=== PATIENT | male | born 1985 | race Caucasian/White ===

== ENCOUNTER → 2024-10-13 | Outpatient (CLI) | payer MEDICARE, MEDICAID, SELFPAY ==
--- NOTE | 2024-10-13 10:30 | XR_ITS ---
Examination: Video esophagram Modified barium swallow Exam date and time: October 13, 2024 1018 hours INDICATIONS: Developmentally delayed patient with difficulty swallowing, history aspiration thin liquids Exam date and time: October 13, 2024 1018 hours TECHNIQUE AND FINDINGS: Patient swallowed barium mixtures including thin barium, pudding barium, cracker barium 95 spot fluoroscopic films of the soft tissue lateral neck obtained with the patient swallowing, fluoroscopy 0.2 minute radiation dose 43.55 milligray Silent aspiration noted with thin barium administration Pharyngeal pooling poor oral control premature transfer noted with the barium Years IMPRESSION: Silent aspiration with administration thin barium
== END | disposition home or self-care (01) ==
LOC: SDIM 10:07
PROVIDERS: PCP Family Medicine; Referring Provider Family Medicine; Visit Provider Family Medicine
DX: R13.14 Dysphagia, pharyngoesophageal phase (principal); R62.50 Unspecified lack of expected normal physiological development in childhood
CPT/HCPCS: 74230; A9270

== ENCOUNTER → 2024-10-14 | Outpatient (CLI) | payer MEDICARE, MEDICAID, SELFPAY ==
--- NOTE | 2024-10-14 11:15 | XR_ITS ---
Examination: PA lateral chest 2 views TECHNIQUE: Upright PA lateral chest 2 views Exam date and time: October 14, 2024 1121 hours INDICATIONS: Difficulty swallowing today, clinical diagnosis aspiration pneumonia. FINDINGS: Bibasilar opacity consistent with pneumonia, also pneumonia in the right middle lobe Suspicious for 3 cm cavitary lesion left lower lobe Normal heart size IMPRESSION: Significant bilateral pneumonia Consider CT chest without contrast follow-up to exclude 3 cm cavitary lesion left lower lobe
== END | disposition home or self-care (01) ==
PROVIDERS: PCP Family Medicine; Referring Provider Family Medicine; Visit Provider Family Medicine
DX: J18.9 Pneumonia, unspecified organism (principal)
CPT/HCPCS: 71046

== ENCOUNTER → 2024-10-14 | Outpatient (CLI) | payer MEDICARE, MEDICAID, SELFPAY ==
[2024-10-14 22:43] LABS: Collection Type, Urine Voided
[2024-10-14 22:55] LABS: Bilirubin,Urine Negative (Negative); Blood,Urine Negative (Negative); Clarity,Urine Clear (Clear/Hazy); Color,Urine Colorless (Lt Yel-Yel); Culture Indicated,Urine Not Indicated; Glucose, Urine Negative (Negative); Ketones,Urine Negative (Negative); Leukocyte Esterase,Urine Negative (Negative); Nitrite,Urine Negative (Negative); Protein,Urine Negative (Neg - Trace); RBC,Urine < 1 /hpf (0-3); Specific Gravity,Urine 1.008 (1.001-1.035); Squamous Epithelial Cell,Urine < 1 /hpf (0-5); Urobilinogen,Urine Negative mg/dL (0.0-1.0); WBC,Urine 1 /hpf (0-5)
== END | disposition home or self-care (01) ==
PROVIDERS: PCP Family Medicine; Referring Provider Family Medicine; Visit Provider Family Medicine
DX: J15.8 Pneumonia due to other specified bacteria (principal)
CPT/HCPCS: 81001; 87081

== ENCOUNTER → 2024-10-18 | Outpatient (CLI) | payer MEDICARE, MEDICAID, SELFPAY | END | disposition home or self-care (01) | LOC: SLDO 14:25 | PROVIDERS: PCP Family Medicine; Referring Provider Family Medicine; Visit Provider Family Medicine | DX: J15.8 Pneumonia due to other specified bacteria (principal) | CPT/HCPCS: 87077; 87186; 87205 ==

== ENCOUNTER 2024-12-02 17:53 | Inpatient (IN) | payer MEDICARE, MEDICAID, SELFPAY ==
[2024-12-02 18:08] VITALS: BP 132/75; PULSE 93; RESP 24; TEMP 37.1
--- NOTE | 2024-12-02 18:12 | PD.EDADULT ---
ED General RME/HPI General Chief complaint: Shortness of Breath/Dyspnea Stated complaint: SOB Time Seen by Provider: 12/02/24 18:42 Arrival date/time: 12/02/24 17:53 Mode of arrival: EMS Limitations: no limitations RME / HPI RME / HPI narrative: Dr. Rios's Main ED Evaluation: 39yo male with a history of frequent episodes of aspiration pneumonia BIBA from [facility] presents to the ED for a chief complaint of possible aspiration. Patient was found to be saturating at 75% on room air. Patient was placed on 2L and went up to 96%. Family states the patient frequently has episodes of increased phlegm, which causes him to have aspiration pneumonia. They deny any recent fevers or vomiting. -Past medical history includes bipolar disorder, hearing loss, overweight, hyperlipidemia, obstructive sleep apnea, dermatitis, acne, nail dystrophy, back pain, nocturnal enuresis, history of COVID-19 history of honey thick liquids only, thyroid disease -alf records show that he had a sputum culture collected and reported on 11/21/24 that showed Klebsiella pneumonia sensitive to Augmentin, Zosyn, cefepime, ceftazidime, ceftriaxone, any pending, levofloxacin, meropenem, piperacillin tazobactam, and Bactrim - History obtained from the family and the medical record skilled nursing. Related Data Home Medications ?Medication ?Instructions ?Recorded ?Confirmed acetaminophen 325 mg tablet 650 mg PO Q6H PRN Fever Or Pain 03/04/24 04/29/24 albuterol sulfate 90 mcg/actuation 2 puff inhalation Q4H PRN Wheezing 03/04/24 04/29/24 aerosol inhaler aspirin 81 mg capsule 81 mg PO QDAY 03/04/24 04/29/24 chlorpromazine 100 mg tablet 100 mg PO BID 03/04/24 04/29/24 clozapine 200 mg tablet 175 mg PO BID 03/04/24 04/29/24 guanfacine 1 mg tablet 1 mg PO BID 03/04/24 04/29/24 guanfacine 2 mg tablet,extended 2 mg PO QDAY 03/04/24 04/29/24 release 24 hr lithium carbonate 300 mg 1,050 mg PO QDAY 03/04/24 04/29/24 tablet,extended release mirtazapine 15 mg tablet 15 mg PO BID 03/04/24 04/29/24 multivitamin with iron-mineral 1 tab PO QDAY 03/04/24 04/29/24 valproic acid (as sodium salt) 250 750 mg PO BID 03/04/24 04/29/24 mg/5 mL oral solution amantadine HCl 100 mg capsule 100 mg PO BID 04/29/24 04/29/24 Allergies Allergy/AdvReac Type Severity Reaction Status Date / Time vancomycin Allergy Unknown Verified 04/29/24 12:34 Review of Systems Review of Systems Systems Reviewed: All systems reviewed, normal except as documented Past Medical History Past Medical History NEUROLOGIC: Positive Neurological Disorders (Developmental delay); Negative Seizures CARDIAC: Positive Cardiac Disorders, Peripheral Vascular Disease (Thromboangiitis obliterans), Hypercholesterolemia, Edema (LLE) and Cellulitis (LLE); Negative Congestive Heart Failure RESPIRATORY: Positive Asthma (cpap at night), Pneumonia (Aspiriation PNA in the past) and Sleep Apnea (Uses CPAP); Negative Chronic Obstructive Pulmonary Disease (COPD) GASTROINTESTINAL: Positive Gastrointestinal Disorders (dysphagia pharyngeal esophageal phase, Dysphagia) GENITOURINARY: Negative Renal Disease MUSCULOSKELETAL: Positive Musculoskeletal Disorders and Degenerative Disk Disease ENT: Positive Deafness ENDOCRINE: Negative Endocrine Disorders, Diabetes Mellitus Type 1 or Diabetes Mellitus Type 2 HEMATOLOGIC: Positive Blood Disorders (Thromocytosis); Negative Sickle Cell Disease PSYCHO/SOCIAL: Positive Psychiatric Problems, Bipolar Disorder, Anxiety and Behavior Problems OTHER HISTORY: Negative Anesthesia Reactions Social History SMOKING STATUS: Current every day smoker ED Exam General Limitations: Present no limitations General appearance: Present alert and in no apparent distress Head Head exam: Present atraumatic Eye Eye exam: Present normal appearance, PERRL and EOMI ENT ENT exam: Present normal exam, normal oropharynx and mucous membranes moist Neck Neck exam: Present normal inspection, full ROM and trachea midline Chest Chest inspection: Present normal inspection and symmetric chest wall rise Respiratory Respiratory exam: Present other (decreased air movement bilaterally; rales bilaterally; no rhonchi) Cardiovascular Cardiovascular exam: Present regular rate, normal rhythm and normal heart sounds Abdominal Exam Abdominal exam: Present soft Extremities Exam Extremities exam: Present normal inspection and full ROM; Absent pedal edema Back Exam Back exam: Present normal inspection and full ROM Neurological Exam Neurological exam: Present alert, oriented X3 and CN II-XII intact Psychiatric Psychiatric exam: Present normal affect and normal mood Skin Skin exam: Present warm, dry, intact and normal color; Absent rash or diaphoresis Course Course Course Narrative: 1943: Sepsis alert initiated. Orders made at this time are congruent with ED Adult Sepsis Order List. Re-evaluation is to be completed. CXR is ordered for determining the etiology of sepsis. 2045: NS IVF started. Patient is still receiving IVF at the time he was admitted. Quality Measures Possible source: pulmonary Blood cultures ordered: yes Antibiotic ordered: Yes Pertinent labs: 12/02/24 20:06 Lactic Acid 1.8 mMol/L (0.4-2.0) Procalcitonin 1.73 H ng/ml (0.0-0.49) sepsis Orders Category Date Time Status Bedside COVID-19 Antigen Test NOW Care 12/02/24 21:53 Active Tag Press Operator STAT Care 12/02/24 19:47 Active Continuous Pulse Oximetry STAT Care 12/02/24 19:47 Completed EKG (ED ONLY) *Do not use* NOW Care 12/02/24 19:47 Completed EKG (ED ONLY) *Do not use* NOW Care 12/02/24 22:01 Active In and Out Catheter X1PRN Care 12/02/24 19:47 Active Insert IV NOW Care 12/02/24 19:47 Active NPO STAT Care 12/02/24 19:47 Active Strict Intake and Output Routine Care 12/02/24 19:47 Ordered Swallow Evaluation NEEDED Care 12/02/24 22:02 Active EKG (ED Only) Stat Exams 12/02/24 19:47 Draft EKG (ED Only) Stat Exams 12/02/24 22:01 Draft XR chest 1V SEPSIS PROTOCOL Stat Exams 12/02/24 19:48 Completed B-Type Natriuretic Peptide Stat Lab 12/02/24 20:06 Completed Blood Culture (Lab) Stat Lab 12/02/24 20:00 Received CBC Stat Lab 12/02/24 20:06 Completed Comprehensive Metabolic Panel Stat Lab 12/02/24 20:06 Completed LDH (Lactate Dehydrogenase) Stat Lab 12/02/24 20:06 Completed Lactate (Lactic Acid) Stat Lab 12/02/24 20:06 Completed Lipase Stat Lab 12/02/24 20:06 Completed Magnesium Stat Lab 12/02/24 20:06 Completed Partial Thromboplastin Time Stat Lab 12/02/24 20:06 Completed Phosphorous Stat Lab 12/02/24 20:06 Completed Procalcitonin Stat Lab 12/02/24 20:06 Completed Prothrombin Time with INR Stat Lab 12/02/24 20:06 Completed Troponin I Stat Lab 12/02/24 20:06 Completed Urinalysis Stat Lab 12/02/24 20:40 Completed Urine Culture Stat Lab 12/02/24 20:40 Received Albuterol/Ipratr Rt Nayana [Duoneb Rt Nayana] Med 12/02/24 21:37 Discontinued 3 ml INH X1 ONE Ondansetron Inj [Zofran Inj] Med 12/02/24 19:47 Active 4 mg IV Q6HR PRN Piper/Tazo 3.375 gm Premix [Zosyn] Med 12/02/24 19:47 Discontinued 3.375 gm in 50 ml IV X1 Sodium Chloride 0.9% 1000 ml [Ns] 1,638 ml Med 12/02/24 19:47 Discontinued IV 1,638 mls/hr Oxygen Delivery NOW RT 12/02/24 19:47 Active Vital Signs Vital signs: Vital Signs Temperature 98.8 F 12/02/24 18:08 Pulse Rate 93 12/02/24 18:08 Respiratory Rate 24 H 12/02/24 18:08 Blood Pressure 132/75 H 12/02/24 18:08 [facility] Patient data External records reviewed:: [facility] previous records (Per chart review, patient was seen here on 02/28/24 for cellulitis of the left leg.) Clinical information provided by:: patient Social determinants that could affect healthcare access:: none Patient has the following chronic illnesses:: none How is presenting disease/condition affected by chronic disease/condition?: no chronic disease Evaluation data The following diagnostics were reviewed and interpreted by me:: lab results, radiology exam(s) and EKG tracing(s) Lab and/or radiology exams considered but not ordered:: none Interpretation Summary: CBC is normal, PT and INR are normal, PTT is normal, Lactic Acid is normal, BNP is normal, Troponin is normal, Procalcitonin is 1.73, UA is unremarkable, according to my interpretation. EKG done at 2031, NSR, rate of 82, normal intervals, normal axis, no acute ST or T wave changes, no STEMI, QTc: 448, according to my interpretation. [place] [facility] Report Signed Patient: JADA HIDALGO [facility] Record#: [id number] Birthdate: 1985 Age/Sex: 39 / M Location: [facility] Attending Dr: Ordering Physician: Elodia Davila MD Date of Service: 12/02/24 Procedure(s): XR chest 1V SEPSIS PROTOCOL Accession Number(s): [id number] cc: Maikel Arcos MD; Elodia Davila MD~ Examination: AP chest single view Technique one AP portable upright chest single view Exam date and time: December 02, 2024 1955 hrs. Comparison October 14, 2024 Indications: Sepsis Findings: Bilateral perihilar bibasilar pneumonia Normal heart size The osseous structures are intact Impression: Bilateral perihilar basilar pneumonia Dictated By: Maikel Arcos MD Signed By: <Electronically signed by Maikel Arcos MD in OV> 12/02/242019 Medications Medications considered but not ordered:: none Medication administrations:: Medication Administration History Acetaminophen (Acetaminophen 325 Mg Tablet) 650 mg PO Q6H PRN PRN Reason: Fever >101.5 Stop: 01/01/25 22:06 Chlorpromazine HCl (Chlorpromazine 10 Mg Tablet) 100 mg PO BID KEVIN Stop: 01/02/25 08:59 Clozapine (Clozapine 50 Mg Tablet) 175 mg PO BID KEVIN Stop: 01/02/25 08:59 Enoxaparin Sodium (Enoxaparin Sod Inj 40 Mg/0.4 Ml Syringe) 40 mg SC QDAY KEVIN Stop: 12/17/24 08:59 Sodium Chloride (Ns) 1,000 mls @ 75 mls/hr IV .[id number] KEVIN Stop: 01/01/25 22:14 Last Admin: 12/02/24 22:31 Dose: 75 mls/hr Documented By: LB Piperacillin/Tazobactam/Dextrose (Zosyn) 50 mls @ 100 mls/hr IV Q8HR KEVIN Stop: 12/09/24 22:08 Levothyroxine Sodium (Levothyroxine Sodium 25 Mcg Tablet) 50 mcg PO ACBR KEVIN Stop: 01/02/25 05:59 [place] Carbonate ([place] Carb 150 Mg Capsule) 300 mg PO TID KEVIN Stop: 01/02/25 05:59 Mirtazapine (Mirtazapine 15 Mg Tablet) 15 mg PO BID KEVIN Stop: 01/02/25 08:59 Ondansetron HCl (Ondansetron Inj 2 Mg/Ml Inj 2 Ml) 4 mg IV Q6HR PRN PRN Reason: NAUSEA OR VOMITING Stop: 01/01/25 19:46 Last Admin: 12/02/24 20:46 Dose: 4 mg Documented By: DMITRIY Valproic Acid (Valproic Acid Syrup 250 Mg/5 Ml Udc) 500 mg PO BID KEVIN Stop: 01/02/25 08:59 Discontinued Medications Albuterol/Ipratropium (Albuterol/Ipratropium (Duoneb) Rt Nayana 3 Ml Nebu) 3 ml INH X1 ONE Stop: 12/02/24 21:38 Last Admin: 12/02/24 21:48 Dose: 3 ml Documented By: FELECIA Sodium Chloride (Ns) 1,638 mls @ 1,638 mls/hr 30 ml/kg infuse over 60 min (1638 ml) IV .Q1H ONE Stop: 12/02/24 20:46 Last Infusion: 12/02/24 21:46 Dose: Infused Documented By: Admin: 12/02/24 20:46 Dose: 1,638 mls/hr Documented By: DMITRIY Piperacillin/Tazobactam/Dextrose (Zosyn) 3.375 gm in 50 mls @ 100 mls/hr IV X1 ONE Stop: 12/02/24 20:16 Last Infusion: 12/02/24 21:18 Dose: Infused Documented By: Admin: 12/02/24 20:48 Dose: 100 mls/hr Documented By: DMITRIY see above Consultations Consultation(s) initiated? (list below): Yes Consultation #1 (Physician, Specialty, Details): Discussed case with Dr. Wilson from Hospitalist service regarding admission. Discussed patients ED course, exam findings, labs, and radiology results. The Hospitalist [agrees] to accept the patient for admission. Time: 21:48 Diagnosis Differential Diagnosis ED Complaint MDM: aspiration pneumonia, pneumonia, viral syndrome Most likely diagnosis given after review of the tests above:: see clinical impression below Admission Indicated Admission indicated?: indicated Explain why admission is indicated or not indicated:: Admission criteria met. Admission Request Was there a request for admission?: Yes Admission Attestation Admission request attestation: Discussed case with [] from Hospitalist service regarding admission. Discussed patients ED course, exam findings, labs, and radiology results. The Hospitalist [agrees,declines] to accept the patient for admission. Disposition Plan Disposition Plan: Admit Medical Decision Making MDM Narrative MDM Narrative: Scribe Attestation: 12/02/24 - Danielle Fitzpatrick, am scribing for and in the presence of Dr. Rios. Differential diagnosis includes aspiration pneumonia, pneumonia, viral syndrome, sepsis Vitals notable for tachypnea, borderline hypoxia. Overall mildly ill-appearing. Presented with possible aspiration and cough. Coarse breath sounds present on the bilateral at the bases. CXR concerning for pneumonia. Comorbidities and high risk features include history of aspiration pneumonia. Given their presentation, history, and exam I think they will benefit from IV antibiotics and inpatient admission. Drawing cultures as well. Patient did not meet SIRS criteria however sepsis with call the emergency department for an unclear etiology but probably secondary to his history of previous aspiration pneumonia. Review of the labs show that his white count is normal at 9.3 with slightly elevated procalcitonin at 1.733. Otherwise lactic acid is normal. Patient is treated with IV antibiotics, IV fluids, and chest x-ray is consistent with pneumonia. Currently stable 92% on room air nasal cannula.At this point I think more malignant etiologies such as PE, ACS, CHF are all possibilities although it seems more likely to be isolated pneumonia. Discussed admission with hospitalist and they agree with the plan. The plan was also discussed with the patient. Differential Diagnosis Differential Diagnosis: aspiration pneumonia, pneumonia, viral syndrome Lab Data 12/02/24 20:06 12/02/24 20:06 Labs: Lab Results 12/02/24 12/02/24 Range/Units 20:06 20:40 WBC 9.3 (3.8-10.6) Thou/mm3 RBC 4.32 L (4.50-5.90) Miln/mm3 Hgb 11.9 L (13.5-16.0) g/dL Hct 36.5 L (41.0-53.0) % MCV 85 (80-100) fL MCH 27.5 (25.0-35.0) pg MCHC 32.6 (31.0-37.0) g/dl RDW Std Deviation 42.3 (35.1-43.9) fL Plt Count 409 (140-440) Thou/mm3 Neut % (Auto) 86 H (37-80) % Lymph % (Auto) 7 L (10-50) % [place] % (Auto) 5 (0-12) % Eos % (Auto) 1 (0-10) % Baso % (Auto) 0 (0-2.5) % Neut # (Auto) 8.0 H (1.8-7.7) Thou/mm3 Lymph # (Auto) 0.6 L (1.0-4.8) Thou/mm3 [place] # (Auto) 0.4 (0.0-0.8) Thou/mm3 Eos # (Auto) 0.1 (0.0-0.5) Thou/mm3 Baso # (Auto) 0.0 (0.0-0.2) Thou/mm3 Immature Gran # (Auto) 0.03 H (0.00-0.00) Thou/mm3 Absolute Nucleated RBC 0.00 (0.00-0.00) Thou/mm3 Immature Gran % 0 (0-0) % Nucleated RBC % 0 (0) /100 WBC PT 11.8 (9.0-12.2) Seconds INR 1.1 (0.9-1.3) APTT 23.1 (22.0-36.0) Seconds Sodium 141 (136-145) mMol/L Potassium 4.2 (3.4-5.1) mMol/L Chloride 106 (98-107) mMol/L Carbon Dioxide 27.0 (20.0-31.0) mMol/L Anion Gap 8 (7-16) BUN 12 (9-23) mg/dL Creatinine 0.9 (0.6-1.3) mg/dL Estim Creat Clear Calc 85.9 (>60) mL/min eGFR > 60 (60 - ) See Note BUN/Creatinine Ratio 13 (12-20) Ratio Glucose 135 H (74-106) mg/dL Calculated Osmolality 282 (275-295) Lactic Acid 1.8 (0.4-2.0) mMol/L Calcium 9.6 (8.3-10.6) mg/dL Corrected Calcium 9.6 (8.5-10.1) mg/dL Phosphorus 2.4 (2.4-5.1) mg/dL Magnesium 1.9 (1.6-2.6) mg/dL Total Bilirubin 0.3 (0.3-1.2) mg/dL AST 42 H (0-34) U/L ALT 45 (10-49) U/L Alkaline Phosphatase 121 H (46-116) U/L Lactate Dehydrogenase 198 (120-246) U/L Troponin I < 0.020 (0.0-0.045) ng/mL B-Natriuretic Peptide < 20 (0-100) pg/mL Total Protein 6.7 (5.7-8.2) gm/dL Albumin 4.1 (3.5-5.0) gm/dL Globulin 2.6 (2.3-3.5) gm/dL Albumin/Globulin Ratio 1.6 (1.2-2.2) Lipase 25 (12-53) U/L Procalcitonin 1.73 H (0.0-0.49) ng/ml Ur Collection Type Clean Catch Urine Color Lt-Yellow (Lt Yel-Yel) Urine Clarity Clear (Clear/Hazy) Urine pH 8.0 H (5.0-7.0) Ur Specific [place] 1.008 (1.001-1.035) Urine Protein Negative (Neg - Trace) Urine Glucose (UA) Negative (Negative) Urine Ketones Negative (Negative) Urine Blood Negative (Negative) Urine Nitrite Negative (Negative) Urine Bilirubin Negative (Negative) Urine Urobilinogen (Auto) Negative (0.0-1.0) mg/dL Ur Leukocyte Esterase Negative (Negative) Urine RBC < 1 (0-3) /hpf Urine WBC < 1 (0-5) /hpf Ur Squamous Epith Cells 0 (0-5) /hpf Urine Bacteria None (None) Critical Care Time Critical Care Time Critical Care Time: Yes Total Critical Care Time (min.): 40 Attestation: The high probability of sudden, clinically significant deterioration in the patient?s condition required the highest level of my preparedness to intervene urgently. The services I provided to this patient were to treat and/or prevent clinically significant deterioration. Services included the following: chart data review, reviewing nursing notes and/or old charts, documentation time, talent consultant collaboration regarding findings and treatment options, medication orders and management, direct patient care, vital sign assessments and ordering, interpreting and reviewing diagnostic studies and lab tests. Aggregate critical care time includes only time during which I was engaged in work directly related to the patient?s care, as described above, whether at bedside or elsewhere in the Emergency Department. It did not include time spent performing other reported procedures or the services of residents, students, nurses or physician assistants. Discharge Plan Plan Patient Disposition: Admit Acute Care w/in Hospital Disposition Comment: Admitted to Dr. Wilson Patient condition on transfer: Stable Problem List Clinical Impression: Aspiration pneumonia
[2024-12-02 19:23] VITALS: BP 104/65; PULSE 90; PULSE 95; RESP 18; RESP 20; TEMP 37.7; O2SAT 92; O2SAT 95; BMI 24.1
--- NOTE | 2024-12-02 19:47 | EKG_ITS ---
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
--- NOTE | 2024-12-02 19:48 | XR_ITS ---
Examination: AP chest single view Technique one AP portable upright chest single view Exam date and time: December 02, 20241954 hrs. Comparison October 14, 2024 Indications: Sepsis Findings: Bilateral perihilar bibasilar pneumonia Normal heart size The osseous structures are intact Impression: Bilateral perihilar basilar pneumonia
[2024-12-02 20:00] VITALS: BP 107/71; PULSE 72; RESP 22; O2SAT 98
[2024-12-02 20:17] LABS: Lactate (Lactic Acid) 1.8 mMol/L (0.4-2.0)
[2024-12-02 20:19] LABS: Basophils % (Auto) 0 % (0-2.5); Eosinophils # (Auto) 0.1 Thou/mm3 (0.0-0.5); Eosinophils % (Auto) 1 % (0-10); Hematocrit 36.5 % (41.0-53.0); Hemoglobin 11.9 g/dL (13.5-16.0); Immature Granulocytes % (Auto) 0 % (0-0); Immature Granulocytes Auto 0.03 Thou/mm3 (0.00-0.00); Lymphocytes # (Auto) 0.6 Thou/mm3 (1.0-4.8); Lymphocytes % (Auto) 7 % (10-50); Mean Corpuscular HGB Conc 32.6 g/dl (31.0-37.0); Mean Corpuscular Hemoglobin 27.5 pg (25.0-35.0); Mean Corpuscular Volume 85 fL (80-100); Monocytes # (Auto) 0.4 Thou/mm3 (0.0-0.8); Monocytes % (Auto) 5 % (0-12); Neutrophils % (Auto) 86 % (37-80); Nucleated Red Blood Cell % 0 /100 WBC (0); Platelet Count 409 Thou/mm3 (140-440); RDW Standard Deviation 42.3 fL (35.1-43.9); Red Blood Count 4.32 Miln/mm3 (4.50-5.90); White Blood Count 9.3 Thou/mm3 (3.8-10.6)
[2024-12-02 20:34] LABS: INR 1.1 (0.9-1.3); Partial Thromboplastin Time 23.1 Seconds (22.0-36.0); Prothrombin Time 11.8 Seconds (9.0-12.2)
[2024-12-02 20:37] LABS: B-Type Natriuretic Peptide < 20 pg/mL (0-100)
[2024-12-02] MEDS: ONDANSETRON INJ 2 MG/ML INJ 2 ML 4 MG IV (20:46)
[2024-12-02] MEDS: SODIUM CHLORIDE 0.9% 1000 ML 1,638 ML 1638 ML IV (20:46)
[2024-12-02] MEDS: PIPER/TAZO 3.375 GM PREMIX 3.375 GM/50 ML BAG IV (20:48)
[2024-12-02 21:00] VITALS: BP 110/60; PULSE 80; RESP 20; RESP 91; O2SAT 98
[2024-12-02 21:00] LABS: Alanine Aminotransferase 45 U/L (10-49); Albumin, Serum 4.1 gm/dL (3.5-5.0); Albumin/Globulin Ratio 1.6 (1.2-2.2); Alkaline Phosphatase 121 U/L (46-116); Anion Gap 8 (7-16); Aspartate Amino Transferase 42 U/L (0-34); BUN/Creatinine Ratio 13 Ratio (12-20); Bilirubin,Total 0.3 mg/dL (0.3-1.2); Blood Urea Nitrogen 12 mg/dL (9-23); Calcium 9.6 mg/dL (8.3-10.6); Calcium (Corrected) 9.6 mg/dL (8.5-10.1); Chloride 106 mMol/L (98-107); Creatinine (Component) 0.9 mg/dL (0.6-1.3); Estimated Creatinine Clearance 85.9 mL/min (>60); Globulin 2.6 gm/dL (2.3-3.5); Glucose 135 mg/dL (74-106); Lipase 25 U/L (12-53); Magnesium 1.9 mg/dL (1.6-2.6); Osmolality,Calculated 282 (275-295); Phosphorous 2.4 mg/dL (2.4-5.1); Potassium 4.2 mMol/L (3.4-5.1); Procalcitonin 1.73 ng/ml (0.0-0.49); Sodium 141 mMol/L (136-145); Total Protein 6.7 gm/dL (5.7-8.2); Troponin I < 0.020 ng/mL (0.0-0.045); eGFR > 60 See Note
[2024-12-02 21:11] LABS: LDH (Lactate Dehydrogenase) 198 U/L (120-246)
[2024-12-02 21:20] LABS: Collection Type, Urine Clean Catch; Squamous Epithelial Cell,Urine 0 /hpf (0-5)
[2024-12-02 21:31] LABS: Bilirubin,Urine Negative (Negative); Blood,Urine Negative (Negative); Clarity,Urine Clear (Clear/Hazy); Color,Urine Lt-Yellow (Lt Yel-Yel); Glucose, Urine Negative (Negative); Ketones,Urine Negative (Negative); Leukocyte Esterase,Urine Negative (Negative); Nitrite,Urine Negative (Negative); Protein,Urine Negative (Neg - Trace); RBC,Urine < 1 /hpf (0-3); Specific Gravity,Urine 1.008 (1.001-1.035); Urobilinogen,Urine Negative mg/dL (0.0-1.0); WBC,Urine < 1 /hpf (0-5)
[2024-12-02 21:48] VITALS: PULSE 78; PULSE 80; RESP 20; O2SAT 96; O2SAT 99
[2024-12-02] MEDS: ALBUTEROL/IPRATROPIUM (Duoneb) RT SOL 3 ML NEBU INH (21:48)
--- NOTE | 2024-12-02 22:01 | EKG_ITS ---
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
--- NOTE | 2024-12-02 22:02 | PD.EVENT ---
Documentation for date of: 12/02/24 Event Note Event Note: A 39-year-old male presented to the ER with the chief complaint of possible aspiration with associated shortness of breath, fever, and chills. Per staff from his residential facility, the patient had been recently treated with doxycycline for pneumonia. On the day of presentation, he attended a hearing aid appointment, returned to the unit, and developed acute chills and shaking, appearing to have a seizure. He was noted to be febrile with SpO2 in the low 80s on room air. He was placed on oxygen, which improved his saturation. Staff reported a history of chronic coughing and frequent aspiration events. He has had recurrent aspiration pneumonias, most recently in September, with another admission to their facility?s hospital wing in October for COVID and pneumonia. Patient denied awareness of reason for hospital visit. Due to above mention, he was brought to ER. The patient has a history of bipolar disorder, anxiety with aggression, developmental delay, sensorineural hearing loss, thromboangiitis obliterans, dysphagia (pharyngeal and esophageal phase), active smoker, hyperlipidemia, and JACQUELINE. Social history includes active smoking (though reportedly abstinent for over a month), no alcohol use. He is ambulatory with assistance and requires supervision during meals. He is on honey-thick liquids and a ground diet. In the ER, vital signs recorded as temp 98.8 ?F, HR 93 bpm, RR 24, BP 132/75 mmHg. Lab revealed WBC 9.3, Hb 11.9, Plt 409, Na 141, K 4.2, BUN 12, Cr 0.9, Glucose 135, Procalcitonin 1.73. CXR demonstrated bilateral perihilar basilar pneumonia. He was admitted for further management.
--- NOTE | 2024-12-02 22:25 | XR_ITS ---
Examination: Venous duplex lower extremity sonogram, bilateral. Date and time of exam: December 02, 2024 10:58 PM Indications: Bilateral leg pain and swelling this week Technique: Multiple sonographic images of the deep venous system have been obtained. B-mode/2-D grayscale imaging of vascular structures and Doppler spectral analysis (waveforms) and color performed Both legs are examined. Findings: Deep venous systems do not demonstrate abnormal echogenicity. All visualized deep veins exhibit compressibility. All visualized deep veins exhibit augmentation. Impression: Negative for deep vein thrombosis
[2024-12-02] MEDS: SODIUM CHLORIDE 0.9% 1000 ML 1,000 ML 75 ML IV (22:31)
--- NOTE | 2024-12-02 22:33 | ESHP_ITS ---
<Statement entered by Magdaleno Melendez MD - 12/02/24 22:46> This 38-year-old male with past medical history of behavioral problems including bipolar disorder, anxiety with aggression overweight, developmental delay, sensorineural hearing loss on hearing aid, thromboangiitis obliterans, acne, dysphagia pharyngeal esophageal phase, active smoker, hyperlipidemia, JACQUELINE admitted for AHFR due to aspiration PNA. Patient presented with shortness of breath, fever and chills. Patient recently completed treatment for pneumonia with doxycycline. He was having an appointment for hearing aid where he was found to have chills and was feverish with an SpO2 as low as 80s on room air. He does have history of recurrent aspiration pneumonia. Chest x-ray was concerning for bilateral perihilar basilar pneumonia. Patient was started on Zosyn and will follow-up on blood cultures. Home medications were reconciled. Continue oxygen as needed. Follow-up on ultrasound Doppler for left lower extremity to rule out DVT. All labs and order reviewed. I saw and examined the patient, and I agree with current management stated by Dr Laith MD,PGY1. Plan of care was discussed with the attending physician and resident physician. Disclaimer: Despite multiple revisions, due to the dictation software being used, the document bellow may not be free of grammatical errors including phonetic/typographic errors. However, this does not deter from our commitment to providing health care in the patient's best interest in mind. Dr. 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 History taken from Kelly who is a staff member at [facility] who states that the patient had an episode where he appeared to be freezing/shivering and appeared to be pale. Patient's SpO2 was checked at the facility and fluctuated from mid 70s to mid 80s; moreover, facility members started the patient on 3-4 L of supplemental oxygenation which improved oxygen to low 90s. Patient was afebrile during this episode with a temperature of 99.2. Per staff member, patient is high risk for aspiration as the always coughs and has collection of sputum in his mouth. Patient is on pur?ed diet along with honey thick liquids but has multiple episodes of aspiration in the past. Staff member Kelly also states that sometime during SeptemberOctober 2024 patient had COVID and had an upper respiratory tract infection; moreover, as needed many of the other residents at the [facility]. Patient is currently awake and answering questions with couple words but overall difficult to understand. Patient denies any concerning symptoms of chest pain, palpitations, dizziness, abdominal pain, nausea/vomiting/diarrhea. Medical history: As stated above Surgical history: Denies Allergies: Vancomycin Medications: As listed Family history: Noncontributory Social history: Currently a resident at [facility] and has been for several years. Patient's sister, Tana's decision maker and very involved in the patient's care. Patient has remote history of smoking tobacco, does not drink alcohol and no history of illicit drug use. ROS: All 12 systems assessed and the patient denies unless otherwise stated in HPI In the ED, patient presented mildly hypertensive 132/75, heart rate 93, respiratory 24, afebrile but requiring 2 L of supplemental oxygen and saturating 92. Pertinent lab findings include WBC 9.3, hemoglobin 11.9 with MCV of 85, sodium 141, BUN 12, creatinine 0.9, EGFR greater than 60, lactic acid 1.8, AST 42, ALT 45, alk phos 121, troponin within normal limits, BNP less than 20, Pro- Josh 1.73. Urinalysis did not show any signs of infection. Chest x-ray showed bilateral perihilar bibasilar pneumonia. EKG showed normal sinus rhythm with no concerning ST changes noted Patient will be admitted for likely aspiration versus bibasilar community- acquired pneumonia and started on IV antibiotics; moreover, Doppler ultrasound will be taken of the left extremity to rule out DVT. Exam Vital Signs Temp Pulse Resp BP Pulse Ox O2 Del Method O2 Flow Rate 99.9 F 80 20 110/60 99 Nasal Cannula 2 12/02/24 19:23 12/02/24 21:48 12/02/24 21:48 12/02/24 21:00 12/02/24 21:48 12/02/24 21:00 12/02/24 21:48 Narrative Exam Physical Exam: GENERAL: Awake, answering questions appropriately with 1-2 words, clear developmental delay, appears stated age. HEENT: NC/AT. Moist mucosa. PERRLA/EOMI. Large amount of sputum collecting in mouth. CARDIO: Heart RRR, no obvious murmurs, no JVD. PULM: No coughing or visible SOB but is on 2 L supplemental oxygen satting 96. L ungs CTA B/L with periodic rhonchi/wheezing. GI: Abdomen soft, NT/ND, +BS. SKIN/MSK/EXT: Acne on anterior chest wall. Left lower extremity +1 pitting edema versus right extremity no edema. No wounds/discoloration/amputations noted. +Pedal pulses present B/L. NEURO: Oriented x3, Moves extremities x4,, no focal neurologic deficits noted. Results: Labs 12/02/24 20:06 12/02/24 20:06 Labs: Short CBC 12/02/24 Range/Units 20:06 WBC 9.3 (3.8-10.6) Thou/mm3 Hgb 11.9 L (13.5-16.0) g/dL Hct 36.5 L (41.0-53.0) % Plt Count 409 (140-440) Thou/mm3 BMP 12/02/24 20:06 Sodium 141 Potassium 4.2 Chloride 106 Carbon Dioxide 27.0 BUN 12 Creatinine 0.9 Glucose 135 H Calcium 9.6 Cardiac Enzymes 12/02/24 Range/Units 20:06 Troponin I < 0.020 (0.0-0.045) ng/mL Liver Function 12/02/24 Range/Units 20:06 Total Bilirubin 0.3 (0.3-1.2) mg/dL AST 42 H (0-34) U/L ALT 45 (10-49) U/L Alkaline Phosphatase 121 H (46-116) U/L Albumin 4.1 (3.5-5.0) gm/dL Urine 12/02/24 Range/Units 20:40 Urine Color Lt-Yellow (Lt Yel-Yel) Urine Clarity Clear (Clear/Hazy) Urine pH 8.0 H (5.0-7.0) Ur Specific [place] 1.008 (1.001-1.035) Urine Protein Negative (Neg - Trace) Urine Glucose (UA) Negative (Negative) Quality Measures Quality Measures sepsis Current suspected stage: ruled out Possible source: pulmonary Blood cultures ordered: yes Antibiotic ordered: Yes Medications Home Medications and Allergies Home Medications ?Medication ?Instructions ?Recorded ?Confirmed ?Type acetaminophen 325 mg tablet 650 mg PO Q6H PRN Fever Or Pain 03/04/24 04/29/24 History albuterol sulfate 90 mcg/actuation 2 puff inhalation Q 4H PRN Wheezing 03/04/24 04/29/24 History aerosol inhaler aspirin 81 mg capsule 81 mg PO QDAY 03/04/2404/29 History chlorpromazine 100 mg tablet 100 mg PO BID 03/04/24 History clozapine 200 mg tablet 175 mg PO BID 03/04/2404/29 History guanfacine 1 mg tablet 1 mg PO BID 03/04/24 4 History guanfacine 2 mg tablet,extended 2 mg PO QDAY 03/04/24 04/29/24 History release 24 hr lithium carbonate 300 mg 1,050 mg PO QDAY 03/04/24 History tablet,extended release mirtazapine 15 mg tablet 15 mg PO BID 03/04/24 History multivitamin with iron-mineral 1 tab PO QDAY 03/04/24 04/29/24 History valproic acid (as sodium salt) 250 750 mg PO BID 03/0404/29/24 History mg/5 mL oral solution amantadine HCl 100 mg capsule 100 mg PO BID 04/29/24 0 04/29/24 History Allergies Allergy/AdvReac Type Severity Reaction Status Date / Time vancomycin Allergy Unknown Verified 04/29/24 12:34 Visit Medications Acetaminophen (Acetaminophen 325 Mg Tablet) 650 mg PO Q6H PRN PRN Reason: Fever >101.5 Stop: 01/01/25 22:06 Chlorpromazine HCl (Chlorpromazine 10 Mg Tablet) 100 mg PO BID [facility] Stop: 01/02/25 08:59 Clozapine (Clozapine 50 Mg Tablet) 175 mg PO BID KEVIN Stop: 01/02/25 08:59 Enoxaparin Sodium (Enoxaparin Sod Inj 40 Mg/0.4 Ml Syringe) 40 mg SC QDAY [facility] Stop: 12/17/24 08:59 Sodium Chloride (Ns) 1,000 mls @ 75 mls/hr IV .[id number] KEVIN Stop: 01/01/25 22:14 Last Admin: 12/02/24 22:31 Dose: 75 mls/hr Piperacillin/Tazobactam/Dextrose (Zosyn) 50 mls @ 100 mls/hr IV Q8HR [facility] Stop: 12/09/24 22:08 Levothyroxine Sodium (Levothyroxine Sodium 25 Mcg Tablet) 50 mcg PO ACBR KEVIN Stop: 01/02/25 05:59 [place] Carbonate (Crescent Bar Carb 150 Mg Capsule) 300 mg PO TID KEVIN Stop: 01/02/25 05:59 Mirtazapine (Mirtazapine 15 Mg Tablet) 15 mg PO BID KEVIN Stop: 01/02/25 08:59 Ondansetron HCl (Ondansetron Inj 2 Mg/Ml Inj 2 Ml) 4 mg IV Q6HR PRN PRN Reason: NAUSEA OR VOMITING Stop: 01/01/25 19:46 Last Admin: 12/02/24 20:46 Dose: 4 mg Valproic Acid (Valproic Acid Syrup 250 Mg/5 Ml Udc) 500 mg PO BID KEVIN Stop: 01/02/25 08:59 Discontinued Medications Albuterol/Ipratropium (Albuterol/Ipratropium (Duoneb) Rt Nayana 3 Ml Nebu) 3 ml INH X1 ONE Stop: 12/02/24 21:38 Last Admin: 12/02/24 21:48 Dose: 3 ml Sodium Chloride (Ns) 1,638 mls @ 1,638 mls/hr 30 ml/kg infuse over 60 min (1638 ml) IV .Q1H ONE Stop: 12/02/24 20:46 Last Infusion: 12/02/24 21:46 Dose: Infused Piperacillin/Tazobactam/Dextrose (Zosyn) 3.375 gm in 50 mls @ 100 mls/hr IV X1 ONE Stop: 12/02/24 20:16 Last Infusion: 12/02/24 21:18 Dose: Infused Assessment & Plan Plan 38-year-old male with past medical history of behavioral disorders including bipolar disorder, anxiety, developmental delay, sensorineural hearing loss on hearing aid, thromboangiitis obliterans, chronic acne of chest, 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 #Aspiration pneumonia #Community-acquired pneumonia As per HPI, patient is a long-term resident at [facility] and has high risk for aspiration Per staff member Kelly, patient had a desaturating event where he dropped to an oxygen saturation of low 70s and required 3 to 4 L of supplemental oxygen Patient has been admitted in the past for similar presentation and as early as October 2024 had COVID and URTI Patient requiring 2 L of supplemental oxygen but saturating around 96% WBC of 9.3, lactic acid of 4.8, Pro-Josh of 1.73 Chest x-ray showed bilateral perihilar bibasilar pneumonia In the ED, patient was given x 1 of Zosyn and breathing treatments Plan: Aspiration precautions, head of bed greater than 30 degrees Dysphagia I diet with honey thick liquids IV Zosyn 3.375 g every 8 Breathing treatments, Xopenex every 8 hours Influenza A&B screen, MRSA nares #Left lower extremity edema Patient has history of left lower extremity edema as noted from previous notes and by speaking to Kelly woo staff member at [facility] On examination, patient does have some lower extremity pain associated with dorsiflexion and plantarflexion; moreover, there is +1 pitting edema compared to the right lower extremity There is no signs of erythema or any history of trauma to the area Patient does not have any history of heart failure but does have JACQUELINE as noted above which could potentially be causing right-sided heart failure Troponin within normal limits, BNP less than 20 Plan: Follow-up on Doppler ultrasound of lower extremities Consider obtaining an echo to rule out any pulmonary arterial hypertension #History of developmental delay #Sensorineural hearing loss wears hearing aid #Psychiatric behavioral disturbances #Bipolar disorder with anxiety with aggression #History of oropharyngeal dysphagia Patient's sister reported that patient has developmental delay with baseline able to talk and answer with yes and no wears hearing aid due to hearing loss. Patient is on extensive antipsychotic, antidepressant medications in the facility; pending official med rec Plan: Resumed patient's home medication #Hypothyroidism Patient on levothyroxine 50 mcg Plan: Restart home medication #Elevated liver enzymes Patient has history of having elevated liver enzymes as noted in previous chart Attributed to likely to use of antipsychotic medications as above Patient denies having any abdominal pain and there is no hepatomegaly appreciated on examination Plan: Monitor with morning labs Consider obtaining ultrasound of liver #Normocytic anemia Patient is presenting with hemoglobin 11.9 with MCV of 85 Likely secondary to nutritional deficits, vitamin versus iron deficiency anemia, anemia of chronic disease; less likely to be hemolytic anemia, bone marrow disorder Plan: Follow-up with morning labs Follow-up on iron panel, ferritin and reticulocyte count Hospital Management: Lines: PIV Diet: Dysphagia I with honey thick liquids Bowel: Senna as needed GI prophylaxis: Not needed DVT prophylaxis: Lovenox Dispo: IV antibiotics for community-acquired pneumonia versus aspiration pneumonia, Doppler ultrasound for possible DVT Code: Full Patient seen and assessed with attending Dr. Wilson and senior resident Dr. Al Bhatti, PGY-1 Attending Provider Attestation/Addendum Pt was evaluated and plan formulated together with the housestaff team. I have reviewed the residents note above and agree with most of its content. Please refer to the residents note for additional details.
[2024-12-02 23:00] VITALS: BP 103/55; PULSE 68; RESP 24; O2SAT 97
[2024-12-03] VITALS (13 sets, daily range): BP systolic 83–103; BP diastolic 44–61; PULSE 65–88; RESP 15–23; TEMP 36.4–37; O2SAT 94–100; BMI 25.7
--- NOTE | 2024-12-03 00:15 | PRELIM_ITS ---
Bilateral lower extremity venous Doppler ultrasound. December 02, 2024 2258 hours Clinical history: Left lower extremity edema with pain No prior study is available for comparison. Findings: Veras scale, color flow and spectral Doppler evaluation of the lower extremity deep veins was performed. Right: The common femoral, superficial femoral and popliteal veins are patent and compressible. Normal respiratory variation is noted. The great saphenous vein is patent at the level of the saphenofemoral junction. The posterior tibial and peroneal veins are patent. Left: The common femoral, superficial femoral and popliteal veins are patent and compressible. Normal respiratory variation is noted. The great saphenous vein is patent at the level of the saphenofemoral junction. The posterior tibial and peroneal veins are patent. Impression: No evidence of deep venous thrombosis in both lower extremities. Report Electronically Signed By: Amari Benavides 12/03/2024 12:14:43 AM [EST]
[2024-12-03] MEDS: PIPER/TAZO INJ 3.375 GM in SODIUM CHLORIDE 0.9% (Popper) 50 ML IV (05:35)
[2024-12-03] MEDS: LITHIUM CARB 150 MG CAPSULE 300 MG PO ×3 (05:35→21:22)
[2024-12-03] MEDS: LEVOTHYROXINE SODIUM 25 MCG TABLET 50 MCG PO (05:35)
[2024-12-03 05:39] LABS: Basophils % (Auto) 0 % (0-2.5); Eosinophils # (Auto) 0.2 Thou/mm3 (0.0-0.5); Eosinophils % (Auto) 3 % (0-10); Hematocrit 34.7 % (41.0-53.0); Hemoglobin 10.9 g/dL (13.5-16.0); Immature Granulocytes % (Auto) 0 % (0-0); Immature Granulocytes Auto 0.02 Thou/mm3 (0.00-0.00); Immature Reticulocyte Fraction 22.7 % (2.3-13.4); Lymphocytes # (Auto) 1.2 Thou/mm3 (1.0-4.8); Lymphocytes % (Auto) 18 % (10-50); Mean Corpuscular HGB Conc 31.4 g/dl (31.0-37.0); Mean Corpuscular Volume 89 fL (80-100); Monocytes # (Auto) 0.4 Thou/mm3 (0.0-0.8); Monocytes % (Auto) 6 % (0-12); Neutrophils # (Auto) 4.9 Thou/mm3 (1.8-7.7); Neutrophils % (Auto) 72 % (37-80); Nucleated Red Blood Cell % 0 /100 WBC (0); Platelet Count 359 Thou/mm3 (140-440); RDW Standard Deviation 45.5 fL (35.1-43.9); Red Blood Count 3.89 Miln/mm3 (4.50-5.90); Reticulocyte % (Auto) 2.3 % (0.5-1.5); Reticulocyte Absolute Auto 88.3 Biln/L (25.0-75.0); Reticulocyte Hgb Content 30.2 pg (28.0-35.0); White Blood Count 6.8 Thou/mm3 (3.8-10.6)
[2024-12-03 06:01] LABS: Ferritin 41 ng/mL (10.5-307.3); Iron 13 mcg/dL (65-175); Percent Iron Saturation 3 % (20-55); Total Iron Binding Capacity 418 mcg/dL (250-425); Unsaturated Iron Binding 405 (225-295)
[2024-12-03 06:02] LABS: Anion Gap 6 (7-16); BUN/Creatinine Ratio 11 Ratio (12-20); Blood Urea Nitrogen 9 mg/dL (9-23); Calcium 8.6 mg/dL (8.3-10.6); Carbon Dioxide 27.3 mMol/L (20.0-31.0); Chloride 110 mMol/L (98-107); Creatinine (Component) 0.8 mg/dL (0.6-1.3); Estimated Creatinine Clearance 96.7 mL/min (>60); Glucose 131 mg/dL (74-106); Magnesium 2.1 mg/dL (1.6-2.6); Osmolality,Calculated 285 (275-295); Phosphorous 2.7 mg/dL (2.4-5.1); Potassium 4.6 mMol/L (3.4-5.1); Sodium 143 mMol/L (136-145); eGFR > 60 See Note
[2024-12-03] MEDS: RINGERS LACTATED 1000 ML 1,000 ML 999 ML IV (08:15)
[2024-12-03] MEDS: VALPROIC ACID SYRUP 250 MG/5 ML UDC 500 MG PO ×2 (10:34→21:22)
[2024-12-03] MEDS: ENOXAPARIN SOD INJ 40 MG/0.4 ML SYRINGE SC (10:34)
[2024-12-03] MEDS: CLOZAPINE 50 MG 175 MG PO ×2 (10:34→21:20)
[2024-12-03] MEDS: MIRTAZAPINE 15 MG TABLET PO ×2 (10:35→21:22)
[2024-12-03 10:43] LABS: Lactate (Lactic Acid) 2.1 mMol/L (0.4-2.0)
[2024-12-03 11:12] LABS: Thyroid Stimulating Hormone 2.48 uIU/mL (0.55-4.78)
[2024-12-03 13:37] LABS: Reflex Lactate? Y
[2024-12-03] MEDS: PIPER/TAZO 3.375 GM PREMIX 3.375 GM/50 ML BAG IV ×2 (13:42→21:23)
[2024-12-03 14:38] LABS: Lactic Acid, 3 HR 0.8 mMol/L (0.4-2.0)
--- NOTE | 2024-12-03 14:40 | ESPR_ITS ---
<Statement entered by Isabelle Saenz MD - 12/09/24 12:55> I reviewed above note and agree with findings and plans. I have also personally examined the patient with medicine team and went over assessment and plan with medical team including industrial design intern and resident physician. Documentation for date of: 12/03/24 Subjective Subjective Interval history: Patient was seen and examined at bedside. No acute overnight events. CBC/CMP unremarkable, just mild anemia with hemoglobin of 10.9, hematocrit of 34.7, no signs or symptoms of acute bleeding continue Zosyn, cultures are still pending, . Blood pressure was running low in the morning, bolus was given, also patient started on midodrine 5 3 times daily, lactic acid is slowly downtrending, continue to trend lactic acid, continue with maintenance IV fluids, monitor vital closely, hypotension could be related also with polypharmacy as patient is on many psych medication on maximum doses. [place] level was ordered, follow-up with results. For now continue antibiotics, continue maintenance fluid, follow- up with a lactic acid , follow-up with cultures. Exam Vital Signs Temp Pulse Resp BP Pulse Ox O2 Del Method O2 Flow Rate 98.6 F 83 16 89/55 L 94 L Nasal Cannula 2 12/03/24 12:00 12/03/24 12:00 12/03/24 12:00 12/03/24 12:00 12/03/24 12:00 12/03/24 04:00 12/03/24 07:55 Narrative Exam Gen: Well-nourished male in no acute distress. He has baseline developmental delay, answering to questions appropriately, however slow in response. HEENT: anicteric conjunctivae., Pupils are reactive to light CVS: normal S1 and S2. RRR. No M/R/G. Resp: Clear to auscultation, no crackles, wheezing noted Abd: soft, non-tender, non-distended. BS+ in all 4 quadrants. MSK: Good ROM in BUE & BLE. Right foot is swollen chronically Neuro: Moderate dysarthria. Limited exam due to medical condition. Objective Labs 12/03/24 05:00 12/03/24 05:00 Labs: Laboratory Results - last 24 hr 12/02/24 12/02/24 12/03/24 20:06 20:40 05:00 WBC 9.3 6.8 RBC 4.32 L 3.89 L Hgb 11.9 L 10.9 L Hct 36.5 L 34.7 L MCV 85 89 MCH 27.5 28.0 MCHC 32.6 31.4 RDW Std Deviation 42.3 45.5 H Plt Count 409 359 D Neut % (Auto) 86 H 72 Lymph % (Auto) 7 L 18 Archer % (Auto) 5 6 Eos % (Auto) 1 3 Baso % (Auto) 0 0 Neut # (Auto) 8.0 H 4.9 Lymph # (Auto) 0.6 L 1.2 Archer # (Auto) 0.4 0.4 Eos # (Auto) 0.1 0.2 Baso # (Auto) 0.0 0.0 Immature Gran # (Auto) 0.03 H 0.02 H Absolute Nucleated RBC 0.00 0.00 Immature Gran % 0 0 Nucleated RBC % 0 0 Retic Count (auto) 2.3 H Absolute Retic 88.3 H Immature Retic Fraction 22.7 H Retic Hgb Content CHr 30.2 PT 11.8 INR 1.1 APTT 23.1 Sodium 141 143 Potassium 4.2 4.6 Chloride 106 110 H Carbon Dioxide 27.0 27.3 Anion Gap 8 6 L BUN 12 9 Creatinine 0.9 0.8 Estim Creat Clear Calc 85.9 96.7 eGFR > 60 > 60 BUN/Creatinine Ratio 13 11 L Glucose 135 H 131 H Calculated Osmolality 282 285 Lactic Acid 1.8 Calcium 9.6 8.6 Corrected Calcium 9.6 Phosphorus 2.4 2.7 Magnesium 1.9 2.1 Iron 13 L TIBC 418 Iron Saturation 3 L Unsat Iron Binding 405 H Ferritin 41 Total Bilirubin 0.3 AST 42 H ALT 45 Alkaline Phosphatase 121 H Lactate Dehydrogenase 198 Troponin I < 0.020 B-Natriuretic Peptide < 20 Total Protein 6.7 Albumin 4.1 Globulin 2.6 Albumin/Globulin Ratio 1.6 Lipase 25 Procalcitonin 1.73 H TSH Ur Collection Type Clean Catch Urine Color Lt-Yellow Urine Clarity Clear Urine pH 8.0 H Ur Specific [place] 1.008 Urine Protein Negative Urine Glucose (UA) Negative Urine Ketones Negative Urine Blood Negative Urine Nitrite Negative Urine Bilirubin Negative Urine Urobilinogen (Auto) Negative Ur Leukocyte Esterase Negative Urine RBC < 1 Urine WBC < 1 Ur Squamous Epith Cells 0 Urine Bacteria None [place] 12/03/24 12/03/24 12/03/24 08:43 10:35 14:31 WBC RBC Hgb Hct MCV MCH MCHC RDW Std Deviation Plt Count Neut % (Auto) Lymph % (Auto) Archer % (Auto) Eos % (Auto) Baso % (Auto) Neut # (Auto) Lymph # (Auto) Archer # (Auto) Eos # (Auto) Baso # (Auto) Immature Gran # (Auto) Absolute Nucleated RBC Immature Gran % Nucleated RBC % Retic Count (auto) Absolute Retic Immature Retic Fraction Retic Hgb Content CHr PT INR APTT Sodium Potassium Chloride Carbon Dioxide Anion Gap BUN Creatinine Estim Creat Clear Calc eGFR BUN/Creatinine Ratio Glucose Calculated Osmolality Lactic Acid 2.1 H 0.8 Calcium Corrected Calcium Phosphorus Magnesium Iron TIBC Iron Saturation Unsat Iron Binding Ferritin Total Bilirubin AST ALT Alkaline Phosphatase Lactate Dehydrogenase Troponin I B-Natriuretic Peptide Total Protein Albumin Globulin Albumin/Globulin Ratio Lipase Procalcitonin TSH 2.48 Ur Collection Type Urine Color Urine Clarity Urine pH Ur Specific [place] Urine Protein Urine Glucose (UA) Urine Ketones Urine Blood Urine Nitrite Urine Bilirubin Urine Urobilinogen (Auto) Ur Leukocyte Esterase Urine RBC Urine WBC Ur Squamous Epith Cells Urine Bacteria [place] 0.80 L Quality Measures Quality Measures sepsis Current suspected stage: sepsis Possible source: pulmonary Blood cultures ordered: yes Antibiotic ordered: Yes Assessment & Plan Assessment Current Active Medications: Generic Name Dose Route Start Last Admin Trade Name Freq PRN Reason Stop Dose Admin Acetaminophen 650 mg 12/02/24 22:07 Acetaminophen 325 Mg Tablet PO 01/01/25 22:06 Q6H PRN Fever >101.5 Chlorpromazine HCl 100 mg 12/03/24 09:00 12/03/24 10:33 Chlorpromazine 10 Mg Tablet PO 01/02/25 08:59 100 mg BID KEVIN Administration Clozapine 175 mg 12/03/24 09:00 12/03/24 10:34 Clozapine 50 Mg Tablet PO 01/02/25 08:59 175 mg BID KEVIN Administration Enoxaparin Sodium 40 mg 12/03/24 09:00 12/03/24 10:34 Enoxaparin Sod Inj 40 Mg/0.4 Ml Syringe SC 12/17/24 08:59 40 mg QDAY KEVIN Administration Sodium Chloride 1,000 mls @ 75 mls/hr 12/02/24 22:15 12/02/24 22:31 Ns IV 01/01/25 22:14 75 mls/hr .[id number] KEVIN Administration Piperacillin/Tazobactam/Dextrose 3.375 gm in 50 mls @ 12.5 mls/hr 12/03/24 14:00 12/03/24 13:42 Zosyn IV 12/10/24 13:59 12.5 mls/hr Q8HR KEVIN Administration Levalbuterol HCl 0.63 mg 12/02/24 22:51 Levalbuterol Rt 0.63 Mg/3 Ml Nebu INH 01/01/25 22:50 Q8HR PRN WHEEZING Levothyroxine Sodium 50 mcg 12/03/24 06:00 12/03/24 05:35 Levothyroxine Sodium 25 Mcg Tablet PO 01/02/25 05:59 50 mcg ACBR KEVIN Administration [place] Carbonate 300 mg 12/03/24 06:00 12/03/24 13:42 [place] Carb 150 Mg Capsule PO 01/02/25 05:59 300 mg TID KEVIN Administration Mirtazapine 15 mg 12/03/24 09:00 12/03/24 10:35 Mirtazapine 15 Mg Tablet PO 01/02/25 08:59 15 mg BID KEVIN Administration Ondansetron HCl 4 mg 12/02/24 19:47 12/02/24 20:46 Ondansetron Inj 2 Mg/Ml Inj 2 Ml IV 01/01/25 19:46 4 mg Q6HR PRN Administration NAUSEA OR VOMITING Sennosides 1 tab 12/02/24 23:05 Senna Tablet PO 01/01/25 23:04 QDAY PRN CONSTIPATION Protocol Valproic Acid 500 mg 12/03/24 09:00 12/03/24 10:34 Valproic Acid Syrup 250 Mg/5 Ml Udc PO 01/02/25 08:59 500 mg BID KEVIN Administration Plan 74-year-old male with past medical history of behavioral disorder including bipolar disorder, anxiety, developmental delay, sensorineural hearing close and hearing aid hyperlipidemia, presented for PTC to ED and was admitted for acute hypoxic respiratory failure secondary due to pneumonia, aspiration versus community-acquired. #Acute hypoxic respiratory failure secondary due to aspiration pneumonia versus community-acquired pneumonia?resolved #Pneumonia, aspiration # community-acquired As per HPI, patient is a long-term resident at [facility] and has high risk for aspiration Per staff member Kelly, patient had a desaturating event where he dropped to an oxygen saturation of low 70s and required 3 to 4 L of supplemental oxygen Patient has been admitted in the past for similar presentation and as early as October 2024 had COVID and URTI Patient requiring 2 L of supplemental oxygen but saturating around 96% WBC of 9.3, lactic acid of 4.8, Pro-Josh of 1.73 Chest x-ray showed bilateral perihilar bibasilar pneumonia In the ED, patient was given x 1 of Zosyn and breathing treatments Plan: -Aspiration precautions, head of bed greater than 30 degrees -Dysphagia I diet with honey thick liquids -IV Zosyn 3.375 g every 8 -Breathing treatments, Xopenex every 8 hours -Follow-up with the cultures #Hypotension DDx would include polypharmacy versus dehydration versus adrenal insufficiency versus inflammatory response Patient was given boluses -Started on midodrine 5 3 times daily - Will close monitor blood pressure, will consider steroids if BP does not improve - on NS 100 cc/h #Left lower extremity edema Ultrasound is negative for DVT Per note appears to be chronic #History of developmental delay #Sensorineural hearing loss wears hearing aid #Psychiatric behavioral disturbances #Bipolar disorder with anxiety with aggression #History of oropharyngeal dysphagia Patient's sister reported that patient has developmental delay with baseline able to talk and answer with yes and no wears hearing aid due to hearing loss. Patient is on extensive antipsychotic, antidepressant medications in the facility; pending official med rec Plan: -Resumed patient's home medication #Hypothyroidism Patient on levothyroxine 50 mcg Plan: Restart home medication - Follow-up with TSH #Elevated liver enzymes Patient has history of having elevated liver enzymes as noted in previous chart Attributed to likely to use of antipsychotic medications as above Patient denies having any abdominal pain and there is no hepatomegaly appreciated on examination Plan: Monitor with morning labs maintenance fluid #Normocytic anemia Patient is presenting with hemoglobin 11.9 with MCV of 85 Likely secondary to nutritional deficits, vitamin versus iron deficiency anemia, anemia of chronic disease; less likely to be hemolytic anemia, bone marrow disorder Plan: Follow-up CBC daily Follow-up on iron panel, ferritin and reticulocyte count Hospital Management: Lines: PIV Diet: Dysphagia I with honey thick liquids Bowel: Senna as needed GI prophylaxis: Not needed DVT prophylaxis: Lovenox Dispo: IV antibiotics for community-acquired pneumonia versus aspiration pneumonia, hypotension Code: Full Patient care was discussed with attending physician Dr. Clara Hooper MD PGY-2
[2024-12-03] MEDS: MIDODRINE 5 MG TABLET PO ×2 (16:10→21:22)
[2024-12-04] VITALS (8 sets, daily range): BP systolic 93–118; BP diastolic 54–74; PULSE 69–87; RESP 17–94; TEMP 36.1–36.4; O2SAT 95–98; BMI 25.7
[2024-12-04] MEDS: SODIUM CHLORIDE 0.9% 1000 ML 1,000 ML 100 ML IV ×2 (01:00→11:30)
[2024-12-04] MEDS: PIPER/TAZO 3.375 GM PREMIX 3.375 GM/50 ML BAG IV (05:38)
[2024-12-04] MEDS: LITHIUM CARB 150 MG CAPSULE 300 MG PO (05:38)
[2024-12-04] MEDS: MIDODRINE 5 MG TABLET PO (05:38)
[2024-12-04] MEDS: LEVOTHYROXINE SODIUM 25 MCG TABLET 50 MCG PO (05:38)
[2024-12-04 05:47] LABS: Lactate (Lactic Acid) 1.2 mMol/L (0.4-2.0)
[2024-12-04 06:00] LABS: Basophils % (Auto) 1 % (0-2.5); Eosinophils # (Auto) 0.5 Thou/mm3 (0.0-0.5); Eosinophils % (Auto) 7 % (0-10); Hematocrit 35.9 % (41.0-53.0); Immature Granulocytes % (Auto) 0 % (0-0); Immature Granulocytes Auto 0.02 Thou/mm3 (0.00-0.00); Lymphocytes # (Auto) 1.3 Thou/mm3 (1.0-4.8); Lymphocytes % (Auto) 19 % (10-50); Mean Corpuscular HGB Conc 30.6 g/dl (31.0-37.0); Mean Corpuscular Hemoglobin 27.8 pg (25.0-35.0); Mean Corpuscular Volume 91 fL (80-100); Monocytes # (Auto) 0.5 Thou/mm3 (0.0-0.8); Monocytes % (Auto) 7 % (0-12); Neutrophils # (Auto) 4.7 Thou/mm3 (1.8-7.7); Neutrophils % (Auto) 66 % (37-80); Nucleated Red Blood Cell % 0 /100 WBC (0); Platelet Count 428 Thou/mm3 (140-440); RDW Standard Deviation 45.5 fL (35.1-43.9); Red Blood Count 3.95 Miln/mm3 (4.50-5.90)
[2024-12-04 06:31] LABS: Anion Gap 8 (7-16); BUN/Creatinine Ratio 9 Ratio (12-20); Blood Urea Nitrogen 7 mg/dL (9-23); Calcium 8.6 mg/dL (8.3-10.6); Chloride 109 mMol/L (98-107); Creatinine (Component) 0.8 mg/dL (0.6-1.3); Estimated Creatinine Clearance 96.7 mL/min (>60); Glucose 105 mg/dL (74-106); Magnesium 1.8 mg/dL (1.6-2.6); Osmolality,Calculated 286 (275-295); Phosphorous 3.3 mg/dL (2.4-5.1); Potassium 4.4 mMol/L (3.4-5.1); Sodium 145 mMol/L (136-145); eGFR > 60 See Note
[2024-12-04] MEDS: CLOZAPINE 50 MG 175 MG PO (09:37)
[2024-12-04] MEDS: PIPER/TAZO INJ 4.5 GM in SODIUM CHLORIDE 0.9% (POP) 100 ML IV ×2 (09:38→11:29)
[2024-12-04] MEDS: ENOXAPARIN SOD INJ 40 MG/0.4 ML SYRINGE SC (09:38)
[2024-12-04] MEDS: VALPROIC ACID SYRUP 250 MG/5 ML UDC 500 MG PO (09:38)
[2024-12-04] MEDS: MIRTAZAPINE 15 MG TABLET PO (09:38)
[2024-12-04] MEDS: NYSTATIN SUSP 5 ML UDC PO (11:30)
--- NOTE | 2024-12-04 12:59 | ESDS_ITS ---
<Statement entered by Isabelle Saenz MD - 12/09/24 12:56> I reviewed above note and agree with findings and plans. I have also personally examined the patient with medicine team and went over assessment and plan with medical team including help desk internship and resident physician. Planned Discharge Date 12/04/24 DS: Providers Provider Date of admission: 12/02/24 22:07 Primary care physician: Jah Bardales (GUERLINE)MD Admitting Provider: Ayo Wilson MD Attending Provider on Admission: Ayo Wilson MD Attending Provider on DC: Dayami Conti MD Discharging Provider: Dayami Conti MD DS: Diagnosis Problem List Completed Was Problem List Reviewed/Reconciled?: Yes Hospital Course Hospital Course Hospital course: Summary: 74-year-old male with past medical history of behavioral disorder including bipolar disorder, anxiety, developmental delay, sensorineural hearing close and hearing aid hyperlipidemia, presented for PTC to ED and was admitted for acute hypoxic respiratory failure secondary due to pneumonia. ER Course: In the ED, patient presented mildly hypertensive 132/75, heart rate 93, respiratory 24, afebrile but requiring 2 L of supplemental oxygen and saturating 92. Pertinent lab findings include WBC 9.3, hemoglobin 11.9 with MCV of 85, sodium 141, BUN 12, creatinine 0.9, EGFR greater than 60, lactic acid 1.8, AST 42, ALT 45, alk phos 121, troponin within normal limits, BNP less than 20, Pro- Josh 1.73. Urinalysis did not show any signs of infection. Chest x-ray showed bilateral perihilar bibasilar pneumonia. EKG showed normal sinus rhythm with no concerning ST changes noted Hospital Course: Alissa is a 39 year old male from [facility] who was admitted form acute hypoxic respiraotry failure secondary to community acquired pneumonia and hypotension. Chest x-ray showed bilateral perihilar bibasilar pneumonia. WBC of 9.3 and lactic acid of 4.8. Flu and Covid negative. Pateint started on board specutrum antibiotic including Zosyn. Negative blood cultures after 24 hours. MRSA negtive. WBC on day of discharge 7.0 and stable vitals. Instructions: -Doxycyline 100 mg BID for pneumonia for 6 more days -Nystatin mouth wash for juan infeciton -please continue the rest of your home medication -Please have primary care provider re-evaluate anti-psychotic medication -Please follow up with your primary care provider within one week of discharge -If your symptoms worsen,please seek immediate medical attention and return to your nearest emergency room -If you do not have a primary care provider, you may follow up at the [facility] at [address] [place] [address] [address], [place] [address], #Acute hypoxic respiratory failure secondary due to aspiration pneumonia versus community-acquired pneumonia?resolved #Pneumonia, aspiration # community-acquired #Hypotension, resolved. #Left lower extremity edema #History of developmental delay #Sensorineural hearing loss wears hearing aid #Psychiatric behavioral disturbances #Bipolar disorder with anxiety with aggression #History of oropharyngeal dysphagia #Hypothyroidism #Elevated liver enzymes #Normocytic anemia - The patient's plan was discussed with attending Dr. Saenz. Dayami Conti MD PGY1 Internal Medicine Time Spent with Patient Time attestation: Total time spent providing and/or coordinating discharge services: at least 30 minute of care and coordination Time spent: Greater than 30 minutes Exam Vital Signs Temp Pulse Resp BP Pulse Ox O2 Del Method O2 Flow Rate 96.9 F 71 19 118/74 95 Room Air 2 12/04/24 12:00 12/04/24 12:00 12/04/24 12:00 12/04/24 12:00 12/04/24 12:00 12/04/24 12:12/04/24 09:00 Narrative Exam General Appearance: Alert & Oriented X3, thin male who is lying in bed in no acute distress HEENT: Skull symmetrical and atraumatic. Conjunctivae pin and moist. Pupils equal, round, reactive to light and accommodation (PERRL). External ear without lesion or discharge. Straight, nares patient, mucosa pink, no discharge. No thyroid nodule appreciated. No cervical lymphadenopathy. Cardio: Normal Rate and Rhythm with S1 and S2 heart sounds. No murmurs or extra heart sounds auscultated. No bruits on carotid auscultation. No peripheral edema or cyanosis. Lungs: Symmetric with good expansion. Chest and back non-tender. Breath sounds vesicular with mild rhonchi on left lower base Abdomen: Non-tender, Non-distended, Normal Reactive Bowel Sounds Neuro: Alert, cooperative, oriented to person, place, and time. Speech clear. CN grossly intact. Upper motor strength 5/5 and Lower motor strength 5/5. Sensation intact. Discharge Plan Plan Patient Disposition: [facility] Facility Disposition Comment: Admitted to Dr. Wilson Patient condition on transfer: Stable Care Plan Goals: Instructions: -Doxycyline 100 mg BID for pneumonia for 6 more days -Nystatin mouth wash for juan infeciton -please continue the rest of your home medication -Please have primary care provider re-evaluate anti-psychotic medication -Please follow up with your primary care provider within one week of discharge -If your symptoms worsen,please seek immediate medical attention and return to your nearest emergency room -If you do not have a primary care provider, you may follow up at the [facility] at [address], [place] [address], Prescriptions/Referrals Prescriptions/Med Rec: New doxycycline hyclate 100 mg capsule 100 mg PO BID 6 Days Qty: 12 0RF nystatin 100,000 unit/mL suspension 1 ml PO QDAY 7 Days Qty: 7 0RF Rx Instructions: swish and swallow mirtazapine 7.5 mg tablet 7.5 mg PO QDAY Qty: 7 0RF Rx Instructions: 7.5 mg at 20:00 Continued acetaminophen 325 mg Tablet 650 mg PO Q6H PRN (Reason: Fever Or Pain) chlorpromazine 100 mg Tablet 100 mg PO BID valproic acid (as sodium salt) 250 mg/5 mL Solution 750 mg PO BID multivitamin with iron-mineral Tablet 1 tab PO QDAY clozapine 200 mg Tablet 175 mg PO BID guanfacine 2 mg Tablet Extended Release 24 Hr 2 mg PO QDAY albuterol sulfate 90 mcg/actuation Hfa Aerosol Inhaler 2 puff INHALATION Q4H PRN (Reason: Wheezing) amantadine HCl 100 mg Capsule 100 mg PO BID levothyroxine [Euthyrox] 50 mcg tablet 50 mcg PO QDAY clozapine 100 mg tablet 300 mg PO BID clozapine 25 mg tablet 25 mg PO QDAY lithium carbonate 450 mg tablet extended release 900 mg PO QDAY mirtazapine 30 mg tablet 30 mg PO QDAY aspirin [Ecotrin Low Strength] 81 mg tablet,delayed release (DR/EC) 81 mg PO QDAY Held guanfacine 1 mg Tablet 1 mg PO BID Hold Instructions: Please follow up with primary care provider aspirin 81 mg Capsule 81 mg PO QDAY Hold Instructions: duplicate Discontinued lithium carbonate 300 mg Tablet Extended Release 1,050 mg PO QDAY mirtazapine 15 mg Tablet 15 mg PO BID mirtazapine 7.5 mg tablet 7.5 mg PO QDAY Referrals: Jeffy (PDC)Jah MD [Primary Care Provider] - Patient/Caregiver Discharge Instructions Print Language: Armenian Stand Alone Forms: Elodia Award Info., Patient Portal Info Letter Discharge Order Discharge Orders: Discharge (Routine); Ordered 12/04/24 Ordered By: Dayami Conti Quality Discharge Quality Measures VTE prophylaxis
== END 2024-12-04 13:18 | DRG 177 ==
LOC: SERX 21:51 → SERHOLD 22:38 → S2NX 12-03 02:54
PROVIDERS: Internal Medicine; Student in an Organized Health Care Education/Training Program; Admitting Provider Internal Medicine; Emergency Provider Emergency Medicine; PCP Internal Medicine; Visit Provider Internal Medicine
DX: J69.0 Pneumonitis due to inhalation of food and vomit (principal); J96.01 Acute respiratory failure with hypoxia; J18.9 Pneumonia, unspecified organism; E03.9 Hypothyroidism, unspecified; E78.5 Hyperlipidemia, unspecified; H90.5 Unspecified sensorineural hearing loss; I95.9 Hypotension, unspecified; F31.9 Bipolar disorder, unspecified; F41.9 Anxiety disorder, unspecified; R62.50 Unspecified lack of expected normal physiological development in childhood; R13.12 Dysphagia, oropharyngeal phase; R74.8 Abnormal levels of other serum enzymes; D63.8 Anemia in other chronic diseases classified elsewhere; F17.200 Nicotine dependence, unspecified, uncomplicated; Z86.16 Personal history of COVID-19; Z79.82 Long term (current) use of aspirin; E66.3 Overweight; Z79.899 Other long term (current) drug therapy; Z88.1 Allergy status to other antibiotic agents; Z87.01 Personal history of pneumonia (recurrent); Z97.4 Presence of external hearing-aid
CPT/HCPCS: 36415; 71045; 80048; 80053; 80178; 81001; 82728; 83540; 83550; 83605; 83615; 83690; 83735; 83880; 84100; 84145; 84443; 84484; 85025; 85046; 85610; 85730; 87040; 87081; 87086; 87400; 87811; 92610; 93005; 93970; 94640; 96365; 96375; 99291; A9270; J1650; J2405; J2543; J7030; J7050; J7120; Q0161

== ENCOUNTER 2025-01-25 15:23 | Inpatient (IN) | payer MEDICARE, MEDICAID, SELFPAY ==
[2025-01-25 15:58] VITALS: BMI 22.9
[2025-01-25 16:00] VITALS: BP 119/77; PULSE 76; RESP 18; TEMP 36.2; O2SAT 96
--- NOTE | 2025-01-25 16:31 | ESHP_ITS ---
<Statement entered by Isabelle Saenz MD - 02/02/25 13:34> I reviewed above note and agree with findings and plans. I have also personally examined the patient with medicine team and went over assessment and plan with medical team including sports intern and resident physician. Documentation for date of: 01/25/25 HPI History of Present Illness Chief complaint: sent by neurology History of present illness: Ayo Argueta is 39 yr male with PMH of dysphagia, bipolar disorder, intellectual disability, leukocytosis, JACQUELINE, myasthenia gravis, thromboangiitis obliterans, acne vulgaris, solitary pulmonary nodule coming from [facility] per neurology due to myasthenia gravis flare. Patient sees Dr. Dietz who noticed increased weakness and increased salivary secretions. Last year patient had platelet count of 1,131,000 and started on enoxaparin 40 mg daily due to bedridden status. Currently taking aspirin daily. Completed video esophagram in 02/2024. It showed vallecular pooling and retention with pudding and crackers. Also showed silent aspiration with nectar and thin liquids. Diet was changed to ground food and honey thickened liquids. Also had gait issues and was referred to PT who started wheelchair for long distances. Behavioral issues include body injury, physical/verbal aggression, assaultive behavior, attempting elopement, suicidal behavior, property destruction. PMH: as noted above PSH: Unknown FamHx: Mother with DM, asthma, hypertension; cancer father side. Both parents . Social: No history of substance abuse. Under conservatorship. Meds: Levothyroxine 50, clozapine 300 mg, lithium 900 mg daily, mirtazapine 37.5 mg, valproic acid syrup 750 mg twice daily, aspirin 81 mg, pantoprazole 40 mg, multivitamin Allergies: vancomycin Admit per neurology for IVIG treatment, pyridostigmine in setting of myasthenia gravis flare. CT chest pending. Review of Systems Review of Systems Systems Reviewed: All systems reviewed, normal except as documented Exam Vital Signs Temp Pulse Resp BP Pulse Ox O2 Del Method 97.2 F 76 18 119/77 96 Room Air 01/25/25 16:01/25/25 16:01/25/25 16:01/25/25 16:00 01/25/25 16:01/25/25 16:00 Narrative Exam General: Young male, tracking, No acute distress, cooperative HEENT: NCAT, No JVD noted. Mucosa dry. Pupils are equal and reactive to light bilaterally Cardiovascular: Normal S1 and S2. Regular rate and rhythm. Respiratory: Lungs are clear to auscultation bilaterally. No wheezing or crackles heard. Abdomen: Soft, nontender, not distended, normal bowel sounds. Skin: Warm to touch, dry, no rashes noted Musculoskeletal: No gross injuries. Able to move all 4 extremities. LLE swelling (appears to be chronic problem), no erythema or tenderness. Neuro: Alert and oriented x1. No focal neuro deficits. Psych: Normal affect and mood Results: Labs 01/25/25 16:42 01/25/25 16:42 Quality Measures Quality Measures VTE prophylaxis Medications Home Medications and Allergies Home Medications ?Medication ?Instructions ?Recorded ?Confirmed ?Type acetaminophen 325 mg tablet 650 mg PO Q6H PRN Fever Or Pain 03/04/24 01/25/25 History chlorpromazine 100 mg tablet 100 mg PO BID 03/04/24 History clozapine 200 mg tablet 175 mg PO BID 03/04/2404/29 History guanfacine 1 mg tablet 1 mg PO BID 03/04/24 5 History guanfacine 2 mg tablet,extended 2 mg PO QDAY 03/04/24 01/25/25 History release 24 hr multivitamin with iron-mineral 1 tab PO QDAY 03/04/24 01/25/25 History valproic acid (as sodium salt) 250 750 mg PO BID 03/0401/25/25 History mg/5 mL oral solution aspirin 81 mg tablet,delayed 81 mg PO QDAY 12/03/24 History release (Ecotrin Low Strength) clozapine 100 mg tablet 300 mg PO BID 12/03/2401/25 History clozapine 25 mg tablet 25 mg PO QDAY 12/03/2401/25 History levothyroxine 50 mcg tablet 50 mcg PO QDAY 12/03/24 History (Euthyrox) lithium carbonate 450 mg 900 mg PO QDAY 12/03/2412/16 History tablet,extended release mirtazapine 30 mg tablet 30 mg PO QDAY 12/03/2401/25 History Allergies Allergy/AdvReac Type Severity Reaction Status Date / Time vancomycin Allergy Unknown Verified 04/29/24 12:34 Visit Medications Acetaminophen (Acetaminophen Supp 650 Mg Supp) 650 mg CO Q6HR PRN PRN Reason: Fever > 100.3 or pain Stop: 02/24/25 16:06 Diphenhydramine HCl (Diphenhydramine Inj 50 Mg/Ml Vial) 25 mg IVP DAILY@1630 KEVIN Stop: 01/29/25 16:31 Heparin Sodium (Porcine) (Heparin Sod Inj 5000 Unit/Ml Vial) 5,000 unit SC Q8HR KEVIN Stop: 02/08/25 16:14 Immune Globulin 20 gm/ Immune Globulin 10 gm/ IV Miscellaneous Supplies 300 mls @ 50 mls/hr IV DAILY@1700 KEVIN Stop: 01/29/25 22:59 Ondansetron HCl (Ondansetron Inj 2 Mg/Ml Inj 2 Ml) 4 mg IVP Q6H PRN; Protocol PRN Reason: NAUSEA OR VOMITING Stop: 02/24/25 16:06 Pyridostigmine [place] (Pyridostigmine [place] 60 Mg Tablet) 30 mg PO TID KEVIN Stop: 02/24/25 16:29 Sennosides (Senna Tablet) 1 tab PO QDAY PRN; Protocol PRN Reason: constipation Stop: 02/24/25 16:06 Assessment & Plan Plan Ayo Argueta is 39 yr male with PMH of dysphagia, bipolar disorder, intellectual disability, thrombocytosis, JACQUELINE, myasthenia gravis, thromboangiitis obliterans, acne vulgaris, solitary pulmonary nodule coming from [facility] per neurology due to myasthenia gravis flare. Patient sees Dr. Dietz who noticed increased weakness and increased salivary secretions. Admit per neurology for IVIG treatment, pyridostigmine in setting of myasthenia gravis flare. CT chest pending. #Myasthenia gravis flare Has functional dysphagia, bulbar weakness/ocular muscle weakness, extraparametal symptoms per neurology. Was sent in to get IVIG. -neurology consulted -IVIG for 5 days -PO pyridostigmine bromide 30 mg 3 times daily (no IV formulation available inpatient) ? Follow-up CT chest with contrast to assess for thymic tissue or thymoma #Dysphagia Completed video esophagram in 02/2024. It showed vallecular pooling and retention with pudding and crackers. Also showed silent aspiration with nectar and thin liquids. Diet was changed to ground food and honey thickened liquids. -dysphagia III diet -liquids mixed with thick honey #Bipolar disorder Takes chlorpromazine 100 twice daily, clozapine 175 mg twice daily, lithium, mirtazapine, valproic acid. ? Med rec pending #JACQUELINE Appears to be non compliant with CPAP per chart review. -CPAP nightly #Thromboangitis obliterans continue aspirin 81mg daily. #Solitary pulmonary nodule Cocci serology negative in 2023. -follow up outpatient Health maintenance: Dispo: med surg for MG flare, IVIG FEN: dysphagia 3, liquids mixed with thick honey DVT prophylaxis: Subcu heparin CODE STATUS: Full code The patient's management plan was discussed with my attending physician Dr. Saenz. Nithya Arroyo, PGY-1
--- NOTE | 2025-01-25 16:32 | XR_ITS ---
Examination: CT chest with intravenous contrast 2-D sagittal and coronal reconstructions Exam date and time: January 25, 2025, 1824 hours Comparison March 04, 2024 INDICATIONS: Myasthenia gravis flare shortness of breath 3 days CTDI:vol (mGy) 9.6 DLP: (mGycm) 339 Technique: Multiple axial sections of the thorax have been obtained. Sections have been obtained, 3 mm slice thickness. Mediastinal and lung density settings have been obtained. Intravenous contrast administered, 60 cc Isovue-370. 2-D sagittal, coronal images obtained. Low dose protocols were performed. One or more of the following dose reduction techniques were used; automated exposure control, adjustment of the mA and/or KV according to patient size, use of iterative reconstruction technique. Findings: Thoracic aorta pulmonary arteries intact No anterior mediastinal mass or other mediastinal lymphadenopathy Enlarging cavitary lesion, thick-walled in the left lower lobe, currently measuring 4.6 cm with surrounding miliary pneumonic consolidation No visualized liver splenic lesion Absent gallbladder No pancreatic or adrenal mass IMPRESSION: No anterior mediastinal mass or other mediastinal lymphadenopathy. Enlarging thick walled cavitary lesion in the left lower lobe with surrounding miliary pneumonic consolidation Highest on the differential list is infectious processes including active tuberculosis
[2025-01-25 16:59] LABS: Basophils % (Auto) 1 % (0-2.5); Eosinophils # (Auto) 0.3 Thou/mm3 (0.0-0.5); Eosinophils % (Auto) 5 % (0-10); Hematocrit 34.2 % (41.0-53.0); Hemoglobin 11.4 g/dL (13.5-16.0); Immature Granulocytes % (Auto) 0 % (0-0); Immature Granulocytes Auto 0.02 Thou/mm3 (0.00-0.00); Lymphocytes # (Auto) 1.4 Thou/mm3 (1.0-4.8); Lymphocytes % (Auto) 22 % (10-50); Mean Corpuscular HGB Conc 33.3 g/dl (31.0-37.0); Mean Corpuscular Hemoglobin 27.3 pg (25.0-35.0); Mean Corpuscular Volume 82 fL (80-100); Monocytes # (Auto) 0.6 Thou/mm3 (0.0-0.8); Monocytes % (Auto) 9 % (0-12); Neutrophils % (Auto) 63 % (37-80); Nucleated Red Blood Cell % 0 /100 WBC (0); Platelet Count 383 Thou/mm3 (140-440); RDW Standard Deviation 41.2 fL (35.1-43.9); Red Blood Count 4.18 Miln/mm3 (4.50-5.90); White Blood Count 6.3 Thou/mm3 (3.8-10.6)
[2025-01-25 17:23] LABS: Alanine Aminotransferase 65 U/L (10-49); Albumin, Serum 3.8 gm/dL (3.5-5.0); Albumin/Globulin Ratio 2.1 (1.2-2.2); Alkaline Phosphatase 120 U/L (46-116); Anion Gap 11 (7-16); Aspartate Amino Transferase 76 U/L (0-34); BUN/Creatinine Ratio 23 Ratio (12-20); Bilirubin,Total < 0.2 mg/dL (0.3-1.2); Blood Urea Nitrogen 18 mg/dL (9-23); C-Reactive Protein 0.7 mg/dL (0.0-0.9); Calcium 8.6 mg/dL (8.3-10.6); Calcium (Corrected) 8.8 mg/dL (8.5-10.1); Chloride 105 mMol/L (98-107); Creatinine (Component) 0.8 mg/dL (0.6-1.3); Globulin 1.8 gm/dL (2.3-3.5); Glucose 93 mg/dL (74-106); Magnesium 2.2 mg/dL (1.6-2.6); Osmolality,Calculated 288 (275-295); Phosphorous 4.3 mg/dL (2.4-5.1); Sodium 144 mMol/L (136-145); Total Protein 5.6 gm/dL (5.7-8.2); eGFR > 60 See Note
[2025-01-25 17:30] LABS: Sed Rate (ESR) 18 mm/hr (0-15)
[2025-01-25] MEDS: HEPARIN SOD INJ 5000 UNIT/ML VIAL SC ×2 (17:56→21:42)
[2025-01-25] MEDS: pyRIDostigmine bromide 60 MG TABLET 30 MG PO (17:57)
[2025-01-25] MEDS: ACETAMINOPHEN 325 MG TABLET 650 MG PO (19:39)
[2025-01-25] MEDS: DiphenhydrAMINE INJ 50 MG/ML VIAL 25 MG IVP (19:40)
[2025-01-25 20:00] VITALS: BP 112/76; PULSE 76; RESP 18; TEMP 36.2; O2SAT 92
[2025-01-25] MEDS: PRE MIXED IV (20:31)
[2025-01-25] MEDS: IMMUNE GLOB GA CA IV (20:31)
[2025-01-25] MEDS: PYRIDOSTIGMINE 5 MG/ML 2 MG IVP (23:21)
--- NOTE | 2025-01-25 23:32 | PD.NEUROCONS ---
History of Present Illness Data of Consult Requesting Physician: Jah Bardales MD (PDC) Primary Care Provider: Jah Bardales MD (PDC) Consult Narrative History of present illness: Ellie is 39 yr male with dysphagia, bipolar disorder, intellectual disability, JACQUELINE, thromboangiitis obliterans, acne vulgaris, solitary pulmonary nodule coming from [facility] per my recommendation due to recent diagnosis of bulbar myasthenia gravis. Patient has been having increased weakness and increased salivary secretions. Last year patient had platelet count of 1,131,000 and started on enoxaparin 40 mg daily due to bedridden status. Currently taking aspirin daily. Completed video esophagram in 02/2024. It showed vallecular pooling and retention with pudding and crackers. Also showed silent aspiration with nectar and thin liquids. Diet was changed to ground food and honey thickened liquids. Also had gait issues and was referred to PT who started wheelchair for long distances. Behavioral issues include body injury, physical/verbal aggression, assaultive behavior, attempting elopement, suicidal behavior, property destruction. This has been treated with current meds and has been stable. He walks with a walker for safety at baseline. cc:: cc: Jah Bardales MD (PDC) Review of Systems Review of Systems Systems Reviewed: All systems reviewed, normal except as documented Past Medical History Past Medical History NEUROLOGIC: Positive Neurological Disorders (Developmental delay); Negative Seizures CARDIAC: Positive Cardiac Disorders, Peripheral Vascular Disease (Thromboangiitis obliterans), Hypercholesterolemia, Edema (LLE) and Cellulitis (LLE); Negative Congestive Heart Failure RESPIRATORY: Positive Asthma (cpap at night), Pneumonia (Aspiriation PNA in the past) and Sleep Apnea (Uses CPAP); Negative Chronic Obstructive Pulmonary Disease (COPD) GASTROINTESTINAL: Positive Gastrointestinal Disorders (dysphagia pharyngeal esophageal phase, Dysphagia) GENITOURINARY: Negative Renal Disease MUSCULOSKELETAL: Positive Musculoskeletal Disorders and Degenerative Disk Disease ENT: Positive Deafness ENDOCRINE: Negative Endocrine Disorders, Diabetes Mellitus Type 1 or Diabetes Mellitus Type 2 HEMATOLOGIC: Positive Blood Disorders (Thromocytosis); Negative Sickle Cell Disease PSYCHO/SOCIAL: Positive Psychiatric Problems, Bipolar Disorder, Anxiety and Behavior Problems OTHER HISTORY: Negative Anesthesia Reactions Social History SMOKING STATUS: Current every day smoker Meds Home Medications and Allergies Home Medications ?Medication ?Instructions ?Recorded ?Confirmed ?Type acetaminophen 325 mg tablet 650 mg PO Q6H PRN Fever Or Pain 03/04/24 01/25/25 History guanfacine 1 mg tablet 1 mg PO BID 03/04/24 01/25/25 History guanfacine 2 mg tablet,extended 2 mg PO QDAY 03/04/24 01/25/25 History release 24 hr multivitamin with iron-mineral 1 tab PO QDAY 03/04/24 01/25/25 History valproic acid (as sodium salt) 250 750 mg PO BID 03/04/24 01/25/25 History mg/5 mL oral solution aspirin 81 mg tablet,delayed 81 mg PO QDAY 12/03/24 01/25/25 History release (Ecotrin Low Strength) clozapine 100 mg tablet 300 mg PO BID 12/03/24 01/25/25 History clozapine 25 mg tablet 25 mg PO QDAY 12/03/24 01/25/25 History levothyroxine 50 mcg tablet 50 mcg PO QDAY 12/03/24 01/25/25 History (Euthyrox) lithium carbonate 450 mg 900 mg PO QDAY 12/03/24 01/25/25 History tablet,extended release mirtazapine 30 mg tablet 30 mg PO QDAY 12/03/24 01/25/25 History docusate sodium 100 mg capsule 100 mg PO BID 01/25/25 01/25/25 History pantoprazole 40 mg tablet,delayed 40 mg PO QDAY 01/25/25 01/25/25 History release Allergies Allergy/AdvReac Type Severity Reaction Status Date / Time vancomycin Allergy Unknown Verified 04/29/24 12:34 Exam - Neurology Vital Signs Temp Pulse Resp BP Pulse Ox O2 Del Method 97.1 F 76 18 112/76 92 L Room Air 01/25/25 20:00 01/25/25 20:00 01/25/25 20:00 01/25/25 20:01/25/25 20:01/25/25 20:00 Narrative Exam GENERAL APPEARANCE: Well hydrated, well-nourished in no acute distress. HEENT: Normocephalic, atraumatic, extraocular movements intact. Pupils: Equal reacting to light and accommodation. Minimal ptosis noted. NECK: Supple, no JVD or bruits. CARDIOVASULAR: Heart: S1, S2 heard, regular without S3-S4 or murmur no rubs or gallops. LUNGS/CHEST: Clear to auscultation bilaterally. No rails, rhonchi, or wheezing. Normal inspection. ABDOMEN: Soft, nontender, with normal bowel sounds. No pulsatile masses. No rebound, rigidity, or guarding. Normal inspection and palpation. EXTREMITIES: Normal inspection and palpation. No edema, clubbing or cyanosis. SKIN: Warm and dry without rashes. Normal inspection. MUSCULOSKELETAL: No cervical, thoracic, lumbar or midline bony tenderness. Normal inspection. NEURO: Alert, awake and oriented x3. Cranial nerves: II through XII grossly intact. Speech and language: Significant dysarthria with hypophonic speech and nasal tone to the voice. Motor system: Tone and bulk: Normal: Strength: 5 out of 5 in all 4 extremities; No pronator drift noted. Deep tendon reflexes: 2+ bilaterally symmetrical. Plantar reflex: Downgoing bilaterally. Sensory system: Intact to all modalities of sensation bilaterally. Coordination: Intact to [id number]-[id number] and hyek-xpax-oofz test bilaterally. No ataxia, no dysmetria, or dysdiadochokinesia noted. No intention tremors noted. Gait: Not tested, no signs of meningeal irritation noted. PSYCHIATRIC: Normal mood and affect. Results Labs 01/26/25 06:07 01/26/25 06:07 Labs: Short CBC 01/25/25 Range/Units 16:42 WBC 6.3 (3.8-10.6) Thou/mm3 Hgb 11.4 L (13.5-16.0) g/dL Hct 34.2 L (41.0-53.0) % Plt Count 383 (140-440) Thou/mm3 BMP 01/25/25 16:42 Sodium 144 Potassium 5.0 Chloride 105 Carbon Dioxide 28.0 BUN 18 Creatinine 0.8 Glucose 93 Calcium 8.6 Liver Function 01/25/25 Range/Units 16:42 Total Bilirubin < 0.2 L (0.3-1.2) mg/dL AST 76 H (0-34) U/L ALT 65 H (10-49) U/L Alkaline Phosphatase 120 H (46-116) U/L Albumin 3.8 (3.5-5.0) gm/dL Assessment & Plan Assessment and plan (1) Bulbar myasthenia gravis: Status: Acute Assessment and plan: As the acetylcholine receptor and musk antibodies were negative and LRP4 antibody was positive from the recent analysis,we have decided to give him a trial of IVIG for 5 days along with IV Mestinon 2 mg every 6 hours to see if his bulbar muscles get stronger in facilitating swallowing and controlling drooling. CT chest: Done to evaluate for thymoma or residual thymic tissue.
[2025-01-26] VITALS (11 sets, daily range): BP systolic 106–118; BP diastolic 64–83; PULSE 61–86; RESP 15–97; TEMP 36.1–36.7; O2SAT 90–99
[2025-01-26] MEDS: HEPARIN SOD INJ 5000 UNIT/ML VIAL SC ×3 (05:13→22:07)
[2025-01-26] MEDS: PYRIDOSTIGMINE 5 MG/ML 2 MG IVP ×3 (05:13→17:17)
[2025-01-26 06:46] LABS: Basophils % (Auto) 1 % (0-2.5); Eosinophils # (Auto) 0.2 Thou/mm3 (0.0-0.5); Eosinophils % (Auto) 3 % (0-10); Hemoglobin 12.4 g/dL (13.5-16.0); Immature Granulocytes % (Auto) 0 % (0-0); Immature Granulocytes Auto 0.03 Thou/mm3 (0.00-0.00); Lymphocytes # (Auto) 0.9 Thou/mm3 (1.0-4.8); Lymphocytes % (Auto) 12 % (10-50); Mean Corpuscular HGB Conc 31.8 g/dl (31.0-37.0); Mean Corpuscular Hemoglobin 27.3 pg (25.0-35.0); Mean Corpuscular Volume 86 fL (80-100); Monocytes # (Auto) 0.6 Thou/mm3 (0.0-0.8); Monocytes % (Auto) 8 % (0-12); Neutrophils % (Auto) 77 % (37-80); Nucleated Red Blood Cell % 0 /100 WBC (0); Platelet Count 454 Thou/mm3 (140-440); RDW Standard Deviation 43.4 fL (35.1-43.9); Red Blood Count 4.55 Miln/mm3 (4.50-5.90); White Blood Count 7.7 Thou/mm3 (3.8-10.6)
[2025-01-26 06:55] LABS: Alanine Aminotransferase 52 U/L (10-49); Albumin, Serum 3.9 gm/dL (3.5-5.0); Albumin/Globulin Ratio 1.4 (1.2-2.2); Alkaline Phosphatase 116 U/L (46-116); Anion Gap 8 (7-16); Aspartate Amino Transferase 44 U/L (0-34); BUN/Creatinine Ratio 15 Ratio (12-20); Bilirubin,Total 0.3 mg/dL (0.3-1.2); Blood Urea Nitrogen 12 mg/dL (9-23); Calcium 8.7 mg/dL (8.3-10.6); Calcium (Corrected) 8.8 mg/dL (8.5-10.1); Chloride 106 mMol/L (98-107); Creatinine (Component) 0.8 mg/dL (0.6-1.3); Globulin 2.8 gm/dL (2.3-3.5); Glucose 109 mg/dL (74-106); Magnesium 1.9 mg/dL (1.6-2.6); Osmolality,Calculated 287 (275-295); Phosphorous 3.3 mg/dL (2.4-5.1); Potassium 4.3 mMol/L (3.4-5.1); Sodium 144 mMol/L (136-145); Thyroid Stimulating Hormone 4.61 uIU/mL (0.55-4.78); Total Protein 6.7 gm/dL (5.7-8.2); eGFR > 60 See Note
[2025-01-26] MEDS: PANTOPRAZOLE 40 MG TABLET PO (09:07)
[2025-01-26] MEDS: DOCUSATE SOD 100 MG CAPSULE PO ×2 (09:08→20:40)
[2025-01-26] MEDS: MULTIVITAMINS TABLET 1 TAB PO (09:08)
[2025-01-26] MEDS: MIRTAZAPINE 15 MG TABLET 7.5 MG PO (09:08)
[2025-01-26] MEDS: ASPIRIN EC 81 MG TABEC PO (09:08)
[2025-01-26] MEDS: LEVOTHYROXINE SODIUM 25 MCG TABLET 50 MCG PO (09:08)
[2025-01-26 09:43] LABS: Lithium 0.48 mEq/L (1.00-1.20)
[2025-01-26] MEDS: VALPROIC ACID SYRUP 250 MG/5 ML UDC 750 MG PO ×2 (10:15→20:40)
[2025-01-26] MEDS: TUBERCULIN PPD INJ 5 UNIT/0.1 ML DOSE ID (11:21)
[2025-01-26 12:03] LABS: Cocci Serology, IgM Negative (Negative)
--- NOTE | 2025-01-26 12:58 | PC.SS ---
Ayo Argueta is a 39 year old male admitted to [facility] for Myasthenia Gravis Flare. Pt is a resident of [facility] and will return upon DC. Pt medical decision maker is his sister Tana Chaves [phone]. DC Plan: PDC PCP: Dr. Bardales
--- NOTE | 2025-01-26 13:12 | PC.SS ---
Rounding: TB R/O on IVIG
--- NOTE | 2025-01-26 14:45 | ESPR_ITS ---
<Statement entered by Isabelle Saenz MD - 02/02/25 13:35> I reviewed above note and agree with findings and plans. I have also personally examined the patient with medicine team and went over assessment and plan with medical team including physician internist and resident physician. Documentation for date of: 01/26/25 Subjective Subjective Interval history: Patient examined at bedside. No major events overnight, patient had no major complaints, no cough, no SOB. Labs are stable, vital stable. All medications from [facility] file were reconciled. He continues to have one-on-one sitter with business enterprise officer in room. CT chest negative for anterior mediastinal mass or LAD. It did show cavitary lesion in left lower lobe which appears to be chronic. Based off chart review, lesion was noticed in August 2023. Labs from 12/2023 including QuantiFERON gold test was negative, cocci serology also negative. We will place patient on isolation/airborne precautions and order AFB sputum stain to rule out any active TB. Follow-up with cocci, Aspergillus serology. Continue IVIG, pyridostigmine in setting of his myasthenia gravis flare. Exam Vital Signs Temp Pulse Resp BP Pulse Ox O2 Del Method 97.2 F 72 16 116/74 95 Room Air 01/26/25 11:42 01/26/25 11:42 01/26/25 11:42 01/26/25 11:42 01/26/25 11:42 01/26/25 11:42 Narrative Exam General: Young male, tracking, No acute distress, cooperative HEENT: NCAT, No JVD noted. Mucosa dry. Pupils are equal and reactive to light bilaterally Cardiovascular: Normal S1 and S2. Regular rate and rhythm. Respiratory: Lungs are clear to auscultation bilaterally. No wheezing or crackles heard. Abdomen: Soft, nontender, not distended, normal bowel sounds. Skin: Warm to touch, dry, no rashes noted Musculoskeletal: No gross injuries. Able to move all 4 extremities. LLE swelling (appears to be chronic problem), no erythema or tenderness. Neuro: Alert and oriented x1. No focal neuro deficits. Psych: Normal affect and mood Objective Labs 01/26/25 06:07 01/26/25 06:07 Labs: Laboratory Results - last 24 hr 01/25/25 01/26/25 01/26/25 16:42 06:07 06:10 WBC 6.3 7.7 RBC 4.18 L 4.55 Hgb 11.4 L 12.4 L Hct 34.2 L 39.0 L MCV 82 86 MCH 27.3 27.3 MCHC 33.3 31.8 RDW Std Deviation 41.2 43.4 Plt Count 383 454 H D Neut % (Auto) 63 77 Lymph % (Auto) 22 12 [place] % (Auto) 9 8 Eos % (Auto) 5 3 Baso % (Auto) 1 1 Neut # (Auto) 4.0 6.0 Lymph # (Auto) 1.4 0.9 L [place] # (Auto) 0.6 0.6 Eos # (Auto) 0.3 0.2 Baso # (Auto) 0.0 0.0 Immature Gran # (Auto) 0.02 H 0.03 H Absolute Nucleated RBC 0.00 0.00 Immature Gran % 0 0 Nucleated RBC % 0 0 ESR 18 H Sodium 144 144 Potassium 5.0 4.3 D Chloride 105 106 Carbon Dioxide 28.0 30.0 Anion Gap 11 8 BUN 18 12 Creatinine 0.8 0.8 Estim Creat Clear Calc 113.0 113.0 eGFR > 60 > 60 BUN/Creatinine Ratio 23 H 15 Glucose 93 109 H Calculated Osmolality 288 287 Calcium 8.6 8.7 Corrected Calcium 8.8 8.8 Phosphorus 4.3 3.3 Magnesium 2.2 1.9 Total Bilirubin < 0.2 L 0.3 AST 76 H 44 H ALT 65 H 52 H Alkaline Phosphatase 120 H 116 C-Reactive Prot, Quant 0.7 Total Protein 5.6 L 6.7 Albumin 3.8 3.9 Globulin 1.8 L 2.8 Albumin/Globulin Ratio 2.1 1.4 TSH 4.61 [place] 0.48 L Coccidioides IgM Ab Negative Quality Measures Quality Measures VTE prophylaxis Assessment & Plan Assessment Current Active Medications: Generic Name Dose Route Start Last Admin Trade Name Freq PRN Reason Stop Dose Admin Acetaminophen 650 mg 01/26/25 08:31 Acetaminophen 325 Mg Tablet PO 02/25/25 08:30 Q6H PRN Fever > 100.4 Acetaminophen 650 mg 01/26/25 08:38 Acetaminophen 325 Mg Tablet PO 02/24/25 16:52 Q6HR PRN MILD PAIN 1-3 Aspirin 81 mg 01/26/25 09:00 01/26/25 09:08 Aspirin Ec 81 Mg Tabec PO 02/25/25 08:59 81 mg QDAY KEVIN Administration Diphenhydramine HCl 25 mg 01/25/25 19:45 01/25/25 19:40 Diphenhydramine Inj 50 Mg/Ml Vial IVP 01/29/25 16:31 25 mg DAILY@1630 KEVIN Administration Docusate Sodium 100 mg 01/26/25 09:00 01/26/25 09:08 Docusate Sod 100 Mg Capsule PO 02/25/25 08:59 100 mg BID KEVIN Administration Protocol Heparin Sodium (Porcine) 5,000 unit 01/25/25 16:15 01/26/25 13:11 Heparin Sod Inj 5000 Unit/Ml Vial SC 02/08/25 16:14 5,000 unit Q8HR KEVIN Administration Immune Globulin G/Gly/IgA 10 300 mls @ 50 mls/hr 01/25/25 20:30 01/25/25 20:31 gm/ Immune Globulin G/Gly/IgA IV 01/29/25 22:59 50 mls/hr 20 gm/ IV Miscellaneous DAILY@1700 KEVIN Administration Supplies Levothyroxine Sodium 50 mcg 01/26/25 09:00 01/26/25 09:08 Levothyroxine Sodium 25 Mcg Tablet PO 02/25/25 08:59 50 mcg QDAY KEVIN Administration Mirtazapine 37.5 mg 01/26/25 21:00 Mirtazapine 15 Mg Tablet PO 02/25/25 20:59 HS COUNTS INCLUDE 234 BEDS AT THE [facility] Multivitamins 1 tab 01/26/25 09:00 01/26/25 09:08 Multivitamins Tablet PO 02/25/25 08:59 1 tab QDAY KEVIN Administration Ondansetron HCl 4 mg 01/25/25 16:07 Ondansetron Inj 2 Mg/Ml Inj 2 Ml IVP 02/24/25 16:06 Q6H PRN NAUSEA OR VOMITING Protocol Pantoprazole Sodium 40 mg 01/26/25 09:00 01/26/25 09:07 Pantoprazole 40 Mg Tablet PO 02/25/25 08:59 40 mg QDAY KEVIN Administration Pyridostigmine [place] 2 mg 01/25/25 19:15 01/26/25 11:39 Pyridostigmine Inj 5 Mg/Ml Amp 2 Ml IVP 02/24/25 19:14 2 mg Q6HR KEVIN Administration Sennosides 1 tab 01/25/25 16:07 Senna Tablet PO 02/24/25 16:06 QDAY PRN constipation Protocol Valproic Acid 750 mg 01/26/25 09:00 01/26/25 10:15 Valproic Acid Syrup 250 Mg/5 Ml Udc PO 02/25/25 08:59 750 mg BID KEVIN Administration Plan Ayo Argueta is 39 yr male with PMH of dysphagia, bipolar disorder, intellectual disability, thrombocytosis, JACQUELINE, myasthenia gravis, thromboangiitis obliterans, acne vulgaris, solitary pulmonary nodule coming from [facility] per neurology due to myasthenia gravis flare. Patient sees Dr. Dietz who noticed increased weakness and increased salivary secretions. Admit per neurology for IVIG treatment, pyridostigmine in setting of myasthenia gravis flare. #Cavitary lesion Ddx: active TB, cocci, aspergillosis CT chest showed cavitary lesion in left lower lobe which appears to be chronic. Based off chart review, lesion was noticed in August 2023. Labs from 12/2023 including QuantiFERON gold test was negative, cocci serology also negative. Appears asymptomatic at this time. -isolation/airborne precautions -AFB sputum stain x3 to rule out any active TB -Follow-up with cocci, Aspergillus serology #Myasthenia gravis flare Has functional dysphagia, bulbar weakness/ocular muscle weakness, extraparametal symptoms per neurology. Was sent in to get IVIG. CT chest negative for anterior mediastinal mass or LAD. -neurology consulted -IVIG for 4 more days -IV pyridostigmine bromide 2mg q6hr ? Follow-up CT chest with contrast to assess for thymic tissue or thymoma #Dysphagia Completed video esophagram in 02/2024. It showed vallecular pooling and retention with pudding and crackers. Also showed silent aspiration with nectar and thin liquids. Diet was changed to ground food and honey thickened liquids. -dysphagia III diet -liquids mixed with thick honey #Bipolar disorder Takes chlorpromazine 100 twice daily, clozapine 175 mg twice daily, lithium, mirtazapine, valproic acid. -resumed medications -lithium levels pending #JACQUELINE Appears to be non compliant with CPAP per chart review. -CPAP nightly #Thromboangitis obliterans continue aspirin 81mg daily. #Solitary pulmonary nodule Cocci serology negative in 2023. -follow up outpatient #Chronic thrombocystosis Continue aspirin 81mg Health maintenance: Dispo: med surg for MG flare, IVIG, TB rule out FEN: dysphagia 3, liquids mixed with thick honey DVT prophylaxis: Subcu heparin CODE STATUS: Full code The patient's management plan was discussed with my attending physician Dr. Saenz. Nithya Arroyo, PGY-1
[2025-01-26] MEDS: ACETAMINOPHEN 325 MG TABLET 650 MG PO (17:18)
[2025-01-26] MEDS: DiphenhydrAMINE INJ 50 MG/ML VIAL 25 MG IVP (17:18)
[2025-01-26] MEDS: PRE MIXED IV (18:08)
[2025-01-26] MEDS: IMMUNE GLOB GA CA IV (18:08)
[2025-01-26 19:23] LABS: Cult AFB Sendout- Sputum* See Sep Rpt
[2025-01-26] MEDS: MIRTAZAPINE 15 MG TABLET 37.5 MG PO (20:37)
--- NOTE | 2025-01-26 21:30 | PC.NURSE ---
RT Kaylie at bedside assessing patient respiratory status. Breathing unlabored, some scaterred crackles, cough, moist non productive. Sitter at bedside.
--- NOTE | 2025-01-26 21:54 | PC.RT ---
Spoke with regarding afb series. pt is dev delayed and has sitter at bedside. pt is unable to follow commands to produce sputum for afb series. states to wait for day team to make decision. RN aware
--- NOTE | 2025-01-26 23:19 | ESPR_ITS ---
Documentation for date of: 01/26/25 Subjective Subjective Interval history: Patient was seen in [facility] today, tolerating IVIG well without any side effects. He has felt some improvement in swallowing and not much drooling noted. His speech has somewhat improved. Exam - Neurology Vital Signs Temp Pulse Resp BP Pulse Ox O2 Del Method O2 Flow Rate 97.0 F 62 26 H 107/69 99 Nasal Cannula 2 01/26/25 23:00 01/26/25 23:00 01/26/25 23:00 01/26/25 23:00 01/26/25 23:00 01/26/25 23:00 01/26/25 23:00 Narrative Exam GENERAL APPEARANCE: Well hydrated, well-nourished in no acute distress. HEENT: Normocephalic, atraumatic, extraocular movements intact. Pupils: Equal reacting to light and accommodation. Minimal ptosis noted. NECK: Supple, no JVD or bruits. CARDIOVASULAR: Heart: S1, S2 heard, regular without S3-S4 or murmur no rubs or gallops. LUNGS/CHEST: Clear to auscultation bilaterally. No rails, rhonchi, or wheezing. Normal inspection. ABDOMEN: Soft, nontender, with normal bowel sounds. No pulsatile masses. No rebound, rigidity, or guarding. Normal inspection and palpation. EXTREMITIES: Normal inspection and palpation. No edema, clubbing or cyanosis. SKIN: Warm and dry without rashes. Normal inspection. MUSCULOSKELETAL: No cervical, thoracic, lumbar or midline bony tenderness. Normal inspection. NEURO: Alert, awake and oriented x3. Cranial nerves: II through XII grossly intact. Speech and language: Significant dysarthria with hypophonic speech and nasal tone to the voice. Motor system: Tone and bulk: Normal: Strength: 5 out of 5 in all 4 extremities; No pronator drift noted. Deep tendon reflexes: 2+ bilaterally symmetrical. Plantar reflex: Downgoing bilaterally. Sensory system: Intact to all modalities of sensation bilaterally. Coordination: Intact to uqsuao-wwbm-lodce and zmkv-ubez-fyjw test bilaterally. No ataxia, no dysmetria, or dysdiadochokinesia noted. No intention tremors noted. Gait: Not tested, no signs of meningeal irritation noted. PSYCHIATRIC: Normal mood and affect. Objective Labs 01/27/25 05:22 06/06/25 05:22 Labs: Laboratory Results - last 24 hr 01/26/25 01/26/25 06:07 06:10 WBC 7.7 RBC 4.55 Hgb 12.4 L Hct 39.0 L MCV 86 MCH 27.3 MCHC 31.8 RDW Std Deviation 43.4 Plt Count 454 H D Neut % (Auto) 77 Lymph % (Auto) 12 [place] % (Auto) 8 Eos % (Auto) 3 Baso % (Auto) 1 Neut # (Auto) 6.0 Lymph # (Auto) 0.[address] [place] [place] # (Auto) 0.6 Eos # (Auto) 0.2 Baso # (Auto) 0.0 Immature Gran # (Auto) 0.03 H Absolute Nucleated RBC 0.00 Immature Gran % 0 Nucleated RBC % 0 Sodium 144 Potassium 4.3 D Chloride 106 Carbon Dioxide 30.0 Anion Gap 8 BUN 12 Creatinine 0.8 Estim Creat Clear Calc 113.0 eGFR > 60 BUN/Creatinine Ratio 15 Glucose 109 H Calculated Osmolality 287 Calcium 8.7 Corrected Calcium 8.8 Phosphorus 3.3 Magnesium 1.9 Total Bilirubin 0.3 AST 44 H ALT 52 H Alkaline Phosphatase 116 Total Protein 6.7 Albumin 3.9 Globulin 2.8 Albumin/Globulin Ratio 1.4 TSH 4.61 [place] 0.48 L Coccidioides IgM Ab Negative Assessment & Plan Assessment and plan (1) Bulbar myasthenia gravis: Status: Acute Assessment and plan: As the acetylcholine receptor and musk antibodies were negative and LRP4 antibody was positive from the recent analysis,we have decided to give him a trial of IVIG for 5 days along with IV Mestinon 2 mg every 6 hours to see if his bulbar muscles get stronger in facilitating swallowing and controlling drooling. CT chest: Done to evaluate for thymoma or residual thymic tissue. As it showed a cavitary lesion suspicious for pulmonary tuberculosis, getting further workup to rule out TB
[2025-01-27] VITALS (8 sets, daily range): BP systolic 91–108; BP diastolic 60–75; PULSE 57–98; RESP 15–24; TEMP 36.1–36.8; O2SAT 94–98
[2025-01-27] MEDS: PYRIDOSTIGMINE 5 MG/ML 2 MG IVP ×5 (00:19→23:38)
[2025-01-27 05:53] LABS: Basophils % (Auto) 1 % (0-2.5); Eosinophils # (Auto) 0.3 Thou/mm3 (0.0-0.5); Eosinophils % (Auto) 7 % (0-10); Hematocrit 37.3 % (41.0-53.0); Hemoglobin 11.9 g/dL (13.5-16.0); Immature Granulocytes % (Auto) 0 % (0-0); Immature Granulocytes Auto 0.01 Thou/mm3 (0.00-0.00); Lymphocytes # (Auto) 1.1 Thou/mm3 (1.0-4.8); Lymphocytes % (Auto) 24 % (10-50); Mean Corpuscular HGB Conc 31.9 g/dl (31.0-37.0); Mean Corpuscular Hemoglobin 26.6 pg (25.0-35.0); Mean Corpuscular Volume 83 fL (80-100); Monocytes # (Auto) 0.4 Thou/mm3 (0.0-0.8); Monocytes % (Auto) 9 % (0-12); Neutrophils # (Auto) 2.5 Thou/mm3 (1.8-7.7); Neutrophils % (Auto) 58 % (37-80); Nucleated Red Blood Cell % 0 /100 WBC (0); Platelet Count 363 Thou/mm3 (140-440); RDW Standard Deviation 43.1 fL (35.1-43.9); Red Blood Count 4.48 Miln/mm3 (4.50-5.90); White Blood Count 4.3 Thou/mm3 (3.8-10.6)
[2025-01-27] MEDS: HEPARIN SOD INJ 5000 UNIT/ML VIAL SC ×3 (06:14→21:30)
[2025-01-27 06:16] LABS: Alanine Aminotransferase 40 U/L (10-49); Albumin, Serum 3.7 gm/dL (3.5-5.0); Albumin/Globulin Ratio 1.1 (1.2-2.2); Alkaline Phosphatase 99 U/L (46-116); Anion Gap 7 (7-16); Aspartate Amino Transferase 33 U/L (0-34); BUN/Creatinine Ratio 16 Ratio (12-20); Bilirubin,Total 0.2 mg/dL (0.3-1.2); Blood Urea Nitrogen 13 mg/dL (9-23); Calcium (Corrected) 9.2 mg/dL (8.5-10.1); Carbon Dioxide 29.8 mMol/L (20.0-31.0); Chloride 102 mMol/L (98-107); Creatinine (Component) 0.8 mg/dL (0.6-1.3); Globulin 3.3 gm/dL (2.3-3.5); Glucose 111 mg/dL (74-106); Osmolality,Calculated 278 (275-295); Potassium 4.4 mMol/L (3.4-5.1); Sodium 139 mMol/L (136-145); eGFR > 60 See Note
[2025-01-27] MEDS: MULTIVITAMINS TABLET 1 TAB PO (08:34)
[2025-01-27] MEDS: ASPIRIN EC 81 MG TABEC PO (08:34)
[2025-01-27] MEDS: LEVOTHYROXINE SODIUM 25 MCG TABLET 50 MCG PO (08:34)
[2025-01-27] MEDS: LITHIUM CARB 150 MG CAPSULE 900 MG PO (08:34)
[2025-01-27] MEDS: VALPROIC ACID SYRUP 250 MG/5 ML UDC 750 MG PO ×2 (08:34→20:50)
[2025-01-27] MEDS: PANTOPRAZOLE 40 MG TABLET PO (08:34)
[2025-01-27] MEDS: DOCUSATE SOD 100 MG CAPSULE PO ×2 (08:34→20:50)
--- NOTE | 2025-01-27 09:21 | ESCONSULT_ITS ---
<Statement entered by Chung Cline MD - 01/27/25 10:37> pt seen with resident. all findings confirmed. see additional notes for details HPI Data of Consult Requesting Physician: Isabelle Saenz MD Admitting Provider: Jah Bardales MD (PDC) Attending Provider: Isabelle Saenz MD Primary Care Provider: Jah OLMEDO)MD Consult Narrative History of present illness: Patient is a 39 yr male with PMH of dysphagia, bipolar disorder, intellectual disability, leukocytosis, JACQUELINE, myasthenia gravis, thromboangiitis obliterans, acne vulgaris, solitary pulmonary nodule coming from [facility] per neurology due to myasthenia gravis flare. ID consulted due to cavitary lung nodule on imaging pending TB and cocci rule out. Patient seen ad assessed at bedside with caregiver present. Patient states to be feeling well, denies any fevers. Per caregiver patient aspirates frequently. cc:: cc: Isabelle Saenz MD Exam Vital Signs Temp Pulse Resp BP Pulse Ox O2 Del Method O2 Flow Rate 98.2 F 98 16 94/60 97 Nasal Cannula 2 01/27/25 08:00 01/27/25 08:00 01/27/25 08:00 01/27/25 08:00 01/27/25 08:00 01/27/25 08:00 01/27/25 08:00 Narrative Exam General: Young male, frail appearing, No acute distress, cooperative Cardiovascular: Regular rate and rhythm. No M/R/G Respiratory: Rales/crackles noted left lower lung zone, clear right lung. On nasal cannula. Abdomen: Soft, nontender, not distended, normal bowel sounds. Skin: Warm to touch, dry, no rashes noted Musculoskeletal: No gross injuries. Able to move all 4 extremities. LLE swollen, no erythema or tenderness. Psych: Appropriate mood and affect. Results Labs 01/27/25 05:22 01/27/25 05:22 Labs: Short CBC 01/27/25 Range/Units 05:22 WBC 4.3 D (3.8-10.6) Thou/mm3 Hgb 11.9 L (13.5-16.0) g/dL Hct 37.3 L (41.0-53.0) % Plt Count 363 D (140-440) Thou/mm3 BMP 01/27/25 05:22 Sodium 139 Potassium 4.4 Chloride 102 Carbon Dioxide 29.8 BUN 13 Creatinine 0.8 Glucose 111 H Calcium 9.0 Liver Function 01/27/25 Range/Units 05:22 Total Bilirubin 0.2 L (0.3-1.2) mg/dL AST 33 (0-34) U/L ALT 40 (10-49) U/L Alkaline Phosphatase 99 (46-116) U/L Albumin 3.7 (3.5-5.0) gm/dL Quality Measures Quality Measures VTE prophylaxis Medications Home Medications and Allergies Home Medications ?Medication ?Instructions ?Recorded ?Confirmed ?Type acetaminophen 325 mg tablet 650 mg PO Q6H PRN Fever Or Pain 03/04/24 01/25/25 History guanfacine 1 mg tablet 1 mg PO BID 03/04/24 5 History guanfacine 2 mg tablet,extended 2 mg PO QDAY 03/04/24 01/25/25 History release 24 hr multivitamin with iron-mineral 1 tab PO QDAY 03/04/24 01/25/25 History valproic acid (as sodium salt) 250 750 mg PO BID 03/0401/25/25 History mg/5 mL oral solution aspirin 81 mg tablet,delayed 81 mg PO QDAY 12/03/24 History release (Ecotrin Low Strength) clozapine 100 mg tablet 300 mg PO BID 12/03/2401/25 History clozapine 25 mg tablet 25 mg PO QDAY 12/03/2401/25 History levothyroxine 50 mcg tablet 50 mcg PO QDAY 12/03/24 History (Euthyrox) lithium carbonate 450 mg 900 mg PO QDAY 12/03/2412/16 History tablet,extended release mirtazapine 30 mg tablet 30 mg PO QDAY 12/03/2401/25 History docusate sodium 100 mg capsule 100 mg PO BID 01/25/25 01/25/25 History pantoprazole 40 mg tablet,delayed 40 mg PO QDAY 01/25/25 History release Allergies Allergy/AdvReac Type Severity Reaction Status Date / Time vancomycin Allergy Unknown Verified 04/29/24 12:34 Visit Medications Acetaminophen (Acetaminophen 325 Mg Tablet) 650 mg PO Q6H PRN PRN Reason: Fever > 100.4 Stop: 02/25/25 08:30 Acetaminophen (Acetaminophen 325 Mg Tablet) 650 mg PO Q6HR PRN PRN Reason: MILD PAIN 1-3 Stop: 02/24/25 16:52 Last Admin: 01/26/25 17:18 Dose: 650 mg Aspirin (Aspirin Ec 81 Mg Tabec) 81 mg PO QDAY [facility] Stop: 02/25/25 08:59 Last Admin: 01/27/25 08:34 Dose: 81 mg Diphenhydramine HCl (Diphenhydramine Inj 50 Mg/Ml Vial) 25 mg IVP DAILY@1630 [facility] Stop: 01/29/25 16:31 Last Admin: 01/26/25 17:18 Dose: 25 mg Docusate Sodium (Docusate Sod 100 Mg Capsule) 100 mg PO BID [facility]; Protocol Stop: 02/25/25 08:59 Last Admin: 01/27/25 08:34 Dose: 100 mg Heparin Sodium (Porcine) (Heparin Sod Inj 5000 Unit/Ml Vial) 5,000 unit SC Q8HR [facility] Stop: 02/08/25 16:14 Last Admin: 01/27/25 06:14 Dose: 5,000 unit Immune Globulin G/Gly/IgA 10 gm/ Immune Globulin G/Gly/IgA 20 gm/ IV Miscellaneous Supplies 300 mls @ 50 mls/hr IV DAILY@1700 [facility] Stop: 01/29/25 22:59 Last Admin: 01/26/25 18:08 Dose: 50 mls/hr Levothyroxine Sodium (Levothyroxine Sodium 25 Mcg Tablet) 50 mcg PO QDAY [facility] Stop: 02/25/25 08:59 Last Admin: 01/27/25 08:34 Dose: 50 mcg [place] Carbonate ([place] Carb 150 Mg Capsule) 900 mg PO QDAY [facility] Stop: 02/26/25 08:59 Last Admin: 01/27/25 08:34 Dose: 900 mg Mirtazapine (Mirtazapine 15 Mg Tablet) 37.5 mg PO HS [facility] Stop: 02/25/25 20:59 Last Admin: 01/26/25 20:37 Dose: 37.5 mg Multivitamins (Multivitamins Tablet) 1 tab PO QDAY [facility] Stop: 02/25/25 08:59 Last Admin: 01/27/25 08:34 Dose: 1 tab Ondansetron HCl (Ondansetron Inj 2 Mg/Ml Inj 2 Ml) 4 mg IVP Q6H PRN; Protocol PRN Reason: NAUSEA OR VOMITING Stop: 02/24/25 16:06 Pantoprazole Sodium (Pantoprazole 40 Mg Tablet) 40 mg PO QDAY [facility] Stop: 02/25/25 08:59 Last Admin: 01/27/25 08:34 Dose: 40 mg Pyridostigmine Arma (Pyridostigmine Inj 5 Mg/Ml Amp 2 Ml) 2 mg IVP Q6HR KEVIN Stop: 02/24/25 19:14 Last Admin: 01/27/25 06:16 Dose: 2 mg Sennosides (Senna Tablet) 1 tab PO QDAY PRN; Protocol PRN Reason: constipation Stop: 02/24/25 16:06 Valproic Acid (Valproic Acid Syrup 250 Mg/5 Ml Udc) 750 mg PO BID [facility] Stop: 02/25/25 08:59 Last Admin: 01/27/25 08:34 Dose: 750 mg Discontinued Medications Acetaminophen (Acetaminophen Supp 650 Mg Supp) 650 mg OR Q6HR PRN PRN Reason: Fever > 100.3 or pain Stop: 02/24/25 16:06 Acetaminophen (Acetaminophen 325 Mg Tablet) 650 mg PO Q6HR PRN PRN Reason: Fever > 100.3 or pain Stop: 02/24/25 16:52 Last Admin: 01/25/25 19:39 Dose: 650 mg Diphenhydramine HCl (Diphenhydramine Inj 50 Mg/Ml Vial) 25 mg IVP DAILY@1630 [facility] Stop: 01/29/25 16:31 Immune Globulin 20 gm/ Immune Globulin 10 gm/ IV Miscellaneous Supplies 300 mls @ 50 mls/hr IV DAILY@1700 [facility] Stop: 01/29/25 22:59 Mirtazapine (Mirtazapine 15 Mg Tablet) 7.5 mg PO QDAY [facility] Stop: 02/25/25 08:59 Last Admin: 01/26/25 09:08 Dose: 7.5 mg Mirtazapine (Mirtazapine 15 Mg Tablet) 30 mg PO QDAY [facility] Stop: 02/25/25 08:59 Mirtazapine (Mirtazapine 15 Mg Tablet) 30 mg PO QDAY [facility] Stop: 02/25/25 08:59 Pyridostigmine Arma (Pyridostigmine Ar[place] 60 Mg Tablet) 30 mg PO TID [facility] Stop: 02/24/25 16:29 Last Admin: 01/25/25 18:08 Dose: Not Given Pyridostigmine Arma (Pyridostigmine Arma 60 Mg Tablet) 30 mg PO TID [facility] Stop: 02/24/25 16:44 Last Admin: 01/25/25 17:57 Dose: 30 mg Sodium Chloride (Sodium Chloride Rt 10% 15 Ml Nebu) 5 ml INH X1 ONE Stop: 01/26/25 08:24 Sodium Chloride (Sodium Chloride Rt 10% 15 Ml Nebu) 5 ml INH X1 ONE Stop: 01/26/25 08:25 Tuberculin PPD (Tuberculin Ppd Inj 5 Unit/0.1 Ml Dose) 5 unit ID X1 ONE Stop: 01/25/25 23:41 Tuberculin PPD (Tuberculin Ppd Inj 5 Unit/0.1 Ml Dose) 5 unit ID X1 ONE Stop: 01/26/25 10:31 Last Admin: 01/26/25 11:21 Dose: 5 unit Assessment & Plan Plan Patient is a 39 yr male with PMH of dysphagia, bipolar disorder, intellectual disability, leukocytosis, JACQUELINE, myasthenia gravis, thromboangiitis obliterans, acne vulgaris, solitary pulmonary nodule coming from [facility] per neurology due to myasthenia gravis flare. ID consulted due to cavitary lung nodule on imaging pending TB and cocci rule out. #Left cavitary lung lesion #Possible Aspiration Pneumonia Imaging since 2023 shows left lung cavitary lesion. Cocci negative thus far. Pending TB rule out. Patient has lost about 5kg since first visit last year. awaiting on AFB's and PPD. Given patient aspirates frequently and lack of fevers at this time we will start Augmentin for 7 days total. #Myasthenia gravis flare #Dysphagia #Bipolar disorder #JACQUELINE #Thromboangitis obliterans #Chronic thrombocystosis Continue management per primary team Case discussed with attending Dr. Sno Hayden MD PGY3
--- NOTE | 2025-01-27 09:45 | PD.IDPROG ---
Subjective Subjective Interval history: pmh noted. lower lobe disease is rarely tb but ok to check . sputums ordered. no fever. not in routine tb room. Exam Vital Signs Temp Pulse Resp BP Pulse Ox O2 Del Method O2 Flow Rate 98.2 F 98 16 94/60 97 Nasal Cannula 2 01/27/25 08:00 01/27/25 08:00 01/27/25 08:00 01/27/25 08:00 01/27/25 08:00 01/27/25 08:00 01/27/25 08:00 Narrative Exam not febrile or ill appearing. ok for 1 week po augmentin with hx of aspiration Objective - Internal Medicine Labs 01/27/25 05:22 01/27/25 05:22 Labs: Laboratory Results - last 24 hr 01/26/25 01/27/25 06:07 05:22 WBC 4.3 D RBC 4.48 L Hgb 11.9 L Hct 37.3 L MCV 83 MCH 26.6 MCHC 31.9 RDW Std Deviation 43.1 Plt Count 363 D Neut % (Auto) 58 Lymph % (Auto) 24 [place] % (Auto) 9 Eos % (Auto) 7 Baso % (Auto) 1 Neut # (Auto) 2.5 Lymph # (Auto) 1.1 [place] # (Auto) 0.4 Eos # (Auto) 0.3 Baso # (Auto) 0.0 Immature Gran # (Auto) 0.01 H Absolute Nucleated RBC 0.00 Immature Gran % 0 Nucleated RBC % 0 Sodium 139 Potassium 4.4 Chloride 102 Carbon Dioxide 29.8 Anion Gap 7 BUN 13 Creatinine 0.8 Estim Creat Clear Calc 113.0 eGFR > 60 BUN/Creatinine Ratio 16 Glucose 111 H Calculated Osmolality 278 Calcium 9.0 Corrected Calcium 9.2 Total Bilirubin 0.2 L AST 33 ALT 40 Alkaline Phosphatase 99 Total Protein 7.0 Albumin 3.7 Globulin 3.3 Albumin/Globulin Ratio 1.1 L Coccidioides IgM Ab Negative Assessment & Plan A&P Narrative lower lobe cavity. seen on prior ct in aug and february 2024 if not before then(no more data on file from before then) no fever. if tb present, then he has had it a long time cocci IgM neg. IgG pending myasthenia bipolar mr/dd as noted. Time Spent With Patient Time: Total time spent is greater than 50% in coordination of care (as documented) at patient's floor/unit and/or counseling patient:
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
[2025-01-27 13:22] LABS: Cocci Serology, IgG Negative (Negative)
--- NOTE | 2025-01-27 14:13 | PC.SS ---
SS follow up note; Pending Sputum cultures, patient will discharge back home when medically cleared.
--- NOTE | 2025-01-27 15:18 | ESPR_ITS ---
<Statement entered by Isabelle Saenz MD - 02/10/25 14:03> I reviewed above note and agree with findings and plans. I have also personally examined the patient with medicine team and went over assessment and plan with medical team including application support intern and resident physician. Documentation for date of: 01/27/25 Subjective Subjective Interval history: Patient examined at bedside. Overnight he reported that RT unable to successfully get sputum sample to send for AFB testing. They will attempt nasopharyngeal suction for sample. Difficult to induce cough as he does not follow commands. He had bowel movement today. Vitals are stable, labs stable. ID will start augmentin for 7 days due to patient's high risk of aspiration. Cocci serology negative. Continue IVIG, pyridostigmine in setting of his myasthenia gravis flare. Exam Vital Signs Temp Pulse Resp BP Pulse Ox O2 Del Method O2 Flow Rate 97.0 F 60 15 108/72 94 L Nasal Cannula 2 01/27/25 12:00 01/27/25 12:01/27/25 12:01/27/25 12:01/27/25 12:01/27/25 12:01/27/25 12:00 Narrative Exam General: Young male, tracking, No acute distress, cooperative HEENT: NCAT, No JVD noted. Mucosa dry. Pupils are equal and reactive to light bilaterally Cardiovascular: Normal S1 and S2. Regular rate and rhythm. Respiratory: Lungs are clear to auscultation bilaterally. No wheezing or crackles heard. Abdomen: Soft, nontender, not distended, normal bowel sounds. Skin: Warm to touch, dry, no rashes noted Musculoskeletal: No gross injuries. Able to move all 4 extremities. LLE swelling (appears to be chronic problem), no erythema or tenderness. Neuro: Alert and oriented x1. No focal neuro deficits. Psych: Normal affect and mood Objective Labs 01/27/25 05:22 01/27/25 05:22 Labs: Laboratory Results - last 24 hr 01/26/25 01/27/25 06:07 05:22 WBC 4.3 D RBC 4.48 L Hgb 11.9 L Hct 37.3 L MCV 83 MCH 26.6 MCHC 31.9 RDW Std Deviation 43.1 Plt Count 363 D Neut % (Auto) 58 Lymph % (Auto) 24 [place] % (Auto) 9 Eos % (Auto) 7 Baso % (Auto) 1 Neut # (Auto) 2.5 Lymph # (Auto) 1.1 [place] # (Auto) 0.4 Eos # (Auto) 0.3 Baso # (Auto) 0.0 Immature Gran # (Auto) 0.01 H Absolute Nucleated RBC 0.00 Immature Gran % 0 Nucleated RBC % 0 Sodium 139 Potassium 4.4 Chloride 102 Carbon Dioxide 29.8 Anion Gap 7 BUN 13 Creatinine 0.8 Estim Creat Clear Calc 113.0 eGFR > 60 BUN/Creatinine Ratio 16 Glucose 111 H Calculated Osmolality 278 Calcium 9.0 Corrected Calcium 9.2 Total Bilirubin 0.2 L AST 33 ALT 40 Alkaline Phosphatase 99 Total Protein 7.0 Albumin 3.7 Globulin 3.3 Albumin/Globulin Ratio 1.1 L Coccidioides IgG Ab Negative Quality Measures Quality Measures VTE prophylaxis Assessment & Plan Assessment Current Active Medications: Generic Name Dose Route Start Last Admin Trade Name Freq PRN Reason Stop Dose Admin Acetaminophen 650 mg 01/26/25 08:31 Acetaminophen 325 Mg Tablet PO 02/25/25 08:30 Q6H PRN Fever > 100.4 Acetaminophen 650 mg 01/26/25 08:38 01/26/25 17:18 Acetaminophen 325 Mg Tablet PO 02/24/25 16:52 650 mg Q6HR PRN Administration MILD PAIN 1-3 Amoxicillin/Clavulanate Potassium 1 tab 01/27/25 21:00 Amoxicillin/Pot Clav 875 Tablet PO 02/03/25 20:59 BID KEVIN Aspirin 81 mg 01/26/25 09:00 01/27/25 08:34 Aspirin Ec 81 Mg Tabec PO 02/25/25 08:59 81 mg QDAY KEVIN Administration Diphenhydramine HCl 25 mg 01/25/25 19:45 01/26/25 17:18 Diphenhydramine Inj 50 Mg/Ml Vial IVP 01/29/25 16:31 25 mg DAILY@1630 KEVIN Administration Docusate Sodium 100 mg 01/26/25 09:00 01/27/25 08:34 Docusate Sod 100 Mg Capsule PO 02/25/25 08:59 100 mg BID KEVIN Administration Protocol Heparin Sodium (Porcine) 5,000 unit 01/25/25 16:15 01/27/25 13:17 Heparin Sod Inj 5000 Unit/Ml Vial SC 02/08/25 16:14 5,000 unit Q8HR KEVIN Administration Immune Globulin G/Gly/IgA 10 300 mls @ 50 mls/hr 01/25/25 20:30 01/26/25 18:08 gm/ Immune Globulin G/Gly/IgA IV 01/29/25 22:59 50 mls/hr 20 gm/ IV Miscellaneous DAILY@1700 KEVIN Administration Supplies Levothyroxine Sodium 50 mcg 01/26/25 09:00 01/27/25 08:34 Levothyroxine Sodium 25 Mcg Tablet PO 02/25/25 08:59 50 mcg QDAY KEVIN Administration Geraldine Carbonate 900 mg 01/27/25 09:00 01/27/25 08:34 [place] Carb 150 Mg Capsule PO 02/26/25 08:59 900 mg QDAY KEVIN Administration Mirtazapine 37.5 mg 01/26/25 21:00 01/26/25 20:37 Mirtazapine 15 Mg Tablet PO 02/25/25 20:59 37.5 mg HS KEVIN Administration Multivitamins 1 tab 01/26/25 09:00 01/27/25 08:34 Multivitamins Tablet PO 02/25/25 08:59 1 tab QDAY KEVIN Administration Ondansetron HCl 4 mg 01/25/25 16:07 Ondansetron Inj 2 Mg/Ml Inj 2 Ml IVP 02/24/25 16:06 Q6H PRN NAUSEA OR VOMITING Protocol Pantoprazole Sodium 40 mg 01/26/25 09:00 01/27/25 08:34 Pantoprazole 40 Mg Tablet PO 02/25/25 08:59 40 mg QDAY KEVIN Administration Pyridostigmine [place] 2 mg 01/25/25 19:15 01/27/25 11:24 Pyridostigmine Inj 5 Mg/Ml Amp 2 Ml IVP 02/24/25 19:14 2 mg Q6HR KEVIN Administration Sennosides 1 tab 01/25/25 16:07 Senna Tablet PO 02/24/25 16:06 QDAY PRN constipation Protocol Valproic Acid 750 mg 01/26/25 09:00 01/27/25 08:34 Valproic Acid Syrup 250 Mg/5 Ml Udc PO 02/25/25 08:59 750 mg BID KEVIN Administration Plan Ayo Argueta is 39 yr male with PMH of dysphagia, bipolar disorder, intellectual disability, thrombocytosis, JACQUELINE, myasthenia gravis, thromboangiitis obliterans, acne vulgaris, solitary pulmonary nodule coming from [facility] per neurology due to myasthenia gravis flare. Patient sees Dr. Dietz who noticed increased weakness and increased salivary secretions. Admit per neurology for IVIG treatment, pyridostigmine in setting of myasthenia gravis flare. #Cavitary lesion Ddx: active TB, cocci, aspergillosis CT chest showed cavitary lesion in left lower lobe which appears to be chronic. Based off chart review, lesion was noticed in August 2023. Labs from 12/2023 including QuantiFERON gold test was negative, cocci serology also negative. Appears asymptomatic at this time. Cocci negative. -ID consulted--start augmentin for 7 days due to patient's high risk of aspiration. -isolation/airborne precautions -AFB sputum stain x3 to rule out any active TB -Follow-up Aspergillus serology #Myasthenia gravis flare Has functional dysphagia, bulbar weakness/ocular muscle weakness, extraparametal symptoms per neurology. Was sent in to get IVIG. CT chest negative for anterior mediastinal mass or LAD. -neurology consulted -IVIG for 4 more days -IV pyridostigmine bromide 2mg q6hr ? Follow-up CT chest with contrast to assess for thymic tissue or thymoma #Dysphagia Completed video esophagram in 02/2024. It showed vallecular pooling and retention with pudding and crackers. Also showed silent aspiration with nectar and thin liquids. Diet was changed to ground food and honey thickened liquids. -dysphagia III diet -liquids mixed with thick honey #Bipolar disorder Takes chlorpromazine 100 twice daily, clozapine 175 mg twice daily, lithium, mirtazapine, valproic acid. -resumed medications -lithium levels pending #JACQUELINE Appears to be non compliant with CPAP per chart review. -CPAP nightly #Thromboangitis obliterans continue aspirin 81mg daily. #Solitary pulmonary nodule Cocci serology negative in 2023. -follow up outpatient #Chronic thrombocystosis Continue aspirin 81mg Health maintenance: Dispo: med surg for MG flare, IVIG, TB rule out FEN: dysphagia 3, liquids mixed with thick honey DVT prophylaxis: Subcu heparin CODE STATUS: Full code The patient's management plan was discussed with my attending physician Dr. Saenz. Nithya Arroyo, PGY-1
[2025-01-27] MEDS: ACETAMINOPHEN 325 MG TABLET 650 MG PO (16:02)
[2025-01-27] MEDS: DiphenhydrAMINE INJ 50 MG/ML VIAL 25 MG IVP (16:03)
--- NOTE | 2025-01-27 17:02 | PC.RT ---
PT NOT ABLE TO PRODUCE SPUTUM PT IS NONVERABLE AND WAS HAVING A DIFFICULT TIME
[2025-01-27] MEDS: IMMUNE GLOB GA CA IV (17:03)
[2025-01-27] MEDS: PRE MIXED IV (17:03)
[2025-01-27] MEDS: AMOXICILLIN/POT CLAV 875 TABLET 1 TAB PO (20:50)
[2025-01-27] MEDS: MIRTAZAPINE 15 MG TABLET 37.5 MG PO (20:50)
--- NOTE | 2025-01-27 21:12 | ESPR_ITS ---
Documentation for date of: 01/27/25 Subjective Subjective Interval history: Patient was seen in [facility] today, tolerating IVIG well without any side effects. He has felt some improvement in swallowing and not much drooling noted. His speech has somewhat improved. Exam - Neurology Vital Signs Temp Pulse Resp BP Pulse Ox O2 Del Method O2 Flow Rate 97.3 F 64 16 103/75 97 Nasal Cannula 2 01/27/25 20:00 01/27/25 20:00 01/27/25 20:00 01/27/25 20:00 01/27/25 20:00 01/27/25 20:00 01/27/25 16:00 Narrative Exam GENERAL APPEARANCE: Well hydrated, well-nourished in no acute distress. HEENT: Normocephalic, atraumatic, extraocular movements intact. Pupils: Equal reacting to light and accommodation. Minimal ptosis noted. NECK: Supple, no JVD or bruits. CARDIOVASULAR: Heart: S1, S2 heard, regular without S3-S4 or murmur no rubs or gallops. LUNGS/CHEST: Clear to auscultation bilaterally. No rails, rhonchi, or wheezing. Normal inspection. ABDOMEN: Soft, nontender, with normal bowel sounds. No pulsatile masses. No rebound, rigidity, or guarding. Normal inspection and palpation. EXTREMITIES: Normal inspection and palpation. No edema, clubbing or cyanosis. SKIN: Warm and dry without rashes. Normal inspection. MUSCULOSKELETAL: No cervical, thoracic, lumbar or midline bony tenderness. Normal inspection. NEURO: Alert, awake and oriented x3. Cranial nerves: II through XII grossly intact. Speech and language: Significant dysarthria with hypophonic speech and nasal tone to the voice. Motor system: Tone and bulk: Normal: Strength: 5 out of 5 in all 4 extremities; No pronator drift noted. Deep tendon reflexes: 2+ bilaterally symmetrical. Plantar reflex: Downgoing bilaterally. Sensory system: Intact to all modalities of sensation bilaterally. Coordination: Intact to [id number]-[id number] and snjv-qmrj-vich test bilaterally. No ataxia, no dysmetria, or dysdiadochokinesia noted. No intention tremors noted. Gait: Not tested, no signs of meningeal irritation noted. PSYCHIATRIC: Normal mood and affect. Objective Labs 01/27/25 05:22 01/27/25 05:22 Labs: Laboratory Results - last 24 hr 01/26/25 01/27/25 06:07 05:22 WBC 4.3 D RBC 4.48 L Hgb 11.9 L Hct 37.3 L MCV 83 MCH 26.6 MCHC 31.9 RDW Std Deviation 43.1 Plt Count 363 D Neut % (Auto) 58 Lymph % (Auto) 24 [place] % (Auto) 9 Eos % (Auto) 7 Baso % (Auto) 1 Neut # (Auto) 2.5 Lymph # (Auto) 1.1 [place] # (Auto) 0.4 Eos # (Auto) 0.3 Baso # (Auto) 0.0 Immature Gran # (Auto) 0.01 H Absolute Nucleated RBC 0.00 Immature Gran % 0 Nucleated RBC % 0 Sodium 139 Potassium 4.4 Chloride 102 Carbon Dioxide 29.8 Anion Gap 7 BUN 13 Creatinine 0.8 Estim Creat Clear Calc 113.0 eGFR > 60 BUN/Creatinine Ratio 16 Glucose 111 H Calculated Osmolality 278 Calcium 9.0 Corrected Calcium 9.2 Total Bilirubin 0.2 L AST 33 ALT 40 Alkaline Phosphatase 99 Total Protein 7.0 Albumin 3.7 Globulin 3.3 Albumin/Globulin Ratio 1.1 L Coccidioides IgG Ab Negative Assessment & Plan Assessment and plan (1) Bulbar myasthenia gravis: Status: Acute Assessment and plan: As the acetylcholine receptor and musk antibodies were negative and LRP4 antibody was positive from the recent analysis,we have decided to give him a trial of IVIG for 5 days along with IV Mestinon 2 mg every 6 hours to see if his bulbar muscles get stronger in facilitating swallowing and controlling drooling. CT chest: Done to evaluate for thymoma or residual thymic tissue. As it showed a cavitary lesion suspicious for pulmonary tuberculosis, getting further workup to rule out TB
[2025-01-28] VITALS (44 sets, daily range): BP systolic 96–145; BP diastolic 56–109; PULSE 53–113; RESP 14–30; TEMP 36.2–36.9; O2SAT 93–100; BMI 22.8
[2025-01-28] MEDS: HEPARIN SOD INJ 5000 UNIT/ML VIAL SC ×3 (05:39→21:17)
[2025-01-28] MEDS: PYRIDOSTIGMINE 5 MG/ML 2 MG IVP ×4 (05:44→23:40)
[2025-01-28 06:01] LABS: Basophils % (Auto) 1 % (0-2.5); Eosinophils # (Auto) 0.3 Thou/mm3 (0.0-0.5); Eosinophils % (Auto) 5 % (0-10); Hematocrit 40.1 % (41.0-53.0); Hemoglobin 12.8 g/dL (13.5-16.0); Immature Granulocytes % (Auto) 1 % (0-0); Immature Granulocytes Auto 0.03 Thou/mm3 (0.00-0.00); Lymphocytes % (Auto) 16 % (10-50); Mean Corpuscular HGB Conc 31.9 g/dl (31.0-37.0); Mean Corpuscular Hemoglobin 27.2 pg (25.0-35.0); Mean Corpuscular Volume 85 fL (80-100); Monocytes # (Auto) 0.5 Thou/mm3 (0.0-0.8); Monocytes % (Auto) 8 % (0-12); Neutrophils # (Auto) 4.4 Thou/mm3 (1.8-7.7); Neutrophils % (Auto) 70 % (37-80); Nucleated Red Blood Cell % 0 /100 WBC (0); Platelet Count 411 Thou/mm3 (140-440); RDW Standard Deviation 43.3 fL (35.1-43.9); White Blood Count 6.3 Thou/mm3 (3.8-10.6)
[2025-01-28 06:38] LABS: Alanine Aminotransferase 39 U/L (10-49); Albumin, Serum 3.8 gm/dL (3.5-5.0); Alkaline Phosphatase 96 U/L (46-116); Anion Gap 9 (7-16); BUN/Creatinine Ratio 13 Ratio (12-20); Bilirubin,Total 0.2 mg/dL (0.3-1.2); Blood Urea Nitrogen 9 mg/dL (9-23); Calcium 9.3 mg/dL (8.3-10.6); Calcium (Corrected) 9.5 mg/dL (8.5-10.1); Chloride 104 mMol/L (98-107); Creatinine (Component) 0.7 mg/dL (0.6-1.3); Estimated Creatinine Clearance 129.1 mL/min (>60); Globulin 3.8 gm/dL (2.3-3.5); Glucose 105 mg/dL (74-106); Osmolality,Calculated 274 (275-295); Potassium 4.1 mMol/L (3.4-5.1); Sodium 138 mMol/L (136-145); Total Protein 7.6 gm/dL (5.7-8.2); eGFR > 60 See Note
[2025-01-28 07:22] LABS: Syphilis Reactive (Nonreactive)
[2025-01-28 07:23] LABS: MHATP/TP-PA* See Sep Rpt
--- NOTE | 2025-01-28 08:51 | ESPR_ITS ---
<Statement entered by Jeniffer Sanz MD - 01/28/25 13:56> I Jeniffer Sanz MD reviewed the note and agree with the resident's assessment & plan with exceptions as below. I have personally reviewed labs, imaging, home meds/prior records, examined the patient, formulated and discussed management plan with the IM team. 39-year-old M with Hx of bipolar disorder, intellectual disability, JACQUELINE, myasthenia gravis admitted for management of myasthenia gravis flare. Currently undergoing IVIG and pyridostigmine therapy for MS flare as per neurology recommendations. Continue to have poor cough, swallowing difficulty however hemodynamically stable. He reported having an episode of watery bowel movement today. Will repeat stool studies if continues to have diarrhea otherwise continue IVIG and residuals thickening along with infectious workup for cavitary lung lesion. Documentation for date of: 01/28/25 Subjective Subjective Interval history: patient was examined bedside this morning , he was complaining of loose stool most likely because we started him on antibiotics yesterday will closely monitor. Syphillis serology was reactive will wait for titer from [facility] and will try to find out if he had treatment before. Exam Vital Signs Temp Pulse Resp BP Pulse Ox O2 Del Method O2 Flow Rate 97.3 F 71 18 118/78 100 Nasal Cannula 2 01/28/25 04:00 01/28/25 04:00 01/28/25 04:00 01/28/25 04:00 01/28/25 04:00 01/28/25 04:00 01/27/25 16:00 Narrative Exam General: Young male, tracking, No acute distress, cooperative HEENT: NCAT, No JVD noted. Mucosa dry. Pupils are equal and reactive to light bilaterally Cardiovascular: Normal S1 and S2. Regular rate and rhythm. Respiratory: Lungs are clear to auscultation bilaterally. No wheezing or crackles heard. Abdomen: Soft, nontender, not distended, normal bowel sounds. Skin: Warm to touch, dry, no rashes noted Musculoskeletal: No gross injuries. Able to move all 4 extremities. LLE swelling (appears to be chronic problem), no erythema or tenderness. Neuro: Alert and oriented x1. No focal neuro deficits. Psych: Normal affect and mood Objective Labs 01/28/25 05:05 01/28/25 05:05 Labs: Laboratory Results - last 24 hr 01/26/25 01/28/25 06:07 05:05 WBC 6.3 D RBC 4.70 Hgb 12.8 L Hct 40.1 L MCV 85 MCH 27.2 MCHC 31.9 RDW Std Deviation 43.3 Plt Count 411 D Neut % (Auto) 70 Lymph % (Auto) 16 [place] % (Auto) 8 Eos % (Auto) 5 Baso % (Auto) 1 Neut # (Auto) 4.4 Lymph # (Auto) 1.0 [place] # (Auto) 0.5 Eos # (Auto) 0.3 Baso # (Auto) 0.0 Immature Gran # (Auto) 0.03 H Absolute Nucleated RBC 0.00 Immature Gran % 1 H Nucleated RBC % 0 Sodium 138 Potassium 4.1 Chloride 104 Carbon Dioxide 25.0 Anion Gap 9 BUN 9 Creatinine 0.7 Estim Creat Clear Calc 129.1 eGFR > 60 BUN/Creatinine Ratio 13 Glucose 105 Calculated Osmolality 274 L Calcium 9.3 Corrected Calcium 9.5 Total Bilirubin 0.2 L ALT 39 Alkaline Phosphatase 96 Total Protein 7.6 Albumin 3.8 Globulin 3.8 H Albumin/Globulin Ratio 1.0 L Syphilis Serology Reactive A D Coccidioides IgG Ab Negative Quality Measures Quality Measures VTE prophylaxis Assessment & Plan Assessment Current Active Medications: Generic Name Dose Route Start Last Admin Trade Name Freq PRN Reason Stop Dose Admin Acetaminophen 650 mg 01/26/25 08:31 Acetaminophen 325 Mg Tablet PO 02/25/25 08:30 Q6H PRN Fever > 100.4 Acetaminophen 650 mg 01/26/25 08:38 01/27/25 16:02 Acetaminophen 325 Mg Tablet PO 02/24/25 16:52 650 mg Q6HR PRN Administration MILD PAIN 1-3 Amoxicillin/Clavulanate Potassium 1 tab 01/27/25 21:00 01/27/25 20:50 Amoxicillin/Pot Clav 875 Tablet PO 02/03/25 20:59 1 tab BID KEVIN Administration Aspirin 81 mg 01/26/25 09:00 01/27/25 08:34 Aspirin Ec 81 Mg Tabec PO 02/25/25 08:59 81 mg QDAY KEVIN Administration Diphenhydramine HCl 25 mg 01/25/25 19:45 01/27/25 16:03 Diphenhydramine Inj 50 Mg/Ml Vial IVP 01/29/25 16:31 25 mg DAILY@1630 KEVIN Administration Docusate Sodium 100 mg 01/26/25 09:00 01/27/25 20:50 Docusate Sod 100 Mg Capsule PO 02/25/25 08:59 100 mg BID KEVIN Administration Protocol Heparin Sodium (Porcine) 5,000 unit 01/25/25 16:15 01/28/25 05:39 Heparin Sod Inj 5000 Unit/Ml Vial SC 02/08/25 16:14 5,000 unit Q8HR KEVIN Administration Immune Globulin G/Gly/IgA 10 300 mls @ 50 mls/hr 01/25/25 20:30 01/27/25 17:03 gm/ Immune Globulin G/Gly/IgA IV 01/29/25 22:59 50 mls/hr 20 gm/ IV Miscellaneous DAILY@1700 KEVIN Administration Supplies Levothyroxine Sodium 50 mcg 01/26/25 09:00 01/27/25 08:34 Levothyroxine Sodium 25 Mcg Tablet PO 02/25/25 08:59 50 mcg QDAY KEVIN Administration [place] Carbonate 900 mg 01/27/25 09:00 01/27/25 08:34 [place] Carb 150 Mg Capsule PO 02/26/25 08:59 900 mg QDAY KEVIN Administration Mirtazapine 37.5 mg 01/26/25 21:00 01/27/25 20:50 Mirtazapine 15 Mg Tablet PO 02/25/25 20:59 37.5 mg HS KEVIN Administration Multivitamins 1 tab 01/26/25 09:00 01/27/25 08:34 Multivitamins Tablet PO 02/25/25 08:59 1 tab QDAY KEVIN Administration Ondansetron HCl 4 mg 01/25/25 16:07 Ondansetron Inj 2 Mg/Ml Inj 2 Ml IVP 02/24/25 16:06 Q6H PRN NAUSEA OR VOMITING Protocol Pantoprazole Sodium 40 mg 01/26/25 09:00 01/27/25 08:34 Pantoprazole 40 Mg Tablet PO 02/25/25 08:59 40 mg QDAY KEVIN Administration Pyridostigmine [place] 2 mg 01/25/25 19:15 01/28/25 05:44 Pyridostigmine Inj 5 Mg/Ml Amp 2 Ml IVP 02/24/25 19:14 2 mg Q6HR KEVIN Administration Sennosides 1 tab 01/25/25 16:07 Senna Tablet PO 02/24/25 16:06 QDAY PRN constipation Protocol Valproic Acid 750 mg 01/26/25 09:00 01/27/25 20:50 Valproic Acid Syrup 250 Mg/5 Ml Udc PO 02/25/25 08:59 750 mg BID KEVIN Administration Plan Ayo Argueta is 39 yr male with PMH of dysphagia, bipolar disorder, intellectual disability, thrombocytosis, JACQUELINE, myasthenia gravis, thromboangiitis obliterans, acne vulgaris, solitary pulmonary nodule coming from [facility] per neurology due to myasthenia gravis flare. Patient sees Dr. Dietz who noticed increased weakness and increased salivary secretions. Admit per neurology for IVIG treatment, pyridostigmine in setting of myasthenia gravis flare. #Cavitary lesion Ddx: active TB, cocci, aspergillosis CT chest showed cavitary lesion in left lower lobe which appears to be chronic. Based off chart review, lesion was noticed in August 2023. Labs from 12/2023 including QuantiFERON gold test was negative, cocci serology also negative. Appears asymptomatic at this time. Cocci negative. -ID consulted--start augmentin for 7 days due to patient's high risk of aspiration. -isolation/airborne precautions -AFB sputum stain x3 to rule out any active TB -Follow-up Aspergillus serology -01/28/2025: he was complaining of loose stool most likely because we started him on antibiotics yesterday will closely monitor. Sputum AFB still pending. #Myasthenia gravis flare Has functional dysphagia, bulbar weakness/ocular muscle weakness, extraparametal symptoms per neurology. Was sent in to get IVIG. CT chest negative for anterior mediastinal mass or LAD. -neurology consulted -IVIG for total 5 days -IV pyridostigmine bromide 2mg q6hr -01/28/2026 -tolerating IVIG well . will continue the same treatment, his drooling has improved. # Syphilis serology positive -Syphillis serology was reactive will wait for titer from [facility] and will try to find out if he had treatment before. #Dysphagia Completed video esophagram in 02/2024. It showed vallecular pooling and retention with pudding and crackers. Also showed silent aspiration with nectar and thin liquids. Diet was changed to ground food and honey thickened liquids. -dysphagia III diet -liquids mixed with thick honey -Started him on amoxi/clav for prevention on aspitation pneumonia #Bipolar disorder Takes chlorpromazine 100 twice daily, clozapine 175 mg twice daily, lithium, mirtazapine, valproic acid. -resumed medications -lithium levels 0.48 #JACQUELINE Appears to be non compliant with CPAP per chart review. -CPAP nightly #Thromboangitis obliterans continue aspirin 81mg daily. #Solitary pulmonary nodule Cocci serology negative in 2023. -follow up outpatient #Chronic thrombocystosis Continue aspirin 81mg Health maintenance: Dispo: med surg for MG flare, IVIG, TB rule out FEN: dysphagia 3, liquids mixed with thick honey DVT prophylaxis: Subcu heparin CODE STATUS: Full code The patient's management plan was discussed with my attending physician Dr Yvon Oswald MD, PGY-3
[2025-01-28] MEDS: VALPROIC ACID SYRUP 250 MG/5 ML UDC 750 MG PO ×2 (08:53→21:17)
[2025-01-28] MEDS: ASPIRIN EC 81 MG TABEC PO (08:54)
[2025-01-28] MEDS: PANTOPRAZOLE 40 MG TABLET PO (08:54)
[2025-01-28] MEDS: LEVOTHYROXINE SODIUM 25 MCG TABLET 50 MCG PO (08:54)
[2025-01-28] MEDS: DOCUSATE SOD 100 MG CAPSULE PO (08:54)
[2025-01-28] MEDS: MULTIVITAMINS TABLET 1 TAB PO (08:54)
[2025-01-28] MEDS: AMOXICILLIN/POT CLAV 875 TABLET 1 TAB PO ×2 (08:54→21:13)
[2025-01-28] MEDS: LITHIUM CARB 150 MG CAPSULE 900 MG PO (09:00)
--- NOTE | 2025-01-28 14:23 | XR_ITS ---
Examination: AP chest single view Technique: AP portable semiupright chest single view Date and time: January 28, 2025 1424 hrs. Comparison: December 02, 2024 Indications: Shortness of breath this week. Findings: Normal heart size No hyperexpansion 4 cm cavitary lesion in the left lower lobe, please see the CT chest report January 25, 2025 Moderate osteopenia Impression: Large cavitary lesion left lower lobe, please see the CT chest report January 25, 2025
[2025-01-28 14:32] LABS: Base Excess 4 (-3-3); HCO3 29 mEq/L (20-26); Inspired O2, VO2 Liters 4 L/min; O2 Saturation 93 % (91-98); PCO2 46 mmHg (32.0-48.0); PO2 65 mmHg (83-108); pH, Arterial 7.42 (7.35-7.45)
[2025-01-28 14:33] LABS: Allen Test Not Performed; Puncture Site Site Not Noted
[2025-01-28] MEDS: MethylPREDNISolone SOD SUCC 62.5 MG/ML 2ML VIAL 125 MG IVP ×3 (14:45→23:45)
--- NOTE | 2025-01-28 15:06 | PD.RESEVENT ---
Documentation for date of: 01/28/25 Event Note Event Note: Rapid response was called around 14:19 for hypoxia and increased respiratory rate. As per the nurse at bedside his nasal cannula fell down and he was desatting at 70s. When we went to see the patient in the room his respiration was in high 30s to 40s with increase lacrimation which needed to be suctioned almost every minute. And the patient complained of diarrhea as well and not feeling well generally. Stat chest x-ray, blood culture, CBC, ABG was ordered. Dr Dietz was updated about the patient condition looks like he is currently in acute excerbation of his MG and she recommended to start high-dose steroid so Solu-Medrol 125 mg every 6 hour was started with first dose given at that time. And upgraded to ICU for possible intubation because of his increased respiratory rate, increased lacrimation and concerned that he will not be able to protect his airway. Case discussed with my attending Dr. Yvon Oswald MD, PGY-3
[2025-01-28 15:31] LABS: Basophils % (Auto) 1 % (0-2.5); Eosinophils # (Auto) 0.1 Thou/mm3 (0.0-0.5); Eosinophils % (Auto) 2 % (0-10); Hematocrit 41.4 % (41.0-53.0); Hemoglobin 13.4 g/dL (13.5-16.0); Immature Granulocytes % (Auto) 0 % (0-0); Immature Granulocytes Auto 0.01 Thou/mm3 (0.00-0.00); Lymphocytes # (Auto) 0.8 Thou/mm3 (1.0-4.8); Lymphocytes % (Auto) 14 % (10-50); Mean Corpuscular HGB Conc 32.4 g/dl (31.0-37.0); Mean Corpuscular Hemoglobin 26.6 pg (25.0-35.0); Mean Corpuscular Volume 82 fL (80-100); Monocytes # (Auto) 0.5 Thou/mm3 (0.0-0.8); Monocytes % (Auto) 8 % (0-12); Neutrophils # (Auto) 4.3 Thou/mm3 (1.8-7.7); Neutrophils % (Auto) 75 % (37-80); Nucleated Red Blood Cell % 0 /100 WBC (0); Platelet Count 473 Thou/mm3 (140-440); RDW Standard Deviation 41.3 fL (35.1-43.9); Red Blood Count 5.03 Miln/mm3 (4.50-5.90); White Blood Count 5.8 Thou/mm3 (3.8-10.6)
[2025-01-28 15:33] LABS: Index Value <0.50
[2025-01-28] MEDS: fentaNYL CIT INJ 50 mCg/ML AMP 2ML IVP (16:12)
[2025-01-28] MEDS: ETOMIDATE INJ 2 MG/ML VIAL 10 ML 20 MG IVP (16:13)
[2025-01-28] MEDS: ROCURONIUM INJ 10 MG/ML VIAL 10 ML 80 MG IVP (16:14)
--- NOTE | 2025-01-28 16:14 | XR_ITS ---
Examination: AP chest single view Technique one AP portable supine chest single view Date and time: January 28, 2025 1629 hrs. Comparison January 28, 2025 1425 hrs. Indications: Cavitary parenchymal disease left lung, hypoxic respiratory failure postintubation Findings: Endotracheal tube tip 5.7 cm above slim Orogastric tube is in the stomach, the tip is below the level of the film. Cavitary parenchymal disease left lower lobe again noted Impression: Endotracheal tube tip 5.7 cm above slim
--- NOTE | 2025-01-28 16:23 | PD.RESPROC ---
Procedures Procedure Date / Time 01/28/25 8714 Intubation Indication(s): acute Resp Failure and inability to protect airway Informed consent obtained: procedure done urgently Time out done, and the following verified: correct patient, side and site, procedure, patient position and implants and/or equipment Sedative: etomidate Mg given: 20 Paralytic: rocuronium Mg given: 80 Laryngoscope: fiber optic video scope Assist device used: fiber optic device ET tube size: 7.5 ET tube uncuffed: No Tube secured depth (cm): 22 Tube secured location: lips Patient tolerated procedure: well EBL(ml): 0 Intubation complications: none Additional comments: Procedure was done under supervision of attending Dr. Sosa. Josephine Wade MD, PGY 1.
--- NOTE | 2025-01-28 16:28 | PD.RESCONSUL ---
HPI Data of Consult Requesting Physician: Isabelle Seanz MD Admitting Provider: Jah Bardales MD (PDC) Attending Provider: Isabelle Saenz MD Primary Care Provider: Jah Bardales (GUERLINE)MD Consult Narrative History of present illness: 39-year-old male with past medical history of bipolar disorder, cognitive disability, JACQUELINE, dysphagia, thromboangiitis obliterans, and myasthenia gravis. The patient was admitted to [facility] on 01/25/2025 at the recommendations of Dr. Dietz due to myasthenia gravis flare. Dr. Dietz noticed increased weakness and increased salivary secretions. Patient was recommended for admission to start IVIG treatment, pyridostigmine in the setting of the myasthenia gravis flare. CT chest showed a cavitary lesion in the left lower lobe which appears to be chronic. Based on further evaluation of chart review on August 2023 was also visible at that time. On patient had a quant to [place] gold which was negative as well as a cocci serology. ID was consulted which they recommended Augmentin for 7 days. Today, patient had a rapid response due to increased oral secretions lacrimation and concern for airway compromise. Once patient was transferred to the ICU patient's condition worsened. We tried deep suctioning the patient, at that time we were concerned about airway protection. We decided to do RSI patient was intubated with a ET tube 7.5 patient tolerated the procedure well was placed on the chemical ventilation. Chest x-ray was done showed appropriate placement of the ET tube and OG tube. cc:: cc: Isabelle Saenz MD Review of Systems Review of Systems ROS Unobtainable: due to endotracheal tube Exam Vital Signs Temp Pulse Resp BP Pulse Ox O2 Del Method O2 Flow Rate 97.8 F 78 18 122/83 96 Nasal Cannula 2 01/28/25 14:12 01/28/25 14:12 01/28/25 14:12 01/28/25 14:12 01/28/25 14:12 01/28/25 12:00 01/28/25 14:12 FiO2 0 01/28/25 14:12 Narrative Exam Constitutional: AOx2, unable to speak full sentences HEENT: NC/AT, PERRLA, oral mucosa moist, neck supple, diaphoretic CVS: RRR, S1-S2 present, no murmurs RESP: Bronchial breath sounds bilaterally GI: non distended, non tender to palpation, NBS MSK: full ROM, no peripheral edema, peripheral pulses present Skin: warm and dry, no rashes 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 Poor gag reflex Results Labs 01/28/25 15:02 01/28/25 05:05 Labs: Short CBC 01/28/25 01/28/25 Range/Units 05:05 15:02 WBC 6.3 D 5.8 (3.8-10.6) Thou/mm3 Hgb 12.8 L 13.4 L (13.5-16.0) g/dL Hct 40.1 L 41.4 (41.0-53.0) % Plt Count 411 D 473 H D (140-440) Thou/mm3 BMP 01/28/25 05:05 Sodium 138 Potassium 4.1 Chloride 104 Carbon Dioxide 25.0 BUN 9 Creatinine 0.7 Glucose 105 Calcium 9.3 Liver Function 01/28/25 Range/Units 05:05 Total Bilirubin 0.2 L (0.3-1.2) mg/dL ALT 39 (10-49) U/L Alkaline Phosphatase 96 (46-116) U/L Albumin 3.8 (3.5-5.0) gm/dL ABG Interpretation ABG results: 01/28/25 14:24 ABG pH 7.42 ABG pCO2 46 ABG pO2 65 L ABG HCO3 29 H ABG O2 Saturation 93 ABG Base Excess 4 H Quality Measures Quality Measures VTE prophylaxis Medications Home Medications and Allergies Home Medications ?Medication ?Instructions ?Recorded ?Confirmed ?Type acetaminophen 325 mg tablet 650 mg PO Q6H PRN Fever Or Pain 03/04/24 01/25/25 History guanfacine 1 mg tablet 1 mg PO BID 03/04/24 01/25/25 History guanfacine 2 mg tablet,extended 2 mg PO QDAY 03/04/24 01/25/25 History release 24 hr multivitamin with iron-mineral 1 tab PO QDAY 03/04/24 01/25/25 History valproic acid (as sodium salt) 250 750 mg PO BID 03/04/24 01/25/25 History mg/5 mL oral solution aspirin 81 mg tablet,delayed 81 mg PO QDAY 12/03/24 01/25/25 History release (Ecotrin Low Strength) clozapine 100 mg tablet 300 mg PO BID 12/03/24 01/25/25 History clozapine 25 mg tablet 25 mg PO QDAY 12/03/24 01/25/25 History levothyroxine 50 mcg tablet 50 mcg PO QDAY 12/03/24 01/25/25 History (Euthyrox) lithium carbonate 450 mg 900 mg PO QDAY 12/03/24 01/25/25 History tablet,extended release mirtazapine 30 mg tablet 30 mg PO QDAY 12/03/24 01/25/25 History docusate sodium 100 mg capsule 100 mg PO BID 01/25/25 01/25/25 History pantoprazole 40 mg tablet,delayed 40 mg PO QDAY 01/25/25 01/25/25 History release Allergies Allergy/AdvReac Type Severity Reaction Status Date / Time vancomycin Allergy Unknown Verified 04/29/24 12:34 Visit Medications Acetaminophen (Acetaminophen 325 Mg Tablet) 650 mg PO Q6H PRN PRN Reason: Fever > 100.4 Stop: 02/25/25 08:30 Acetaminophen (Acetaminophen 325 Mg Tablet) 650 mg PO Q6HR PRN PRN Reason: MILD PAIN 1-3 Stop: 02/24/25 16:52 Last Admin: 01/27/25 16:02 Dose: 650 mg Amoxicillin/Clavulanate Potassium (Amoxicillin/Pot Clav 875 Tablet) 1 tab PO BID [facility] Stop: 02/03/25 20:59 Last Admin: 01/28/25 08:54 Dose: 1 tab Aspirin (Aspirin Ec 81 Mg Tabec) 81 mg PO QDAY [facility] Stop: 02/25/25 08:59 Last Admin: 01/28/25 08:54 Dose: 81 mg Diphenhydramine HCl (Diphenhydramine Inj 50 Mg/Ml Vial) 25 mg IVP DAILY@1630 [facility] Stop: 01/29/25 16:31 Last Admin: 01/27/25 16:03 Dose: 25 mg Docusate Sodium (Docusate Sod 100 Mg Capsule) 100 mg PO BID [facility]; Protocol Stop: 02/25/25 08:59 Last Admin: 01/28/25 08:54 Dose: 100 mg Heparin Sodium (Porcine) (Heparin Sod Inj 5000 Unit/Ml Vial) 5,000 unit SC Q8HR [facility] Stop: 02/08/25 16:14 Last Admin: 01/28/25 13:55 Dose: 5,000 unit Immune Globulin G/Gly/IgA 10 gm/ Immune Globulin G/Gly/IgA 20 gm/ IV Miscellaneous Supplies 300 mls @ 50 mls/hr IV DAILY@1700 [facility] Stop: 01/29/25 22:59 Last Admin: 01/27/25 17:03 Dose: 50 mls/hr Propofol (Diprivan Ivpb) 1,000 mg in 100 mls @ 1.934 mls/hr IV .Q24H PRN; Protocol PRN Reason: PER PROTOCOL Stop: 02/27/25 16:01 Fentanyl Citrate (Sublimaze Inj 2,500 Mcg/250 Ml Bag) 2,500 mcg in 250 mls @ 2.5 mls/hr IV .Q24H PRN; Protocol PRN Reason: PER PROTOCOL Stop: 02/02/25 16:01 Norepinephrine/Dextrose (Levophed In D5w 8mg/250ml) 8 mg in 250 mls @ 6.044 mls/hr IV .Q24H PRN; Protocol PRN Reason: PER PROTOCOL Stop: 02/27/25 16:02 Levothyroxine Sodium (Levothyroxine Sodium 25 Mcg Tablet) 50 mcg PO QDAY [facility] Stop: 02/25/25 08:59 Last Admin: 01/28/25 08:54 Dose: 50 mcg [place] Carbonate ([place] Carb 150 Mg Capsule) 900 mg PO QDAY [facility] Stop: 02/26/25 08:59 Last Admin: 01/28/25 09:00 Dose: 900 mg Methylprednisolone Sodium Succinate (Methylprednisolone Sod Succ 62.5 Mg/Ml 2ml Vial) 125 mg IVP Q6HR [facility] Stop: 02/04/25 14:29 Last Admin: 01/28/25 14:45 Dose: 125 mg Mirtazapine (Mirtazapine 15 Mg Tablet) 37.5 mg PO HS [facility] Stop: 02/25/25 20:59 Last Admin: 01/27/25 20:50 Dose: 37.5 mg Multivitamins (Multivitamins Tablet) 1 tab PO QDAY [facility] Stop: 02/25/25 08:59 Last Admin: 01/28/25 08:54 Dose: 1 tab Ondansetron HCl (Ondansetron Inj 2 Mg/Ml Inj 2 Ml) 4 mg IVP Q6H PRN; Protocol PRN Reason: NAUSEA OR VOMITING Stop: 02/24/25 16:06 Pantoprazole Sodium (Pantoprazole 40 Mg Tablet) 40 mg PO QDAY KEVIN Stop: 02/25/25 08:59 Last Admin: 01/28/25 08:54 Dose: 40 mg Pyridostigmine [place] (Pyridostigmine Inj 5 Mg/Ml Amp 2 Ml) 2 mg IVP Q6HR KEVIN Stop: 02/24/25 19:14 Last Admin: 01/28/25 12:20 Dose: 2 mg Sennosides ([place] Tablet) 1 tab PO QDAY PRN; Protocol PRN Reason: constipation Stop: 02/24/25 16:06 Valproic Acid (Valproic Acid Syrup 250 Mg/5 Ml Udc) 750 mg PO BID KEVIN Stop: 02/25/25 08:59 Last Admin: 01/28/25 08:53 Dose: 750 mg Discontinued Medications Acetaminophen (Acetaminophen Supp 650 Mg Supp) 650 mg [place] Q6HR PRN PRN Reason: Fever > 100.3 or pain Stop: 02/24/25 16:06 Acetaminophen (Acetaminophen 325 Mg Tablet) 650 mg PO Q6HR PRN PRN Reason: Fever > 100.3 or pain Stop: 02/24/25 16:52 Last Admin: 01/25/25 19:39 Dose: 650 mg Diphenhydramine HCl (Diphenhydramine Inj 50 Mg/Ml Vial) 25 mg IVP DAILY@1630 [facility] Stop: 01/29/25 16:31 Fentanyl Citrate (Fentanyl Cit Inj 50 Mcg/Ml Amp 2ml) 50 mcg IVP X1 ONE Stop: 01/28/25 16:02 Immune Globulin 20 gm/ Immune Globulin 10 gm/ IV Miscellaneous Supplies 300 mls @ 50 mls/hr IV DAILY@1700 [facility] Stop: 01/29/25 22:59 Mirtazapine (Mirtazapine 15 Mg Tablet) 7.5 mg PO QDAY [facility] Stop: 02/25/25 08:59 Last Admin: 01/26/25 09:08 Dose: 7.5 mg Mirtazapine (Mirtazapine 15 Mg Tablet) 30 mg PO QDAY KEVIN Stop: 02/25/25 08:59 Mirtazapine (Mirtazapine 15 Mg Tablet) 30 mg PO QDAY [facility] Stop: 02/25/25 08:59 Pyridostigmine [place] (Pyridostigmine [place] 60 Mg Tablet) 30 mg PO TID [facility] Stop: 02/24/25 16:29 Last Admin: 01/25/25 18:08 Dose: Not Given Pyridostigmine [place] (Pyridostigmine [place] 60 Mg Tablet) 30 mg PO TID [facility] Stop: 02/24/25 16:44 Last Admin: 01/25/25 17:57 Dose: 30 mg Sodium Chloride (Sodium Chloride Rt 10% 15 Ml Nebu) 5 ml INH X1 ONE Stop: 01/26/25 08:24 Sodium Chloride (Sodium Chloride Rt 10% 15 Ml Nebu) 5 ml INH X1 ONE Stop: 01/26/25 08:25 Sodium Chloride (Sodium Chloride Rt 10% 15 Ml Nebu) 5 ml INH X1 ONE Stop: 01/28/25 12:54 Tuberculin PPD (Tuberculin Ppd Inj 5 Unit/0.1 Ml Dose) 5 unit ID X1 ONE Stop: 01/25/25 23:41 Tuberculin PPD (Tuberculin Ppd Inj 5 Unit/0.1 Ml Dose) 5 unit ID X1 ONE Stop: 01/26/25 10:31 Last Admin: 01/26/25 11:21 Dose: 5 unit Assessment & Plan Plan Summary:Ayo Argueta is 39 yr male with PMH of dysphagia, bipolar disorder, intellectual disability, thrombocytosis, JACQUELINE, myasthenia gravis, thromboangiitis obliterans, acne vulgaris, solitary pulmonary nodule coming from [facility] per neurology due to myasthenia gravis flare. Patient sees Dr. Dietz who noticed increased weakness and increased salivary secretions. Admit per neurology for IVIG treatment, pyridostigmine in setting of myasthenia gravis flare. Upgraded to the ICU for myasthenia crisis. 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 Plan: - Sedation: Propofol and fentanyl - RASS goal -2 - IVIG with Benadryl and acetaminophen - Morning SAT - Neurology consulted Cardio: No acute problems Pulm: #Acute respiratory failure Etiology secondary to myasthenia crisis, patient had difficulty protecting airway and clear secretions also had difficulty swallowing and having full inspiration. The decision was made to intubate the patient to protect airway and assist breathing. Preintubation ABG showed ABG pH 7.42, pCO2 46, pO2 65 Plan: - Continue mechanical intubation - Morning SBT GI: #History of dysphagia Completed video esophagram in 02/2024. It showed vallecular pooling and retention with pudding and crackers. Also showed silent aspiration with nectar and thin liquids. Diet was changed to ground food and honey thickened liquids. Plan: - Once patient is extubated we will do a speech therapy evaluation regarding patient's swallow mechanics Renal: Stable Endo: Stable Heme: Stable ID: #Syphilis, serology positive Syphilis serology came back reactive we are [place] [facility] and will follow-up with ID recommendations. Plan: -Pending lab results - Follow-up ID recommendations #Aspiration pneumonia Due to the patient's inability to protect airway Plan: -Augmentin was started we will switch to Unasyn Skin/MSK: #Thromboangitis obliterans Plan: - conts aspirin 81mg daily. ICU Health maintenance: Mechanical ventilation: AC Sedation: prop/fent FEN: NPO DVT ppx: heparin subq GI ppx:protonix [place]: yes IV lines: 3 Central line: 0 Arterial line: 0 Code status: full code Dispo: upgrade d to ICU due to myasthenia crisis - Patient's care was discussed with my attending physician, Dr. Yeison Barnett MD Internal Medicine PGY-3
[2025-01-28] MEDS: PROPOFOL 1,000 MG IVPB 1,000 MG/100 ML VIAL 1.934 MG IV (16:34)
[2025-01-28] MEDS: fentaNYL 2,500 MCG/250 ML BAG 2,500 MCG/250 ML BAG IV (16:34)
--- NOTE | 2025-01-28 16:41 | PD.EDADDENDU ---
Emergency Room Addendum Addendum Narrative: 1620: I was called by ICU to supervise an intubation. The patient did not have a protected airway and intubation was needed. Intubation completed. I supervised the resident, please see their note. ED Procedures Intubation Time out performed: Yes sedative: Etomidate Mg Given: 20 paralytic: Rocuronium Mg Given: 80 Laryngoscope: fiber optic video scope Assist Device Used: fiber optic device ET Tube Size: 7.5 ET Tube Uncuffed: No Tube Secured Depth (cm): 24 Tube Secured Location: lips Tube Placement Confirmation: visualized tube passing through cords, equal breath sounds bilaterally and no breath sounds over epigastrium Patient Tolerated Procedure: well and no complications Intubation Complications: none Additional Comments: I supervised the resident, please see their note.
[2025-01-28] MEDS: ACETAMINOPHEN SOL 325 MG/10 ML UDC 650 MG PO (17:17)
[2025-01-28] MEDS: DiphenhydrAMINE INJ 50 MG/ML VIAL 25 MG IVP (17:18)
[2025-01-28] MEDS: PRE MIXED IV (17:56)
[2025-01-28] MEDS: IMMUNE GLOB GA CA IV (17:56)
[2025-01-28 17:59] LABS: Base Excess 3 (-3-3); Cult AFB Sendout- Sputum* See Sep Rpt; HCO3 29 mEq/L (20-26); Inspired Oxygen, FIO2 21 %; O2 Saturation 99 % (91-98); PCO2 51 mmHg (32.0-48.0); PO2 265 mmHg (83-108); pH, Arterial 7.36 (7.35-7.45)
[2025-01-28 18:01] LABS: Allen Test Performed/OK; Puncture Site Left Radial
[2025-01-28] MEDS: MIRTAZAPINE 15 MG TABLET 37.5 MG PO (21:13)
[2025-01-28] MEDS: DOCUSATE SOD LIQD 100 MG/10 ML UDC PO (21:31)
[2025-01-29] VITALS (70 sets, daily range): BP systolic 92–129; BP diastolic 47–79; PULSE 49–86; RESP 7–34; TEMP 36.4–37.6; O2SAT 91–100
[2025-01-29 04:10] LABS: Base Excess 4 (-3-3); HCO3 29 mEq/L (20-26); Inspired Oxygen, FIO2 70 %; O2 Saturation 100 % (91-98); PCO2 44 mmHg (32.0-48.0); PO2 192 mmHg (83-108); pH, Arterial 7.43 (7.35-7.45)
[2025-01-29 04:12] LABS: Allen Test Performed/OK; Puncture Site Right Radial
[2025-01-29] MEDS: PROPOFOL 1,000 MG IVPB 1,000 MG/100 ML VIAL 3.868 MG IV (05:20)
[2025-01-29] MEDS: MethylPREDNISolone SOD SUCC 62.5 MG/ML 2ML VIAL 125 MG IVP ×4 (05:21→23:38)
[2025-01-29] MEDS: PYRIDOSTIGMINE 5 MG/ML 2 MG IVP ×3 (05:22→21:13)
[2025-01-29] MEDS: HEPARIN SOD INJ 5000 UNIT/ML VIAL SC ×3 (05:22→21:14)
[2025-01-29 07:25] LABS: Basophils % (Auto) 0 % (0-2.5); Eosinophils % (Auto) 0 % (0-10); Hematocrit 35.8 % (41.0-53.0); Hemoglobin 11.8 g/dL (13.5-16.0); Immature Granulocytes % (Auto) 0 % (0-0); Immature Granulocytes Auto 0.03 Thou/mm3 (0.00-0.00); Lymphocytes # (Auto) 0.8 Thou/mm3 (1.0-4.8); Lymphocytes % (Auto) 11 % (10-50); Mean Corpuscular Hemoglobin 26.7 pg (25.0-35.0); Mean Corpuscular Volume 81 fL (80-100); Monocytes # (Auto) 0.2 Thou/mm3 (0.0-0.8); Monocytes % (Auto) 2 % (0-12); Neutrophils % (Auto) 86 % (37-80); Nucleated Red Blood Cell % 0 /100 WBC (0); Platelet Count 430 Thou/mm3 (140-440); Red Blood Count 4.42 Miln/mm3 (4.50-5.90)
--- NOTE | 2025-01-29 07:40 | ESPR_ITS ---
Subjective Subjective Interval history: syphilis screen noted. I am away at a graduation and will next round on thu of this weekok to wait for the titer and confirmation. cavity statistically likely to represent old healed cocci . cocci neg Exam Vital Signs Temp Pulse Resp BP Pulse Ox O2 Del Method O2 Flow Rate 98.1 F 69 14 120/74 97 Mechanical Ventilation 3 01/29/25 04:00 01/29/25 07:15 01/28/25 16:16 01/29/25 07:15 01/29/25 07:15 01/29/25 04:00 01/28/25 15:41 FiO2 55 01/29/25 07:28 Objective - Internal Medicine Labs 01/29/25 07:10 01/28/25 05:05 Labs: Laboratory Results - last 24 hr 01/28/25 01/28/25 01/28/25 14:24 15:02 15:05 WBC 5.8 RBC 5.03 Hgb 13.4 L Hct 41.4 MCV 82 MCH 26.6 MCHC 32.4 RDW Std Deviation 41.3 Plt Count 473 H D Neut % (Auto) 75 Lymph % (Auto) 14 [place] % (Auto) 8 Eos % (Auto) 2 Baso % (Auto) 1 Neut # (Auto) 4.3 Lymph # (Auto) 0.[address] [place] # (Auto) 0.5 Eos # (Auto) 0.1 Baso # (Auto) 0.0 Immature Gran # (Auto) 0.01 H Absolute Nucleated RBC 0.00 Immature Gran % 0 Nucleated RBC % 0 Puncture Site Site Not Noted ABG pH 7.42 ABG pCO2 46 ABG pO2 65 L ABG HCO3 29 H ABG O2 Saturation 93 ABG Base Excess 4 H Oxygen Liter Flow 4 FiO2 Lactic Acid 2.0 01/28/25 01/29/25 01/29/25 17:49 03:53 07:10 WBC 7.0 RBC 4.42 L Hgb 11.8 L Hct 35.8 L MCV 81 MCH 26.7 MCHC 33.0 RDW Std Deviation 41.0 Plt Count 430 D Neut % (Auto) 86 H Lymph % (Auto) 11 [place] % (Auto) 2 Eos % (Auto) 0 Baso % (Auto) 0 Neut # (Auto) 6.0 Lymph # (Auto) 0.[address] # (Auto) 0.2 Eos # (Auto) 0.0 Baso # (Auto) 0.0 Immature Gran # (Auto) 0.03 H Absolute Nucleated RBC 0.00 Immature Gran % 0 Nucleated RBC % 0 Puncture Site Left Radial Right Radial ABG pH 7.36 7.43 ABG pCO2 51 H 44 ABG pO2 265 H D 192 H D ABG HCO3 29 H 29 H ABG O2 Saturation 99 H 100 H ABG Base Excess 3 4 H Oxygen Liter Flow FiO2 21 70 Lactic Acid ABG Interpretation ABG results: 01/28/25 01/28/25 01/29/25 14:24 17:49 03:53 ABG pH 7.42 7.36 7.43 ABG pCO2 46 51 H 44 ABG pO2 65 L 265 H D 192 H D ABG HCO3 29 H 29 H 29 H ABG O2 Saturation 93 99 H 100 H ABG Base Excess 4 H 3 4 H Assessment & Plan A&P Narrative lower lobe cavity. seen on prior ct in aug and february 2024 if not before then(no more data on file from before then) no fever. if tb present, then he has had it a long time cocci IgM neg. IgG neg pos syphilis screen. await titer and other hx. was neg in february 2024 myasthenia bipolar mr/dd as noted. await confirmation of syphilis as he may be unable to make decisions. if he has syphilis, that is very bad and implies that he may have been sexually active Time Spent With Patient Time: Total time spent is greater than 50% in coordination of care (as documented) at patient's floor/unit and/or counseling patient:
[2025-01-29 07:54] LABS: Alanine Aminotransferase 33 U/L (10-49); Albumin, Serum 3.8 gm/dL (3.5-5.0); Albumin/Globulin Ratio 0.9 (1.2-2.2); Alkaline Phosphatase 89 U/L (46-116); Anion Gap 9 (7-16); BUN/Creatinine Ratio 29 Ratio (12-20); Bilirubin,Total 0.3 mg/dL (0.3-1.2); Blood Urea Nitrogen 23 mg/dL (9-23); Calcium 9.2 mg/dL (8.3-10.6); Calcium (Corrected) 9.4 mg/dL (8.5-10.1); Carbon Dioxide 27.6 mMol/L (20.0-31.0); Chloride 105 mMol/L (98-107); Creatinine (Component) 0.8 mg/dL (0.6-1.3); Estimated Creatinine Clearance 107.5 mL/min (>60); Globulin 4.3 gm/dL (2.3-3.5); Glucose 124 mg/dL (74-106); Osmolality,Calculated 287 (275-295); Potassium 4.4 mMol/L (3.4-5.1); Sodium 142 mMol/L (136-145); Total Protein 8.1 gm/dL (5.7-8.2); eGFR > 60 See Note
[2025-01-29] MEDS: PANTOPRAZOLE 40 MG TABLET PO (08:23)
[2025-01-29] MEDS: DOCUSATE SOD LIQD 100 MG/10 ML UDC PO (08:23)
[2025-01-29] MEDS: ASPIRIN 81 MG CHEW PO (08:23)
[2025-01-29] MEDS: MULTIVITAMINS TABLET 1 TAB PO (08:23)
[2025-01-29] MEDS: VALPROIC ACID SYRUP 250 MG/5 ML UDC 750 MG PO (08:23)
[2025-01-29] MEDS: AMOXICILLIN/POT CLAV 875 TABLET 1 TAB PO (08:23)
[2025-01-29] MEDS: LEVOTHYROXINE SODIUM 25 MCG TABLET 50 MCG PO (08:23)
[2025-01-29] MEDS: RINGERS LACTATED 1000 ML 1,000 ML 999 ML IV (09:45)
--- NOTE | 2025-01-29 10:40 | PD.RESPRO ---
Documentation for date of: 01/29/25 Subjective Subjective Interval history: 39-year-old male with past medical history of bipolar disorder, cognitive disability, JACQUELINE, dysphagia, thromboangiitis obliterans, and myasthenia gravis. The patient was admitted to [facility] on 01/25/2025 at the recommendations of Dr. Dietz due to myasthenia gravis flare. Dr. Dietz noticed increased weakness and increased salivary secretions. Patient was recommended for admission to start IVIG treatment, pyridostigmine in the setting of the myasthenia gravis flare. CT chest showed a cavitary lesion in the left lower lobe which appears to be chronic. Based on further evaluation of chart review on August 2023 was also visible at that time. On patient had a quant to [facility] gold which was negative as well as a cocci serology. ID was consulted which they recommended Augmentin for 7 days. Today, patient had a rapid response due to increased oral secretions lacrimation and concern for airway compromise. Once patient was transferred to the ICU patient's condition worsened. We tried deep suctioning the patient, at that time we were concerned about airway protection. We decided to do RSI patient was intubated with a ET tube 7.5 patient tolerated the procedure well was placed on the chemical ventilation. Chest x-ray was done showed appropriate placement of the ET tube and OG tube. 01/29/2025: Overnight patient had to 50 cc of urine output, fentanyl sedation was increased to 125 mcg/kg, propofol at 25 mcg/kg and Norad at 6/h, RASS -2. Patient opening eyes to voice and following commands. Hb decreased to 11.8 from 13.4, sputum culture grew E. coli resistant to Augmentin, blood culture pending, pH 7.43, [id number], bicarb 29. Will do a sedation vacation today and attempt extubation. Also will increase pyridostigmine to every 12 hourly and restart IVIG at 400 Mg/KG for 3 more days as per neurology recommendation. After patient is extubated and stable on minimal supplemental O2, will downgrade to the floor. Exam Vital Signs Temp Pulse Resp BP Pulse Ox O2 Del Method O2 Flow Rate 98.3 F 72 14 113/61 99 Mechanical Ventilation 3 01/29/25 08:00 01/29/25 10:15 01/28/25 16:16 01/29/25 10:15 01/29/25 10:15 01/29/25 08:00 01/28/25 15:41 FiO2 45 01/29/25 10:15 Narrative Exam Constitutional RASS -2, intubated and mechanically ventilated. AC/VC, VT 430, RR 18, PEEP 5, FiO2 55% HEENT PERRL, trachea midline, nares patent, OG and ET tube in situ, minimal secretions Respiratory Chest normal on inspection and clear auscultation bilaterally on anterior and posterior chest wall. Cardiovascular S1 and S2 audible, RRR. No murmurs carotid bruit. No gross JVD. Abdominal Soft and non tender to palpation in all quadrants. BS +Healed [place] incision Genitourinary No bladder tenderness, no flank pain. Normal to palpation Musculoskeletal Extremities tone within normal limits. No LE edema. Neurological CN II - XII grossly intact. GCS E3, V1, M6. Skin Warm, dry and intact. Bilateral heels erythematous Objective Labs 01/30/25 07:26 01/30/25 05:00 Labs: Laboratory Results - last 24 hr 01/28/25 01/28/25 01/28/25 14:24 15:02 15:05 WBC 5.8 RBC 5.03 Hgb 13.4 L Hct 41.4 MCV 82 MCH 26.6 MCHC 32.4 RDW Std Deviation 41.3 Plt Count 473 H D Neut % (Auto) 75 Lymph % (Auto) 14 [place] % (Auto) 8 Eos % (Auto) 2 Baso % (Auto) 1 Neut # (Auto) 4.3 Lymph # (Auto) 0.8 L [place] # (Auto) 0.5 Eos # (Auto) 0.1 Baso # (Auto) 0.0 Immature Gran # (Auto) 0.01 H Absolute Nucleated RBC 0.00 Immature Gran % 0 Nucleated RBC % 0 Puncture Site Site Not Noted ABG pH 7.42 ABG pCO2 46 ABG pO2 65 L ABG HCO3 29 H ABG O2 Saturation 93 ABG Base Excess 4 H Oxygen Liter Flow 4 FiO2 Sodium Potassium Chloride Carbon Dioxide Anion Gap BUN Creatinine Estim Creat Clear Calc eGFR BUN/Creatinine Ratio Glucose Calculated Osmolality Lactic Acid 2.0 Calcium Corrected Calcium Total Bilirubin ALT Alkaline Phosphatase Total Protein Albumin Globulin Albumin/Globulin Ratio 01/28/25 01/29/25 01/29/25 17:49 03:53 07:10 WBC 7.0 RBC 4.42 L Hgb 11.8 L Hct 35.8 L MCV 81 MCH 26.7 MCHC 33.0 RDW Std Deviation 41.0 Plt Count 430 D Neut % (Auto) 86 H Lymph % (Auto) 11 [place] % (Auto) 2 Eos % (Auto) 0 Baso % (Auto) 0 Neut # (Auto) 6.0 Lymph # (Auto) 0.8 L [place] # (Auto) 0.2 Eos # (Auto) 0.0 Baso # (Auto) 0.0 Immature Gran # (Auto) 0.03 H Absolute Nucleated RBC 0.00 Immature Gran % 0 Nucleated RBC % 0 Puncture Site Left Radial Right Radial ABG pH 7.36 7.43 ABG pCO2 51 H 44 ABG pO2 265 H D 192 H D ABG HCO3 29 H 29 H ABG O2 Saturation 99 H 100 H ABG Base Excess 3 4 H Oxygen Liter Flow FiO2 21 70 Sodium 142 Potassium 4.4 Chloride 105 Carbon Dioxide 27.6 Anion Gap 9 BUN 23 Creatinine 0.8 Estim Creat Clear Calc 107.5 eGFR > 60 BUN/Creatinine Ratio 29 H Glucose 124 H Calculated Osmolality 287 Lactic Acid Calcium 9.2 Corrected Calcium 9.4 Total Bilirubin 0.3 ALT 33 Alkaline Phosphatase 89 Total Protein 8.1 Albumin 3.8 Globulin 4.3 H Albumin/Globulin Ratio 0.9 L ABG Interpretation ABG results: 01/28/25 01/28/25 01/29/25 14:24 17:49 03:53 ABG pH 7.42 7.36 7.43 ABG pCO2 46 51 H 44 ABG pO2 65 L 265 H D 192 H D ABG HCO3 29 H 29 H 29 H ABG O2 Saturation 93 99 H 100 H ABG Base Excess 4 H 3 4 H Quality Measures Quality Measures VTE prophylaxis Assessment & Plan Assessment Current Active Medications: Generic Name Dose Route Start Last Admin Trade Name Freq PRN Reason Stop Dose Admin Acetaminophen 650 mg 01/26/25 08:31 Acetaminophen 325 Mg Tablet PO 02/25/25 08:30 Q6H PRN Fever > 100.4 Acetaminophen 650 mg 01/26/25 08:38 01/27/25 16:02 Acetaminophen 325 Mg Tablet PO 02/24/25 16:52 650 mg Q6HR PRN Administration MILD PAIN 1-3 Acetaminophen 650 mg 01/28/25 16:30 01/28/25 17:17 Acetaminophen [place] 325 Mg/10 Ml Udc PO 01/29/25 16:31 650 mg Q24H KEVIN Administration Aspirin 81 mg 01/29/25 09:00 01/29/25 08:23 Aspirin 81 Mg Chew PO 02/28/25 08:59 81 mg QDAY KEVIN Administration Diphenhydramine HCl 25 mg 01/25/25 19:45 01/28/25 17:18 Diphenhydramine Inj 50 Mg/Ml Vial IVP 01/29/25 16:31 25 mg DAILY@1630 KEVIN Administration Docusate Sodium 100 mg 01/28/25 21:30 01/29/25 08:23 Docusate Sod Liqd 100 Mg/10 Ml Udc PO 02/27/25 21:29 100 mg BID KEVIN Administration Protocol Heparin Sodium (Porcine) 5,000 unit 01/25/25 16:15 01/29/25 05:22 Heparin Sod Inj 5000 Unit/Ml Vial SC 02/08/25 16:14 5,000 unit Q8HR KEVIN Administration Propofol 1,000 mg in 100 mls @ 1.934 mls/hr 01/28/25 16:02 01/29/25 09:39 Diprivan Ivpb IV 02/27/25 16:01 10 mcg/kg/min .Q24H PRN 3.868 mls/hr PER PROTOCOL Titration Protocol 5 MCG/KG/MIN Fentanyl Citrate 2,500 mcg in 250 mls @ 2.5 mls/hr 01/28/25 16:02 01/29/25 09:39 Sublimaze Inj 2,500 Mcg/250 Ml Bag IV 02/02/25 16:01 75 mcg/hr .Q24H PRN 7.5 mls/hr PER PROTOCOL Titration Protocol 25 MCG/HR Norepinephrine/Dextrose 8 mg in 250 mls @ 6.044 mls/hr 01/28/25 16:03 Levophed In D5w 8mg/250ml IV 02/27/25 16:02 .Q24H PRN PER PROTOCOL Protocol 0.05 MCG/KG/MIN Ceftriaxone Sodium/Dextrose 1 gm in 50 mls @ 100 mls/hr 01/29/25 09:47 Rocephin/D5w 1gm Iv Premix IV 02/05/25 09:46 QDAY KEVIN Metronidazole 500 mg in 100 mls @ 200 mls/hr 01/29/25 09:50 Flagyl 500 Mg Iv IV 02/05/25 09:49 Q8HR KEVIN Levothyroxine Sodium 50 mcg 01/26/25 09:00 01/29/25 08:23 Levothyroxine Sodium 25 Mcg Tablet PO 02/25/25 08:59 50 mcg QDAY KEVIN Administration [place] Carbonate 900 mg 01/27/25 09:00 01/28/25 09:00 [place] Carb 150 Mg Capsule PO 02/26/25 08:59 900 mg QDAY KEVIN Administration Methylprednisolone Sodium Succinate 125 mg 01/28/25 14:30 01/29/25 05:21 Methylprednisolone Sod Succ 62.5 Mg/Ml 2ml Vial IVP 02/04/25 14:29 125 mg Q6HR KEVIN Administration Mirtazapine 37.5 mg 01/26/25 21:00 01/28/25 21:13 Mirtazapine 15 Mg Tablet PO 02/25/25 20:59 37.5 mg HS KEVIN Administration Multivitamins 1 tab 01/26/25 09:00 01/29/25 08:23 Multivitamins Tablet PO 02/25/25 08:59 1 tab QDAY KEVIN Administration Ondansetron HCl 4 mg 01/25/25 16:07 Ondansetron Inj 2 Mg/Ml Inj 2 Ml IVP 02/24/25 16:06 Q6H PRN NAUSEA OR VOMITING Protocol Pantoprazole Sodium 40 mg 01/26/25 09:00 01/29/25 08:23 Pantoprazole 40 Mg Tablet PO 02/25/25 08:59 40 mg QDAY KEVIN Administration Pyridostigmine [place] 2 mg 01/25/25 19:15 01/29/25 05:22 Pyridostigmine Inj 5 Mg/Ml Amp 2 Ml IVP 02/24/25 19:14 2 mg Q6HR KEVIN Administration Sennosides 1 tab 01/25/25 16:07 Senna Tablet PO 02/24/25 16:06 QDAY PRN constipation Protocol Valproic Acid 750 mg 01/26/25 09:00 01/29/25 08:23 Valproic Acid Syrup 250 Mg/5 Ml Udc PO 02/25/25 08:59 750 mg BID KEVIN Administration Plan Ayo Argueta is 39 yr male with PMH of dysphagia, bipolar disorder, intellectual disability, thrombocytosis, JACQUELINE, myasthenia gravis, thromboangiitis obliterans, acne vulgaris, solitary pulmonary nodule coming from [facility] per neurology due to myasthenia gravis flare. Patient sees Dr. Dietz who noticed increased weakness and increased salivary secretions. Admit per neurology for IVIG treatment, pyridostigmine in setting of myasthenia gravis flare. Upgraded to the ICU for myasthenia crisis. 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 Plan: - Sedation: Propofol and fentanyl - RASS goal -2 ? For sedation vacation today. ? Decrease Pyridostigmine every 12 hourly as per neurology recommendation - Resumed IVIg at 400 Mg per KG for 3 more days last day on 01/31/2025 as secondary to per neurology recommendation - Neurology consulted Cardio: Hypotension secondary to volume depletion Plan: ? 1 L LR IVF bolus Pulm: Acute respiratory failure secondary to inability to protect airway due to myasthenia crisis Etiology secondary to myasthenia crisis, patient had difficulty protecting airway and clear secretions also had difficulty swallowing and having full inspiration. The decision was made to intubate the patient to protect airway and assist breathing. Today ABG showed ABG pH 7.43, BLL026, PO2 192 Plan: - For extubation trial today GI: History of dysphagia Completed video esophagram in 02/2024. It showed vallecular pooling and retention with pudding and crackers. Also showed silent aspiration with nectar and thin liquids. Diet was changed to ground food and honey thickened liquids. Plan: - Nurse swallow screen x 1 ? Speech pathology referral ordered Renal: Oliguria Plan: ? 1L LR IVF bolus Endo: History of hypothyroidism Rx: Continue home medication levothyroxine 50 mcg p.o. daily Heme: Normocytic anemia DDx: Likely dilutional DX: Hb 11.8 Rx: Monitor for signs of bleeding, follow CBC ID: Syphilis, serology positive Syphilis serology came back reactive we are pending titers from [place] lab and will follow-up with ID recommendations. Plan: - Pending antibody and titer confirmatory result - Follow-up ID recommendations Aspiration pneumonia secondary to myasthenia crisis Due to the patient's inability to protect airway Sputum culture grew E. coli resistant to amoxicillin Plan: - Discontinued Augmentin ? Started on ceftriaxone 1 g IV daily [01/29? ? Started on metronidazole 500 Mg IV Q8 hourly on [01/29? Skin/MSK: Thromboangitis obliterans Plan: - conts aspirin 81mg daily. ICU Health maintenance: Dispo: For extubation today. Possible downgrade to floor once stable Diet: N.p.o. until speech eval DVT ppx: Enoxaparin 40mg SC daily GI ppx: Protonix 40mg qD Mechanical ventilattion: No Sedation: No IV lines: 3 pIV Central line: No Arterial line: No Fajardo: Yes (started 01/28/25 - Code status: FULL CODE Plan of care discussed with Attending Dr. Latham and PGY 3 Dr. Ericka Lr MD PGY 1 Disclaimer: This note was dictated by speech recognition. 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 Attending Provider Attestation/Addendum This is a 39-year-old male admitted to the ICU for acute respiratory failure secondary to myasthenia gravis. He was unable to manage his secretions on the floor and had a very poor NIF and decision was made to intubate him. Patient had been on IVIG per neurology however this was held for today. Decision was made by neuro to decrease Mestinon to every 12. The patient is awake and able to follow some commands. Will evaluate his respiratory status to determine when it is safe to extubate. Of note he is also being evaluated for a positive syphilis screen. Confirmatory tests are pending with the county. His sputum cultures were growing E. coli and antibiotics were adjusted. Overall he is stable and doing well. Case discussed with ICU team Labs, imaging and records reviewed Approximately 37 critical care minutes required for evaluation, exam, review, intervention, discussion formulation of plan of care for this critically ill patient with acute hypoxic respiratory failure secondary to myasthenia crisis
[2025-01-29] MEDS: cefTRIAXone/D5w 1gm IV premix 1 GM/50 ML BAG IV (12:43)
[2025-01-29] MEDS: metroNIDAZOLE/NS 500 MG IVPB 500 MG/100 ML BAG 200 MG IV ×2 (12:44→21:15)
[2025-01-29] MEDS: LITHIUM CARB 150 MG CAPSULE 900 MG PO (12:46)
--- NOTE | 2025-01-29 14:18 | PC.SS ---
Ayo Argueta is a 39 year old male admitted to the ICU for myasthenia Gravis Flare. SW made contact with Ashley, [facility], , NOD is [phone]. Role and reason for the contact was explained to Ashley. Pt resides at [facility] and plan is for pt to return upon discharge. Pt is ambulatory and is verbal. SS met pt at bedside, pt was intibuted at time of visit but was able to understand questions by nodding or shaking head. SS went over medical hx to determine if anything new had occurred as SS was informed pt has been dx with syphilis on this admission to hospital and had not been dx before this visit. SS spoke with Ashley and learned there were swelling issues with swallowing due to psychotropic medications, these mediations have since been discontinued and pt has had flareups with aspirations. A legion was discovered on lobe and pulomonist was consulted. [facility] stated if pt needs to be transported back to facility and is on O2 and IVABX, they will need ambulance transportation; otherwise their team will work with [facility] SS team to set up transportation. Ashley confirmed pt conservator is Tana Chaves, pt sister, . PCP for pt is Dr Moore; right now pt has been seeing Dr. Bardales while Dr Vides is out of office. Plan: Return to SNF- [facility] PCP: Dr. Dr Moore Emergency Contact: Tana Andie, pt sister, and [facility] NOD is [phone] Address: Correct on [employer]
[2025-01-29] MEDS: ACETAMINOPHEN 250 MG IV ×2 (18:05→19:54)
[2025-01-29] MEDS: DiphenhydrAMINE INJ 50 MG/ML VIAL 25 MG IVP (18:14)
[2025-01-29] MEDS: IMMUNE GLOB GA CA IV (19:55)
[2025-01-29] MEDS: PRE MIXED IV (19:55)
[2025-01-29] MEDS: VALPROATE SOD IV (21:29)
[2025-01-29] MEDS: SODIUM CHLORIDE 0.9% IV (21:29)
--- NOTE | 2025-01-29 23:53 | ESPR_ITS ---
Documentation for date of: 01/29/25 Subjective Subjective Interval history: Patient was seen in ICU today at the bed. He just got extubated and is doing well, continues to have bronchial secretions needing suctioning but not as bad as yesterday before he was intubated. Bulbar weakness overall has improved. Exam - Neurology Vital Signs Temp Pulse Resp BP Pulse Ox O2 Del Method O2 Flow Rate 98.9 F 54 L 29 H 102/67 98 Nasal Cannula 3 01/29/25 20:01 01/29/25 23:00 01/29/25 23:00 01/29/25 23:00 01/29/25 23:00 01/29/25 16:00 01/29/25 18:24 FiO2 40 01/29/25 11:28 Narrative Exam GENERAL APPEARANCE: Well hydrated, well-nourished in no acute distress. HEENT: Normocephalic, atraumatic, extraocular movements intact. Pupils: Equal reacting to light and accommodation. proptosis noted in both eyes. NECK: Supple, no JVD or bruits. CARDIOVASULAR: Heart: S1, S2 heard, regular without S3-S4 or murmur no rubs or gallops. LUNGS/CHEST: Clear to auscultation bilaterally. No rails, rhonchi, or wheezing. Normal inspection. ABDOMEN: Soft, nontender, with normal bowel sounds. No pulsatile masses. No rebound, rigidity, or guarding. Normal inspection and palpation. EXTREMITIES: Normal inspection and palpation. No edema, clubbing or cyanosis. SKIN: Warm and dry without rashes. Normal inspection. MUSCULOSKELETAL: No cervical, thoracic, lumbar or midline bony tenderness. Normal inspection. NEURO: Alert, awake and oriented x3. Cranial nerves: II through XII grossly intact. Speech and language: Significant improvement in his speech and tone , no significant Dysarthria noted.. Motor system: Tone and bulk: Normal: Strength: 5 out of 5 in all 4 extremities; No pronator drift noted. Deep tendon reflexes: 2+ bilaterally symmetrical. Plantar reflex: Downgoing bilaterally. Sensory system: Intact to all modalities of sensation bilaterally. Coordination: Intact to [id number] and [id number]-[id number] test bilaterally. No ataxia, no dysmetria, or dysdiadochokinesia noted. No intention tremors noted. Gait: Not tested, no signs of meningeal irritation noted. PSYCHIATRIC: Normal mood and affect. Objective Labs 01/29/25 07:10 01/29/25 07:10 Labs: Laboratory Results - last 24 hr 01/29/25 01/29/25 03:53 07:10 WBC 7.0 RBC 4.42 L Hgb 11.8 L Hct 35.8 L MCV 81 MCH 26.7 MCHC 33.0 RDW Std Deviation 41.0 Plt Count 430 D Neut % (Auto) 86 H Lymph % (Auto) 11 [place] % (Auto) 2 Eos % (Auto) 0 Baso % (Auto) 0 Neut # (Auto) 6.0 Lymph # (Auto) 0.[address] [place] # (Auto) 0.2 Eos # (Auto) 0.0 Baso # (Auto) 0.0 Immature Gran # (Auto) 0.03 H Absolute Nucleated RBC 0.00 Immature Gran % 0 Nucleated RBC % 0 Puncture Site Right Radial ABG pH 7.43 ABG pCO2 44 ABG pO2 192 H D ABG HCO3 29 H ABG O2 Saturation 100 H ABG Base Excess 4 H FiO2 70 Sodium 142 Potassium 4.4 Chloride 105 Carbon Dioxide 27.6 Anion Gap 9 BUN 23 Creatinine 0.8 Estim Creat Clear Calc 107.5 eGFR > 60 BUN/Creatinine Ratio 29 H Glucose 124 H Calculated Osmolality 287 Calcium 9.2 Corrected Calcium 9.4 Total Bilirubin 0.3 ALT 33 Alkaline Phosphatase 89 Total Protein 8.1 Albumin 3.8 Globulin 4.3 H Albumin/Globulin Ratio 0.9 L ABG Interpretation ABG results: 01/28/25 01/28/25 01/29/25 14:24 17:49 03:53 ABG pH 7.42 7.36 7.43 ABG pCO2 46 51 H 44 ABG pO2 65 L 265 H D 192 H D ABG HCO3 29 H 29 H 29 H ABG O2 Saturation 93 99 H 100 H ABG Base Excess 4 H 3 4 H Assessment & Plan Assessment and plan (1) Bulbar myasthenia gravis: Status: Acute Assessment and plan: Patient developed cholinergic crisis needing urgent intubation and transferred to ICU. Treated with steroids and lowered the dose of Mestinon. Will keep him on IVIG 400 mg/kg for another 3 more days with premedication and keep him on steroids. After he passed the swallow evaluation we will switch IV Mestinon to p.o. 60 mg every 12 hours. Will consider switching to p.o. steroids 10 mg a day along with azathioprine 50 mg twice a day to prevent long-term steroid effect Upon discharge.
--- NOTE | 2025-01-29 23:53 | PD.VPROG1 ---
Telemedicine visit statement This visit was conducted with the use of interactive audio and video telecommunications system that permits real time communication between the patient and the provider. Patient's verbal consent for virtual visit was obtained on 01/28/25 at 2353. Documentation for date of: 01/28/25 Subjective Subjective Interval history: Patient is in ICU, got transferred from [facility] as his secretions got worse and developed significant trouble in breathing. Needed to be intubated and on [facility] ventilator placement. Virtual exam Vital Signs Temp Pulse Resp BP Pulse Ox O2 Del Method O2 Flow Rate 98.9 F 54 L 29 H 102/67 98 Nasal Cannula 3 01/29/25 20:01 01/29/25 23:00 01/29/25 23:00 01/29/25 23:00 01/29/25 23:00 01/29/25 16:00 01/29/25 18:24 FiO2 40 01/29/25 11:28 Objective Labs 01/29/25 07:10 01/30/25 05:00 Labs: Laboratory Results - last 24 hr 01/29/25 01/29/25 03:53 07:10 WBC 7.0 RBC 4.42 L Hgb 11.8 L Hct 35.8 L MCV 81 MCH 26.7 MCHC 33.0 RDW Std Deviation 41.0 Plt Count 430 D Neut % (Auto) 86 H Lymph % (Auto) 11 [place] % (Auto) 2 Eos % (Auto) 0 Baso % (Auto) 0 Neut # (Auto) 6.0 Lymph # (Auto) 0.8 L [place] # (Auto) 0.2 Eos # (Auto) 0.0 Baso # (Auto) 0.0 Immature Gran # (Auto) 0.03 H Absolute Nucleated RBC 0.00 Immature Gran % 0 Nucleated RBC % 0 Puncture Site Right Radial ABG pH 7.43 ABG pCO2 44 ABG pO2 192 H D ABG HCO3 29 H ABG O2 Saturation 100 H ABG Base Excess 4 H FiO2 70 Sodium 142 Potassium 4.4 Chloride 105 Carbon Dioxide 27.6 Anion Gap 9 BUN 23 Creatinine 0.8 Estim Creat Clear Calc 107.5 eGFR > 60 BUN/Creatinine Ratio 29 H Glucose 124 H Calculated Osmolality 287 Calcium 9.2 Corrected Calcium 9.4 Total Bilirubin 0.3 ALT 33 Alkaline Phosphatase 89 Total Protein 8.1 Albumin 3.8 Globulin 4.3 H Albumin/Globulin Ratio 0.9 L ABG Interpretation ABG results: 01/28/25 01/28/25 01/29/25 14:24 17:49 03:53 ABG pH 7.42 7.36 7.43 ABG pCO2 46 51 H 44 ABG pO2 65 L 265 H D 192 H D ABG HCO3 29 H 29 H 29 H ABG O2 Saturation 93 99 H 100 H ABG Base Excess 4 H 3 4 H Assessment & Plan Problem List (1) Bulbar myasthenia gravis: Status: Acute Assessment and plan: Patient is in cholinergic crisis start Steroids: 125 mg q6 hours Lowered the freq of mestinon to q12 resume IVIG tomorrow.
[2025-01-30] VITALS (19 sets, daily range): BP systolic 92–130; BP diastolic 53–90; PULSE 53–74; RESP 13–37; TEMP 36.8–37; O2SAT 88–99
[2025-01-30] MEDS: SODIUM CHLORIDE 0.9% IV (02:48)
[2025-01-30] MEDS: VALPROATE SOD IV (02:48)
[2025-01-30] MEDS: MethylPREDNISolone SOD SUCC 62.5 MG/ML 2ML VIAL 125 MG IVP ×4 (05:03→23:10)
[2025-01-30] MEDS: metroNIDAZOLE/NS 500 MG IVPB 500 MG/100 ML BAG 200 MG IV ×3 (05:05→22:11)
--- NOTE | 2025-01-30 05:31 | PC.NURSE ---
Upon 0500 assessment, pt's urine noted to be reddish in appearance, MD Bates notified. Orders given to hold morning SQ Heparin
[2025-01-30 06:33] LABS: Alanine Aminotransferase 36 U/L (10-49); Albumin, Serum 4.4 gm/dL (3.5-5.0); Albumin/Globulin Ratio 0.8 (1.2-2.2); Alkaline Phosphatase 107 U/L (46-116); Anion Gap 13 (7-16); BUN/Creatinine Ratio 29 Ratio (12-20); Bilirubin,Total 0.3 mg/dL (0.3-1.2); Blood Urea Nitrogen 26 mg/dL (9-23); Calcium 9.8 mg/dL (8.3-10.6); Calcium (Corrected) 9.8 mg/dL (8.5-10.1); Carbon Dioxide 25.7 mMol/L (20.0-31.0); Chloride 104 mMol/L (98-107); Creatinine (Component) 0.9 mg/dL (0.6-1.3); Estimated Creatinine Clearance 95.1 mL/min (>60); Globulin 5.7 gm/dL (2.3-3.5); Glucose 106 mg/dL (74-106); Osmolality,Calculated 289 (275-295); Potassium 5.3 mMol/L (3.4-5.1); Sodium 143 mMol/L (136-145); Total Protein 10.1 gm/dL (5.7-8.2); eGFR > 60 See Note
[2025-01-30 06:48] LABS: Aspergillus Ag, Ser* NOT DETECTED
[2025-01-30 08:04] LABS: Basophils % (Auto) 0 % (0-2.5); Eosinophils % (Auto) 0 % (0-10); Hematocrit 37.6 % (41.0-53.0); Hemoglobin 12.5 g/dL (13.5-16.0); Immature Granulocytes % (Auto) 0 % (0-0); Immature Granulocytes Auto 0.03 Thou/mm3 (0.00-0.00); Lymphocytes # (Auto) 0.5 Thou/mm3 (1.0-4.8); Lymphocytes % (Auto) 6 % (10-50); Mean Corpuscular HGB Conc 33.2 g/dl (31.0-37.0); Mean Corpuscular Hemoglobin 27.2 pg (25.0-35.0); Mean Corpuscular Volume 82 fL (80-100); Monocytes # (Auto) 0.2 Thou/mm3 (0.0-0.8); Monocytes % (Auto) 2 % (0-12); Neutrophils # (Auto) 7.6 Thou/mm3 (1.8-7.7); Neutrophils % (Auto) 91 % (37-80); Nucleated Red Blood Cell % 0 /100 WBC (0); Platelet Count 385 Thou/mm3 (140-440); RDW Standard Deviation 40.2 fL (35.1-43.9); Red Blood Count 4.59 Miln/mm3 (4.50-5.90); White Blood Count 8.3 Thou/mm3 (3.8-10.6)
[2025-01-30] MEDS: ASPIRIN 81 MG CHEW PO (09:02)
[2025-01-30] MEDS: VALPROIC ACID SYRUP 250 MG/5 ML UDC 750 MG PO ×2 (09:02→21:41)
[2025-01-30] MEDS: MULTIVITAMINS TABLET 1 TAB PO (09:02)
[2025-01-30] MEDS: cefTRIAXone/D5w 1gm IV premix 1 GM/50 ML BAG IV (09:02)
[2025-01-30] MEDS: DOCUSATE SOD LIQD 100 MG/10 ML UDC PO ×2 (09:02→21:42)
[2025-01-30] MEDS: LITHIUM CARB 150 MG CAPSULE 900 MG PO (09:02)
[2025-01-30] MEDS: LEVOTHYROXINE SODIUM 25 MCG TABLET 50 MCG PO (09:03)
[2025-01-30] MEDS: PANTOPRAZOLE 40 MG TABLET PO (09:03)
[2025-01-30] MEDS: PYRIDOSTIGMINE 5 MG/ML 2 MG IVP (09:03)
--- NOTE | 2025-01-30 10:40 | PD.RESPRO ---
Documentation for date of: 01/30/25 Subjective Subjective Interval history: 39-year-old male with past medical history of bipolar disorder, cognitive disability, JACQUELINE, dysphagia, thromboangiitis obliterans, and myasthenia gravis. The patient was admitted to [facility] on 01/25/2025 at the recommendations of Dr. Dietz due to myasthenia gravis flare. Dr. Dietz noticed increased weakness and increased salivary secretions. Patient was recommended for admission to start IVIG treatment, pyridostigmine in the setting of the myasthenia gravis flare. CT chest showed a cavitary lesion in the left lower lobe which appears to be chronic. Based on further evaluation of chart review on August 2023 was also visible at that time. On patient had a quantiferon gold which was negative as well as a cocci serology. ID was consulted which they recommended Augmentin for 7 days. Today, patient had a rapid response due to increased oral secretions lacrimation and concern for airway compromise. Once patient was transferred to the ICU patient's condition worsened. We tried deep suctioning the patient, at that time we were concerned about airway protection. We decided to do RSI patient was intubated with a ET tube 7.5 patient tolerated the procedure well was placed on the chemical ventilation. Chest x-ray was done showed appropriate placement of the ET tube and OG tube. 01/29/2025: Overnight patient had to 50 cc of urine output, fentanyl sedation was increased to 125 mcg/kg, propofol at 25 mcg/kg and Norad at 6/h, RASS -2. Patient opening eyes to voice and following commands. Hb decreased to 11.8 from 13.4, sputum culture grew E. coli resistant to Augmentin, blood culture pending, pH 7.43, TEM797, bicarb 29. Will do a sedation vacation today and attempt extubation. Also will increase pyridostigmine to every 12 hourly and restart IVIG at 400 Mg/KG for 3 more days as per neurology recommendation. After patient is extubated and stable on minimal supplemental O2, will downgrade to the floor. 01/30/2025: Overnight patient had some orange colored urine and Heparin was held. Urine output was 835cc in the past 24 hours. Patient says he feels fine this morning but does have a non-productive cough. Denies and SOB, dizziness, chest pain and negative mood. Hb 12.5, K 5.3. Speech therapy saw patient this morning and assessed him to have progressive worsening of his silent aspiration, recommended a moderately thick 3, dysphagia 1 diet with thickened liquids and said that it is okay for him to have p.o. meds once he takes it slowly. Currently patient on ceftriaxone and metronidazole IV for aspiration pneumonia. Switched pyridostigmine from 2 Mg IV every 12 hourly to pyridostigmine 60 Mg p.o. every 12 hourly as per neurology recommendations. To complete 2 more days of IVIG to complete on 01/31. Currently patient saturating 99% on 2L via NC and clinically stable for downgrade to the floor. Exam Vital Signs Temp Pulse Resp BP Pulse Ox O2 Del Method O2 Flow Rate 98.6 F 70 18 130/90 H 99 Nasal Cannula 2 01/30/25 04:00 01/30/25 06:50 01/30/25 06:50 01/30/25 06:02 01/30/25 06:50 01/29/25 16:00 01/30/25 06:50 FiO2 40 01/29/25 11:28 Narrative Exam Constitutional Alert, oriented x 3 and comfortable HEENT PERRL, strabismus, trachea midline, nares patent, no drooling Respiratory Chest normal on inspection and clear auscultation bilaterally on anterior and posterior chest wall. Cardiovascular S1 and S2 audible, RRR. No murmurs carotid bruit. No gross JVD. Abdominal Soft and non tender to palpation in all quadrants. BS +. Healed [place] incision Genitourinary No bladder tenderness, no flank pain. Normal to palpation Musculoskeletal Extremities tone within normal limits. No LE edema. Neurological CN II - XII grossly intact. GCS 15/15 Skin Warm, dry and intact. Bilateral heels erythematous Psychiatric Patient has flat affect, is cooperative Objective Labs 01/30/25 07:26 01/30/25 05:00 Labs: Laboratory Results - last 24 hr 01/26/25 01/30/25 01/30/25 06:07 05:00 07:26 WBC 8.3 RBC 4.59 Hgb 12.5 L Hct 37.6 L MCV 82 MCH 27.2 MCHC 33.2 RDW Std Deviation 40.2 Plt Count 385 D Neut % (Auto) 91 H Lymph % (Auto) 6 L [place] % (Auto) 2 Eos % (Auto) 0 Baso % (Auto) 0 Neut # (Auto) 7.6 Lymph # (Auto) 0.5 L [place] # (Auto) 0.2 Eos # (Auto) 0.0 Baso # (Auto) 0.0 Immature Gran # (Auto) 0.03 H Absolute Nucleated RBC 0.00 Immature Gran % 0 Nucleated RBC % 0 Sodium 143 Potassium 5.3 H D Chloride 104 Carbon Dioxide 25.7 Anion Gap 13 BUN 26 H Creatinine 0.9 Estim Creat Clear Calc 95.1 eGFR > 60 BUN/Creatinine Ratio 29 H Glucose 106 Calculated Osmolality 289 Calcium 9.8 Corrected Calcium 9.8 Total Bilirubin 0.3 ALT 36 Alkaline Phosphatase 107 D Total Protein 10.1 H Albumin 4.4 D Globulin 5.7 H Albumin/Globulin Ratio 0.8 L Aspergillus Ag (EIA) NOT DETECTED Aspergillus Index Value <0.50 ABG Interpretation ABG results: 01/28/25 01/28/25 01/29/25 14:24 17:49 03:53 ABG pH 7.42 7.36 7.43 ABG pCO2 46 51 H 44 ABG pO2 65 L 265 H D 192 H D ABG HCO3 29 H 29 H 29 H ABG O2 Saturation 93 99 H 100 H ABG Base Excess 4 H 3 4 H Quality Measures Quality Measures VTE prophylaxis Assessment & Plan Assessment Current Active Medications: Generic Name Dose Route Start Last Admin Trade Name Freq PRN Reason Stop Dose Admin Acetaminophen 650 mg 01/26/25 08:31 Acetaminophen 325 Mg Tablet PO 02/25/25 08:30 Q6H PRN Fever > 100.4 Acetaminophen 650 mg 01/26/25 08:38 01/27/25 16:02 Acetaminophen 325 Mg Tablet PO 02/24/25 16:52 650 mg Q6HR PRN Administration MILD PAIN 1-3 Aspirin 81 mg 01/29/25 09:00 01/30/25 09:02 Aspirin 81 Mg Chew PO 02/28/25 08:59 81 mg QDAY KEVIN Administration Diphenhydramine HCl 25 mg 01/29/25 16:30 01/29/25 18:14 Diphenhydramine Inj 50 Mg/Ml Vial IVP 01/31/25 16:31 25 mg DAILY@1630 KEVIN Administration Docusate Sodium 100 mg 01/28/25 21:30 01/30/25 09:02 Docusate Sod Liqd 100 Mg/10 Ml Udc PO 02/27/25 21:29 100 mg BID KEVIN Administration Protocol Heparin Sodium (Porcine) 5,000 unit 01/30/25 21:00 Heparin Sod Inj 5000 Unit/Ml Vial SC 02/13/25 20:59 BID KEVIN Ceftriaxone Sodium/Dextrose 1 gm in 50 mls @ 100 mls/hr 01/29/25 09:47 01/30/25 09:02 Rocephin/D5w 1gm Iv Premix IV 02/05/25 09:46 100 mls/hr QDAY KEVIN Administration Metronidazole 500 mg in 100 mls @ 200 mls/hr 01/29/25 09:50 01/30/25 05:05 Flagyl 500 Mg Iv IV 02/05/25 09:49 200 mls/hr Q8HR KEVIN Administration Immune Globulin G/Gly/IgA 10 300 mls @ 50 mls/hr 01/29/25 17:00 01/29/25 19:55 gm/ Immune Globulin G/Gly/IgA IV 01/31/25 22:59 50 mls/hr 20 gm/ IV Miscellaneous DAILY@1700 KEVIN Administration Supplies Acetaminophen 100 mls @ 250 mls/hr 01/29/25 18:00 01/29/25 19:54 Ofirmev Inj IV 01/31/25 16:53 250 mls/hr QDAY@1630 KEVIN Administration Levothyroxine Sodium 50 mcg 01/26/25 09:00 01/30/25 09:03 Levothyroxine Sodium 25 Mcg Tablet PO 02/25/25 08:59 50 mcg QDAY KEVIN Administration [place] Carbonate 900 mg 01/27/25 09:00 01/30/25 09:02 [place] Carb 150 Mg Capsule PO 02/26/25 08:59 900 mg QDAY KEVIN Administration Methylprednisolone Sodium Succinate 125 mg 01/28/25 14:30 01/30/25 05:03 Methylprednisolone Sod Succ 62.5 Mg/Ml 2ml Vial IVP 02/04/25 14:29 125 mg Q6HR KEVIN Administration Mirtazapine 37.5 mg 01/26/25 21:00 01/29/25 20:00 Mirtazapine 15 Mg Tablet PO 02/25/25 20:59 Not Given HS KEVIN Multivitamins 1 tab 01/26/25 09:00 01/30/25 09:02 Multivitamins Tablet PO 02/25/25 08:59 1 tab QDAY KEVIN Administration Ondansetron HCl 4 mg 01/25/25 16:07 Ondansetron Inj 2 Mg/Ml Inj 2 Ml IVP 02/24/25 16:06 Q6H PRN NAUSEA OR VOMITING Protocol Pantoprazole Sodium 40 mg 01/26/25 09:00 01/30/25 09:03 Pantoprazole 40 Mg Tablet PO 02/25/25 08:59 40 mg QDAY KEVIN Administration Pyridostigmine [place] 60 mg 01/30/25 21:00 Pyridostigmine [place] 60 Mg Tablet PO 03/01/25 20:59 Q12HR KEVIN Sennosides 1 tab 01/25/25 16:07 Senna Tablet PO 02/24/25 16:06 QDAY PRN constipation Protocol Valproic Acid 750 mg 01/26/25 09:00 01/30/25 09:02 Valproic Acid Syrup 250 Mg/5 Ml Udc PO 02/25/25 08:59 750 mg BID KEVIN Administration Plan Ayo Argueta is 39 yr male with PMH of dysphagia, bipolar disorder, intellectual disability, thrombocytosis, JACQUELINE, myasthenia gravis, thromboangiitis obliterans, acne vulgaris, solitary pulmonary nodule coming from [facility] per neurology due to myasthenia gravis flare. Patient sees Dr. Dietz who noticed increased weakness and increased salivary secretions. Admit per neurology for IVIG treatment, pyridostigmine in setting of myasthenia gravis flare. Upgraded to the ICU for myasthenia crisis. ENVIRONMENTAL CONSULTANT: Bulbar Myasthenia crisis - resolving Patient presented with Difficulty breathing, shallow breaths, saliva buildup in the throat, inability to swallow, weakness of the jaw or tongue, nasal tone to the voice, and a feeling of airway blockage.? Plan: ? Switch pyridostigmine to 60 Mg p.o. every 12 hourly as per neurology recommendations - Continue IVIg at 400 Mg per KG for 2 more days last day on 01/31/2025 as secondary to per neurology recommendation - To taper IV steroids as per neurology recommendations ? Patient currently stable for downgrade to floor. - Neurology consulted. Appreciate recommendations Cardio: No active problems Pulm: No active problems GI: History of dysphagia Speech therapy saw patient this morning and assessed him to have progressive worsening of his silent aspiration, recommended a moderately thick 3, dysphagia 1 diet with thickened liquids and said that it is okay for him to have p.o. meds once he takes it slowly Plan: - Moderately thick 3, dysphagia 1 diet. Thickened liquids and encourage patient to drink and take p.o. meds slowly as per speech therapy. Renal: No active problems Endo: History of hypothyroidism Rx: Continue home medication levothyroxine 50 mcg p.o. daily Heme: Normocytic anemia DDx: Likely dilutional DX: Hb 12.5 Rx: Monitor for signs of bleeding, follow CBC ID: Syphilis, serology positive Syphilis serology came back reactive we are [facility] and will follow-up with ID recommendations. Plan: - Pending antibody and titer confirmatory result - Follow-up ID recommendations Aspiration pneumonia secondary to myasthenia crisis Due to the patient's inability to protect airway Sputum culture grew E. coli resistant to amoxicillin Plan: ? Continue ceftriaxone 1 g IV daily started on [01/29? ? Continue metronidazole 500 Mg IV Q8 hourly started on [01/29? Skin/MSK: Thromboangitis obliterans Plan: - conts aspirin 81mg daily. ICU Health maintenance: Dispo: For downgrade to med/surg Diet: MT 3, Dyshagia 1 DVT ppx: Heparin GI ppx: Protonix 40mg qD Mechanical ventilattion: No Sedation: No IV lines: 3 pIV Central line: No Arterial line: No [place]: Discontinued Code status: FULL CODE Plan of care discussed with Attending Dr. Latham and PGY 3 Dr. Ericka Lr MD PGY 1 Disclaimer: This note was dictated by speech recognition. Minor errors in internal revenue service agent may be present due to voice recognition software. Attending Provider Attestation/Addendum pt seen and examined, d/w resident. in brief this is a 39y oM admitted to ICU with acute resp failure 2/2 myasthenia gravis crisis. He has been on pulse dose steroids and IVIG, his NIF was found to be -34 and he was extubated yesterday. He was monitored overnight and did well. He is able to manage his secretions at this point in time. He is currently still being evaluated by ID for ? TB. Cx grew E. coli from ETT and meds adjusted. He is currently stable for transfer to floor. case d/w ICU team labs, imaging, records reviewed ~35min required for eval, exam, review, intervention, discussion and formulation of POC for this pt
--- NOTE | 2025-01-30 15:12 | PC.SS ---
Update: Patient has been downgraded from ICU to Tele floor.
[2025-01-30] MEDS: SODIUM CHLORIDE 0.9% 500 ML 500 ML 999 ML IV (15:18)
--- NOTE | 2025-01-30 15:34 | ESPR_ITS ---
Documentation for date of: 01/30/25 Subjective Subjective Interval history: 39-year-old male with past medical history of bipolar disorder, cognitive disability, JACQUELINE, dysphagia, thromboangiitis obliterans, and myasthenia gravis. The patient was admitted to [facility] on 01/25/2025 at the recommendations of Dr. Dietz due to myasthenia gravis flare. Dr. Dietz noticed increased weakness and increased salivary secretions. Patient was recommended for admission to start IVIG treatment, pyridostigmine in the setting of the myasthenia gravis flare. Also getting worked up for TB rule out with sputum stain results pending. He was upgraded to ICU on 01/28 due to increased oral secretions lacrimation and concern for airway compromise. Once patient was transferred to the ICU patient's condition worsened. Patient was subsequently intubated. Extubated next day, Switched pyridostigmine from 2 Mg IV every 12 hourly to pyridostigmine 60 Mg p.o. every 12 hourly as per neurology recommendations. To complete 2 more days of IVIG to complete on 01/31. Currently patient saturating 99% on 2L via NC and clinically stable for downgrade to the floor. Exam Vital Signs Temp Pulse Resp BP Pulse Ox O2 Del Method O2 Flow Rate 98.6 F 70 28 H 101/73 88 L Nasal Cannula 2 01/30/25 08:00 01/30/25 11:00 01/30/25 11:00 01/30/25 11:00 01/30/25 11:00 01/30/25 08:00 01/30/25 08:00 FiO2 40 01/29/25 11:28 Narrative Exam General: Young male, tracking, No acute distress, cooperative HEENT: NCAT, No JVD noted. Mucosa dry. Pupils are equal and reactive to light bilaterally Cardiovascular: Normal S1 and S2. Regular rate and rhythm. Respiratory: wheezing bilateral, on NC Abdomen: Soft, nontender, not distended, normal bowel sounds. Skin: Warm to touch, dry, red scaling skin on extremities Musculoskeletal: No gross injuries. Able to move all 4 extremities. LLE swelling (appears to be chronic problem), no erythema or tenderness. Neuro: Alert and oriented x1. No focal neuro deficits. Psych: Normal affect and mood Objective Labs 01/31/25 05:16 01/31/25 05:16 Labs: Laboratory Results - last 24 hr 01/26/25 01/30/25 01/30/25 06:07 05:00 07:26 WBC 8.3 RBC 4.59 Hgb 12.5 L Hct 37.6 L MCV 82 MCH 27.2 MCHC 33.2 RDW Std Deviation 40.2 Plt Count 385 D Neut % (Auto) 91 H Lymph % (Auto) 6 L [place] % (Auto) 2 Eos % (Auto) 0 Baso % (Auto) 0 Neut # (Auto) 7.6 Lymph # (Auto) 0.5 L [place] # (Auto) 0.2 Eos # (Auto) 0.0 Baso # (Auto) 0.0 Immature Gran # (Auto) 0.03 H Absolute Nucleated RBC 0.00 Immature Gran % 0 Nucleated RBC % 0 Sodium 143 Potassium 5.3 H D Chloride 104 Carbon Dioxide 25.7 Anion Gap 13 BUN 26 H Creatinine 0.9 Estim Creat Clear Calc 95.1 eGFR > 60 BUN/Creatinine Ratio 29 H Glucose 106 Calculated Osmolality 289 Calcium 9.8 Corrected Calcium 9.8 Total Bilirubin 0.3 ALT 36 Alkaline Phosphatase 107 D Total Protein 10.1 H Albumin 4.4 D Globulin 5.7 H Albumin/Globulin Ratio 0.8 L Aspergillus Ag (EIA) NOT DETECTED Aspergillus Index Value <0.50 ABG Interpretation ABG results: 01/28/25 01/28/25 01/29/25 14:24 17:49 03:53 ABG pH 7.42 7.36 7.43 ABG pCO2 46 51 H 44 ABG pO2 65 L 265 H D 192 H D ABG HCO3 29 H 29 H 29 H ABG O2 Saturation 93 99 H 100 H ABG Base Excess 4 H 3 4 H Quality Measures Quality Measures VTE prophylaxis Assessment & Plan Assessment Current Active Medications: Generic Name Dose Route Start Last Admin Trade Name Freq PRN Reason Stop Dose Admin Acetaminophen 650 mg 01/26/25 08:31 Acetaminophen 325 Mg Tablet PO 02/25/25 08:30 Q6H PRN Fever > 100.4 Acetaminophen 650 mg 01/26/25 08:38 01/27/25 16:02 Acetaminophen 325 Mg Tablet PO 02/24/25 16:52 650 mg Q6HR PRN Administration MILD PAIN 1-3 Aspirin 81 mg 01/29/25 09:00 01/30/25 09:02 Aspirin 81 Mg Chew PO 02/28/25 08:59 81 mg QDAY KEVIN Administration Diphenhydramine HCl 25 mg 01/29/25 16:30 01/29/25 18:14 Diphenhydramine Inj 50 Mg/Ml Vial IVP 01/31/25 16:31 25 mg DAILY@1630 KEVIN Administration Docusate Sodium 100 mg 01/28/25 21:30 01/30/25 09:02 Docusate Sod Liqd 100 Mg/10 Ml Udc PO 02/27/25 21:29 100 mg BID KEVIN Administration Protocol Heparin Sodium (Porcine) 5,000 unit 01/30/25 21:00 Heparin Sod Inj 5000 Unit/Ml Vial SC 02/13/25 20:59 BID KEVIN Ceftriaxone Sodium/Dextrose 1 gm in 50 mls @ 100 mls/hr 01/29/25 09:47 01/30/25 09:02 Rocephin/D5w 1gm Iv Premix IV 02/05/25 09:46 100 mls/hr QDAY KEVIN Administration Metronidazole 500 mg in 100 mls @ 200 mls/hr 01/29/25 09:50 01/30/25 15:04 Flagyl 500 Mg Iv IV 02/05/25 09:49 200 mls/hr Q8HR KEVIN Administration Immune Globulin G/Gly/IgA 10 300 mls @ 50 mls/hr 01/29/25 17:00 01/29/25 19:55 gm/ Immune Globulin G/Gly/IgA IV 01/31/25 22:59 50 mls/hr 20 gm/ IV Miscellaneous DAILY@1700 KEVIN Administration Supplies Acetaminophen 100 mls @ 250 mls/hr 01/30/25 16:30 Ofirmev Inj IV 01/31/25 16:53 QDAY@1630 KEVIN Sodium Chloride 500 mls @ 999 mls/hr 01/30/25 15:15 01/30/25 15:18 Ns IV 01/30/25 15:45 999 mls/hr .Q31M KEVIN Administration Levothyroxine Sodium 50 mcg 01/26/25 09:00 01/30/25 09:03 Levothyroxine Sodium 25 Mcg Tablet PO 02/25/25 08:59 50 mcg QDAY KEVIN Administration [place] Carbonate 900 mg 01/27/25 09:00 01/30/25 09:02 [place] Carb 150 Mg Capsule PO 02/26/25 08:59 900 mg QDAY KEVIN Administration Methylprednisolone Sodium Succinate 125 mg 01/28/25 14:30 01/30/25 12:30 Methylprednisolone Sod Succ 62.5 Mg/Ml 2ml Vial IVP 02/04/25 14:29 125 mg Q6HR KEVIN Administration Mirtazapine 37.5 mg 01/26/25 21:00 01/29/25 20:00 Mirtazapine 15 Mg Tablet PO 02/25/25 20:59 Not Given HS KEVIN Multivitamins 1 tab 01/26/25 09:00 01/30/25 09:02 Multivitamins Tablet PO 02/25/25 08:59 1 tab QDAY KEVIN Administration Ondansetron HCl 4 mg 01/25/25 16:07 Ondansetron Inj 2 Mg/Ml Inj 2 Ml IVP 02/24/25 16:06 Q6H PRN NAUSEA OR VOMITING Protocol Pantoprazole Sodium 40 mg 01/26/25 09:00 01/30/25 09:03 Pantoprazole 40 Mg Tablet PO 02/25/25 08:59 40 mg QDAY KEVIN Administration Pyridostigmine [place] 60 mg 01/30/25 21:00 Pyridostigmine [place] 60 Mg Tablet PO 03/01/25 20:59 Q12HR KEVIN Sennosides 1 tab 01/25/25 16:07 Senna Tablet PO 02/24/25 16:06 QDAY PRN constipation Protocol Valproic Acid 750 mg 01/26/25 09:00 01/30/25 09:02 Valproic Acid Syrup 250 Mg/5 Ml Udc PO 02/25/25 08:59 750 mg BID KEVIN Administration Plan Ayo Argueta is 39 yr male with PMH of dysphagia, bipolar disorder, intellectual disability, thrombocytosis, JACQUELINE, myasthenia gravis, thromboangiitis obliterans, acne vulgaris, solitary pulmonary nodule coming from [facility] per neurology due to myasthenia gravis flare. Patient sees Dr. Dietz who noticed increased weakness and increased salivary secretions. Admit per neurology for IVIG treatment, pyridostigmine in setting of myasthenia gravis flare. #Myasthenia gravis flare Has functional dysphagia, bulbar weakness/ocular muscle weakness, extraparametal symptoms per neurology. Was sent in to get IVIG. CT chest negative for anterior mediastinal mass or LAD. -neurology consulted -IVIG for 4 more days -IV pyridostigmine bromide 2mg q6hr ? Follow-up CT chest with contrast to assess for thymic tissue or thymoma #Cavitary lesion Ddx: active TB, cocci, aspergillosis CT chest showed cavitary lesion in left lower lobe which appears to be chronic. Based off chart review, lesion was noticed in August 2023. Labs from 12/2023 including QuantiFERON gold test was negative, cocci serology also negative. Appears asymptomatic at this time. Cocci negative. -ID consulted--start augmentin for 7 days due to patient's high risk of aspiration. -isolation/airborne precautions -AFB sputum stain x3 to rule out any active TB -Follow-up Aspergillus serology #Syphilis, serology positive Syphilis serology came back reactive we are pending titers from [facility] lab and will follow-up with ID recommendations. - Pending antibody and titer confirmatory result - Follow-up ID recommendations #Dysphagia Completed video esophagram in 02/2024. It showed vallecular pooling and retention with pudding and crackers. Also showed silent aspiration with nectar and thin liquids. Diet was changed to ground food and honey thickened liquids. -dysphagia III diet -liquids mixed with thick honey #Bipolar disorder Takes chlorpromazine 100 twice daily, clozapine 175 mg twice daily, lithium, mirtazapine, valproic acid. -resumed medications -lithium levels pending #JACQUELINE Appears to be non compliant with CPAP per chart review. -CPAP nightly #Thromboangitis obliterans continue aspirin 81mg daily. #Solitary pulmonary nodule Cocci serology negative in 2023. -follow up outpatient #Chronic thrombocystosis Continue aspirin 81mg Health maintenance: Dispo: med surg for MG flare, IVIG, TB rule out FEN: dysphagia 3, liquids mixed with thick honey DVT prophylaxis: Subcu heparin CODE STATUS: Full code The patient's management plan was discussed with my attending physician Dr. Zaragoza. Nithya Arroyo, PGY-1 Attending Provider Attestation/Addendum Patient was not seen, discussed the case with residents, agree with the plan as above. Adriana Zaragoza MD
[2025-01-30] MEDS: DiphenhydrAMINE INJ 50 MG/ML VIAL 25 MG IVP (16:30)
[2025-01-30] MEDS: ACETAMINOPHEN 250 MG IV (16:30)
[2025-01-30] MEDS: IMMUNE GLOB GA CA IV (17:10)
[2025-01-30] MEDS: PRE MIXED IV (17:10)
[2025-01-30] MEDS: pyRIDostigmine bromide 60 MG TABLET PO (21:42)
[2025-01-30] MEDS: MIRTAZAPINE 15 MG TABLET 37.5 MG PO (21:42)
[2025-01-30] MEDS: HEPARIN SOD INJ 5000 UNIT/ML VIAL SC (21:42)
--- NOTE | 2025-01-30 23:26 | PD.NEUROPROG ---
Documentation for date of: 01/30/25 Subjective Subjective Interval history: Patient was seen in telemetry today at the bedside. He continues to have some secretions needing suctioning but not as bad as before he was intubated. Bulbar weakness overall has improved. C/o throat pain secondary to recent intubation. Exam - Neurology Vital Signs Temp Pulse Resp BP Pulse Ox O2 Del Method O2 Flow Rate 98.4 F 74 29 H 126/88 H 97 Nasal Cannula 2 01/30/25 23:16 01/30/25 23:16 01/30/25 23:16 01/30/25 23:16 01/30/25 23:16 01/30/25 23:16 01/30/25 23:16 FiO2 40 01/29/25 11:28 Narrative Exam GENERAL APPEARANCE: Well hydrated, well-nourished in no acute distress. HEENT: Normocephalic, atraumatic, extraocular movements intact. Pupils: Equal reacting to light and accommodation. proptosis noted in both eyes. NECK: Supple, no JVD or bruits. CARDIOVASULAR: Heart: S1, S2 heard, regular without S3-S4 or murmur no rubs or gallops. LUNGS/CHEST: Clear to auscultation bilaterally. No rails, rhonchi, or wheezing. Normal inspection. ABDOMEN: Soft, nontender, with normal bowel sounds. No pulsatile masses. No rebound, rigidity, or guarding. Normal inspection and palpation. EXTREMITIES: Normal inspection and palpation. No edema, clubbing or cyanosis. SKIN: Warm and dry without rashes. Normal inspection. MUSCULOSKELETAL: No cervical, thoracic, lumbar or midline bony tenderness. Normal inspection. NEURO: Alert, awake and oriented x3. Cranial nerves: II through XII grossly intact. Speech and language: Significant improvement in his speech and tone , no significant Dysarthria noted.. Motor system: Tone and bulk: Normal: Strength: 5 out of 5 in all 4 extremities; No pronator drift noted. Deep tendon reflexes: 2+ bilaterally symmetrical. Plantar reflex: Downgoing bilaterally. Sensory system: Intact to all modalities of sensation bilaterally. Coordination: Intact to lywyzh-dwju-clzrz and hcww-suyu-xptj test bilaterally. No ataxia, no dysmetria, or dysdiadochokinesia noted. No intention tremors noted. Gait: Not tested, no signs of meningeal irritation noted. PSYCHIATRIC: Normal mood and affect. Objective Labs 01/30/25 07:26 01/30/25 05:00 Labs: Laboratory Results - last 24 hr 01/26/25 01/30/25 01/30/25 06:07 05:00 07:26 WBC 8.3 RBC 4.59 Hgb 12.5 L Hct 37.6 L MCV 82 MCH 27.2 MCHC 33.2 RDW Std Deviation 40.2 Plt Count 385 D Neut % (Auto) 91 H Lymph % (Auto) 6 L [place] % (Auto) 2 Eos % (Auto) 0 Baso % (Auto) 0 Neut # (Auto) 7.6 Lymph # (Auto) 0.5 L [place] # (Auto) 0.2 Eos # (Auto) 0.0 Baso # (Auto) 0.0 Immature Gran # (Auto) 0.03 H Absolute Nucleated RBC 0.00 Immature Gran % 0 Nucleated RBC % 0 Sodium 143 Potassium 5.3 H D Chloride 104 Carbon Dioxide 25.7 Anion Gap 13 BUN 26 H Creatinine 0.9 Estim Creat Clear Calc 95.1 eGFR > 60 BUN/Creatinine Ratio 29 H Glucose 106 Calculated Osmolality 289 Calcium 9.8 Corrected Calcium 9.8 Total Bilirubin 0.3 ALT 36 Alkaline Phosphatase 107 D Total Protein 10.1 H Albumin 4.4 D Globulin 5.7 H Albumin/Globulin Ratio 0.8 L Aspergillus Ag (EIA) NOT DETECTED Aspergillus Index Value <0.50 ABG Interpretation ABG results: 01/28/25 01/28/25 01/29/25 14:24 17:49 03:53 ABG pH 7.42 7.36 7.43 ABG pCO2 46 51 H 44 ABG pO2 65 L 265 H D 192 H D ABG HCO3 29 H 29 H 29 H ABG O2 Saturation 93 99 H 100 H ABG Base Excess 4 H 3 4 H Assessment & Plan Assessment and plan (1) Bulbar myasthenia gravis: Status: Acute Assessment and plan: Patient developed cholinergic crisis needing urgent intubation and transferred to ICU. Treated with steroids and lowered the dose of Mestinon. Will keep him on IVIG 400 mg/kg for another 2 more days with premedication and keep him on steroids: lower the dose to 125 mg q12 for 2 days. As he passed the swallow evaluation we will switch IV Mestinon to p.o. 60 mg every 8 hours. Will consider switching to p.o. steroids 10 mg a day along with azathioprine 50 mg twice a day to prevent long-term steroid effect Upon discharge.
--- NOTE | 2025-01-30 23:31 | EKG_ITS ---
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
--- NOTE | 2025-01-30 23:35 | PC.NURSE ---
DR. BECERRA MADE AWARE OF PT LOWERST HR OF 41. PT RESTING WITH NO SIGNS OF DISTRESS UPON CHECKING ON HIM. NOW SB-SR W/PVC'S. K AT 5.3, NO MG LEVEL SINCE 01/26. NEW ORDERS TO BE PLACED BY .
[2025-01-31] VITALS (10 sets, daily range): BP systolic 104–119; BP diastolic 62–83; PULSE 36–75; RESP 16–24; TEMP 36.1–36.6; O2SAT 92–99; BMI 11.0
--- NOTE | 2025-01-31 00:14 | PC.NURSE ---
SPOKE WITH ARABELLA, PHARMACIST REGARDING SCOPOLAMINE PATCH NOT SCANNING. MEDICATION DOES NOT EXIST FOR PATIENT WHEN SCANNED. SHE STATES ORDER LOOKS CORRECT FOR MEDICATION ADMINISTRATION AND TO VERIFY WITH ANOTHER NURSE BEFORE ADMINISTERING. VERIFIED STREET SWEEPER OPERATOR WITH DELIO Hernandez RN.
[2025-01-31 00:17] LABS: Potassium 4.2 mMol/L (3.4-5.1)
[2025-01-31] MEDS: Magnesium Sulfate 2 GM Ivpb 2 GM/50 ML BAG IV (00:50)
[2025-01-31] MEDS: SCOPOLAMINE 1 MG TDSY TOP (00:51)
--- NOTE | 2025-01-31 04:50 | PC.NURSE ---
Addendum entered by Anni Sal RN 01/31/25 04:52: NO NEW ORDERS AT THIS TIME Original Note: DR. READ MADE AWARE OF EPISODE OF 4 SECOND PAUSE AND EPISODE OF BIGEMINAL PVC'S. BP AT 106/76. PT IN NO SIGNS OF DISTRESS. RESTING COMFORTABLY. UPON VERBAL STIMULATION, HR UP TO 50'S
[2025-01-31] MEDS: pyRIDostigmine bromide 60 MG TABLET PO ×3 (05:31→21:49)
[2025-01-31] MEDS: metroNIDAZOLE/NS 500 MG IVPB 500 MG/100 ML BAG 200 MG IV ×3 (05:31→21:50)
[2025-01-31 06:28] LABS: Basophils % (Auto) 0 % (0-2.5); Eosinophils % (Auto) 0 % (0-10); Hematocrit 39.6 % (41.0-53.0); Hemoglobin 12.7 g/dL (13.5-16.0); Immature Granulocytes % (Auto) 0 % (0-0); Immature Granulocytes Auto 0.03 Thou/mm3 (0.00-0.00); Lymphocytes # (Auto) 0.8 Thou/mm3 (1.0-4.8); Lymphocytes % (Auto) 11 % (10-50); Mean Corpuscular HGB Conc 32.1 g/dl (31.0-37.0); Mean Corpuscular Hemoglobin 27.1 pg (25.0-35.0); Mean Corpuscular Volume 85 fL (80-100); Monocytes # (Auto) 0.3 Thou/mm3 (0.0-0.8); Monocytes % (Auto) 3 % (0-12); Neutrophils # (Auto) 6.7 Thou/mm3 (1.8-7.7); Neutrophils % (Auto) 86 % (37-80); Nucleated Red Blood Cell % 0 /100 WBC (0); Platelet Count 454 Thou/mm3 (140-440); Red Blood Count 4.68 Miln/mm3 (4.50-5.90); White Blood Count 7.8 Thou/mm3 (3.8-10.6)
[2025-01-31 06:49] LABS: Alanine Aminotransferase 32 U/L (10-49); Albumin, Serum 3.9 gm/dL (3.5-5.0); Albumin/Globulin Ratio 0.8 (1.2-2.2); Alkaline Phosphatase 84 U/L (46-116); Anion Gap 8 (7-16); BUN/Creatinine Ratio 33 Ratio (12-20); Bilirubin,Total 0.5 mg/dL (0.3-1.2); Blood Urea Nitrogen 30 mg/dL (9-23); Calcium 9.1 mg/dL (8.3-10.6); Calcium (Corrected) 9.2 mg/dL (8.5-10.1); Carbon Dioxide 29.8 mMol/L (20.0-31.0); Chloride 104 mMol/L (98-107); Creatinine (Component) 0.9 mg/dL (0.6-1.3); Estimated Creatinine Clearance 99.2 mL/min (>60); Globulin 5.2 gm/dL (2.3-3.5); Glucose 132 mg/dL (74-106); Osmolality,Calculated 291 (275-295); Potassium 4.5 mMol/L (3.4-5.1); Sodium 142 mMol/L (136-145); Total Protein 9.1 gm/dL (5.7-8.2); eGFR > 60 See Note
[2025-01-31] MEDS: VALPROIC ACID SYRUP 250 MG/5 ML UDC 750 MG PO ×2 (09:11→21:48)
[2025-01-31] MEDS: MULTIVITAMINS TABLET 1 TAB PO (09:11)
[2025-01-31] MEDS: LEVOTHYROXINE SODIUM 25 MCG TABLET 50 MCG PO (09:11)
[2025-01-31] MEDS: ASPIRIN 81 MG CHEW PO (09:11)
[2025-01-31] MEDS: MethylPREDNISolone SOD SUCC 62.5 MG/ML 2ML VIAL 125 MG IVP ×2 (09:12→21:49)
[2025-01-31] MEDS: LITHIUM CARB 150 MG CAPSULE 900 MG PO (09:12)
[2025-01-31] MEDS: cefTRIAXone/D5w 1gm IV premix 1 GM/50 ML BAG IV (09:13)
[2025-01-31] MEDS: HEPARIN SOD INJ 5000 UNIT/ML VIAL SC ×2 (09:13→21:49)
[2025-01-31] MEDS: PANTOPRAZOLE 40 MG TABLET PO (09:13)
[2025-01-31] MEDS: ACETAMINOPHEN 325 MG TABLET 650 MG PO (09:15)
--- NOTE | 2025-01-31 10:17 | PC.NURSE ---
at 1017, Dr. Arroyo made aware of patients difficulty swallowing, honey thick water used with crushed meds, patients feels there is increased difficulty swallowing
--- NOTE | 2025-01-31 13:18 | ESPR_ITS ---
<Statement entered by Clara Hooper MD - 01/31/25 13:43> Patient is a 39-year-old male with medical history of developmental delay initially was admitted for myasthenia gravis flareup treatment and management, however accidentally found cavitary lesion on chest x-ray, currently pending TB rule out. 01/31/2025. Patient was seen and examined at bedside. Overnight patient had bradycardia for low 40s, while sleeping, EKG showed sinus bradycardia, patient otherwise hemodynamically stable, denied any dizziness, shortness of breath, or chest pain, will continue to monitor Labs a insignificant, stable hemoglobin, CMP unremarkable, Per neurology recommendations we will continue 1 more day of IVIG, continue pyridostigmine , and will taper steroid course upon discharge. Continue IV antibiotics as patient is at high risk of aspiration pneumonia, however WBC within normal limits, patient is saturating more than 95% in 1 L nasal cannula, denies any cough, no fever for the last couple of days.Stopping or switching to p.o. antibiotics. AFB sputum sample pending. Will follow-up with results. I discussed with and supervised the product development intern physician who took care of this patient. I personally saw and examined the patient and discussed the assessment and plan with the entire medicine team, including my attending , I agree with the assessment and plan as documented below Clara Hooper M.D. PGY-2 Disclaimer: Despite multiple revisions, due to the dictation software being used, the document bellow may not be free of grammatical errors including phonetic/typographic errors. However, this does not deter from our commitment to providing health care in the patient's best interest in mind. Documentation for date of: 01/31/25 Subjective Subjective Interval history: Patient examined at bedside. Overnight, his HR dropped to the 40s while sleeping. EKG showed sinus christiano. Today he complains of odynophagia. Most likely due to s/p extubation. BP soft 106/76, HR 45-50, tachypnic 23, saturating 96%o on 2L. Continue pyridostigmine 60 Mg p.o. BID as per neurology recommendations. One more day of IVIG. Currently patient saturating 96% on 2L via NC. Neurology to taper steroid course with discharge on possible PO regimen. Continue antibiotics as patient is high risk for aspirating in setting of MG flare. AFB sputum sample pending. Exam Vital Signs Temp Pulse Resp BP Pulse Ox O2 Del Method O2 Flow Rate 97.6 F 62 18 111/71 97 Nasal Cannula 3 01/31/25 12:00 01/31/25 12:00 01/31/25 12:00 01/31/25 12:00 01/31/25 12:00 01/31/25 12:00 01/31/25 12:00 FiO2 40 01/29/25 11:28 Narrative Exam General: Young male, tracking, No acute distress, cooperative HEENT: NCAT, No JVD noted. Mucosa dry. Pupils are equal and reactive to light bilaterally Cardiovascular: Normal S1 and S2. Regular rate and rhythm. Respiratory: wheezing bilateral, on NC Abdomen: Soft, nontender, not distended, normal bowel sounds. Skin: Warm to touch, dry, red scaling skin on extremities Musculoskeletal: No gross injuries. Able to move all 4 extremities. LLE swelling (appears to be chronic problem), no erythema or tenderness. Neuro: Alert and oriented x3. No focal neuro deficits. Psych: Normal affect and mood Objective Labs 01/31/25 05:16 02/01/25 06:05 Labs: Laboratory Results - last 24 hr 01/28/25 01/30/25 01/31/25 05:05 23:59 05:16 WBC 7.8 RBC 4.68 Hgb 12.7 L Hct 39.6 L MCV 85 MCH 27.1 MCHC 32.1 RDW Std Deviation 43.0 Plt Count 454 H D Neut % (Auto) 86 H Lymph % (Auto) 11 [place] % (Auto) 3 Eos % (Auto) 0 Baso % (Auto) 0 Neut # (Auto) 6.7 Lymph # (Auto) 0.8 L [place] # (Auto) 0.3 Eos # (Auto) 0.0 Baso # (Auto) 0.0 Immature Gran # (Auto) 0.03 H Absolute Nucleated RBC 0.00 Immature Gran % 0 Nucleated RBC % 0 Sodium 142 Potassium 4.2 D 4.5 Chloride 104 Carbon Dioxide 29.8 Anion Gap 8 BUN 30 H Creatinine 0.9 Estim Creat Clear Calc 99.2 eGFR > 60 BUN/Creatinine Ratio 33 H Glucose 132 H Calculated Osmolality 291 Calcium 9.1 Corrected Calcium 9.2 Magnesium 2.0 Total Bilirubin 0.5 ALT 32 Alkaline Phosphatase 84 D Total Protein 9.1 H Albumin 3.9 D Globulin 5.2 H Albumin/Globulin Ratio 0.8 L T.pallidum Ab (MHA) See Sep Rpt ABG Interpretation ABG results: 01/28/25 01/28/25 01/29/25 14:24 17:49 03:53 ABG pH 7.42 7.36 7.43 ABG pCO2 46 51 H 44 ABG pO2 65 L 265 H D 192 H D ABG HCO3 29 H 29 H 29 H ABG O2 Saturation 93 99 H 100 H ABG Base Excess 4 H 3 4 H Quality Measures Quality Measures VTE prophylaxis Assessment & Plan Assessment Current Active Medications: Generic Name Dose Route Start Last Admin Trade Name Freq PRN Reason Stop Dose Admin Acetaminophen 650 mg 01/26/25 08:31 Acetaminophen 325 Mg Tablet PO 02/25/25 08:30 Q6H PRN Fever > 100.4 Acetaminophen 650 mg 01/26/25 08:38 01/31/25 09:15 Acetaminophen 325 Mg Tablet PO 02/24/25 16:52 650 mg Q6HR PRN Administration MILD PAIN 1-3 Aspirin 81 mg 01/29/25 09:00 01/31/25 09:11 Aspirin 81 Mg Chew PO 02/28/25 08:59 81 mg QDAY KEVIN Administration Diphenhydramine HCl 25 mg 01/29/25 16:30 01/30/25 16:30 Diphenhydramine Inj 50 Mg/Ml Vial IVP 01/31/25 16:31 25 mg DAILY@1630 KEVIN Administration Docusate Sodium 100 mg 01/28/25 21:30 01/31/25 09:13 Docusate Sod Liqd 100 Mg/10 Ml Udc PO 02/27/25 21:29 Not Given BID [facility] Protocol Heparin Sodium (Porcine) 5,000 unit 01/30/25 21:00 01/31/25 09:13 Heparin Sod Inj 5000 Unit/Ml Vial SC 02/13/25 20:59 5,000 unit BID KEVIN Administration Ceftriaxone Sodium/Dextrose 1 gm in 50 mls @ 100 mls/hr 01/29/25 09:47 01/31/25 09:13 Rocephin/D5w 1gm Iv Premix IV 02/05/25 09:46 100 mls/hr QDAY KEVIN Administration Metronidazole 500 mg in 100 mls @ 200 mls/hr 01/29/25 09:50 01/31/25 05:31 Flagyl 500 Mg Iv IV 02/05/25 09:49 200 mls/hr Q8HR KEVIN Administration Immune Globulin G/Gly/IgA 10 300 mls @ 50 mls/hr 01/29/25 17:00 01/30/25 17:10 gm/ Immune Globulin G/Gly/IgA IV 01/31/25 22:59 50 mls/hr 20 gm/ IV Miscellaneous DAILY@1700 KEVIN Administration Supplies Acetaminophen 100 mls @ 250 mls/hr 01/30/25 16:30 01/30/25 16:30 Ofirmev Inj IV 01/31/25 16:53 250 mls/hr QDAY@1630 KEVIN Administration Levothyroxine Sodium 50 mcg 01/31/25 08:15 01/31/25 09:11 Levothyroxine Sodium 25 Mcg Tablet PO 03/02/25 08:14 50 mcg ACBR KEVIN Administration [place] Carbonate 900 mg 01/27/25 09:00 01/31/25 09:12 [place] Carb 150 Mg Capsule PO 02/26/25 08:59 900 mg QDAY KEVIN Administration Methylprednisolone Sodium Succinate 125 mg 01/31/25 09:00 01/31/25 09:12 Methylprednisolone Sod Succ 62.5 Mg/Ml 2ml Vial IVP 02/07/25 08:59 125 mg Q12HR KEVIN Administration Mirtazapine 37.5 mg 01/26/25 21:00 01/30/25 21:42 Mirtazapine 15 Mg Tablet PO 02/25/25 20:59 37.5 mg HS KEVIN Administration Multivitamins 1 tab 01/26/25 09:00 01/31/25 09:11 Multivitamins Tablet PO 02/25/25 08:59 1 tab QDAY KEVIN Administration Ondansetron HCl 4 mg 01/25/25 16:07 Ondansetron Inj 2 Mg/Ml Inj 2 Ml IVP 02/24/25 16:06 Q6H PRN NAUSEA OR VOMITING Protocol Pantoprazole Sodium 40 mg 01/26/25 09:00 01/31/25 09:13 Pantoprazole 40 Mg Tablet PO 02/25/25 08:59 40 mg QDAY KEVIN Administration Pyridostigmine [place] 60 mg 01/31/25 06:00 01/31/25 05:31 Pyridostigmine [place] 60 Mg Tablet PO 03/02/25 05:59 60 mg Q8HR KEVIN Administration Scopolamine 1 mg 01/30/25 23:45 01/31/25 00:51 Scopolamine 1 Mg Tdsy TOP 03/01/25 23:44 1 mg Q3D KEVIN Administration Sennosides 1 tab 01/25/25 16:07 Senna Tablet PO 02/24/25 16:06 QDAY PRN constipation Protocol Valproic Acid 750 mg 01/26/25 09:00 01/31/25 09:11 Valproic Acid Syrup 250 Mg/5 Ml Udc PO 02/25/25 08:59 750 mg BID KEVIN Administration Plan Ayo Argueta is 39 yr male with PMH of dysphagia, bipolar disorder, intellectual disability, thrombocytosis, JACQUELINE, myasthenia gravis, thromboangiitis obliterans, acne vulgaris, solitary pulmonary nodule coming from [facility] per neurology due to myasthenia gravis flare. Patient sees Dr. Dietz who noticed increased weakness and increased salivary secretions. Admit per neurology for IVIG treatment, pyridostigmine in setting of myasthenia gravis flare. #Myasthenia gravis flare Has functional dysphagia, bulbar weakness/ocular muscle weakness, extraparametal symptoms per neurology. Was sent in to get IVIG. CT chest negative for anterior mediastinal mass or LAD. -neurology consulted -IVIG for one more day - pyridostigmine 60 Mg p.o. BID -IV methylpredisolone 125mg BID #Cavitary lesion Ddx: active TB, cocci, aspergillosis CT chest showed cavitary lesion in left lower lobe which appears to be chronic. Based off chart review, lesion was noticed in August 2023. Labs from 12/2023 including QuantiFERON gold test was negative, cocci serology also negative. Appears asymptomatic at this time. Cocci negative. Aspergillus negative. -ID consulted -isolation/airborne precautions -AFB sputum stain x3 to rule out any active TB pending #Syphilis, serology positive Syphilis serology came back reactive we are pending titers from [facility] lab and will follow-up with ID recommendations. - RPR test was non reactive -TP-PA confirmatory test was inconclusive - Follow-up ID recommendations #Dysphagia Completed video esophagram in 02/2024. It showed vallecular pooling and retention with pudding and crackers. Also showed silent aspiration with nectar and thin liquids. Diet was changed to ground food and honey thickened liquids. -dysphagia III diet -liquids mixed with thick honey -continue ceftriaxone and metronidazole due to high aspiration risk #Bipolar disorder Takes chlorpromazine 100 twice daily, clozapine 175 mg twice daily, lithium, mirtazapine, valproic acid. [place] levels on 01/26 subtheraputic at 0.48 -resumed medications #JACQUELINE Appears to be non compliant with CPAP per chart review. -CPAP nightly #Thromboangitis obliterans continue aspirin 81mg daily. #Solitary pulmonary nodule Cocci serology negative in 2023. -follow up outpatient #Chronic thrombocystosis Continue aspirin 81mg Health maintenance: Dispo: med surg for MG flare, IVIG, TB rule out FEN: dysphagia 3, liquids mixed with thick honey DVT prophylaxis: Subcu heparin CODE STATUS: Full code The patient's management plan was discussed with my attending physician Dr. Penny. Nithya Arroyo, PGY-1 Attending Provider Attestation/Addendum I have examined the patient, reviewed labs and imaging findings, discussed the case with the resident(s), and reviewed entered orders. I agree with the plan of care as outlined in this note, with these additional summaries/recommendations: Patient seen at bedside. No acute overnight events. Today patient is still endorsing odynophagia which is most likely multifactorial with biggest contribution from myasthenia's gravis flare plus post extubation trauma/edema. Speech therapy following and we will continue to monitor outpatient response to dysphagia 1 diet. Continue IVIG, IV Solu-Medrol, and pyridostigmine for myasthenia gravis flare. Scopolamine for excessive secretions. In-house neurology following, recommendations appreciated. AFBs pending to rule out active tuberculosis given cavitary lesion seen on chest x-ray. Continue home antipsychotics for history of bipolar disorder. Continue CPAP at night for JACQUELINE. Dr. Fabricio MD
[2025-01-31] MEDS: ACETAMINOPHEN 250 MG IV (16:45)
[2025-01-31] MEDS: DiphenhydrAMINE INJ 50 MG/ML VIAL 25 MG IVP (16:46)
[2025-01-31] MEDS: IMMUNE GLOB GA CA IV (17:20)
[2025-01-31] MEDS: PRE MIXED IV (17:20)
[2025-01-31] MEDS: MIRTAZAPINE 15 MG TABLET 37.5 MG PO (21:50)
--- NOTE | 2025-01-31 23:39 | VVPN_ITS ---
Telemedicine visit statement This visit was conducted with the use of interactive audio and video telecommunications system that permits real time communication between the patient and the provider. Patient's verbal consent for virtual visit was obtained on 01/31/25 at 2339. Documentation for date of: 01/31/25 Subjective Subjective Interval history: Patient is in telemetry, still c/o throat pain s/p extubation recently. Still with some secretions but much less than when he got admitted. Tolerating IVIG well. Virtual exam Vital Signs Temp Pulse Resp BP Pulse Ox O2 Del Method O2 Flow Rate 97.6 F 56 L 20 114/70 98 Nasal Cannula 4 01/31/25 20:00 01/31/25 20:00 01/31/25 20:00 01/31/25 20:00 01/31/25 20:00 01/31/25 20:00 01/31/25 20:00 FiO2 40 01/29/25 11:28 Objective Labs 01/31/25 05:16 01/31/25 05:16 Labs: Laboratory Results - last 24 hr 01/28/25 01/30/25 01/31/25 05:05 23:59 05:16 WBC 7.8 RBC 4.68 Hgb 12.7 L Hct 39.6 L MCV 85 MCH 27.1 MCHC 32.1 RDW Std Deviation 43.0 Plt Count 454 H D Neut % (Auto) 86 H Lymph % (Auto) 11 [place] % (Auto) 3 Eos % (Auto) 0 Baso % (Auto) 0 Neut # (Auto) 6.7 Lymph # (Auto) 0.8 L [place] # (Auto) 0.3 Eos # (Auto) 0.0 Baso # (Auto) 0.0 Immature Gran # (Auto) 0.03 H Absolute Nucleated RBC 0.00 Immature Gran % 0 Nucleated RBC % 0 Sodium 142 Potassium 4.2 D 4.5 Chloride 104 Carbon Dioxide 29.8 Anion Gap 8 BUN 30 H Creatinine 0.9 Estim Creat Clear Calc 99.2 eGFR > 60 BUN/Creatinine Ratio 33 H Glucose 132 H Calculated Osmolality 291 Calcium 9.1 Corrected Calcium 9.2 Magnesium 2.0 Total Bilirubin 0.5 ALT 32 Alkaline Phosphatase 84 D Total Protein 9.1 H Albumin 3.9 D Globulin 5.2 H Albumin/Globulin Ratio 0.8 L T.pallidum Ab (A) See Sep Rpt ABG Interpretation ABG results: 01/28/25 01/28/25 01/29/25 14:24 17:49 03:53 ABG pH 7.42 7.36 7.43 ABG pCO2 46 51 H 44 ABG pO2 65 L 265 H D 192 H D ABG HCO3 29 H 29 H 29 H ABG O2 Saturation 93 99 H 100 H ABG Base Excess 4 H 3 4 H Assessment & Plan Problem List (1) Bulbar myasthenia gravis: Status: Acute Assessment and plan: improving some with exception of sore throat and some secretion continue with Steroids: 125 mg q12 hours, IVIG for 1 more day. mestinon PO q8 Reassurance given that the sorethroat should resolve with time and steroids.
[2025-02-01] VITALS (9 sets, daily range): BP systolic 90–136; BP diastolic 58–71; PULSE 42–78; RESP 16–23; TEMP 36.1–36.8; O2SAT 90–100; BMI 22.3; BMI 12.0
[2025-02-01] MEDS: metroNIDAZOLE/NS 500 MG IVPB 500 MG/100 ML BAG 200 MG IV (05:29)
[2025-02-01] MEDS: LEVOTHYROXINE SODIUM 25 MCG TABLET 50 MCG PO (05:29)
[2025-02-01] MEDS: pyRIDostigmine bromide 60 MG TABLET PO ×3 (05:29→21:25)
[2025-02-01 06:42] LABS: Alanine Aminotransferase 26 U/L (10-49); Albumin, Serum 3.4 gm/dL (3.5-5.0); Albumin/Globulin Ratio 0.7 (1.2-2.2); Alkaline Phosphatase 70 U/L (46-116); Anion Gap 7 (7-16); BUN/Creatinine Ratio 28 Ratio (12-20); Bilirubin,Total 0.4 mg/dL (0.3-1.2); Blood Urea Nitrogen 22 mg/dL (9-23); Calcium 8.6 mg/dL (8.3-10.6); Calcium (Corrected) 9.1 mg/dL (8.5-10.1); Carbon Dioxide 27.7 mMol/L (20.0-31.0); Chloride 108 mMol/L (98-107); Creatinine (Component) 0.8 mg/dL (0.6-1.3); Estimated Creatinine Clearance 111.6 mL/min (>60); Globulin 4.9 gm/dL (2.3-3.5); Glucose 139 mg/dL (74-106); Osmolality,Calculated 290 (275-295); Potassium 4.8 mMol/L (3.4-5.1); Sodium 143 mMol/L (136-145); Total Protein 8.3 gm/dL (5.7-8.2); eGFR > 60 See Note
[2025-02-01] MEDS: VALPROIC ACID SYRUP 250 MG/5 ML UDC 750 MG PO ×2 (08:07→21:24)
[2025-02-01] MEDS: MethylPREDNISolone SOD SUCC 62.5 MG/ML 2ML VIAL 125 MG IVP ×2 (08:07→21:24)
[2025-02-01] MEDS: ASPIRIN 81 MG CHEW PO (08:08)
[2025-02-01] MEDS: MULTIVITAMINS TABLET 1 TAB PO (08:08)
[2025-02-01] MEDS: HEPARIN SOD INJ 5000 UNIT/ML VIAL SC ×2 (08:08→21:22)
[2025-02-01] MEDS: PANTOPRAZOLE 40 MG TABLET PO (08:08)
[2025-02-01] MEDS: LITHIUM CARB 150 MG CAPSULE 900 MG PO (08:08)
[2025-02-01] MEDS: cefTRIAXone/D5w 1gm IV premix 1 GM/50 ML BAG IV (08:08)
[2025-02-01 08:30] LABS: Basophils % (Auto) 0 % (0-2.5); Eosinophils % (Auto) 0 % (0-10); Hematocrit 36.1 % (41.0-53.0); Immature Granulocytes % (Auto) 0 % (0-0); Immature Granulocytes Auto 0.03 Thou/mm3 (0.00-0.00); Lymphocytes # (Auto) 1.2 Thou/mm3 (1.0-4.8); Lymphocytes % (Auto) 16 % (10-50); Mean Corpuscular HGB Conc 33.2 g/dl (31.0-37.0); Mean Corpuscular Hemoglobin 26.7 pg (25.0-35.0); Mean Corpuscular Volume 80 fL (80-100); Monocytes # (Auto) 0.7 Thou/mm3 (0.0-0.8); Monocytes % (Auto) 9 % (0-12); Neutrophils # (Auto) 5.6 Thou/mm3 (1.8-7.7); Neutrophils % (Auto) 74 % (37-80); Nucleated Red Blood Cell % 0 /100 WBC (0); Platelet Count 382 Thou/mm3 (140-440); RDW Standard Deviation 40.8 fL (35.1-43.9); Red Blood Count 4.49 Miln/mm3 (4.50-5.90); White Blood Count 7.5 Thou/mm3 (3.8-10.6)
--- NOTE | 2025-02-01 11:21 | PC.IP ---
Addendum entered by Anita Hayden RN 02/01/25 11:34: Pt. remains asymptomatic for active TB. Original Note: Pt. removed from Airborne Precautions. Per Dr. Cline's 01/29/2025 progress note, lower lobe cavity, possible scaring from hx cocci, which was seen in Aug and February 2024. Also pt. AFBs x2 came back negative.
--- NOTE | 2025-02-01 11:50 | PC.SS ---
Rounding note: AFB results pending. Will discharge back to [facility] when medically clear.
[2025-02-01] MEDS: ONDANSETRON INJ 2 MG/ML INJ 2 ML 4 MG IVP (12:05)
--- NOTE | 2025-02-01 13:12 | ESPR_ITS ---
<Statement entered by Clara Hooper MD - 02/01/25 16:02> No acute overnight events. Patient is still complaining of hypersalivation,, odynophagia and abdominal pain. Patient is saturating 97% on 2 L nasal cannula, vitals are stable. Plan is to continue IVIG for another day, continue steroids, transition to p.o. upon discharge, Continue pyridostigmine Neurology is on board, will follow-up closely with recommendations AFB 2/2 is negative, low suspicion for PTE per ID, If patient continue to improve, advance diet as tolerates, anticipate discharge in the next 24/48 hours. I personally saw and examined the patient and discussed the assessment and plan with the entire medicine team, including my attending , Clara Hooper M.D. PGY-2 Disclaimer: Despite multiple revisions, due to the dictation software being used, the document bellow may not be free of grammatical errors including phonetic/typographic errors. However, this does not deter from our commitment to providing health care in the patient's best interest in mind. Documentation for date of: 02/01/25 Subjective Subjective Interval history: Patient examined at bedside. No events overnight. Patient still complaining of odynophagia but improved from yesterday as he was able to swallow his thickened liquids. Also endorses diarrhea with movements about every couple hours. BP remains soft 93/60 with heart rate 57 bpm, saturating 99% on 3 L NC. CBC CMP unremarkable. Continue IVIG, IV methylprednisone 125 BID, and pyridostigmine for myasthenia gravis flare. Counseled patient and caregiver at bedside that pain likely due to intubation and will need some time to resolve. Follow-up with [facility] and encourage oral intake. Two sputum stains were sent while patient was intubated in ICU. 2/2 were negative for AFB--TB precautions removed. Low suspicion of TB per ID as well. Discharge pending neurorecommendations and adequate diet intake. Exam Vital Signs Temp Pulse Resp BP Pulse Ox O2 Del Method O2 Flow Rate 97.4 F 62 20 136/58 H 99 Nasal Cannula 4 02/01/25 11:59 02/01/25 11:59 02/01/25 11:59 02/01/25 11:59 02/01/25 11:59 02/01/25 11:59 02/01/25 11:59 FiO2 40 01/29/25 11:28 Narrative Exam General: Young male, tracking, No acute distress, cooperative HEENT: NCAT, No JVD noted. Mucosa dry. Pupils are equal and reactive to light bilaterally Cardiovascular: Normal S1 and S2. Regular rate and rhythm. Respiratory: wheezing bilateral, on NC Abdomen: Soft, nontender, not distended, normal bowel sounds. Skin: Warm to touch, dry, red scaling skin on extremities Musculoskeletal: No gross injuries. Able to move all 4 extremities. LLE swelling (appears to be chronic problem), no erythema or tenderness. Neuro: Alert and oriented x3. No focal neuro deficits. Psych: Normal affect and mood Objective Labs 02/02/25 05:00 02/02/25 05:00 Labs: Laboratory Results - last 24 hr 01/26/25 01/28/25 02/01/25 16:45 17:49 06:05 WBC RBC Hgb Hct MCV MCH MCHC RDW Std Deviation Plt Count Neut % (Auto) Lymph % (Auto) [place] % (Auto) Eos % (Auto) Baso % (Auto) Neut # (Auto) Lymph # (Auto) [place] # (Auto) Eos # (Auto) Baso # (Auto) Immature Gran # (Auto) Absolute Nucleated RBC Immature Gran % Nucleated RBC % Sodium 143 Potassium 4.8 Chloride 108 H Carbon Dioxide 27.7 Anion Gap 7 BUN 22 Creatinine 0.8 Estim Creat Clear Calc 111.6 eGFR > 60 BUN/Creatinine Ratio 28 H Glucose 139 H Calculated Osmolality 290 Calcium 8.6 Corrected Calcium 9.1 Total Bilirubin 0.4 ALT 26 Alkaline Phosphatase 70 Total Protein 8.3 H Albumin 3.4 L D Globulin 4.9 H Albumin/Globulin Ratio 0.7 L Mycobacterial Culture See Sep Rpt See Sep Rpt 02/01/25 08:17 WBC 7.5 RBC 4.49 L Hgb 12.0 L Hct 36.1 L MCV 80 MCH 26.7 MCHC 33.2 RDW Std Deviation 40.8 Plt Count 382 D Neut % (Auto) 74 Lymph % (Auto) 16 [place] % (Auto) 9 Eos % (Auto) 0 Baso % (Auto) 0 Neut # (Auto) 5.6 Lymph # (Auto) 1.2 [place] # (Auto) 0.7 Eos # (Auto) 0.0 Baso # (Auto) 0.0 Immature Gran # (Auto) 0.03 H Absolute Nucleated RBC 0.00 Immature Gran % 0 Nucleated RBC % 0 Sodium Potassium Chloride Carbon Dioxide Anion Gap BUN Creatinine Estim Creat Clear Calc eGFR BUN/Creatinine Ratio Glucose Calculated Osmolality Calcium Corrected Calcium Total Bilirubin ALT Alkaline Phosphatase Total Protein Albumin Globulin Albumin/Globulin Ratio Mycobacterial Culture ABG Interpretation ABG results: 01/28/25 01/28/25 01/29/25 14:24 17:49 03:53 ABG pH 7.42 7.36 7.43 ABG pCO2 46 51 H 44 ABG pO2 65 L 265 H D 192 H D ABG HCO3 29 H 29 H 29 H ABG O2 Saturation 93 99 H 100 H ABG Base Excess 4 H 3 4 H Quality Measures Quality Measures VTE prophylaxis Assessment & Plan Assessment Current Active Medications: Generic Name Dose Route Start Last Admin Trade Name Freq PRN Reason Stop Dose Admin Acetaminophen 650 mg 01/26/25 08:31 Acetaminophen 325 Mg Tablet PO 02/25/25 08:30 Q6H PRN Fever > 100.4 Acetaminophen 650 mg 01/26/25 08:38 01/31/25 09:15 Acetaminophen 325 Mg Tablet PO 02/24/25 16:52 650 mg Q6HR PRN Administration MILD PAIN 1-3 Aspirin 81 mg 01/29/25 09:00 02/01/25 08:08 Aspirin 81 Mg Chew PO 02/28/25 08:59 81 mg QDAY KEVIN Administration Docusate Sodium 100 mg 01/28/25 21:30 02/01/25 08:07 Docusate Sod Liqd 100 Mg/10 Ml Udc PO 02/27/25 21:29 Not Given BID [facility] Protocol Heparin Sodium (Porcine) 5,000 unit 01/30/25 21:00 02/01/25 08:08 Heparin Sod Inj 5000 Unit/Ml Vial SC 02/13/25 20:59 5,000 unit BID KEVIN Administration Levothyroxine Sodium 50 mcg 01/31/25 08:15 02/01/25 05:29 Levothyroxine Sodium 25 Mcg Tablet PO 03/02/25 08:14 50 mcg ACBR KEVIN Administration [place] Carbonate 900 mg 01/27/25 09:00 02/01/25 08:08 [place] Carb 150 Mg Capsule PO 02/26/25 08:59 900 mg QDAY KEVIN Administration Methylprednisolone Sodium Succinate 125 mg 01/31/25 09:00 02/01/25 08:07 Methylprednisolone Sod Succ 62.5 Mg/Ml 2ml Vial IVP 02/07/25 08:59 125 mg Q12HR KEVIN Administration Mirtazapine 37.5 mg 01/26/25 21:00 01/31/25 21:50 Mirtazapine 15 Mg Tablet PO 02/25/25 20:59 37.5 mg HS KEVIN Administration Multivitamins 1 tab 01/26/25 09:00 02/01/25 08:08 Multivitamins Tablet PO 02/25/25 08:59 1 tab QDAY KEVIN Administration Ondansetron HCl 4 mg 01/25/25 16:07 02/01/25 12:05 Ondansetron Inj 2 Mg/Ml Inj 2 Ml IVP 02/24/25 16:06 4 mg Q6H PRN Administration NAUSEA OR VOMITING Protocol Pantoprazole Sodium 40 mg 01/26/25 09:00 02/01/25 08:08 Pantoprazole 40 Mg Tablet PO 02/25/25 08:59 40 mg QDAY KEVIN Administration Pyridostigmine [place] 60 mg 01/31/25 06:00 02/01/25 05:29 Pyridostigmine [place] 60 Mg Tablet PO 03/02/25 05:59 60 mg Q8HR KEVIN Administration Scopolamine 1 mg 01/30/25 23:45 01/31/25 00:51 Scopolamine 1 Mg Tdsy TOP 03/01/25 23:44 1 mg Q3D KEVIN Administration Sennosides 1 tab 01/25/25 16:07 Senna Tablet PO 02/24/25 16:06 QDAY PRN constipation Protocol Valproic Acid 750 mg 01/26/25 09:00 02/01/25 08:07 Valproic Acid Syrup 250 Mg/5 Ml Udc PO 02/25/25 08:59 750 mg BID KEVIN Administration Plan Ayo Argueta is 39 yr male with PMH of dysphagia, bipolar disorder, intellectual disability, thrombocytosis, JACQUELINE, myasthenia gravis, thromboangiitis obliterans, acne vulgaris, solitary pulmonary nodule coming from [facility] per neurology due to myasthenia gravis flare. Patient sees Dr. Dietz who noticed increased weakness and increased salivary secretions. Admit per neurology for IVIG treatment, pyridostigmine in setting of myasthenia gravis flare. #Myasthenia gravis flare Has functional dysphagia, bulbar weakness/ocular muscle weakness, extraparametal symptoms per neurology. Was sent in to get IVIG. CT chest negative for anterior mediastinal mass or LAD. -neurology consulted -last day IVIG - pyridostigmine 60 Mg p.o. BID -IV methylpredisolone 125mg BID #Cavitary lesion Ddx: active TB, cocci, aspergillosis CT chest showed cavitary lesion in left lower lobe which appears to be chronic. Based off chart review, lesion was noticed in August 2023. Labs from 12/2023 including QuantiFERON gold test was negative, cocci serology also negative. Appears asymptomatic at this time. Cocci negative. Aspergillus negative. Two sputum stains were sent while patient was intubated in ICU. 2/2 were negative for AFB--TB precautions removed. Low suspicion of TB per ID as well. -ID consulted -isolation/airborne precautions removed -monitor #Syphilis, serology positive Syphilis serology came back reactive we are pending titers from [facility] lab and will follow-up with ID recommendations. - RPR test was non reactive -TP-PA confirmatory test was inconclusive - Follow-up ID recommendations #Dysphagia Completed video esophagram in 02/2024. It showed vallecular pooling and retention with pudding and crackers. Also showed silent aspiration with nectar and thin liquids. Diet was changed to ground food and honey thickened liquids. -dysphagia III diet -liquids mixed with thick honey -stopped ceftriaxone and metronidazole #Bipolar disorder Takes chlorpromazine 100 twice daily, clozapine 175 mg twice daily, lithium, mirtazapine, valproic acid. [place] levels on 01/26 subtheraputic at 0.48 -resumed medications #JACQUELINE Appears to be non compliant with CPAP per chart review. -CPAP nightly #Thromboangitis obliterans continue aspirin 81mg daily. #Solitary pulmonary nodule Cocci serology negative in 2023. -follow up outpatient #Chronic thrombocystosis Continue aspirin 81mg Health maintenance: Dispo: med surg for MG flare, IVIG, steroids FEN: dysphagia 3, liquids mixed with thick honey DVT prophylaxis: Subcu heparin CODE STATUS: Full code The patient's management plan was discussed with my attending physician Dr. Penny. Nithya Arroyo, PGY-1 Attending Provider Attestation/Addendum I have examined the patient, reviewed labs and imaging findings, discussed the case with the resident(s), and reviewed entered orders. I agree with the plan of care as outlined in this note, with these additional summaries/recommendations: Patient seen at bedside. No acute overnight events. Today patient is still endorsing mild diarrhea and we will monitor for now. Odynophagia which is most likely multifactorial from myasthenia's gravis flare plus post extubation trauma/edema. Speech therapy following and we will continue to monitor outpatient response to dysphagia 1 diet. Continue IVIG, IV Solu-Medrol, and pyridostigmine for myasthenia gravis flare. Scopolamine for excessive secretions. In-house neurology following, recommendations appreciated. AFBs x 2 returned negative and isolation precautions removed. We will review patient's previous records but likely no benefit to obtaining a third sputum study. Continue home antipsychotics for history of bipolar disorder. Continue CPAP at night for JACQUELINE. Dr. Fabricio MD
--- NOTE | 2025-02-01 13:15 | XR_ITS ---
Examination: Abdomen AP single view Technique: AP portable supine abdomen, single view Exam date and time: February 01, 2025 1344 hours INDICATIONS: Inpatient with diarrhea. FINDINGS: Moderate air and stool throughout the colon No obstruction No free air Surgical clips upper right abdomen IMPRESSION: Moderate air and stool throughout the colon
--- NOTE | 2025-02-01 13:58 | ESPR_ITS ---
Subjective Subjective Interval history: dxand rx of mg per others. afb neg x 1 so far and cocci neg. syphilis screen pos but f/u test equivocal and pt unlikely to be sexually active. hiv neg in february and rpr neg then too. Exam Vital Signs Temp Pulse Resp BP Pulse Ox O2 Del Method O2 Flow Rate 97.4 F 62 20 136/58 H 99 Nasal Cannula 4 02/01/25 11:59 02/01/25 11:59 02/01/25 11:59 02/01/25 11:59 02/01/25 11:59 02/01/25 11:59 02/01/25 11:59 FiO2 40 01/29/25 11:28 Narrative Exam limited eval Objective - Internal Medicine Labs 02/01/25 08:17 02/01/25 06:05 Labs: Laboratory Results - last 24 hr 01/26/25 01/28/25 02/01/25 16:45 17:49 06:05 WBC RBC Hgb Hct MCV MCH MCHC RDW Std Deviation Plt Count Neut % (Auto) Lymph % (Auto) [place] % (Auto) Eos % (Auto) Baso % (Auto) Neut # (Auto) Lymph # (Auto) [place] # (Auto) Eos # (Auto) Baso # (Auto) Immature Gran # (Auto) Absolute Nucleated RBC Immature Gran % Nucleated RBC % Sodium 143 Potassium 4.8 Chloride 108 H Carbon Dioxide 27.7 Anion Gap 7 BUN 22 Creatinine 0.8 Estim Creat Clear Calc 111.6 eGFR > 60 BUN/Creatinine Ratio 28 H Glucose 139 H Calculated Osmolality 290 Calcium 8.6 Corrected Calcium 9.1 Total Bilirubin 0.4 ALT 26 Alkaline Phosphatase 70 Total Protein 8.3 H Albumin 3.4 L D Globulin 4.9 H Albumin/Globulin Ratio 0.7 L Mycobacterial Culture See Sep Rpt See Sep Rpt 02/01/25 08:17 WBC 7.5 RBC 4.49 L Hgb 12.0 L Hct 36.1 L MCV 80 MCH 26.7 MCHC 33.2 RDW Std Deviation 40.8 Plt Count 382 D Neut % (Auto) 74 Lymph % (Auto) 16 [place] % (Auto) 9 Eos % (Auto) 0 Baso % (Auto) 0 Neut # (Auto) 5.6 Lymph # (Auto) 1.2 [place] # (Auto) 0.7 Eos # (Auto) 0.0 Baso # (Auto) 0.0 Immature Gran # (Auto) 0.03 H Absolute Nucleated RBC 0.00 Immature Gran % 0 Nucleated RBC % 0 Sodium Potassium Chloride Carbon Dioxide Anion Gap BUN Creatinine Estim Creat Clear Calc eGFR BUN/Creatinine Ratio Glucose Calculated Osmolality Calcium Corrected Calcium Total Bilirubin ALT Alkaline Phosphatase Total Protein Albumin Globulin Albumin/Globulin Ratio Mycobacterial Culture ABG Interpretation ABG results: 01/28/25 01/28/25 01/29/25 14:24 17:49 03:53 ABG pH 7.42 7.36 7.43 ABG pCO2 46 51 H 44 ABG pO2 65 L 265 H D 192 H D ABG HCO3 29 H 29 H 29 H ABG O2 Saturation 93 99 H 100 H ABG Base Excess 4 H 3 4 H Assessment & Plan A&P Narrative lower lobe cavity. seen on prior ct in aug and february 2024 if not before then(no more data on file from before then) no fever. if tb present, then he has had it a long time cocci IgM neg. IgG neg pos syphilis screen. confirmatory test equivocal. primary screen was neg in february 2024 myasthenia bipolar mr/dd as noted. doubt syphilis as he may be unable to communicate or be sexually active. ok to repeat test in 2 weeks as outpt. likely false pos. thaankfully, pen is not dangerous, so if you have treated, that is ok, but test should be repeated in a few weeks as a precaution. most likely the cavity represents old cocci cavity unless his screen for tb is positive will see again prn Time Spent With Patient Time: Total time spent is greater than 50% in coordination of care (as documented) at patient's floor/unit and/or counseling patient:
[2025-02-01] MEDS: ACETAMINOPHEN 325 MG TABLET 650 MG PO (15:16)
[2025-02-01] MEDS: KETOROLAC INJ 30 MG/ML VIAL IVP (17:43)
[2025-02-01] MEDS: MORPHINE SULF INJ 10 MG/ML VIAL 2 MG IVP (20:18)
[2025-02-01] MEDS: DOCUSATE SOD LIQD 100 MG/10 ML UDC PO (21:22)
[2025-02-01] MEDS: MIRTAZAPINE 15 MG TABLET 37.5 MG PO (21:24)
[2025-02-01] MEDS: LIDOCAINE 5% 1 PATCH TOP (21:25)
--- NOTE | 2025-02-01 23:54 | PD.NEUROPROG ---
Documentation for date of: 02/01/25 Subjective Subjective Interval history: Patient was seen in telemetry today at the bedside. He continues to have trouble swallowing and very poor oral intake. Exam - Neurology Vital Signs Temp Pulse Resp BP Pulse Ox O2 Del Method O2 Flow Rate 97.0 F 67 16 114/71 99 Nasal Cannula 3 02/01/25 20:00 02/01/25 20:00 02/01/25 20:00 02/01/25 20:00 02/01/25 20:00 02/01/25 20:00 02/01/25 20:00 FiO2 40 01/29/25 11:28 Narrative Exam GENERAL APPEARANCE: Well hydrated, well-nourished in no acute distress. HEENT: Normocephalic, atraumatic, extraocular movements intact. Pupils: Equal reacting to light and accommodation. proptosis noted in both eyes. NECK: Supple, no JVD or bruits. CARDIOVASULAR: Heart: S1, S2 heard, regular without S3-S4 or murmur no rubs or gallops. LUNGS/CHEST: Clear to auscultation bilaterally. No rails, rhonchi, or wheezing. Normal inspection. ABDOMEN: Soft, nontender, with normal bowel sounds. No pulsatile masses. No rebound, rigidity, or guarding. Normal inspection and palpation. EXTREMITIES: Normal inspection and palpation. No edema, clubbing or cyanosis. SKIN: Warm and dry without rashes. Normal inspection. MUSCULOSKELETAL: No cervical, thoracic, lumbar or midline bony tenderness. Normal inspection. NEURO: Alert, awake and oriented x3. Cranial nerves: II through XII grossly intact. Speech and language: hard to understand from dysarthria/bulbar weakness. Motor system: Tone and bulk: Normal: Strength: 5 out of 5 in all 4 extremities; No pronator drift noted. Deep tendon reflexes: 2+ bilaterally symmetrical. Plantar reflex: Downgoing bilaterally. Sensory system: Intact to all modalities of sensation bilaterally. Coordination: Intact to [id number] and [id number] test bilaterally. No ataxia, no dysmetria, or dysdiadochokinesia noted. No intention tremors noted. Gait: Not tested, no signs of meningeal irritation noted. PSYCHIATRIC: Normal mood and affect. Objective Labs 02/03/25 05:02 02/03/25 05:02 Labs: Laboratory Results - last 24 hr 01/26/25 01/28/25 02/01/25 16:45 17:49 06:05 WBC RBC Hgb Hct MCV MCH MCHC RDW Std Deviation Plt Count Neut % (Auto) Lymph % (Auto) [place] % (Auto) Eos % (Auto) Baso % (Auto) Neut # (Auto) Lymph # (Auto) [place] # (Auto) Eos # (Auto) Baso # (Auto) Immature Gran # (Auto) Absolute Nucleated RBC Immature Gran % Nucleated RBC % Sodium 143 Potassium 4.8 Chloride 108 H Carbon Dioxide 27.7 Anion Gap 7 BUN 22 Creatinine 0.8 Estim Creat Clear Calc 111.6 eGFR > 60 BUN/Creatinine Ratio 28 H Glucose 139 H Calculated Osmolality 290 Calcium 8.6 Corrected Calcium 9.1 Total Bilirubin 0.4 ALT 26 Alkaline Phosphatase 70 Total Protein 8.3 H Albumin 3.4 L D Globulin 4.9 H Albumin/Globulin Ratio 0.7 L Mycobacterial Culture See Sep Rpt See Sep Rpt 02/01/25 08:17 WBC 7.5 RBC 4.49 L Hgb 12.0 L Hct 36.1 L MCV 80 MCH 26.7 MCHC 33.2 RDW Std Deviation 40.8 Plt Count 382 D Neut % (Auto) 74 Lymph % (Auto) 16 [place] % (Auto) 9 Eos % (Auto) 0 Baso % (Auto) 0 Neut # (Auto) 5.6 Lymph # (Auto) 1.2 [place] # (Auto) 0.7 Eos # (Auto) 0.0 Baso # (Auto) 0.0 Immature Gran # (Auto) 0.03 H Absolute Nucleated RBC 0.00 Immature Gran % 0 Nucleated RBC % 0 Sodium Potassium Chloride Carbon Dioxide Anion Gap BUN Creatinine Estim Creat Clear Calc eGFR BUN/Creatinine Ratio Glucose Calculated Osmolality Calcium Corrected Calcium Total Bilirubin ALT Alkaline Phosphatase Total Protein Albumin Globulin Albumin/Globulin Ratio Mycobacterial Culture ABG Interpretation ABG results: 01/28/25 01/28/25 01/29/25 14:24 17:49 03:53 ABG pH 7.42 7.36 7.43 ABG pCO2 46 51 H 44 ABG pO2 65 L 265 H D 192 H D ABG HCO3 29 H 29 H 29 H ABG O2 Saturation 93 99 H 100 H ABG Base Excess 4 H 3 4 H Assessment & Plan Assessment and plan (1) Bulbar myasthenia gravis: Status: Acute Assessment and plan: s/p IVIG therapy As he continues to have bulbar weakness, will consider referral to GI for PEG tue placement. WIll check with [facility] and fmaily.
[2025-02-02] VITALS (18 sets, daily range): BP systolic 104–154; BP diastolic 63–87; PULSE 41–80; RESP 14–27; TEMP 36.1–36.8; O2SAT 93–99; BMI 22.3; BMI 12.0
[2025-02-02] MEDS: LEVOTHYROXINE SODIUM 25 MCG TABLET 50 MCG PO (05:33)
[2025-02-02] MEDS: pyRIDostigmine bromide 60 MG TABLET PO ×3 (05:34→22:20)
[2025-02-02 06:26] LABS: Basophils % (Auto) 0 % (0-2.5); Eosinophils % (Auto) 0 % (0-10); Hematocrit 37.8 % (41.0-53.0); Hemoglobin 12.5 g/dL (13.5-16.0); Immature Granulocytes % (Auto) 1 % (0-0); Immature Granulocytes Auto 0.05 Thou/mm3 (0.00-0.00); Lymphocytes % (Auto) 10 % (10-50); Mean Corpuscular HGB Conc 33.1 g/dl (31.0-37.0); Mean Corpuscular Volume 82 fL (80-100); Monocytes # (Auto) 0.5 Thou/mm3 (0.0-0.8); Monocytes % (Auto) 5 % (0-12); Neutrophils # (Auto) 8.2 Thou/mm3 (1.8-7.7); Neutrophils % (Auto) 85 % (37-80); Nucleated Red Blood Cell % 0 /100 WBC (0); Platelet Count 389 Thou/mm3 (140-440); RDW Standard Deviation 40.5 fL (35.1-43.9); Red Blood Count 4.63 Miln/mm3 (4.50-5.90); White Blood Count 9.7 Thou/mm3 (3.8-10.6)
[2025-02-02 06:55] LABS: Alanine Aminotransferase 22 U/L (10-49); Albumin, Serum 3.3 gm/dL (3.5-5.0); Albumin/Globulin Ratio 0.8 (1.2-2.2); Alkaline Phosphatase 65 U/L (46-116); Anion Gap 9 (7-16); BUN/Creatinine Ratio 31 Ratio (12-20); Bilirubin,Total 0.5 mg/dL (0.3-1.2); Blood Urea Nitrogen 25 mg/dL (9-23); Calcium 8.6 mg/dL (8.3-10.6); Calcium (Corrected) 9.2 mg/dL (8.5-10.1); Carbon Dioxide 30.4 mMol/L (20.0-31.0); Chloride 105 mMol/L (98-107); Creatinine (Component) 0.8 mg/dL (0.6-1.3); Estimated Creatinine Clearance 111.6 mL/min (>60); Globulin 4.2 gm/dL (2.3-3.5); Glucose 139 mg/dL (74-106); Osmolality,Calculated 293 (275-295); Potassium 4.4 mMol/L (3.4-5.1); Sodium 144 mMol/L (136-145); Total Protein 7.5 gm/dL (5.7-8.2); eGFR > 60 See Note
[2025-02-02] MEDS: VALPROIC ACID SYRUP 250 MG/5 ML UDC 750 MG PO ×2 (08:46→22:18)
[2025-02-02] MEDS: PANTOPRAZOLE 40 MG TABLET PO (08:46)
[2025-02-02] MEDS: LITHIUM CARB 150 MG CAPSULE 900 MG PO (08:46)
[2025-02-02] MEDS: MULTIVITAMINS TABLET 1 TAB PO (08:46)
[2025-02-02] MEDS: ASPIRIN 81 MG CHEW PO (08:46)
[2025-02-02] MEDS: DOCUSATE SOD LIQD 100 MG/10 ML UDC PO ×2 (08:46→22:19)
[2025-02-02] MEDS: HEPARIN SOD INJ 5000 UNIT/ML VIAL SC ×2 (08:47→22:19)
[2025-02-02] MEDS: MethylPREDNISolone SOD SUCC 62.5 MG/ML 2ML VIAL 125 MG IVP ×2 (08:47→22:19)
[2025-02-02] MEDS: ACETYLCYSTEINE RT SOL 10% 4 ML NEBU 3 ML INH ×2 (11:13→18:30)
[2025-02-02] MEDS: ALBUTEROL RT 2.5 MG/0.5 ML NEBU INH ×2 (11:13→18:30)
--- NOTE | 2025-02-02 12:46 | PC.SS ---
SS follow up note; ICU downgrade, Cardio and Nephro on board, patient will discharge back to [facility] when medically cleared.
--- NOTE | 2025-02-02 12:51 | PC.SS ---
SS follow up note; Cardio and Nephro on board, patient will discharge back to [facility] when medically cleared.
--- NOTE | 2025-02-02 13:36 | ESPR_ITS ---
<Statement entered by Clara Hooper MD - 02/02/25 16:06> Patient was seen and examined at bedside. No acute overnight events. Neurology was contacted, per neurology patient was likely having bulbar myasthenia, and medication should be continued. Patient started on N- acetylcysteine for any possible mucosal plaque.Still complaining of dysphagia, speech and swallow evaluated the patient. Patient does not need adequate nutritional intake. GI was consulted regarding PEG tube placement. I personally saw and examined the patient and discussed the assessment and plan with the entire medicine team, including my attending Dr. Fabricio Hooper M.D. PGY-2 Disclaimer: Despite multiple revisions, due to the dictation software being used, the document bellow may not be free of grammatical errors including phonetic/typographic errors. However, this does not deter from our commitment to providing health care in the patient's best interest in mind. Documentation for date of: 02/02/25 Subjective Subjective Interval history: Patient examined at bedside. No events overnight. He continues to complain of dysphagia and diarrhea since past 2 days. Still not having adequate nutritional intake. Speech therapy evaluated this morning and expressed concern about swallowing techniques. Patient has remained pleasant, conversive, cooperative since time of admission. He has been able to calmly communicate any concerns. Spoke with his sister Tana who lives in [place]. She gave consent for parenteral feeding. We have consulted GI for PEG tube placement. Patient has completed IVIG course. Will continue with p.o. pyridostigmine 60 mg q6hr, IV methylprednisone. Started patient on N-acetylcysteine to help with mucus break down. He is able to self suction. Today patient saturating 95% on 3 L oxygen nasal cannula. Exam Vital Signs Temp Pulse Resp BP Pulse Ox O2 Del Method O2 Flow Rate 97.7 F 58 L 22 H 120/68 95 Nasal Cannula 3 02/02/25 12:00 02/02/25 12:00 02/02/25 12:02/02/25 12:02/02/25 12:02/02/25 12:02/02/25 12:00 FiO2 40 01/29/25 11:28 Narrative Exam General: Young male, tracking, No acute distress, cooperative HEENT: NCAT, No JVD noted. Mucosa dry. Pupils are equal and reactive to light bilaterally Cardiovascular: Normal S1 and S2. Regular rate and rhythm. Respiratory: congestion, on NC Abdomen: Soft, nontender, not distended, normal bowel sounds. Skin: Warm to touch, dry, red scaling skin on extremities Musculoskeletal: No gross injuries. Able to move all 4 extremities. LLE swelling (appears to be chronic problem), no erythema or tenderness. Neuro: Alert and oriented x3. No focal neuro deficits. Psych: Normal affect and mood Objective Labs 02/03/25 05:02 02/03/25 05:02 Labs: Laboratory Results - last 24 hr 02/02/25 05:00 WBC 9.7 RBC 4.63 Hgb 12.5 L Hct 37.8 L MCV 82 MCH 27.0 MCHC 33.1 RDW Std Deviation 40.5 Plt Count 389 Neut % (Auto) 85 H Lymph % (Auto) 10 [place] % (Auto) 5 Eos % (Auto) 0 Baso % (Auto) 0 Neut # (Auto) 8.2 H Lymph # (Auto) 1.0 [place] # (Auto) 0.5 Eos # (Auto) 0.0 Baso # (Auto) 0.0 Immature Gran # (Auto) 0.05 H Absolute Nucleated RBC 0.00 Immature Gran % 1 H Nucleated RBC % 0 Sodium 144 Potassium 4.4 Chloride 105 Carbon Dioxide 30.4 Anion Gap 9 BUN 25 H Creatinine 0.8 Estim Creat Clear Calc 111.6 eGFR > 60 BUN/Creatinine Ratio 31 H Glucose 139 H Calculated Osmolality 293 Calcium 8.6 Corrected Calcium 9.2 Total Bilirubin 0.5 ALT 22 Alkaline Phosphatase 65 Total Protein 7.5 Albumin 3.3 L Globulin 4.2 H Albumin/Globulin Ratio 0.8 L ABG Interpretation ABG results: 01/28/25 01/28/25 01/29/25 14:24 17:49 03:53 ABG pH 7.42 7.36 7.43 ABG pCO2 46 51 H 44 ABG pO2 65 L 265 H D 192 H D ABG HCO3 29 H 29 H 29 H ABG O2 Saturation 93 99 H 100 H ABG Base Excess 4 H 3 4 H Quality Measures Quality Measures VTE prophylaxis Assessment & Plan Assessment Current Active Medications: Generic Name Dose Route Start Last Admin Trade Name Freq PRN Reason Stop Dose Admin Acetaminophen 650 mg 01/26/25 08:31 Acetaminophen 325 Mg Tablet PO 02/25/25 08:30 Q6H PRN Fever > 100.4 Acetaminophen 650 mg 01/26/25 08:38 02/01/25 15:16 Acetaminophen 325 Mg Tablet PO 02/24/25 16:52 650 mg Q6HR PRN Administration MILD PAIN 1-3 Acetylcysteine 3 ml 02/02/25 11:15 02/02/25 11:13 Acetylcysteine Rt Nayana 10% 4 Ml Nebu INH 03/04/25 11:14 3 ml BID KEVIN Administration Albuterol 2.5 mg 02/02/25 10:58 02/02/25 11:13 Albuterol Rt 2.5 Mg/0.5 Ml Nebu INH 03/04/25 10:59 2.5 mg Q4HRRT PRN Administration Bronchospasm Aspirin 81 mg 01/29/25 09:00 02/02/25 08:46 Aspirin 81 Mg Chew PO 02/28/25 08:59 81 mg QDAY KEVIN Administration Docusate Sodium 100 mg 01/28/25 21:30 02/02/25 08:46 Docusate Sod Liqd 100 Mg/10 Ml Udc PO 02/27/25 21:29 100 mg BID KEVIN Administration Protocol Heparin Sodium (Porcine) 5,000 unit 01/30/25 21:00 02/02/25 08:47 Heparin Sod Inj 5000 Unit/Ml Vial SC 02/13/25 20:59 5,000 unit BID KEVIN Administration Levothyroxine Sodium 50 mcg 01/31/25 08:15 02/02/25 05:33 Levothyroxine Sodium 25 Mcg Tablet PO 03/02/25 08:14 50 mcg ACBR KEVIN Administration Lidocaine 1 patch 02/01/25 19:49 02/01/25 21:25 Lidocaine 5% 1 Patch TOP 03/03/25 19:48 1 patch UD PRN Administration PAIN [place] Carbonate 900 mg 01/27/25 09:00 02/02/25 08:46 [place] Carb 150 Mg Capsule PO 02/26/25 08:59 900 mg QDAY KEVIN Administration Methylprednisolone Sodium Succinate 125 mg 01/31/25 09:00 02/02/25 08:47 Methylprednisolone Sod Succ 62.5 Mg/Ml 2ml Vial IVP 02/07/25 08:59 125 mg Q12HR KEVIN Administration Mirtazapine 37.5 mg 01/26/25 21:00 02/01/25 21:24 Mirtazapine 15 Mg Tablet PO 02/25/25 20:59 37.5 mg HS KEVIN Administration Multivitamins 1 tab 01/26/25 09:00 02/02/25 08:46 Multivitamins Tablet PO 02/25/25 08:59 1 tab QDAY KEVIN Administration Ondansetron HCl 4 mg 01/25/25 16:07 02/01/25 12:05 Ondansetron Inj 2 Mg/Ml Inj 2 Ml IVP 02/24/25 16:06 4 mg Q6H PRN Administration NAUSEA OR VOMITING Protocol Pantoprazole Sodium 40 mg 01/26/25 09:00 02/02/25 08:46 Pantoprazole 40 Mg Tablet PO 02/25/25 08:59 40 mg QDAY KEVIN Administration Pyridostigmine [place] 60 mg 01/31/25 06:00 02/02/25 05:34 Pyridostigmine [place] 60 Mg Tablet PO 03/02/25 05:59 60 mg Q8HR KEVIN Administration Scopolamine 1 mg 01/30/25 23:45 01/31/25 00:51 Scopolamine 1 Mg Tdsy TOP 03/01/25 23:44 1 mg Q3D KEVIN Administration Sennosides 1 tab 01/25/25 16:07 Senna Tablet PO 02/24/25 16:06 QDAY PRN constipation Protocol Sodium Chloride 3 ml 02/02/25 10:58 Sodium Chloride Rt Nayana 0.9% 3 Ml Nebu INH 03/04/25 10:57 PRN PRN SOLN Valproic Acid 750 mg 01/26/25 09:00 02/02/25 08:46 Valproic Acid Syrup 250 Mg/5 Ml Udc PO 02/25/25 08:59 750 mg BID KEVIN Administration Plan Ayo Argueta is 39 yr male with PMH of dysphagia, bipolar disorder, intellectual disability, thrombocytosis, JACQUELINE, myasthenia gravis, thromboangiitis obliterans, acne vulgaris, solitary pulmonary nodule coming from [facility] per neurology due to myasthenia gravis flare. Patient sees Dr. Dietz who noticed increased weakness and increased salivary secretions. Admit per neurology for IVIG treatment, pyridostigmine in setting of myasthenia gravis flare. #Myasthenia gravis flare Has functional dysphagia, bulbar weakness/ocular muscle weakness, extraparametal symptoms per neurology. Was sent in to get IVIG. CT chest negative for anterior mediastinal mass or LAD. -neurology consulted -completed IVIG on 02/02 - pyridostigmine 60 Mg p.o.q8hr -IV methylpredisolone 125mg BID #Dysphagia Completed video esophagram in 02/2024. It showed vallecular pooling and retention with pudding and crackers. Also showed silent aspiration with nectar and thin liquids. Diet was changed to ground food and honey thickened liquids. -consulted GI for PEG tube placement due to worsening dysphagia -dysphagia III diet -liquids mixed with thick honey #Cavitary lesion Ddx: active TB, cocci, aspergillosis CT chest showed cavitary lesion in left lower lobe which appears to be chronic. Based off chart review, lesion was noticed in August 2023. Labs from 12/2023 including QuantiFERON gold test was negative, cocci serology also negative. Appears asymptomatic at this time. Cocci negative. Aspergillus negative. Two sputum stains were sent while patient was intubated in ICU. 2/2 were negative for AFB--TB precautions removed. Low suspicion of TB per ID as well. -ID consulted -isolation/airborne precautions removed -monitor #Syphilis, serology positive Syphilis serology came back reactive we are [facility] and will follow-up with ID recommendations. - RPR test was non reactive -TP-PA confirmatory test was inconclusive - Follow-up ID recommendations - Repeat serology outpatient in 2 weeks from discharge #Bipolar disorder Takes chlorpromazine 100 twice daily, clozapine 175 mg twice daily, lithium, mirtazapine, valproic acid. Limon levels on 01/26 subtheraputic at 0.48 -resumed medications #JACQUELINE Appears to be non compliant with CPAP per chart review. -CPAP nightly #Thromboangitis obliterans continue aspirin 81mg daily. #Solitary pulmonary nodule Cocci serology negative in 2023. -follow up outpatient #Chronic thrombocystosis Continue aspirin 81mg Health maintenance: Dispo: med surg for MG flare, steroids, PEG tube FEN: dysphagia 3, liquids mixed with thick honey, PEG tube feeds DVT prophylaxis: Subcu heparin CODE STATUS: Full code The patient's management plan was discussed with my attending physician Dr. Penny. Nithya Arroyo, PGY-1 Attending Provider Attestation/Addendum I have examined the patient, reviewed labs and imaging findings, discussed the case with the resident(s), and reviewed entered orders. I agree with the plan of care as outlined in this note, with these additional summaries/recommendations: Patient seen at bedside. No acute overnight events. Unfortunately patient's odynophagia/dysphagia has not improved as hoped. Case discussed with neurology and patient's laundry tech who report patient has had ongoing difficulties with dysphagia and per laundry tech they were already considering pursuing a PEG tube outpatient. At this time PEG tube seems appropriate as the patient does not appear to be meeting his caloric needs. Speech therapy following. We will discuss PEG tube placement with patient's sister. Consult gastroenterology. Continue IVIG, IV Solu-Medrol, and pyridostigmine for myasthenia gravis flare. Scopolamine for excessive secretions. In-house neurology following, recommendations appreciated. AFBs x 2 returned negative and isolation precautions removed. Low suspicion for TB and no further workup needed at this time. Patient is still endorsing diarrhea which is most likely medication related. If persists we will order stool studies although for now we will start loperamide. Continue home antipsychotics for history of bipolar disorder. Continue CPAP at night for JACQUELINE. Dr. Fabricio MD
--- NOTE | 2025-02-02 14:21 | PC.SS ---
SS follow up note; SS was contacted by patient's nurse, reporting that she spoke to charge nurse, Sivan from [facility] and she informed her that if patient gets Peg-Tube the patient might not be able to return back to [facility]. SS contacted Sivan from [facility] and she informed SS to call back tomorrow, therefore they will decide if patient could return back to [facility]. SS will follow up tomorrow.
[2025-02-02] MEDS: ceFAZolin/D5W 1 GM IVPB 1 GM/50 ML BAG IV (19:36)
--- NOTE | 2025-02-02 20:46 | PD.IMCONS ---
HPI Data of Consult Requesting Physician: Mack Regalado MD Primary [facility] Consult Narrative Reason for consult: Progressive dysphagia History of present illness: 39 years old male I been consulted for progressive dysphagia Patient does have underlying myasthenia gravis for which he is on IV medication Patient has failed swallow evaluation and currently on thickened liquid diet He is a residence of [facility] with history of bipolar disorder etc. disability obstructive sleep apnea myasthenia gravis thromboangiitis obliterans and a platelet count above 1 million currently on aspirin and subcu enoxaparin cc:: cc: Mack Regalado MD Review of Systems Review of Systems ROS Unobtainable: unobtainable due to medical condition Past Medical History Surgical History OTHER SURGICAL HX: As in the history of present illness Meds Home Medications and Allergies Home Medications ?Medication ?Instructions ?Recorded ?Confirmed ?Type acetaminophen 325 mg tablet 650 mg PO Q6H PRN Fever Or Pain 03/04/24 01/25/25 History guanfacine 1 mg tablet 1 mg PO BID 03/04/24 01/25/25 History guanfacine 2 mg tablet,extended 2 mg PO QDAY 03/04/24 01/25/25 History release 24 hr multivitamin with iron-mineral 1 tab PO QDAY 03/04/24 01/25/25 History valproic acid (as sodium salt) 250 750 mg PO BID 03/04/24 01/25/25 History mg/5 mL oral solution aspirin 81 mg tablet,delayed 81 mg PO QDAY 12/03/24 01/25/25 History release (Ecotrin Low Strength) clozapine 100 mg tablet 300 mg PO BID 12/03/24 01/25/25 History clozapine 25 mg tablet 25 mg PO QDAY 12/03/24 01/25/25 History levothyroxine 50 mcg tablet 50 mcg PO QDAY 12/03/24 01/25/25 History (Euthyrox) lithium carbonate 450 mg 900 mg PO QDAY 12/03/24 01/25/25 History tablet,extended release mirtazapine 30 mg tablet 30 mg PO QDAY 12/03/24 01/25/25 History docusate sodium 100 mg capsule 100 mg PO BID 01/25/25 01/25/25 History pantoprazole 40 mg tablet,delayed 40 mg PO QDAY 01/25/25 01/25/25 History release Allergies Allergy/AdvReac Type Severity Reaction Status Date / Time vancomycin Allergy Unknown Verified 04/29/24 12:34 Exam Vital Signs Temp Pulse Resp BP Pulse Ox O2 Del Method O2 Flow Rate 97.5 F 59 L 19 118/74 95 Room Air 3 02/02/25 16:00 02/02/25 16:00 02/02/25 16:00 02/02/25 16:00 02/02/25 16:00 02/02/25 16:00 02/02/25 12:00 FiO2 40 01/29/25 11:28 Routine Respiratory Exam Comments: Chest is clear to auscultation Routine Abdominal Exam Comments: Soft nontender Results Labs 02/02/25 05:00 02/02/25 05:00 Labs: Short CBC 02/02/25 Range/Units 05:00 WBC 9.7 (3.8-10.6) Thou/mm3 Hgb 12.5 L (13.5-16.0) g/dL Hct 37.8 L (41.0-53.0) % Plt Count 389 (140-440) Thou/mm3 BMP 02/02/25 05:00 Sodium 144 Potassium 4.4 Chloride 105 Carbon Dioxide 30.4 BUN 25 H Creatinine 0.8 Glucose 139 H Calcium 8.6 Liver Function 02/02/25 Range/Units 05:00 Total Bilirubin 0.5 (0.3-1.2) mg/dL ALT 22 (10-49) U/L Alkaline Phosphatase 65 (46-116) U/L Albumin 3.3 L (3.5-5.0) gm/dL ABG Interpretation ABG results: 01/28/25 01/28/25 01/29/25 14:24 17:49 03:53 ABG pH 7.42 7.36 7.43 ABG pCO2 46 51 H 44 ABG pO2 65 L 265 H D 192 H D ABG HCO3 29 H 29 H 29 H ABG O2 Saturation 93 99 H 100 H ABG Base Excess 4 H 3 4 H Assessment and Plan Additional Assessment & Plan Additional Plan: # Progressive dysphagia most likely due to underlying myasthenia gravis complicated by possibly motor disorder of the oropharyngeal area Suggestions Internal medicine team has discussed the issue I spoke with the patient and his sister informed consent obtained for placement of a PEG tube insertion via fiberoptic esophagogastroduodenoscopy under intravenous moderate sedation Ancef 1 g IV piggyback prior to the procedure Other medical problems include Myasthenia gravis Bipolar disorder Mentally challenged Thromboangiitis obliterans Thrombocytosis Destructive behavior Thank you very much for the opportunity to participate in the care of this patient
[2025-02-02] MEDS: MIRTAZAPINE 15 MG TABLET 37.5 MG PO (22:20)
[2025-02-02] MEDS: LIDOCAINE 5% 1 PATCH TOP (22:34)
--- NOTE | 2025-02-02 23:38 | PD.NEUROPROG ---
Documentation for date of: 02/02/25 Subjective Subjective Interval history: Patient was seen in telemetry today at the bedside. He continues to have dysphagia and no oral intake secondary to bulbar weakness since he got extubated. Secretions and diarrhea are still there. Exam - Neurology Vital Signs Temp Pulse Resp BP Pulse Ox O2 Del Method O2 Flow Rate 98.3 F 58 L 24 H 110/68 95 Nasal Cannula 2 02/02/25 21:28 02/02/25 21:58 02/02/25 21:58 02/02/25 21:58 02/02/25 21:58 02/02/25 20:00 02/02/25 21:58 FiO2 40 01/29/25 11:28 Narrative Exam GENERAL APPEARANCE: Well hydrated, well-nourished in no acute distress. HEENT: Normocephalic, atraumatic, extraocular movements intact. Pupils: Equal reacting to light and accommodation. proptosis noted in both eyes. NECK: Supple, no JVD or bruits. CARDIOVASULAR: Heart: S1, S2 heard, regular without S3-S4 or murmur no rubs or gallops. LUNGS/CHEST: Clear to auscultation bilaterally. No rails, rhonchi, or wheezing. Normal inspection. ABDOMEN: Soft, nontender, with normal bowel sounds. No pulsatile masses. No rebound, rigidity, or guarding. Normal inspection and palpation. EXTREMITIES: Normal inspection and palpation. No edema, clubbing or cyanosis. SKIN: Warm and dry without rashes. Normal inspection. MUSCULOSKELETAL: No cervical, thoracic, lumbar or midline bony tenderness. Normal inspection. NEURO: Alert, awake and oriented x3. Cranial nerves: II through XII grossly intact. Speech and language: hard to understand from dysarthria/bulbar weakness. Motor system: Tone and bulk: Normal: Strength: 5 out of 5 in all 4 extremities; No pronator drift noted. Deep tendon reflexes: 2+ bilaterally symmetrical. Plantar reflex: Downgoing bilaterally. Sensory system: Intact to all modalities of sensation bilaterally. Coordination: Intact to [id number] and [id number] test bilaterally. No ataxia, no dysmetria, or dysdiadochokinesia noted. No intention tremors noted. Gait: Not tested, no signs of meningeal irritation noted. PSYCHIATRIC: Normal mood and affect. Objective Labs 02/03/25 05:02 02/03/25 05:02 Labs: Laboratory Results - last 24 hr 02/02/25 05:00 WBC 9.7 RBC 4.63 Hgb 12.5 L Hct 37.8 L MCV 82 MCH 27.0 MCHC 33.1 RDW Std Deviation 40.5 Plt Count 389 Neut % (Auto) 85 H Lymph % (Auto) 10 [place] % (Auto) 5 Eos % (Auto) 0 Baso % (Auto) 0 Neut # (Auto) 8.2 H Lymph # (Auto) 1.0 [place] # (Auto) 0.5 Eos # (Auto) 0.0 Baso # (Auto) 0.0 Immature Gran # (Auto) 0.05 H Absolute Nucleated RBC 0.00 Immature Gran % 1 H Nucleated RBC % 0 Sodium 144 Potassium 4.4 Chloride 105 Carbon Dioxide 30.4 Anion Gap 9 BUN 25 H Creatinine 0.8 Estim Creat Clear Calc 111.6 eGFR > 60 BUN/Creatinine Ratio 31 H Glucose 139 H Calculated Osmolality 293 Calcium 8.6 Corrected Calcium 9.2 Total Bilirubin 0.5 ALT 22 Alkaline Phosphatase 65 Total Protein 7.5 Albumin 3.3 L Globulin 4.2 H Albumin/Globulin Ratio 0.8 L ABG Interpretation ABG results: 01/28/25 01/28/25 01/29/25 14:24 17:49 03:53 ABG pH 7.42 7.36 7.43 ABG pCO2 46 51 H 44 ABG pO2 65 L 265 H D 192 H D ABG HCO3 29 H 29 H 29 H ABG O2 Saturation 93 99 H 100 H ABG Base Excess 4 H 3 4 H Assessment & Plan Assessment and plan (1) Bulbar myasthenia gravis: Status: Acute Assessment and plan: s/p IVIG therapy As he continues to have bulbar weakness, will consider referral to GI for PEG tue placement. WIll check with [facility] and family.
[2025-02-02] MEDS: SCOPOLAMINE 1 MG TDSY TOP (23:54)
[2025-02-03] VITALS (11 sets, daily range): BP systolic 108–131; BP diastolic 63–81; PULSE 56–69; RESP 12–25; TEMP 36.2–37; O2SAT 91–99; BMI 21.2
[2025-02-03] MEDS: ACETAMINOPHEN 325 MG TABLET 650 MG PO (01:20)
[2025-02-03] MEDS: LEVOTHYROXINE SODIUM 25 MCG TABLET 50 MCG PO (05:09)
[2025-02-03] MEDS: pyRIDostigmine bromide 60 MG TABLET PO (05:09)
[2025-02-03 05:46] LABS: Basophils % (Auto) 0 % (0-2.5); Eosinophils % (Auto) 0 % (0-10); Hematocrit 35.1 % (41.0-53.0); Hemoglobin 11.7 g/dL (13.5-16.0); Immature Granulocytes % (Auto) 1 % (0-0); Immature Granulocytes Auto 0.07 Thou/mm3 (0.00-0.00); Lymphocytes # (Auto) 0.9 Thou/mm3 (1.0-4.8); Lymphocytes % (Auto) 9 % (10-50); Mean Corpuscular HGB Conc 33.3 g/dl (31.0-37.0); Mean Corpuscular Volume 81 fL (80-100); Monocytes # (Auto) 0.4 Thou/mm3 (0.0-0.8); Monocytes % (Auto) 4 % (0-12); Neutrophils # (Auto) 8.7 Thou/mm3 (1.8-7.7); Neutrophils % (Auto) 87 % (37-80); Nucleated Red Blood Cell % 0 /100 WBC (0); Platelet Count 395 Thou/mm3 (140-440); RDW Standard Deviation 41.1 fL (35.1-43.9); Red Blood Count 4.34 Miln/mm3 (4.50-5.90)
[2025-02-03] MEDS: MORPHINE SULF INJ 10 MG/ML VIAL IVP (06:38)
[2025-02-03 06:42] LABS: Alanine Aminotransferase 19 U/L (10-49); Albumin, Serum 3.4 gm/dL (3.5-5.0); Albumin/Globulin Ratio 0.8 (1.2-2.2); Alkaline Phosphatase 68 U/L (46-116); Anion Gap 9 (7-16); Aspartate Amino Transferase 18 U/L (0-34); BUN/Creatinine Ratio 25 Ratio (12-20); Bilirubin,Total 0.6 mg/dL (0.3-1.2); Blood Urea Nitrogen 20 mg/dL (9-23); Calcium 8.7 mg/dL (8.3-10.6); Calcium (Corrected) 9.2 mg/dL (8.5-10.1); Carbon Dioxide 29.6 mMol/L (20.0-31.0); Chloride 104 mMol/L (98-107); Creatinine (Component) 0.8 mg/dL (0.6-1.3); Globulin 4.2 gm/dL (2.3-3.5); Glucose 153 mg/dL (74-106); Osmolality,Calculated 290 (275-295); Potassium 4.7 mMol/L (3.4-5.1); Sodium 143 mMol/L (136-145); Total Protein 7.6 gm/dL (5.7-8.2); eGFR > 60 See Note
[2025-02-03] MEDS: ALBUTEROL RT 2.5 MG/0.5 ML NEBU INH ×2 (07:07→18:25)
[2025-02-03] MEDS: ACETYLCYSTEINE RT SOL 10% 4 ML NEBU 3 ML INH ×2 (07:08→18:25)
[2025-02-03] MEDS: MULTIVITAMINS TABLET 1 TAB PO (09:15)
[2025-02-03] MEDS: ASPIRIN 81 MG CHEW PO (09:15)
[2025-02-03] MEDS: PANTOPRAZOLE 40 MG TABLET PO (09:15)
[2025-02-03] MEDS: LITHIUM CARB 150 MG CAPSULE 900 MG PO (09:15)
[2025-02-03] MEDS: HEPARIN SOD INJ 5000 UNIT/ML VIAL SC ×2 (09:16→20:13)
[2025-02-03] MEDS: MethylPREDNISolone SOD SUCC 62.5 MG/ML 2ML VIAL 125 MG IVP ×2 (09:16→20:12)
[2025-02-03] MEDS: VALPROIC ACID SYRUP 250 MG/5 ML UDC 750 MG PO (09:16)
--- NOTE | 2025-02-03 09:21 | PC.DIETICIAN ---
Nutrition prescription Jevity 1.2 at 20 ml/hr via PEG tube by pump. Advance 10 ml every 8 hrs to goal rate of 70 ml/hr x 22 hrs. If no IV fluids, water flushes of 100 ml every 4 hrs (or per MD). -Hold TF for one hour before and after levothyroxine administration-
--- NOTE | 2025-02-03 09:32 | PC.SS ---
Addendum entered by Brisa Kahn 02/03/25 12:32: SS follow up note; Ana Vazquez from [facility] emailed SS in regards to special meeting set up for Friday, February 07, 2025, to discuss placement options for Patient. She informed SS that they will include the accepting facility in the meeting. SS will update Team A. SS will stand by for further needs. Addendum entered by Brisa Kahn 02/03/25 11:03: SS Follow up note; SS contacted Glaze Supervisor at [facility]-Jed Ng, SS inquired about the patient's discharge plan and the possibility of placement at [facility] in [place]. Jed stated that the Director of [facility] , Joy [phone] is unavailable until Thursday. The discharge plan is currently in progress with the [facility], however could not be finalized until Joy approves discharge plan. SS to follow up with Joy on Thursday. SS will continue to work on the discharge plan once Joy is available. SS will contact Sophy at [facility] to update her on current status. Addendum entered by Brisa Kahn 02/03/25 10:45: SS follow up note; SS was contacted by bridge gang worker at [facility], Nida Orozco She informed SS that patient's sister, Tana Saavedra would like for SS to assist with arranging video call with patient. SS will contact Tana to arrange call. Also Nida provided SS with [facility] risk control manager Jed Ng's contact number # [phone], . SS also was contacted by [facility]. from [facility] [phone], she informed SS they are able to accept patient. SS will contact continuous pillowcase cutter, Jed to go over patient's discharge plan. Original Note: SS follow up note; SS contacted [facility] and spoke to Josue who informed SS that registered nurse Oyster Fisherman, Zhanna would be contacting SS. SS was contacted by Zhanna from [facility] and she informed SS that yesterday the [facility] at [facility] had a meeting in regards to establish a Discharge plan for patient. Zhanna informed SS that [facility] is assisting with finding placement for patient and provided SS with continuous pillowcase cutter Jed Woodson's email: [email or web address]. Zhanna informed SS she could contact SS once she speaks to their nursing unit coordinator if they will be able to accept patient back to [facility]. SS will also contact Jed Ng. SS also sent out SNF inquiry through [employer] platform to SNF facilities. SS also expanded the search to 150 radius. SS will stand by for further needs.
--- NOTE | 2025-02-03 09:43 | ESPR_ITS ---
Documentation for date of: 02/03/25 Subjective Subjective Interval history: Patient evaluated tolerating enteral feeding at 30 cc an hour along with water PEG site looks good and there is no drainage Exam Vital Signs Temp Pulse Resp BP Pulse Ox O2 Del Method O2 Flow Rate 97.8 F 65 18 111/78 98 Nasal Cannula 5 02/03/25 08:00 02/03/25 08:00 02/03/25 08:00 02/03/25 08:00 02/03/25 08:00 02/03/25 08:00 02/03/25 08:00 FiO2 40 01/29/25 11:28 Objective Labs 02/03/25 05:02 02/03/25 05:02 Labs: Laboratory Results - last 24 hr 02/03/25 05:02 WBC 10.0 RBC 4.34 L Hgb 11.7 L Hct 35.1 L MCV 81 MCH 27.0 MCHC 33.3 RDW Std Deviation 41.1 Plt Count 395 Neut % (Auto) 87 H Lymph % (Auto) 9 L [place] % (Auto) 4 Eos % (Auto) 0 Baso % (Auto) 0 Neut # (Auto) 8.7 H Lymph # (Auto) 0.9 L [place] # (Auto) 0.4 Eos # (Auto) 0.0 Baso # (Auto) 0.0 Immature Gran # (Auto) 0.07 H Absolute Nucleated RBC 0.00 Immature Gran % 1 H Nucleated RBC % 0 Sodium 143 Potassium 4.7 Chloride 104 Carbon Dioxide 29.6 Anion Gap 9 BUN 20 Creatinine 0.8 Estim Creat Clear Calc 106.0 eGFR > 60 BUN/Creatinine Ratio 25 H Glucose 153 H Calculated Osmolality 290 Calcium 8.7 Corrected Calcium 9.2 Total Bilirubin 0.6 AST 18 ALT 19 Alkaline Phosphatase 68 Total Protein 7.6 Albumin 3.4 L Globulin 4.2 H Albumin/Globulin Ratio 0.8 L Impressions Impression: Failure to thrive Dysphagia Status post placement of PEG tube for enteral hyperalimentation which patient is tolerating well ABG Interpretation ABG results: 01/28/25 01/28/25 01/29/25 14:24 17:49 03:53 ABG pH 7.42 7.36 7.43 ABG pCO2 46 51 H 44 ABG pO2 65 L 265 H D 192 H D ABG HCO3 29 H 29 H 29 H ABG O2 Saturation 93 99 H 100 H ABG Base Excess 4 H 3 4 H Assessment & Plan A&P Narrative # Progressive dysphagia most likely due to underlying myasthenia gravis complicated by possibly motor disorder of the oropharyngeal area Suggestions Internal medicine team has discussed the issue I spoke with the patient and his sister informed consent obtained for placement of a PEG tube insertion via fiberoptic esophagogastroduodenoscopy under intravenous moderate sedation Ancef 1 g IV piggyback prior to the procedure Other medical problems include Myasthenia gravis Bipolar disorder Mentally challenged Thromboangiitis obliterans Thrombocytosis Destructive behavior Thank you very much for the opportunity to participate in the care of this patient Time Spent With Patient Time: Total time spent is greater than 50% in coordination of care (as documented) at patient's floor/unit and/or counseling patient:
[2025-02-03] MEDS: MORPHINE SULF INJ 10 MG/ML VIAL 2 MG IVP ×2 (11:15→17:59)
--- NOTE | 2025-02-03 11:59 | PD.RESPRO ---
Documentation for date of: 02/03/25 Subjective Subjective Interval history: Patient examined at bedside. No events overnight, s/p PEG tube placement, complaining of pain at site of insertion, thirsty requesting to drink juice. Nurse at bedside gave small amount of thickened apple juice which caused this to start coughing. At bedside he's saturating 98% on 1LNC, labs unremarkable. He has abdominal binder placed, no signs of bleeding. Start norco and morphine 2mg for breakthrough pain. Diet was started with 100cc/q4hr water flushes. Allowing few ice chips at a time. Advance feeds slowly to goal 70 ml/hr x 22 hrs. [facility] says they're unable to manage his tube feeds. Social coordinating team working for SNF placement. Exam Vital Signs Temp Pulse Resp BP Pulse Ox O2 Del Method O2 Flow Rate 97.8 F 65 18 111/78 98 Nasal Cannula 5 02/03/25 08:00 02/03/25 08:00 02/03/25 08:00 02/03/25 08:00 02/03/25 08:00 02/03/25 08:00 02/03/25 08:00 FiO2 40 01/29/25 11:28 Narrative Exam General: Young male, tracking, No acute distress, cooperative HEENT: NCAT, No JVD noted. Mucosa dry. Pupils are equal and reactive to light bilaterally Cardiovascular: Normal S1 and S2. Regular rate and rhythm. Respiratory: congestion, on NC Abdomen: Soft, nontender, not distended, normal bowel sounds.Abdominal binder Skin: Warm to touch, dry, red scaling skin on extremities Musculoskeletal: No gross injuries. Able to move all 4 extremities. LLE swelling (appears to be chronic problem), no erythema or tenderness. Neuro: Alert and oriented x3. No focal neuro deficits. Psych: Normal affect and mood Objective Labs 02/03/25 05:02 02/03/25 05:02 Labs: Laboratory Results - last 24 hr 02/03/25 05:02 WBC 10.0 RBC 4.34 L Hgb 11.7 L Hct 35.1 L MCV 81 MCH 27.0 MCHC 33.3 RDW Std Deviation 41.1 Plt Count 395 Neut % (Auto) 87 H Lymph % (Auto) 9 L [place] % (Auto) 4 Eos % (Auto) 0 Baso % (Auto) 0 Neut # (Auto) 8.7 H Lymph # (Auto) 0.9 L [place] # (Auto) 0.4 Eos # (Auto) 0.0 Baso # (Auto) 0.0 Immature Gran # (Auto) 0.07 H Absolute Nucleated RBC 0.00 Immature Gran % 1 H Nucleated RBC % 0 Sodium 143 Potassium 4.7 Chloride 104 Carbon Dioxide 29.6 Anion Gap 9 BUN 20 Creatinine 0.8 Estim Creat Clear Calc 106.0 eGFR > 60 BUN/Creatinine Ratio 25 H Glucose 153 H Calculated Osmolality 290 Calcium 8.7 Corrected Calcium 9.2 Total Bilirubin 0.6 AST 18 ALT 19 Alkaline Phosphatase 68 Total Protein 7.6 Albumin 3.4 L Globulin 4.2 H Albumin/Globulin Ratio 0.8 L ABG Interpretation ABG results: 01/28/25 01/28/25 01/29/25 14:24 17:49 03:53 ABG pH 7.42 7.36 7.43 ABG pCO2 46 51 H 44 ABG pO2 65 L 265 H D 192 H D ABG HCO3 29 H 29 H 29 H ABG O2 Saturation 93 99 H 100 H ABG Base Excess 4 H 3 4 H Quality Measures Quality Measures VTE prophylaxis Assessment & Plan Assessment Current Active Medications: Generic Name Dose Route Start Last Admin Trade Name Freq PRN Reason Stop Dose Admin Acetaminophen 650 mg 02/03/25 09:41 Acetaminophen Nayana 325 Mg/10 Ml Udc GT 02/25/25 08:30 Q6H PRN Fever > 100.4 Acetaminophen 650 mg 02/03/25 09:41 Acetaminophen [place] 325 Mg/10 Ml Udc GT 03/05/25 09:40 Q6HR PRN MILD PAIN 1-3 Hydrocodone Bitart/Acetaminophen 1 tab 02/03/25 11:00 Hydrocodone/Apap 5/325 Tablet GT 02/08/25 10:59 Q4HR PRN PAIN SCALE 4-10(Mod-Sev Acetylcysteine 3 ml 02/02/25 11:15 02/03/25 07:08 Acetylcysteine Rt Nayana 10% 4 Ml Nebu INH 03/04/25 11:14 3 ml BID KEVIN Administration Albuterol 2.5 mg 02/02/25 10:58 02/03/25 07:07 Albuterol Rt 2.5 Mg/0.5 Ml Nebu INH 03/04/25 10:59 2.5 mg Q4HRRT PRN Administration Bronchospasm Aspirin 81 mg 02/04/25 09:00 Aspirin 81 Mg Chew GT 03/06/25 08:59 QDAY KEVIN Docusate Sodium 100 mg 01/28/25 21:30 02/03/25 09:15 Docusate Sod Liqd 100 Mg/10 Ml Udc PO 02/27/25 21:29 Not Given BID KEVIN Protocol Heparin Sodium (Porcine) 5,000 unit 01/30/25 21:00 02/03/25 09:16 Heparin Sod Inj 5000 Unit/Ml Vial SC 02/13/25 20:59 5,000 unit BID KEVIN Administration Lansoprazole 30 mg 02/04/25 09:00 Lansoprazole 30 Mg Tab.Rap.Dr GT 03/06/25 08:59 QDAY KEVIN Levothyroxine Sodium 50 mcg 02/04/25 06:00 Levothyroxine Sodium 25 Mcg Tablet GT 03/06/25 05:59 ACBR KEVIN Lidocaine 1 patch 02/01/25 19:49 02/02/25 22:34 Lidocaine 5% 1 Patch TOP 03/03/25 19:48 1 patch UD PRN Administration PAIN Pyatt Carbonate 900 mg 02/04/25 09:00 Pyatt Carb 150 Mg Capsule GT 03/06/25 08:59 QDAY [facility] Methylprednisolone Sodium Succinate 125 mg 01/31/25 09:00 02/03/25 09:16 Methylprednisolone Sod Succ 62.5 Mg/Ml 2ml Vial IVP 02/07/25 08:59 125 mg Q12HR KEVIN Administration Mirtazapine 37.5 mg 02/03/25 21:00 Mirtazapine 15 Mg Tablet GT 03/05/25 20:59 HS [facility] Morphine Sulfate 2 mg 02/03/25 11:01 02/03/25 11:15 Morphine Sulf Inj 10 Mg/Ml Vial IVP 02/08/25 10:37 2 mg Q4HR PRN Administration BREAKTHROUGH PAIN Multivitamins/Minerals 15 ml 02/04/25 09:00 Multivitamin 15 Ml Udc GT 03/06/25 08:59 QDAY [facility] Ondansetron HCl 4 mg 01/25/25 16:07 02/01/25 12:05 Ondansetron Inj 2 Mg/Ml Inj 2 Ml IVP 02/24/25 16:06 4 mg Q6H PRN Administration NAUSEA OR VOMITING Protocol Pyridostigmine [place] 60 mg 02/03/25 14:00 Pyridostigmine [place] 60 Mg Tablet GT 03/05/25 13:59 Q8HR KEVIN Scopolamine 1 mg 01/30/25 23:45 02/02/25 23:54 Scopolamine 1 Mg Tdsy TOP 03/01/25 23:44 1 mg Q3D KEVIN Administration Sennosides 1 tab 02/03/25 09:53 Senna Tablet GT 03/05/25 09:52 QDAY PRN constipation Protocol Sodium Chloride 3 ml 02/02/25 10:58 Sodium Chloride Rt [place] 0.9% 3 Ml Nebu INH 03/04/25 10:57 PRN PRN SOLN Valproic Acid 750 mg 02/03/25 21:00 Valproic Acid Syrup 250 Mg/5 Ml Udc GT 03/05/25 20:59 BID KEVIN Plan Ayo Argueta is 39 yr male with PMH of dysphagia, bipolar disorder, intellectual disability, thrombocytosis, JACQUELINE, myasthenia gravis, thromboangiitis obliterans, acne vulgaris, solitary pulmonary nodule coming from [facility] per neurology due to myasthenia gravis flare. Patient sees Dr. iDetz who noticed increased weakness and increased salivary secretions. Admit per neurology for IVIG treatment, pyridostigmine in setting of myasthenia gravis flare. #Myasthenia gravis flare Has functional dysphagia, bulbar weakness/ocular muscle weakness, extraparametal symptoms per neurology. Was sent in to get IVIG. CT chest negative for anterior mediastinal mass or LAD. -neurology consulted -completed IVIG on 02/02 - pyridostigmine 60 Mg p.o.q8hr -IV methylpredisolone 125mg BID #Dysphagia #PEG tube feeds Completed video esophagram in 02/2024. It showed vallecular pooling and retention with pudding and crackers. Also showed silent aspiration with nectar and thin liquids. Diet was changed to ground food and honey thickened liquids. PEG tube placed 02/[address] Anderson -start Jevity 1.2 at 20 ml/hr via PEG tube by pump. Advance 10 ml every 8 hrs to goal rate of 70 ml/hr x 22 hrs. -water flushes 100c/4hr -hold dysphagia III diet -hold liquids mixed with thick honey -few ice chips at a time -norco and morphine 2mg for breakthrough pain. #Cavitary lesion Ddx: active TB, cocci, aspergillosis CT chest showed cavitary lesion in left lower lobe which appears to be chronic. Based off chart review, lesion was noticed in August 2023. Labs from 12/2023 including QuantiFERON gold test was negative, cocci serology also negative. Appears asymptomatic at this time. Cocci negative. Aspergillus negative. Two sputum stains were sent while patient was intubated in ICU. 2/2 were negative for AFB--TB precautions removed. Low suspicion of TB per ID as well. -ID consulted -isolation/airborne precautions removed -monitor #Syphilis, serology positive Syphilis serology came back reactive we are pending titers from [facility] lab and will follow-up with ID recommendations. - RPR test was non reactive -TP-PA confirmatory test was inconclusive - Follow-up ID recommendations - Repeat serology outpatient in 2 weeks from discharge #Bipolar disorder Takes chlorpromazine 100 twice daily, clozapine 175 mg twice daily, lithium, mirtazapine, valproic acid. Pyatt levels on 01/26 subtheraputic at 0.48 -resumed medications #JACQUELINE Appears to be non compliant with CPAP per chart review. -CPAP nightly #Thromboangitis obliterans continue aspirin 81mg daily. #Solitary pulmonary nodule Cocci serology negative in 2023. -follow up outpatient #Chronic thrombocystosis Continue aspirin 81mg Health maintenance: Dispo: med surg for MG flare, steroids, [facility] says they're unable to manage his tube feeds. Social coordinating team working for SNF placement. FEN: dysphagia 3, liquids mixed with thick honey, PEG tube feeds DVT prophylaxis: Subcu heparin CODE STATUS: Full code The patient's management plan was discussed with my attending physician Dr. Penny. Nithya Arroyo, PGY-1 Attending Provider Attestation/Addendum I have examined the patient, reviewed labs and imaging findings, discussed the case with the resident(s), and reviewed entered orders. I agree with the plan of care as outlined in this note, with these additional summaries/recommendations: Patient seen at bedside. No acute overnight events. Patient is status post PEG tube placement. Patient started on tube feeds and free water flushes. We will continue to advance tube feeds to goal rate before patient can be safely discharged. Keep patient n.p.o. Patient endorsing some pain around PEG tube insertion site although area looks clean. We will increase pain management as needed. Continue IVIG, IV Solu-Medrol, and pyridostigmine for myasthenia gravis flare. Scopolamine for excessive secretions. In-house neurology following, recommendations appreciated. AFBs x 2 returned negative and isolation precautions removed. Low suspicion for TB and no further workup needed at this time. Patient is still endorsing diarrhea which is most likely medication related. If persists we will order stool studies although for now we will start loperamide. Continue home antipsychotics for history of bipolar disorder. Continue CPAP at night for JACQUELINE. Dr. Fabricio MD
[2025-02-03] MEDS: pyRIDostigmine bromide 60 MG TABLET GT ×2 (13:30→21:03)
[2025-02-03] MEDS: VALPROIC ACID SYRUP 250 MG/5 ML UDC 750 MG GT (20:12)
[2025-02-03] MEDS: HYDROcodone/APAP 5/325 TABLET 1 TAB GT (20:12)
[2025-02-03] MEDS: MIRTAZAPINE 15 MG TABLET 37.5 MG GT (20:13)
--- NOTE | 2025-02-03 22:43 | ESPR_ITS ---
Documentation for date of: 02/03/25 Subjective Subjective Interval history: Patient was seen in telemetry today at the bedside. He got the PEG tube placement recently and is tolerating feeds well. continue with mestinon 60 mg q6 hours and prednisone 10 mg daily and azathioprine 50 mg bid vis PEG tube. Exam - Neurology Vital Signs Temp Pulse Resp BP Pulse Ox O2 Del Method O2 Flow Rate 98.6 F 65 14 131/63 H 98 Nasal Cannula 5 02/03/25 20:00 02/03/25 20:00 02/03/25 20:00 02/03/25 20:00 02/03/25 20:00 02/03/25 20:00 02/03/25 20:00 FiO2 40 02/03/25 20:00 Objective Labs 02/03/25 05:02 02/03/25 05:02 Labs: Laboratory Results - last 24 hr 02/03/25 05:02 WBC 10.0 RBC 4.34 L Hgb 11.7 L Hct 35.1 L MCV 81 MCH 27.0 MCHC 33.3 RDW Std Deviation 41.1 Plt Count 395 Neut % (Auto) 87 H Lymph % (Auto) 9 L [place] % (Auto) 4 Eos % (Auto) 0 Baso % (Auto) 0 Neut # (Auto) 8.7 H Lymph # (Auto) 0.9 L [place] # (Auto) 0.4 Eos # (Auto) 0.0 Baso # (Auto) 0.0 Immature Gran # (Auto) 0.07 H Absolute Nucleated RBC 0.00 Immature Gran % 1 H Nucleated RBC % 0 Sodium 143 Potassium 4.7 Chloride 104 Carbon Dioxide 29.6 Anion Gap 9 BUN 20 Creatinine 0.8 Estim Creat Clear Calc 106.0 eGFR > 60 BUN/Creatinine Ratio 25 H Glucose 153 H Calculated Osmolality 290 Calcium 8.7 Corrected Calcium 9.2 Total Bilirubin 0.6 AST 18 ALT 19 Alkaline Phosphatase 68 Total Protein 7.6 Albumin 3.4 L Globulin 4.2 H Albumin/Globulin Ratio 0.8 L ABG Interpretation ABG results: 01/28/25 01/28/25 01/29/25 14:24 17:49 03:53 ABG pH 7.42 7.36 7.43 ABG pCO2 46 51 H 44 ABG pO2 65 L 265 H D 192 H D ABG HCO3 29 H 29 H 29 H ABG O2 Saturation 93 99 H 100 H ABG Base Excess 4 H 3 4 H Assessment & Plan Assessment and plan (1) Bulbar myasthenia gravis: Status: Acute
[2025-02-04] VITALS (12 sets, daily range): BP systolic 115–122; BP diastolic 61–73; PULSE 60–78; RESP 16–30; TEMP 36.7–37.7; O2SAT 90–99; BMI 21.6
[2025-02-04] MEDS: HYDROcodone/APAP 5/325 TABLET 1 TAB GT ×3 (00:54→13:38)
[2025-02-04] MEDS: LEVOTHYROXINE SODIUM 25 MCG TABLET 50 MCG GT (05:09)
[2025-02-04] MEDS: pyRIDostigmine bromide 60 MG TABLET GT ×3 (05:09→17:52)
[2025-02-04] MEDS: ACETYLCYSTEINE RT SOL 10% 4 ML NEBU 3 ML INH ×2 (06:12→22:50)
[2025-02-04] MEDS: ALBUTEROL RT 2.5 MG/0.5 ML NEBU INH ×2 (06:12→22:50)
[2025-02-04 08:10] LABS: Alanine Aminotransferase 16 U/L (10-49); Albumin, Serum 3.6 gm/dL (3.5-5.0); Albumin/Globulin Ratio 0.9 (1.2-2.2); Alkaline Phosphatase 66 U/L (46-116); Anion Gap 9 (7-16); Aspartate Amino Transferase 18 U/L (0-34); BUN/Creatinine Ratio 20 Ratio (12-20); Bilirubin,Total 0.6 mg/dL (0.3-1.2); Blood Urea Nitrogen 16 mg/dL (9-23); Calcium (Corrected) 9.3 mg/dL (8.5-10.1); Carbon Dioxide 30.3 mMol/L (20.0-31.0); Chloride 105 mMol/L (98-107); Creatinine (Component) 0.8 mg/dL (0.6-1.3); Estimated Creatinine Clearance 107.9 mL/min (>60); Globulin 3.9 gm/dL (2.3-3.5); Glucose 161 mg/dL (74-106); Osmolality,Calculated 291 (275-295); Potassium 4.6 mMol/L (3.4-5.1); Sodium 144 mMol/L (136-145); Total Protein 7.5 gm/dL (5.7-8.2); eGFR > 60 See Note
[2025-02-04] MEDS: HEPARIN SOD INJ 5000 UNIT/ML VIAL SC ×2 (08:25→20:08)
[2025-02-04] MEDS: VALPROIC ACID SYRUP 250 MG/5 ML UDC 750 MG GT ×2 (08:30→20:07)
[2025-02-04] MEDS: predniSONE 5 MG TABLET 10 MG PO (08:30)
[2025-02-04] MEDS: MULTIVITAMIN 15 ML UDC GT (08:30)
[2025-02-04] MEDS: LITHIUM CARB 150 MG CAPSULE 900 MG GT (08:31)
[2025-02-04] MEDS: ASPIRIN 81 MG CHEW GT (08:31)
[2025-02-04] MEDS: LANSOPRAZOLE 30 MG TAB.RAP.DR GT (08:31)
[2025-02-04 09:34] LABS: Basophils % (Auto) 0 % (0-2.5); Eosinophils % (Auto) 0 % (0-10); Hemoglobin 11.6 g/dL (13.5-16.0); Immature Granulocytes % (Auto) 0 % (0-0); Immature Granulocytes Auto 0.05 Thou/mm3 (0.00-0.00); Lymphocytes # (Auto) 1.1 Thou/mm3 (1.0-4.8); Lymphocytes % (Auto) 9 % (10-50); Mean Corpuscular HGB Conc 34.1 g/dl (31.0-37.0); Mean Corpuscular Volume 82 fL (80-100); Monocytes % (Auto) 8 % (0-12); Neutrophils # (Auto) 11.1 Thou/mm3 (1.8-7.7); Neutrophils % (Auto) 83 % (37-80); Nucleated Red Blood Cell % 0 /100 WBC (0); Platelet Count 371 Thou/mm3 (140-440); RDW Standard Deviation 42.4 fL (35.1-43.9); Red Blood Count 4.14 Miln/mm3 (4.50-5.90); White Blood Count 13.4 Thou/mm3 (3.8-10.6)
[2025-02-04] MEDS: azaTHIOprine 50 MG TABLET GT ×2 (10:00→20:08)
--- NOTE | 2025-02-04 10:39 | ESPR_ITS ---
Documentation for date of: 02/04/25 Subjective Subjective Interval history: Patient was seen and examined at bedside. No acute overnight events. PEG tube was resumed yesterday, 40 cc/h currently running with a water flushes, goal is to 70 cc/h, will continue close monitor and adjust rate to achieve the goal. Neurology is on board, recommended to continue current treatment, IV steroids was switched to tablets through the G-tube. Also pending social issues regarding the placement. Will follow-up with the social workers. Exam Vital Signs Temp Pulse Resp BP Pulse Ox O2 Del Method O2 Flow Rate 98.1 F 78 19 121/71 94 L Nasal Cannula 3 02/04/25 07:50 02/04/25 07:50 02/04/25 07:50 02/04/25 07:50 02/04/25 07:50 02/04/25 07:50 02/04/25 07:50 FiO2 40 02/04/25 04:00 Narrative Exam Gen: Well-nourished male in no acute distress. He has baseline developmental delay, answering to questions appropriately, however slow in response. HEENT: anicteric conjunctivae., Pupils are reactive to light CVS: normal S1 and S2. RRR. No M/R/G. Resp: Clear to auscultation, no crackles, wheezing noted Abd: soft, non-tender, non-distended. BS+ in all 4 quadrants. PEG tube noted, dressing is clean and dry MSK: Good ROM in BUE & BLE. Right foot is swollen chronically Neuro: Moderate dysarthria. Limited exam due to medical condition. Objective Labs 02/05/25 04:30 02/05/25 04:30 Labs: Laboratory Results - last 24 hr 02/04/25 02/04/25 06:54 08:52 WBC 13.4 H RBC 4.14 L Hgb 11.6 L Hct 34.0 L MCV 82 MCH 28.0 MCHC 34.1 RDW Std Deviation 42.4 Plt Count 371 Neut % (Auto) 83 H Lymph % (Auto) 9 L [place] % (Auto) 8 Eos % (Auto) 0 Baso % (Auto) 0 Neut # (Auto) 11.1 H Lymph # (Auto) 1.1 [place] # (Auto) 1.0 H Eos # (Auto) 0.0 Baso # (Auto) 0.0 Immature Gran # (Auto) 0.05 H Absolute Nucleated RBC 0.00 Immature Gran % 0 Nucleated RBC % 0 Sodium 144 Potassium 4.6 Chloride 105 Carbon Dioxide 30.3 Anion Gap 9 BUN 16 Creatinine 0.8 Estim Creat Clear Calc 107.9 eGFR > 60 BUN/Creatinine Ratio 20 Glucose 161 H Calculated Osmolality 291 Calcium 9.0 Corrected Calcium 9.3 Total Bilirubin 0.6 AST 18 ALT 16 Alkaline Phosphatase 66 Total Protein 7.5 Albumin 3.6 Globulin 3.9 H Albumin/Globulin Ratio 0.9 L ABG Interpretation ABG results: 01/28/25 01/28/25 01/29/25 14:24 17:49 03:53 ABG pH 7.42 7.36 7.43 ABG pCO2 46 51 H 44 ABG pO2 65 L 265 H D 192 H D ABG HCO3 29 H 29 H 29 H ABG O2 Saturation 93 99 H 100 H ABG Base Excess 4 H 3 4 H Quality Measures Quality Measures VTE prophylaxis Assessment & Plan Assessment Current Active Medications: Generic Name Dose Route Start Last Admin Trade Name Freq PRN Reason Stop Dose Admin Acetaminophen 650 mg 02/03/25 09:41 Acetaminophen [place] 325 Mg/10 Ml Udc GT 02/25/25 08:30 Q6H PRN Fever > 100.4 Acetaminophen 650 mg 02/03/25 09:41 Acetaminophen [place] 325 Mg/10 Ml Udc GT 03/05/25 09:40 Q6HR PRN MILD PAIN 1-3 Hydrocodone Bitart/Acetaminophen 1 tab 02/03/25 11:00 02/04/25 07:54 Hydrocodone/Apap 5/325 Tablet GT 02/08/25 10:59 1 tab Q4HR PRN Administration PAIN SCALE 4-10(Mod-Sev Acetylcysteine 3 ml 02/02/25 11:15 02/04/25 06:12 Acetylcysteine Rt [place] 10% 4 Ml Nebu INH 03/04/25 11:14 3 ml BID KEVIN Administration Albuterol 2.5 mg 02/02/25 10:58 02/04/25 06:12 Albuterol Rt 2.5 Mg/0.5 Ml Nebu INH 03/04/25 10:59 2.5 mg Q4HRRT PRN Administration Bronchospasm Aspirin 81 mg 02/04/25 09:00 02/04/25 08:31 Aspirin 81 Mg Chew GT 03/06/25 08:59 81 mg QDAY KEVIN Administration Azathioprine 50 mg 02/04/25 09:00 Azathioprine 50 Mg Tablet GT 03/06/25 08:59 BID KEVIN Docusate Sodium 100 mg 01/28/25 21:30 02/03/25 09:15 Docusate Sod Liqd 100 Mg/10 Ml Udc PO 02/27/25 21:29 Not Given BID KEVIN Protocol Heparin Sodium (Porcine) 5,000 unit 01/30/25 21:00 02/03/25 20:13 Heparin Sod Inj 5000 Unit/Ml Vial SC 02/13/25 20:59 5,000 unit BID KEVIN Administration Lansoprazole 30 mg 02/04/25 09:00 02/04/25 08:31 Lansoprazole 30 Mg Tab.Rap.Dr GT 03/06/25 08:59 30 mg QDAY KEVIN Administration Levothyroxine Sodium 50 mcg 02/04/25 06:00 02/04/25 05:09 Levothyroxine Sodium 25 Mcg Tablet GT 03/06/25 05:59 50 mcg ACBR KEVIN Administration Lidocaine 1 patch 02/01/25 19:49 02/02/25 22:34 Lidocaine 5% 1 Patch TOP 03/03/25 19:48 1 patch UD PRN Administration PAIN [place] Carbonate 900 mg 02/04/25 09:00 02/04/25 08:31 [place] Carb 150 Mg Capsule GT 03/06/25 08:59 900 mg QDAY KEVIN Administration Mirtazapine 37.5 mg 02/03/25 21:00 02/03/25 20:13 Mirtazapine 15 Mg Tablet GT 03/05/25 20:59 37.5 mg HS KEVIN Administration Morphine Sulfate 2 mg 02/03/25 11:01 02/03/25 17:59 Morphine Sulf Inj 10 Mg/Ml Vial IVP 02/08/25 10:37 2 mg Q4HR PRN Administration BREAKTHROUGH PAIN Multivitamins/Minerals 15 ml 02/04/25 09:00 02/04/25 08:30 Multivitamin 15 Ml Udc GT 03/06/25 08:59 15 ml QDAY KEVIN Administration Ondansetron HCl 4 mg 01/25/25 16:07 02/01/25 12:05 Ondansetron Inj 2 Mg/Ml Inj 2 Ml IVP 02/24/25 16:06 4 mg Q6H PRN Administration NAUSEA OR VOMITING Protocol Prednisone 10 mg 02/04/25 09:00 02/04/25 08:30 Prednisone 5 Mg Tablet PO 03/06/25 08:59 10 mg QAM KEVIN Administration Pyridostigmine [place] 60 mg 02/04/25 12:00 Pyridostigmine [place] 60 Mg Tablet GT 03/06/25 11:59 Q6HR KEVIN Scopolamine 1 mg 01/30/25 23:45 02/02/25 23:54 Scopolamine 1 Mg Tdsy TOP 03/01/25 23:44 1 mg Q3D KEVIN Administration Sennosides 1 tab 02/03/25 09:53 Senna Tablet GT 03/05/25 09:52 QDAY PRN constipation Protocol Sodium Chloride 3 ml 02/02/25 10:58 Sodium Chloride Rt [place] 0.9% 3 Ml Nebu INH 03/04/25 10:57 PRN PRN SOLN Valproic Acid 750 mg 02/03/25 21:00 02/04/25 08:30 Valproic Acid Syrup 250 Mg/5 Ml Udc GT 03/05/25 20:59 750 mg BID KEVIN Administration Plan Ayo Argueta is 39 yr male with PMH of dysphagia, bipolar disorder, intellectual disability, thrombocytosis, JACQUELINE, myasthenia gravis, thromboangiitis obliterans, acne vulgaris, solitary pulmonary nodule coming from [facility] per neurology due to myasthenia gravis flare. Patient sees Dr. Dietz who noticed increased weakness and increased salivary secretions. Admit per neurology for IVIG treatment, pyridostigmine in setting of myasthenia gravis flare. #Myasthenia gravis flare -improving Has functional dysphagia, bulbar weakness/ocular muscle weakness, extraparametal symptoms per neurology. Was sent in to get IVIG. CT chest negative for anterior mediastinal mass or LAD. - neurology consulted - completed IVIG on 02/02 - pyridostigmine 60 Mg p.o.q6hr - IV methylpredisolone 125mg BID switched to Prednisone 40 mg GT #Dysphagia #PEG tube feeds Completed video esophagram in 02/2024. It showed vallecular pooling and retention with pudding and crackers. Also showed silent aspiration with nectar and thin liquids. Diet was changed to ground food and honey thickened liquids. PEG tube placed 02/[address] Anderson -start Jevity 1.2 at 20 ml/hr via PEG tube by pump. Advance 10 ml every 8 hrs to goal rate of 70 ml/hr x 22 hrs. -norco and morphine 2mg for breakthrough pain. s/p Peg placment #Cavitary lesion Ddx: active TB, cocci, aspergillosis CT chest showed cavitary lesion in left lower lobe which appears to be chronic. Based off chart review, lesion was noticed in August 2023. Labs from 12/2023 including QuantiFERON gold test was negative, cocci serology also negative. Appears asymptomatic at this time. Cocci negative. Aspergillus negative. Two sputum stains were sent while patient was intubated in ICU. 2/2 were negative for AFB--TB precautions removed. Low suspicion of TB per ID as well. -ID consulted -isolation/airborne precautions removed -monitor #Syphilis, serology positive Syphilis serology came back reactive we are pending titers from [facility] lab and will follow-up with ID recommendations. - RPR test was non reactive - TP-PA confirmatory test was inconclusive - Follow-up ID recommendations - Repeat serology outpatient in 2 weeks from discharge #Bipolar disorder Takes chlorpromazine 100 twice daily, clozapine 175 mg twice daily, lithium, mirtazapine, valproic acid. [place] levels on 01/26 subtheraputic at 0.48 -resumed medications #JACQUELINE Appears to be non compliant with CPAP per chart review. -CPAP nightly #Thromboangitis obliterans continue aspirin 81mg daily. #Solitary pulmonary nodule Cocci serology negative in 2023. -follow up outpatient #Chronic thrombocystosis Continue aspirin 81mg Health maintenance: Dispo: med surg for MG flare, steroids, PDC says they're unable to manage his tube feeds. Social coordinating team working for SNF placement. FEN: PEG tube feeds , dietary on Board DVT prophylaxis: Subcu heparin CODE STATUS: Full code Patient care was discussed with attending physician Dr. Fabricio Hooper MD PGY-2 I have carefully reviewed this document. Due to imperfections in the voice software, there could be grammatical errors including phonetic/typographic errors. This in no way compromises the medical care the patient is receiving Attending Provider Attestation/Addendum I have examined the patient, reviewed labs and imaging findings, discussed the case with the resident(s), and reviewed entered orders. I agree with the plan of care as outlined in this note, with these additional summaries/recommendations: Patient seen at bedside. No acute overnight events. Patient is status post PEG tube placement. Patient started on tube feeds and free water flushes. We will continue to advance tube feeds to goal rate before patient can be safely discharged. Patient is also pending placement and social and human services assistant consulted. Patient endorsing some pain around PEG tube insertion site although area looks clean. We will increase pain management as needed. Continue IVIG, IV Solu- Medrol, and pyridostigmine for myasthenia gravis flare. Scopolamine for excessive secretions. In-house neurology following, recommendations appreciated. AFBs x 2 returned negative and isolation precautions removed. Low suspicion for TB and no further workup needed at this time. Continue home antipsychotics for history of bipolar disorder. Continue CPAP at night for JACQUELINE. Dr. Fabricio MD
--- NOTE | 2025-02-04 15:33 | PD.IMPROG ---
Documentation for date of: 02/04/25 Subjective Subjective Interval history: Tolerating enteral hyperalimentation through the PEG Exam Vital Signs Temp Pulse Resp BP Pulse Ox O2 Del Method O2 Flow Rate 98.1 F 77 24 H 117/73 95 Nasal Cannula 3 02/04/25 12:00 02/04/25 12:00 02/04/25 12:00 02/04/25 12:00 02/04/25 12:00 02/04/25 12:00 02/04/25 12:00 FiO2 40 02/04/25 04:00 Objective Labs 02/04/25 08:52 02/04/25 06:54 Labs: Laboratory Results - last 24 hr 02/04/25 02/04/25 06:54 08:52 WBC 13.4 H RBC 4.14 L Hgb 11.6 L Hct 34.0 L MCV 82 MCH 28.0 MCHC 34.1 RDW Std Deviation 42.4 Plt Count 371 Neut % (Auto) 83 H Lymph % (Auto) 9 L [place] % (Auto) 8 Eos % (Auto) 0 Baso % (Auto) 0 Neut # (Auto) 11.1 H Lymph # (Auto) 1.1 [place] # (Auto) 1.0 H Eos # (Auto) 0.0 Baso # (Auto) 0.0 Immature Gran # (Auto) 0.05 H Absolute Nucleated RBC 0.00 Immature Gran % 0 Nucleated RBC % 0 Sodium 144 Potassium 4.6 Chloride 105 Carbon Dioxide 30.3 Anion Gap 9 BUN 16 Creatinine 0.8 Estim Creat Clear Calc 107.9 eGFR > 60 BUN/Creatinine Ratio 20 Glucose 161 H Calculated Osmolality 291 Calcium 9.0 Corrected Calcium 9.3 Total Bilirubin 0.6 AST 18 ALT 16 Alkaline Phosphatase 66 Total Protein 7.5 Albumin 3.6 Globulin 3.9 H Albumin/Globulin Ratio 0.9 L Impressions Impression: Failure to thrive Enteral hyperalimentation via the PEG tube tolerating it well ABG Interpretation ABG results: 01/28/25 01/28/25 01/29/25 14:24 17:49 03:53 ABG pH 7.42 7.36 7.43 ABG pCO2 46 51 H 44 ABG pO2 65 L 265 H D 192 H D ABG HCO3 29 H 29 H 29 H ABG O2 Saturation 93 99 H 100 H ABG Base Excess 4 H 3 4 H Assessment & Plan A&P Narrative # Progressive dysphagia most likely due to underlying myasthenia gravis complicated by possibly motor disorder of the oropharyngeal area Suggestions Internal medicine team has discussed the issue I spoke with the patient and his sister informed consent obtained for placement of a PEG tube insertion via fiberoptic esophagogastroduodenoscopy under intravenous moderate sedation Ancef 1 g IV piggyback prior to the procedure Other medical problems include Myasthenia gravis Bipolar disorder Mentally challenged Thromboangiitis obliterans Thrombocytosis Destructive behavior Thank you very much for the opportunity to participate in the care of this patient Time Spent With Patient Time: Total time spent is greater than 50% in coordination of care (as documented) at patient's floor/unit and/or counseling patient:
[2025-02-04] MEDS: ACETAMINOPHEN SOL 325 MG/10 ML UDC 650 MG GT (17:45)
--- NOTE | 2025-02-04 18:23 | XR_ITS ---
Examination: AP chest single view TECHNIQUE: AP portable semiupright chest single view Date and time: February 04, 2025 1637 hours INDICATIONS: Shortness of breath beginning 2 days ago. FINDINGS: Cavitary parenchymal disease left base again noted Please see the CT chest report January 25, 2025 No new infiltrates Normal heart size IMPRESSION: Cavitary parenchymal disease left base again noted Please see the CT chest report January 25, 2025
--- NOTE | 2025-02-04 18:34 | PC.NURSE ---
patient warm to touch. t-99.8, c/o headach, gave tylenol via peg tube as prn med, patient is also tachypneic , lung souds rhonchi to right side with moist secretion,on o2 at 2 lliters nc with o2sats on low 80's ,increase oxygen to 3 liters o2sats went up 93%, called dr leiva and made aware, md order cxr and nebs treatment prn.patient able to suction himself.
[2025-02-04] MEDS: MIRTAZAPINE 15 MG TABLET 37.5 MG GT (20:07)
--- NOTE | 2025-02-04 23:33 | PD.VPROG1 ---
Telemedicine visit statement This visit was conducted with the use of interactive audio and video telecommunications system that permits real time communication between the patient and the provider. Patient's verbal consent for virtual visit was obtained on 02/04/25 at 2333. Documentation for date of: 02/04/25 Subjective Subjective Interval history: Patient is in telemetry, Tolerating tube feeding well with no residuals. Feeding is almost at goal. Ice chips made him cough a lot and needed to stop. Virtual exam Vital Signs Temp Pulse Resp BP Pulse Ox O2 Del Method O2 Flow Rate 98.9 F 74 30 H 116/63 90 L Nasal Cannula 3 02/04/25 20:00 02/04/25 20:00 02/04/25 20:00 02/04/25 20:00 02/04/25 20:00 02/04/25 20:00 02/04/25 20:00 FiO2 40 02/04/25 04:00 Objective Labs 02/04/25 08:52 02/04/25 06:54 Labs: Laboratory Results - last 24 hr 02/04/25 02/04/25 06:54 08:52 WBC 13.4 H RBC 4.14 L Hgb 11.6 L Hct 34.0 L MCV 82 MCH 28.0 MCHC 34.1 RDW Std Deviation 42.4 Plt Count 371 Neut % (Auto) 83 H Lymph % (Auto) 9 L [place] % (Auto) 8 Eos % (Auto) 0 Baso % (Auto) 0 Neut # (Auto) 11.1 H Lymph # (Auto) 1.1 [place] # (Auto) 1.0 H Eos # (Auto) 0.0 Baso # (Auto) 0.0 Immature Gran # (Auto) 0.05 H Absolute Nucleated RBC 0.00 Immature Gran % 0 Nucleated RBC % 0 Sodium 144 Potassium 4.6 Chloride 105 Carbon Dioxide 30.3 Anion Gap 9 BUN 16 Creatinine 0.8 Estim Creat Clear Calc 107.9 eGFR > 60 BUN/Creatinine Ratio 20 Glucose 161 H Calculated Osmolality 291 Calcium 9.0 Corrected Calcium 9.3 Total Bilirubin 0.6 AST 18 ALT 16 Alkaline Phosphatase 66 Total Protein 7.5 Albumin 3.6 Globulin 3.9 H Albumin/Globulin Ratio 0.9 L ABG Interpretation ABG results: 01/28/25 01/28/25 01/29/25 14:24 17:49 03:53 ABG pH 7.42 7.36 7.43 ABG pCO2 46 51 H 44 ABG pO2 65 L 265 H D 192 H D ABG HCO3 29 H 29 H 29 H ABG O2 Saturation 93 99 H 100 H ABG Base Excess 4 H 3 4 H Assessment & Plan Problem List (1) Bulbar myasthenia gravis: Status: Acute Assessment and plan: improving to some extent. continue with current mgt:mestinon, prednisone and azathioprine.
[2025-02-05] VITALS (13 sets, daily range): BP systolic 117–129; BP diastolic 71–88; PULSE 67–91; RESP 16–27; TEMP 36.4–37; O2SAT 92–99; BMI 20.9
[2025-02-05] MEDS: pyRIDostigmine bromide 60 MG TABLET GT ×4 (00:51→18:01)
[2025-02-05] MEDS: ALBUTEROL RT 2.5 MG/0.5 ML NEBU INH ×3 (02:42→10:59)
[2025-02-05] MEDS: LEVOTHYROXINE SODIUM 25 MCG TABLET 50 MCG GT (05:06)
[2025-02-05 05:24] LABS: Basophils % (Auto) 0 % (0-2.5); Eosinophils # (Auto) 0.1 Thou/mm3 (0.0-0.5); Eosinophils % (Auto) 1 % (0-10); Hematocrit 34.6 % (41.0-53.0); Hemoglobin 11.2 g/dL (13.5-16.0); Immature Granulocytes % (Auto) 1 % (0-0); Immature Granulocytes Auto 0.07 Thou/mm3 (0.00-0.00); Lymphocytes # (Auto) 1.2 Thou/mm3 (1.0-4.8); Lymphocytes % (Auto) 9 % (10-50); Mean Corpuscular HGB Conc 32.4 g/dl (31.0-37.0); Mean Corpuscular Hemoglobin 27.9 pg (25.0-35.0); Mean Corpuscular Volume 86 fL (80-100); Monocytes # (Auto) 0.9 Thou/mm3 (0.0-0.8); Monocytes % (Auto) 7 % (0-12); Neutrophils % (Auto) 83 % (37-80); Nucleated Red Blood Cell % 0 /100 WBC (0); Platelet Count 320 Thou/mm3 (140-440); RDW Standard Deviation 45.1 fL (35.1-43.9); Red Blood Count 4.02 Miln/mm3 (4.50-5.90); White Blood Count 13.3 Thou/mm3 (3.8-10.6)
[2025-02-05 05:56] LABS: Alanine Aminotransferase 17 U/L (10-49); Albumin, Serum 3.6 gm/dL (3.5-5.0); Albumin/Globulin Ratio 0.9 (1.2-2.2); Alkaline Phosphatase 62 U/L (46-116); Anion Gap 9 (7-16); Aspartate Amino Transferase 22 U/L (0-34); BUN/Creatinine Ratio 27 Ratio (12-20); Bilirubin,Total 0.5 mg/dL (0.3-1.2); Blood Urea Nitrogen 19 mg/dL (9-23); Calcium 8.9 mg/dL (8.3-10.6); Calcium (Corrected) 9.2 mg/dL (8.5-10.1); Carbon Dioxide 30.7 mMol/L (20.0-31.0); Chloride 106 mMol/L (98-107); Creatinine (Component) 0.7 mg/dL (0.6-1.3); Estimated Creatinine Clearance 123.3 mL/min (>60); Globulin 3.8 gm/dL (2.3-3.5); Glucose 161 mg/dL (74-106); Osmolality,Calculated 295 (275-295); Potassium 4.8 mMol/L (3.4-5.1); Sodium 146 mMol/L (136-145); Total Protein 7.4 gm/dL (5.7-8.2); eGFR > 60 See Note
[2025-02-05] MEDS: ACETYLCYSTEINE RT SOL 10% 4 ML NEBU 3 ML INH (06:31)
[2025-02-05] MEDS: HYDROcodone/APAP 5/325 TABLET 1 TAB GT ×2 (07:14→13:08)
[2025-02-05] MEDS: azaTHIOprine 50 MG TABLET GT ×2 (08:26→20:10)
[2025-02-05] MEDS: ASPIRIN 81 MG CHEW GT (08:28)
[2025-02-05] MEDS: LITHIUM CARB 150 MG CAPSULE 900 MG GT (08:28)
[2025-02-05] MEDS: HEPARIN SOD INJ 5000 UNIT/ML VIAL SC ×2 (08:28→20:10)
[2025-02-05] MEDS: MULTIVITAMIN 15 ML UDC GT (08:28)
[2025-02-05] MEDS: predniSONE 5 MG TABLET 10 MG PO (08:28)
[2025-02-05] MEDS: LANSOPRAZOLE 30 MG TAB.RAP.DR GT (08:28)
[2025-02-05] MEDS: VALPROIC ACID SYRUP 250 MG/5 ML UDC 750 MG GT ×2 (08:28→20:10)
--- NOTE | 2025-02-05 11:47 | PD.RESPRO ---
Documentation for date of: 02/05/25 Subjective Subjective Interval history: Patient examined at bedside, no events overnight. He is requesting ice chips but explained that he is at high risk for aspiration at this time so continue NPO status. Speech therapy will need to re-evaluate his swallowing in near future. Patient expressed that he understands. Today on 2L NC saturating 96%. Resume his coalase due to the constipation now. Patient remains calm, attentive, and non confrontational with agreeable demeanor. Continue PEG feeds which is at goal rate. Continue pyridostigmine and prednisone daily for MG. Discharge pending SNF placement. Exam Vital Signs Temp Pulse Resp BP Pulse Ox O2 Del Method O2 Flow Rate 98.5 F 77 18 117/71 97 Nasal Cannula 3 02/05/25 08:00 02/05/25 10:59 02/05/25 10:59 02/05/25 08:00 02/05/25 10:59 02/05/25 08:00 02/05/25 10:59 FiO2 40 02/04/25 04:00 Narrative Exam General: Young male, tracking, No acute distress, cooperative HEENT: NCAT, No JVD noted. Mucosa dry. Pupils are equal and reactive to light bilaterally Cardiovascular: Normal S1 and S2. Regular rate and rhythm. Respiratory: congestion, on NC Abdomen: Soft, nontender, not distended, normal bowel sounds.Abdominal binder Skin: Warm to touch, dry, red scaling skin on extremities Musculoskeletal: No gross injuries. Able to move all 4 extremities. LLE swelling (appears to be chronic problem), no erythema or tenderness. Neuro: Alert and oriented x3. No focal neuro deficits. Psych: Normal affect and mood Objective Labs 02/06/25 05:35 02/06/25 05:35 Labs: Laboratory Results - last 24 hr 02/05/25 04:30 WBC 13.3 H RBC 4.02 L Hgb 11.2 L Hct 34.6 L MCV 86 MCH 27.9 MCHC 32.4 RDW Std Deviation 45.1 H Plt Count 320 D Neut % (Auto) 83 H Lymph % (Auto) 9 L [place] % (Auto) 7 Eos % (Auto) 1 Baso % (Auto) 0 Neut # (Auto) 11.0 H Lymph # (Auto) 1.2 [place] # (Auto) 0.9 H Eos # (Auto) 0.1 Baso # (Auto) 0.0 Immature Gran # (Auto) 0.07 H Absolute Nucleated RBC 0.00 Immature Gran % 1 H Nucleated RBC % 0 Sodium 146 H Potassium 4.8 Chloride 106 Carbon Dioxide 30.7 Anion Gap 9 BUN 19 Creatinine 0.7 Estim Creat Clear Calc 123.3 eGFR > 60 BUN/Creatinine Ratio 27 H Glucose 161 H Calculated Osmolality 295 Calcium 8.9 Corrected Calcium 9.2 Total Bilirubin 0.5 AST 22 ALT 17 Alkaline Phosphatase 62 Total Protein 7.4 Albumin 3.6 Globulin 3.8 H Albumin/Globulin Ratio 0.9 L ABG Interpretation ABG results: 01/28/25 01/28/25 01/29/25 14:24 17:49 03:53 ABG pH 7.42 7.36 7.43 ABG pCO2 46 51 H 44 ABG pO2 65 L 265 H D 192 H D ABG HCO3 29 H 29 H 29 H ABG O2 Saturation 93 99 H 100 H ABG Base Excess 4 H 3 4 H Quality Measures Quality Measures VTE prophylaxis Assessment & Plan Assessment Current Active Medications: Generic Name Dose Route Start Last Admin Trade Name Freq PRN Reason Stop Dose Admin Acetaminophen 650 mg 02/03/25 09:41 Acetaminophen [place] 325 Mg/10 Ml Udc GT 02/25/25 08:30 Q6H PRN Fever > 100.4 Acetaminophen 650 mg 02/03/25 09:41 02/04/25 17:45 Acetaminophen [place] 325 Mg/10 Ml Udc GT 03/05/25 09:40 650 mg Q6HR PRN Administration MILD PAIN 1-3 Hydrocodone Bitart/Acetaminophen 1 tab 02/03/25 11:00 02/05/25 07:14 Hydrocodone/Apap 5/325 Tablet GT 02/08/25 10:59 1 tab Q4HR PRN Administration PAIN SCALE 4-10(Mod-Sev Albuterol 2.5 mg 02/05/25 11:35 Albuterol Rt 2.5 Mg/0.5 Ml Nebu INH 03/06/25 18:59 Q4HRRT PRN Bronchospasm Aspirin 81 mg 02/04/25 09:00 02/05/25 08:28 Aspirin 81 Mg Chew GT 03/06/25 08:59 81 mg QDAY KEVIN Administration Azathioprine 50 mg 02/04/25 09:00 02/05/25 08:26 Azathioprine 50 Mg Tablet GT 03/06/25 08:59 50 mg BID KEVIN Administration Docusate Sodium 100 mg 01/28/25 21:30 02/03/25 09:15 Docusate Sod Liqd 100 Mg/10 Ml Udc PO 02/27/25 21:29 Not Given BID KEVIN Protocol Heparin Sodium (Porcine) 5,000 unit 01/30/25 21:00 02/05/25 08:28 Heparin Sod Inj 5000 Unit/Ml Vial SC 02/13/25 20:59 5,000 unit BID KEVIN Administration Lansoprazole 30 mg 02/04/25 09:00 02/05/25 08:28 Lansoprazole 30 Mg Tab.Rap.Dr GT 03/06/25 08:59 30 mg QDAY KEVIN Administration Levothyroxine Sodium 50 mcg 02/04/25 06:00 02/05/25 05:06 Levothyroxine Sodium 25 Mcg Tablet GT 03/06/25 05:59 50 mcg ACBR KEVIN Administration Lidocaine 1 patch 02/05/25 07:16 Lidocaine 5% 1 Patch TOP 03/03/25 19:48 DAILY PRN LOCALIZED PAIN [place] Carbonate 900 mg 02/04/25 09:00 02/05/25 08:28 [place] Carb 150 Mg Capsule GT 03/06/25 08:59 900 mg QDAY KEVIN Administration Mirtazapine 37.5 mg 02/03/25 21:00 02/04/25 20:07 Mirtazapine 15 Mg Tablet GT 03/05/25 20:59 37.5 mg HS KEVIN Administration Morphine Sulfate 2 mg 02/03/25 11:01 02/03/25 17:59 Morphine Sulf Inj 10 Mg/Ml Vial IVP 02/08/25 10:37 2 mg Q4HR PRN Administration BREAKTHROUGH PAIN Multivitamins/Minerals 15 ml 02/04/25 09:00 02/05/25 08:28 Multivitamin 15 Ml Udc GT 03/06/25 08:59 15 ml QDAY KEVIN Administration Ondansetron HCl 4 mg 01/25/25 16:07 02/01/25 12:05 Ondansetron Inj 2 Mg/Ml Inj 2 Ml IVP 02/24/25 16:06 4 mg Q6H PRN Administration NAUSEA OR VOMITING Protocol Prednisone 10 mg 02/04/25 09:00 02/05/25 08:28 Prednisone 5 Mg Tablet PO 03/06/25 08:59 10 mg QAM KEVIN Administration Pyridostigmine [place] 60 mg 02/04/25 12:00 02/05/25 05:04 Pyridostigmine [place] 60 Mg Tablet GT 03/06/25 11:59 60 mg Q6HR KEVIN Administration Scopolamine 1 mg 01/30/25 23:45 02/02/25 23:54 Scopolamine 1 Mg Tdsy TOP 03/01/25 23:44 1 mg Q3D KEVIN Administration Sennosides 1 tab 02/03/25 09:53 Senna Tablet GT 03/05/25 09:52 QDAY PRN constipation Protocol Sodium Chloride 3 ml 02/02/25 10:58 Sodium Chloride Rt [place] 0.9% 3 Ml Nebu INH 03/04/25 10:57 PRN PRN SOLN Valproic Acid 750 mg 02/03/25 21:00 02/05/25 08:28 Valproic Acid Syrup 250 Mg/5 Ml Udc GT 03/05/25 20:59 750 mg BID KEVIN Administration Plan Ayo Argueta is 39 yr male with PMH of dysphagia, bipolar disorder, intellectual disability, thrombocytosis, JACQUELINE, myasthenia gravis, thromboangiitis obliterans, acne vulgaris, solitary pulmonary nodule coming from [facility] [place] [facility] per neurology due to myasthenia gravis flare. Patient sees Dr. Dietz who noticed increased weakness and increased salivary secretions. Admit per neurology for IVIG treatment, pyridostigmine in setting of myasthenia gravis flare. #Myasthenia gravis flare -improving Has functional dysphagia, bulbar weakness/ocular muscle weakness, extraparametal symptoms per neurology. Was sent in to get IVIG. CT chest negative for anterior mediastinal mass or LAD. - neurology consulted - completed IVIG on 02/02 - pyridostigmine 60 Mg p.o.q6hr -Prednisone 10 mg GT #Dysphagia #PEG tube feeds Completed video esophagram in 02/2024. It showed vallecular pooling and retention with pudding and crackers. Also showed silent aspiration with nectar and thin liquids. Diet was changed to ground food and honey thickened liquids. PEG tube placed 02/[address] Anderson -Continue tube feeds, he is at goal. -norco and morphine 2mg for breakthrough pain. s/p Peg placment #Cavitary lesion Ddx: active TB, cocci, aspergillosis CT chest showed cavitary lesion in left lower lobe which appears to be chronic. Based off chart review, lesion was noticed in August 2023. Labs from 12/2023 including QuantiFERON gold test was negative, cocci serology also negative. Appears asymptomatic at this time. Cocci negative. Aspergillus negative. Two sputum stains were sent while patient was intubated in ICU. 2/2 were negative for AFB--TB precautions removed. Low suspicion of TB per ID as well. -ID consulted -isolation/airborne precautions removed -monitor #Syphilis, serology positive Syphilis serology came back reactive we are pending titers from [facility] lab and will follow-up with ID recommendations. - RPR test was non reactive - TP-PA confirmatory test was inconclusive - Follow-up ID recommendations - Repeat serology outpatient in 2 weeks from discharge #Bipolar disorder Takes chlorpromazine 100 twice daily, clozapine 175 mg twice daily, lithium, mirtazapine, valproic acid. [place] levels on 01/26 subtheraputic at 0.48 -resumed medications #JACQUELINE Appears to be non compliant with CPAP per chart review. -CPAP nightly #Thromboangitis obliterans continue aspirin 81mg daily. #Solitary pulmonary nodule Cocci serology negative in 2023. -follow up outpatient #Chronic thrombocystosis Continue aspirin 81mg Health maintenance: Dispo: med surg for MG flare, steroids, [facility] says they're unable to manage his tube feeds. Social coordinating team working for SNF placement. FEN: PEG tube feeds , dietary on Board DVT prophylaxis: Subcu heparin CODE STATUS: Full code Patient care was discussed with attending physician Dr. Regalado Attending Provider Attestation/Addendum I have examined the patient, reviewed labs and imaging findings, discussed the case with the resident(s), and reviewed entered orders. I agree with the plan of care as outlined in this note, with these additional summaries/recommendations: Patient seen at bedside. Patient continues to be in a pleasant mood and following commands. Yesterday evening patient started coughing after receiving ice chips. I had a long discussion with patient at bedside this morning and discussed that he can no longer have ice chips or any food by mouth. Patient showed understanding although still requests ice chips.. Patient is status post PEG tube placement. Patient started on tube feeds and free water flushes. Patient currently at goal tube feeds and pending placement to a facility that can manage tube feeds. manager of allied health services following. He still endorses some pain around PEG tube site and continue pain management. Continue prior Distigmine and prednisone for myasthenia gravis flare. Scopolamine for excessive secretions. In-house neurology following, recommendations appreciated. AFBs x 2 returned negative and isolation precautions removed. Low suspicion for TB and no further workup needed at this time. Syphilis serology nonconclusive and per ID repeat syphilis serology in 2 weeks outpatient although suspicion is low at this time. Continue home antipsychotics for history of bipolar disorder. Continue CPAP at night for JACQUELINE. Dr. Fabricio MD
[2025-02-05] MEDS: SENNA TABLET 1 TAB GT (13:11)
--- NOTE | 2025-02-05 17:09 | ESPR_ITS ---
Documentation for date of: 02/05/25 Subjective Subjective Interval history: Patient evaluated PEG site looks clean Tolerating enteral feeding Exam Vital Signs Temp Pulse Resp BP Pulse Ox O2 Del Method O2 Flow Rate 98.2 F 71 20 118/72 95 Nasal Cannula 3 02/05/25 12:00 02/05/25 16:00 02/05/25 12:00 02/05/25 12:00 02/05/25 12:00 02/05/25 12:00 02/05/25 12:00 FiO2 40 02/04/25 04:00 Objective Labs 02/05/25 04:30 02/05/25 04:30 Labs: Laboratory Results - last 24 hr 02/05/25 04:30 WBC 13.3 H RBC 4.02 L Hgb 11.2 L Hct 34.6 L MCV 86 MCH 27.9 MCHC 32.4 RDW Std Deviation 45.1 H Plt Count 320 D Neut % (Auto) 83 H Lymph % (Auto) 9 L [place] % (Auto) 7 Eos % (Auto) 1 Baso % (Auto) 0 Neut # (Auto) 11.0 H Lymph # (Auto) 1.2 [place] # (Auto) 0.9 H Eos # (Auto) 0.1 Baso # (Auto) 0.0 Immature Gran # (Auto) 0.07 H Absolute Nucleated RBC 0.00 Immature Gran % 1 H Nucleated RBC % 0 Sodium 146 H Potassium 4.8 Chloride 106 Carbon Dioxide 30.7 Anion Gap 9 BUN 19 Creatinine 0.7 Estim Creat Clear Calc 123.3 eGFR > 60 BUN/Creatinine Ratio 27 H Glucose 161 H Calculated Osmolality 295 Calcium 8.9 Corrected Calcium 9.2 Total Bilirubin 0.5 AST 22 ALT 17 Alkaline Phosphatase 62 Total Protein 7.4 Albumin 3.6 Globulin 3.8 H Albumin/Globulin Ratio 0.9 L Impressions Impression: Failure to thrive dysphagia enteral hyperalimentation via PEG tube to continue ABG Interpretation ABG results: 01/28/25 01/28/25 01/29/25 14:24 17:49 03:53 ABG pH 7.42 7.36 7.43 ABG pCO2 46 51 H 44 ABG pO2 65 L 265 H D 192 H D ABG HCO3 29 H 29 H 29 H ABG O2 Saturation 93 99 H 100 H ABG Base Excess 4 H 3 4 H Assessment & Plan A&P Narrative # Progressive dysphagia most likely due to underlying myasthenia gravis complicated by possibly motor disorder of the oropharyngeal area Suggestions Internal medicine team has discussed the issue I spoke with the patient and his sister informed consent obtained for placement of a PEG tube insertion via fiberoptic esophagogastroduodenoscopy under intravenous moderate sedation Ancef 1 g IV piggyback prior to the procedure Other medical problems include Myasthenia gravis Bipolar disorder Mentally challenged Thromboangiitis obliterans Thrombocytosis Destructive behavior Thank you very much for the opportunity to participate in the care of this patient Time Spent With Patient Time: Total time spent is greater than 50% in coordination of care (as documented) at patient's floor/unit and/or counseling patient:
[2025-02-05] MEDS: MIRTAZAPINE 15 MG TABLET 37.5 MG GT (20:09)
--- NOTE | 2025-02-05 23:28 | PD.NEUROPROG ---
Documentation for date of: 02/05/25 Subjective Subjective Interval history: Patient was seen in telemetry today at the bedside. He got the PEG tube placement recently and is tolerating feeds well. Getting reddish discoloration in the cheek and the external ears. On 4 liters of oxygen via nasal cannula. continue with mestinon 60 mg q6 hours and prednisone 10 mg daily and azathioprine 50 mg bid vis PEG tube. Exam - Neurology Vital Signs Temp Pulse Resp BP Pulse Ox O2 Del Method O2 Flow Rate 98.6 F 67 16 123/88 H 92 L Nasal Cannula 3 02/05/25 20:00 02/05/25 20:00 02/05/25 20:00 02/05/25 20:00 02/05/25 20:00 02/05/25 20:00 02/05/25 17:52 FiO2 40 02/04/25 04:00 Objective Labs 02/05/25 04:30 02/05/25 04:30 Labs: Laboratory Results - last 24 hr 02/05/25 04:30 WBC 13.3 H RBC 4.02 L Hgb 11.2 L Hct 34.6 L MCV 86 MCH 27.9 MCHC 32.4 RDW Std Deviation 45.1 H Plt Count 320 D Neut % (Auto) 83 H Lymph % (Auto) 9 L [place] % (Auto) 7 Eos % (Auto) 1 Baso % (Auto) 0 Neut # (Auto) 11.0 H Lymph # (Auto) 1.2 [place] # (Auto) 0.9 H Eos # (Auto) 0.1 Baso # (Auto) 0.0 Immature Gran # (Auto) 0.07 H Absolute Nucleated RBC 0.00 Immature Gran % 1 H Nucleated RBC % 0 Sodium 146 H Potassium 4.8 Chloride 106 Carbon Dioxide 30.7 Anion Gap 9 BUN 19 Creatinine 0.7 Estim Creat Clear Calc 123.3 eGFR > 60 BUN/Creatinine Ratio 27 H Glucose 161 H Calculated Osmolality 295 Calcium 8.9 Corrected Calcium 9.2 Total Bilirubin 0.5 AST 22 ALT 17 Alkaline Phosphatase 62 Total Protein 7.4 Albumin 3.6 Globulin 3.8 H Albumin/Globulin Ratio 0.9 L ABG Interpretation ABG results: 01/28/25 01/28/25 01/29/25 14:24 17:49 03:53 ABG pH 7.42 7.36 7.43 ABG pCO2 46 51 H 44 ABG pO2 65 L 265 H D 192 H D ABG HCO3 29 H 29 H 29 H ABG O2 Saturation 93 99 H 100 H ABG Base Excess 4 H 3 4 H Assessment & Plan Assessment and plan (1) Bulbar myasthenia gravis: Status: Acute Assessment and plan: s/p IVIG now on mestinon, azathioprine and prednisone. Continue with PT/OT Active rehab placement pending
[2025-02-06] VITALS (9 sets, daily range): BP systolic 110–124; BP diastolic 65–85; PULSE 63–78; RESP 17–23; TEMP 36.1–37.1; O2SAT 94–98; BMI 20.2
[2025-02-06] MEDS: pyRIDostigmine bromide 60 MG TABLET GT ×4 (00:37→17:25)
[2025-02-06] MEDS: SCOPOLAMINE 1 MG TDSY TOP (00:37)
[2025-02-06] MEDS: HYDROcodone/APAP 5/325 TABLET 1 TAB GT ×3 (05:35→17:17)
[2025-02-06] MEDS: LEVOTHYROXINE SODIUM 25 MCG TABLET 50 MCG GT (05:35)
[2025-02-06 06:00] LABS: Basophils % (Auto) 0 % (0-2.5); Eosinophils # (Auto) 0.2 Thou/mm3 (0.0-0.5); Eosinophils % (Auto) 2 % (0-10); Hematocrit 34.2 % (41.0-53.0); Immature Granulocytes % (Auto) 0 % (0-0); Immature Granulocytes Auto 0.05 Thou/mm3 (0.00-0.00); Lymphocytes # (Auto) 1.2 Thou/mm3 (1.0-4.8); Lymphocytes % (Auto) 10 % (10-50); Mean Corpuscular HGB Conc 32.2 g/dl (31.0-37.0); Mean Corpuscular Volume 87 fL (80-100); Monocytes # (Auto) 0.7 Thou/mm3 (0.0-0.8); Monocytes % (Auto) 6 % (0-12); Neutrophils # (Auto) 9.1 Thou/mm3 (1.8-7.7); Neutrophils % (Auto) 81 % (37-80); Nucleated Red Blood Cell % 0 /100 WBC (0); Platelet Count 347 Thou/mm3 (140-440); RDW Standard Deviation 46.7 fL (35.1-43.9); Red Blood Count 3.93 Miln/mm3 (4.50-5.90); White Blood Count 11.2 Thou/mm3 (3.8-10.6)
[2025-02-06 06:33] LABS: Alanine Aminotransferase 14 U/L (10-49); Albumin, Serum 3.7 gm/dL (3.5-5.0); Albumin/Globulin Ratio 1.1 (1.2-2.2); Alkaline Phosphatase 63 U/L (46-116); Anion Gap 4 (7-16); Aspartate Amino Transferase 15 U/L (0-34); BUN/Creatinine Ratio 29 Ratio (12-20); Bilirubin,Total 0.4 mg/dL (0.3-1.2); Blood Urea Nitrogen 20 mg/dL (9-23); Calcium (Corrected) 9.2 mg/dL (8.5-10.1); Carbon Dioxide 31.6 mMol/L (20.0-31.0); Chloride 107 mMol/L (98-107); Creatinine (Component) 0.7 mg/dL (0.6-1.3); Estimated Creatinine Clearance 115.8 mL/min (>60); Globulin 3.5 gm/dL (2.3-3.5); Glucose 162 mg/dL (74-106); Osmolality,Calculated 291 (275-295); Potassium 4.7 mMol/L (3.4-5.1); Sodium 143 mMol/L (136-145); Total Protein 7.2 gm/dL (5.7-8.2); eGFR > 60 See Note
[2025-02-06] MEDS: predniSONE 5 MG TABLET 10 MG PO (08:16)
[2025-02-06] MEDS: MULTIVITAMIN 15 ML UDC GT (08:16)
[2025-02-06] MEDS: VALPROIC ACID SYRUP 250 MG/5 ML UDC 750 MG GT ×2 (08:16→20:30)
[2025-02-06] MEDS: LITHIUM CARB 150 MG CAPSULE 900 MG GT (08:16)
[2025-02-06] MEDS: ASPIRIN 81 MG CHEW GT (08:16)
[2025-02-06] MEDS: DOCUSATE SOD LIQD 100 MG/10 ML UDC PO ×2 (08:16→20:29)
[2025-02-06] MEDS: LANSOPRAZOLE 30 MG TAB.RAP.DR GT (08:16)
[2025-02-06] MEDS: azaTHIOprine 50 MG TABLET GT ×2 (08:20→20:30)
[2025-02-06] MEDS: HEPARIN SOD INJ 5000 UNIT/ML VIAL SC ×2 (08:20→20:29)
--- NOTE | 2025-02-06 09:23 | PC.SS ---
Addendum entered by Brisa Kahn 02/06/25 12:03: SS follow up note; SS met with Jed in second floor, he informed SS that [facility] is aiming towards patient discharging to [facility]. Jed's concern was if [facility] was going to accept patient long-term, SS contacted Flory from [facility] and she verified with SS they are able to accept patient long-term. SS informed Flory that patient most likely would be discharging tomorrow to their facility. Jed-client service manager informed SS that last meeting will be held tomorrow at 10AM to determine the outcome of discharge plan and decide if patient is able to discharge to [facility]. Jed informed SS that he would be following up with SS tomorrow at 11AM after the meeting. SS will update Team A. Addendum entered by Brisa Kahn 02/06/25 10:31: SS was contacted by Flory at [facility], She informed SS that they are able to accept patient. SS informed her that [facility] at the time was still in the process of establishing a Discharge plan for patient and SS would contact her once [facility] staff contact SS. SS contacted Jed Ng patient's Installer Apprentice, he informed SS that he was on his way to [facility] to discuss further more patient's discharge plan, also informed SS that after he would come and also see patient. SS will stand by for further needs. Original Note: SS follow up note; SS was contacted by [facility] Dietitic[facility]ton Nesbitt [phone]. Kim was requesting to speak to Dietitian. SS contacted Kieran Ambrocio and provided Kim's contact number.
--- NOTE | 2025-02-06 13:57 | ESPR_ITS ---
Documentation for date of: 02/06/25 Subjective Subjective Interval history: Patient examined at bedside, no events overnight, had BM this morning. Today on 2L NC saturating 97%. Should continue to remain NPO as he is at high risk for aspiration. Patient remains calm, attentive, and non confrontational with agreeable demeanor. Continue PEG feeds which is at goal rate. He is tolerating feeds well. Continue pyridostigmine and prednisone daily for MG. Per social service technician team, PDC is aiming towards patient discharging to [facility] in [place]. Case managing team will be having meeting tomorrow morning about discharge plans. Exam Vital Signs Temp Pulse Resp BP Pulse Ox O2 Del Method O2 Flow Rate 97.4 F 75 18 110/66 97 Room Air 2 02/06/25 12:00 02/06/25 12:00 02/06/25 12:00 02/06/25 12:00 02/06/25 12:00 02/06/25 12:00 02/06/25 08:00 FiO2 40 02/04/25 04:00 Narrative Exam General: Young male, tracking, No acute distress, cooperative HEENT: NCAT, No JVD noted. Mucosa dry. Pupils are equal and reactive to light bilaterally Cardiovascular: Normal S1 and S2. Regular rate and rhythm. Respiratory: congestion, on NC Abdomen: Soft, nontender, not distended, normal bowel sounds.Abdominal binder Skin: Warm to touch, dry, red scaling skin on extremities Musculoskeletal: No gross injuries. Able to move all 4 extremities. LLE swelling (appears to be chronic problem), no erythema or tenderness. Neuro: Alert and oriented x3. No focal neuro deficits. Psych: Normal affect and mood Objective Labs 02/06/25 05:35 02/06/25 05:35 Labs: Laboratory Results - last 24 hr 02/06/25 05:35 WBC 11.2 H RBC 3.93 L Hgb 11.0 L Hct 34.2 L MCV 87 MCH 28.0 MCHC 32.2 RDW Std Deviation 46.7 H Plt Count 347 Neut % (Auto) 81 H Lymph % (Auto) 10 [place] % (Auto) 6 Eos % (Auto) 2 Baso % (Auto) 0 Neut # (Auto) 9.1 H Lymph # (Auto) 1.2 [place] # (Auto) 0.7 Eos # (Auto) 0.2 Baso # (Auto) 0.0 Immature Gran # (Auto) 0.05 H Absolute Nucleated RBC 0.00 Immature Gran % 0 Nucleated RBC % 0 Sodium 143 Potassium 4.7 Chloride 107 Carbon Dioxide 31.6 H Anion Gap 4 L BUN 20 Creatinine 0.7 Estim Creat Clear Calc 115.8 eGFR > 60 BUN/Creatinine Ratio 29 H Glucose 162 H Calculated Osmolality 291 Calcium 9.0 Corrected Calcium 9.2 Total Bilirubin 0.4 AST 15 ALT 14 Alkaline Phosphatase 63 Total Protein 7.2 Albumin 3.7 Globulin 3.5 Albumin/Globulin Ratio 1.1 L ABG Interpretation ABG results: 01/28/25 01/28/25 01/29/25 14:24 17:49 03:53 ABG pH 7.42 7.36 7.43 ABG pCO2 46 51 H 44 ABG pO2 65 L 265 H D 192 H D ABG HCO3 29 H 29 H 29 H ABG O2 Saturation 93 99 H 100 H ABG Base Excess 4 H 3 4 H Quality Measures Quality Measures VTE prophylaxis Assessment & Plan Assessment Current Active Medications: Generic Name Dose Route Start Last Admin Trade Name Freq PRN Reason Stop Dose Admin Acetaminophen 650 mg 02/03/25 09:41 Acetaminophen Nayana 325 Mg/10 Ml [facility] 02/25/25 08:30 Q6H PRN Fever > 100.4 Acetaminophen 650 mg 02/03/25 09:41 02/04/25 17:45 Acetaminophen [place] 325 Mg/10 Ml Udc GT 03/05/25 09:40 650 mg Q6HR PRN Administration MILD PAIN 1-3 Hydrocodone Bitart/Acetaminophen 1 tab 02/03/25 11:00 02/06/25 10:29 Hydrocodone/Apap 5/325 Tablet GT 02/08/25 10:59 1 tab Q4HR PRN Administration PAIN SCALE 4-10(Mod-Sev Albuterol 2.5 mg 02/05/25 11:35 Albuterol Rt 2.5 Mg/0.5 Ml Nebu INH 03/06/25 18:59 Q4HRRT PRN Bronchospasm Aspirin 81 mg 02/04/25 09:00 02/06/25 08:16 Aspirin 81 Mg Chew GT 03/06/25 08:59 81 mg QDAY KEVIN Administration Azathioprine 50 mg 02/04/25 09:00 02/06/25 08:20 Azathioprine 50 Mg Tablet GT 03/06/25 08:59 50 mg BID KEVIN Administration Docusate Sodium 100 mg 01/28/25 21:30 02/06/25 08:16 Docusate Sod Liqd 100 Mg/10 Ml Udc PO 02/27/25 21:29 100 mg BID KEVIN Administration Protocol Heparin Sodium (Porcine) 5,000 unit 01/30/25 21:00 02/06/25 08:20 Heparin Sod Inj 5000 Unit/Ml Vial SC 02/13/25 20:59 5,000 unit BID KEVIN Administration Lansoprazole 30 mg 02/04/25 09:00 02/06/25 08:16 Lansoprazole 30 Mg Tab.Rap. GT 03/06/25 08:59 30 mg QDAY KEVIN Administration Levothyroxine Sodium 50 mcg 02/04/25 06:00 02/06/25 05:35 Levothyroxine Sodium 25 Mcg Tablet GT 03/06/25 05:59 50 mcg ACBR KEVIN Administration Lidocaine 1 patch 02/05/25 07:16 Lidocaine 5% 1 Patch TOP 03/03/25 19:48 DAILY PRN LOCALIZED PAIN [place] Carbonate 900 mg 02/04/25 09:00 02/06/25 08:16 [place] Carb 150 Mg Capsule GT 03/06/25 08:59 900 mg QDAY KEVIN Administration Mirtazapine 37.5 mg 02/03/25 21:00 02/05/25 20:09 Mirtazapine 15 Mg Tablet GT 03/05/25 20:59 37.5 mg HS KEVIN Administration Morphine Sulfate 2 mg 02/03/25 11:01 02/03/25 17:59 Morphine Sulf Inj 10 Mg/Ml Vial IVP 02/08/25 10:37 2 mg Q4HR PRN Administration BREAKTHROUGH PAIN Multivitamins/Minerals 15 ml 02/04/25 09:00 02/06/25 08:16 Multivitamin 15 Ml Udc GT 03/06/25 08:59 15 ml QDAY KEVIN Administration Ondansetron HCl 4 mg 01/25/25 16:07 02/01/25 12:05 Ondansetron Inj 2 Mg/Ml Inj 2 Ml IVP 02/24/25 16:06 4 mg Q6H PRN Administration NAUSEA OR VOMITING Protocol Prednisone 10 mg 02/04/25 09:00 02/06/25 08:16 Prednisone 5 Mg Tablet PO 03/06/25 08:59 10 mg QAM KEVIN Administration Pyridostigmine [place] 60 mg 02/04/25 12:00 02/06/25 11:49 Pyridostigmine [place] 60 Mg Tablet GT 03/06/25 11:59 60 mg Q6HR KEVIN Administration Scopolamine 1 mg 01/30/25 23:45 02/06/25 00:37 Scopolamine 1 Mg Tdsy TOP 03/01/25 23:44 1 mg Q3D KEVIN Administration Sennosides 1 tab 02/03/25 09:53 02/05/25 13:11 Senna Tablet GT 03/05/25 09:52 1 tab QDAY PRN Administration constipation Protocol Sodium Chloride 3 ml 02/02/25 10:58 Sodium Chloride Rt [place] 0.9% 3 Ml Nebu INH 03/04/25 10:57 PRN PRN SOLN Valproic Acid 750 mg 02/03/25 21:00 02/06/25 08:16 Valproic Acid Syrup 250 Mg/5 Ml Udc GT 03/05/25 20:59 750 mg BID KEVIN Administration Plan Ayo Argueta is 39 yr male with PMH of dysphagia, bipolar disorder, intellectual disability, thrombocytosis, JACQUELINE, myasthenia gravis, thromboangiitis obliterans, acne vulgaris, solitary pulmonary nodule coming from [facility] per neurology due to myasthenia gravis flare. Patient sees Dr. Dietz who noticed increased weakness and increased salivary secretions. Admit per neurology for IVIG treatment, pyridostigmine in setting of myasthenia gravis flare. #Myasthenia gravis flare -improving Has functional dysphagia, bulbar weakness/ocular muscle weakness, extraparametal symptoms per neurology. Was sent in to get IVIG. CT chest negative for anterior mediastinal mass or LAD. - neurology consulted - completed IVIG on 02/02 - pyridostigmine 60 Mg p.o.q6hr -Prednisone 10 mg GT -Azothiaprine 50mg BID GT #Dysphagia #PEG tube feeds Completed video esophagram in 02/2024. It showed vallecular pooling and retention with pudding and crackers. Also showed silent aspiration with nectar and thin liquids. Diet was changed to ground food and honey thickened liquids. PEG tube placed 02/[address] Anderson -Continue tube feeds, he is at goal. -norco and morphine 2mg for breakthrough pain. s/p Peg placment -continue NPO status -reevaluate swallow technique in another few weeks #Cavitary lesion Ddx: active TB, cocci, aspergillosis CT chest showed cavitary lesion in left lower lobe which appears to be chronic. Based off chart review, lesion was noticed in August 2023. Labs from 12/2023 including QuantiFERON gold test was negative, cocci serology also negative. Appears asymptomatic at this time. Cocci negative. Aspergillus negative. Two sputum stains were sent while patient was intubated in ICU. 2/2 were negative for AFB--TB precautions removed. Low suspicion of TB per ID as well. -ID consulted -isolation/airborne precautions removed -monitor #Syphilis, serology positive Syphilis serology came back reactive we are pending titers from [facility] lab and will follow-up with ID recommendations. - RPR test was non reactive - TP-PA confirmatory test was inconclusive - Follow-up ID recommendations - Repeat serology outpatient in 2 weeks from discharge #Bipolar disorder Takes chlorpromazine 100 twice daily, clozapine 175 mg twice daily, lithium, mirtazapine, valproic acid. [place] levels on 01/26 subtheraputic at 0.48 -resumed medications #JACQUELINE Appears to be non compliant with CPAP per chart review. -CPAP nightly #Thromboangitis obliterans continue aspirin 81mg daily. #Solitary pulmonary nodule Cocci serology negative in 2023. -follow up outpatient #Chronic thrombocystosis Continue aspirin 81mg Health maintenance: Dispo: med surg for MG flare, steroids, Social coordinating team working for SNF placement possibly in [place]. FEN: PEG tube feeds , dietary on Board DVT prophylaxis: Subcu heparin CODE STATUS: Full code Patient care was discussed with attending physician Dr. Regalado. Nithya Arroyo. PGY 1 Attending Provider Attestation/Addendum I have examined the patient, reviewed labs and imaging findings, discussed the case with the resident(s), and reviewed entered orders. I agree with the plan of care as outlined in this note, with these additional summaries/recommendations: Patient seen at bedside. No acute overnight events. Patient continues to be in a pleasant mood and following commands. Patient is status post PEG tube placement. Patient started on tube feeds and free water flushes. Patient currently at goal tube feeds and pending placement to a facility that can manage tube feeds. business and services instructor following. He still endorses some pain around PEG tube site and continue pain management. Continue pyridostigmine bromide and prednisone for myasthenia gravis flare. Scopolamine for excessive secretions. In-house neurology following, recommendations appreciated. AFBs x 2 returned negative and isolation precautions removed. Low suspicion for TB and no further workup needed at this time. Syphilis serology nonconclusive and per ID repeat syphilis serology in 2 weeks outpatient although suspicion is low at this time. Continue home antipsychotics for history of bipolar disorder. Continue CPAP at night for JACQUELINE. Patient pending placement. Dr. Fabricio MD
--- NOTE | 2025-02-06 19:18 | PD.IMPROG ---
Documentation for date of: 02/06/25 Subjective Subjective Interval history: PEG site checked No drainage Entered feeding meeting goals Exam Vital Signs Temp Pulse Resp BP Pulse Ox O2 Del Method O2 Flow Rate 98.0 F 78 19 114/67 97 Nasal Cannula 2 02/06/25 16:00 02/06/25 16:00 02/06/25 16:00 02/06/25 16:00 02/06/25 16:00 02/06/25 16:00 02/06/25 16:00 FiO2 40 02/04/25 04:00 Objective Labs 02/06/25 05:35 02/06/25 05:35 Labs: Laboratory Results - last 24 hr 02/06/25 05:35 WBC 11.2 H RBC 3.93 L Hgb 11.0 L Hct 34.2 L MCV 87 MCH 28.0 MCHC 32.2 RDW Std Deviation 46.7 H Plt Count 347 Neut % (Auto) 81 H Lymph % (Auto) 10 [place] % (Auto) 6 Eos % (Auto) 2 Baso % (Auto) 0 Neut # (Auto) 9.1 H Lymph # (Auto) 1.2 [place] # (Auto) 0.7 Eos # (Auto) 0.2 Baso # (Auto) 0.0 Immature Gran # (Auto) 0.05 H Absolute Nucleated RBC 0.00 Immature Gran % 0 Nucleated RBC % 0 Sodium 143 Potassium 4.7 Chloride 107 Carbon Dioxide 31.6 H Anion Gap 4 L BUN 20 Creatinine 0.7 Estim Creat Clear Calc 115.8 eGFR > 60 BUN/Creatinine Ratio 29 H Glucose 162 H Calculated Osmolality 291 Calcium 9.0 Corrected Calcium 9.2 Total Bilirubin 0.4 AST 15 ALT 14 Alkaline Phosphatase 63 Total Protein 7.2 Albumin 3.7 Globulin 3.5 Albumin/Globulin Ratio 1.1 L Impressions Impression: # Failure to thrive # PEG placement for enteral hyperalimentation Continue enteral feeding ABG Interpretation ABG results: 01/28/25 01/28/25 01/29/25 14:24 17:49 03:53 ABG pH 7.42 7.36 7.43 ABG pCO2 46 51 H 44 ABG pO2 65 L 265 H D 192 H D ABG HCO3 29 H 29 H 29 H ABG O2 Saturation 93 99 H 100 H ABG Base Excess 4 H 3 4 H Assessment & Plan A&P Narrative # Progressive dysphagia most likely due to underlying myasthenia gravis complicated by possibly motor disorder of the oropharyngeal area Suggestions Internal medicine team has discussed the issue I spoke with the patient and his sister informed consent obtained for placement of a PEG tube insertion via fiberoptic esophagogastroduodenoscopy under intravenous moderate sedation Ancef 1 g IV piggyback prior to the procedure Other medical problems include Myasthenia gravis Bipolar disorder Mentally challenged Thromboangiitis obliterans Thrombocytosis Destructive behavior Thank you very much for the opportunity to participate in the care of this patient Time Spent With Patient Time: Total time spent is greater than 50% in coordination of care (as documented) at patient's floor/unit and/or counseling patient:
[2025-02-06] MEDS: MIRTAZAPINE 15 MG TABLET 37.5 MG GT (20:29)
--- NOTE | 2025-02-06 22:22 | PD.NEUROPROG ---
Documentation for date of: 02/06/25 Subjective Subjective Interval history: Patient was seen in telemetry today at the bedside. He is tolerating tube feeds well. On 1-2 liters of oxygen via nasal cannula. continue with mestinon 60 mg q6 hours and prednisone 10 mg daily and azathioprine 50 mg bid vis PEG tube. Exam - Neurology Vital Signs Temp Pulse Resp BP Pulse Ox O2 Del Method O2 Flow Rate 97.0 F 70 23 H 121/65 98 Nasal Cannula 1 02/06/25 20:00 02/06/25 20:00 02/06/25 20:00 02/06/25 20:00 02/06/25 20:00 02/06/25 20:00 02/06/25 20:00 FiO2 40 02/04/25 04:00 Narrative Exam GENERAL APPEARANCE: Well hydrated, well-nourished in no acute distress. HEENT: Normocephalic, atraumatic, extraocular movements intact. Pupils: Equal reacting to light and accommodation. proptosis noted in both eyes. NECK: Supple, no JVD or bruits. CARDIOVASULAR: Heart: S1, S2 heard, regular without S3-S4 or murmur no rubs or gallops. LUNGS/CHEST: Clear to auscultation bilaterally. No rails, rhonchi, or wheezing. Normal inspection. ABDOMEN: Soft, nontender, with normal bowel sounds. No pulsatile masses. No rebound, rigidity, or guarding. Normal inspection and palpation. EXTREMITIES: Normal inspection and palpation. No edema, clubbing or cyanosis. SKIN: Warm and dry without rashes. Normal inspection. MUSCULOSKELETAL: No cervical, thoracic, lumbar or midline bony tenderness. Normal inspection. NEURO: Alert, awake and oriented x3. Cranial nerves: II through XII grossly intact. Speech and language: hard to understand from dysarthria/bulbar weakness. Motor system: Tone and bulk: Normal: Strength: 5 out of 5 in all 4 extremities; No pronator drift noted. Deep tendon reflexes: 2+ bilaterally symmetrical. Plantar reflex: Downgoing bilaterally. Sensory system: Intact to all modalities of sensation bilaterally. Coordination: Intact to [id number] and mbke-edzh-[id number] test bilaterally. No ataxia, no dysmetria, or dysdiadochokinesia noted. No intention tremors noted. Gait: Not tested, no signs of meningeal irritation noted. PSYCHIATRIC: Normal mood and affect. Objective Labs 02/06/25 05:35 02/06/25 05:35 Labs: Laboratory Results - last 24 hr 02/06/25 05:35 WBC 11.2 H RBC 3.93 L Hgb 11.0 L Hct 34.2 L MCV 87 MCH 28.0 MCHC 32.2 RDW Std Deviation 46.7 H Plt Count 347 Neut % (Auto) 81 H Lymph % (Auto) 10 [place] % (Auto) 6 Eos % (Auto) 2 Baso % (Auto) 0 Neut # (Auto) 9.1 H Lymph # (Auto) 1.2 [place] # (Auto) 0.7 Eos # (Auto) 0.2 Baso # (Auto) 0.0 Immature Gran # (Auto) 0.05 H Absolute Nucleated RBC 0.00 Immature Gran % 0 Nucleated RBC % 0 Sodium 143 Potassium 4.7 Chloride 107 Carbon Dioxide 31.6 H Anion Gap 4 L BUN 20 Creatinine 0.7 Estim Creat Clear Calc 115.8 eGFR > 60 BUN/Creatinine Ratio 29 H Glucose 162 H Calculated Osmolality 291 Calcium 9.0 Corrected Calcium 9.2 Total Bilirubin 0.4 AST 15 ALT 14 Alkaline Phosphatase 63 Total Protein 7.2 Albumin 3.7 Globulin 3.5 Albumin/Globulin Ratio 1.1 L ABG Interpretation ABG results: 01/28/25 01/28/25 01/29/25 14:24 17:49 03:53 ABG pH 7.42 7.36 7.43 ABG pCO2 46 51 H 44 ABG pO2 65 L 265 H D 192 H D ABG HCO3 29 H 29 H 29 H ABG O2 Saturation 93 99 H 100 H ABG Base Excess 4 H 3 4 H Assessment & Plan Assessment and plan (1) Bulbar myasthenia gravis: Status: Acute Assessment and plan: s/p IVIG now on mestinon, azathioprine and prednisone. Continue with PT/OT Acute rehab placement pending
[2025-02-07] VITALS: BP 117/81; PULSE 68; PULSE 77; RESP 20; TEMP 37.5; O2SAT 95
[2025-02-07] MEDS: pyRIDostigmine bromide 60 MG TABLET GT ×3 (00:02→11:01)
[2025-02-07 04:00] VITALS: BP 111/65; PULSE 70; PULSE 74; RESP 20; TEMP 36.7; O2SAT 98
[2025-02-07 05:24] LABS: Basophils % (Auto) 0 % (0-2.5); Eosinophils # (Auto) 0.2 Thou/mm3 (0.0-0.5); Eosinophils % (Auto) 2 % (0-10); Hematocrit 33.5 % (41.0-53.0); Hemoglobin 10.7 g/dL (13.5-16.0); Immature Granulocytes % (Auto) 0 % (0-0); Immature Granulocytes Auto 0.03 Thou/mm3 (0.00-0.00); Lymphocytes # (Auto) 1.2 Thou/mm3 (1.0-4.8); Lymphocytes % (Auto) 16 % (10-50); Mean Corpuscular HGB Conc 31.9 g/dl (31.0-37.0); Mean Corpuscular Hemoglobin 27.7 pg (25.0-35.0); Mean Corpuscular Volume 87 fL (80-100); Monocytes # (Auto) 0.5 Thou/mm3 (0.0-0.8); Monocytes % (Auto) 7 % (0-12); Neutrophils # (Auto) 5.5 Thou/mm3 (1.8-7.7); Neutrophils % (Auto) 75 % (37-80); Nucleated Red Blood Cell % 0 /100 WBC (0); Platelet Count 392 Thou/mm3 (140-440); RDW Standard Deviation 51.3 fL (35.1-43.9); Red Blood Count 3.86 Miln/mm3 (4.50-5.90); White Blood Count 7.4 Thou/mm3 (3.8-10.6)
[2025-02-07] MEDS: LEVOTHYROXINE SODIUM 25 MCG TABLET 50 MCG GT (05:24)
[2025-02-07] MEDS: HYDROcodone/APAP 5/325 TABLET 1 TAB GT ×2 (05:24→14:53)
[2025-02-07 05:33] VITALS: BMI 20.2
[2025-02-07 05:59] LABS: Alanine Aminotransferase 15 U/L (10-49); Albumin, Serum 3.8 gm/dL (3.5-5.0); Albumin/Globulin Ratio 1.1 (1.2-2.2); Alkaline Phosphatase 66 U/L (46-116); Anion Gap 8 (7-16); Aspartate Amino Transferase 17 U/L (0-34); BUN/Creatinine Ratio 31 Ratio (12-20); Bilirubin,Total 0.4 mg/dL (0.3-1.2); Blood Urea Nitrogen 22 mg/dL (9-23); Calcium (Corrected) 9.2 mg/dL (8.5-10.1); Chloride 105 mMol/L (98-107); Creatinine (Component) 0.7 mg/dL (0.6-1.3); Estimated Creatinine Clearance 115.8 mL/min (>60); Globulin 3.4 gm/dL (2.3-3.5); Glucose 125 mg/dL (74-106); Osmolality,Calculated 293 (275-295); Sodium 145 mMol/L (136-145); Total Protein 7.2 gm/dL (5.7-8.2); eGFR > 60 See Note
[2025-02-07 07:04] VITALS: PULSE 67; RESP 18; O2SAT 97
[2025-02-07 08:00] VITALS: BP 113/68; PULSE 67; PULSE 70; RESP 26; TEMP 36.1; O2SAT 97
[2025-02-07] MEDS: LITHIUM CARB 150 MG CAPSULE 900 MG GT (08:39)
[2025-02-07] MEDS: predniSONE 5 MG TABLET 10 MG PO (08:39)
[2025-02-07] MEDS: ASPIRIN 81 MG CHEW GT (08:39)
[2025-02-07] MEDS: MULTIVITAMIN 15 ML UDC GT (08:39)
[2025-02-07] MEDS: LANSOPRAZOLE 30 MG TAB.RAP.DR GT (08:39)
[2025-02-07] MEDS: VALPROIC ACID SYRUP 250 MG/5 ML UDC 750 MG GT (08:39)
[2025-02-07] MEDS: DOCUSATE SOD LIQD 100 MG/10 ML UDC PO (08:39)
[2025-02-07] MEDS: HEPARIN SOD INJ 5000 UNIT/ML VIAL SC (08:40)
[2025-02-07] MEDS: MORPHINE SULF INJ 10 MG/ML VIAL 2 MG IVP (08:43)
--- NOTE | 2025-02-07 10:14 | PC.SS ---
Addendum entered by Brisa Kahn 02/07/25 14:23: SS follow up note; PDC in the process of making payment arrangements with [facility]. SS contacted Ana and she informed SS that [facility] faxed paperwork, however Ana informed SS that they would need their property maintenance supervisor to review and confirm that they are able to go forward with transportation. Addendum entered by Brisa Kahn 02/07/25 12:27: SS follow up note; SS contacted Zhanna from [facility] and informed her that Transportation would need to be covered by [facility] and t [facility]. Zhanna informed SS that she would contact [facility] to provide payment. Zhanna informed SS that once payment is made, [facility] would contact SS to arrange transportation. SS will stand by for further needs. Addendum entered by Brisa Kahn 02/07/25 11:41: SS follow up note; SS was contacted by Jed, Patient's rn case mgr, who informed SS that all participants in the IDT meeting were in agreement with the plan for the patient to discharge to [facility]. Jed also informed SS that patient's sister, Tana was on board with decision and was aware that patient would be discharging today. Additionally, SS was contacted by Zhanna's registered nurse Coating Manager at [facility], who notified that patient's belongings would be delivered prior to 1:30PM today. SS then contacted Flory at [facility] and informed her that the patient's IDT team had reached a consensus supporting the patient's discharge to their facility. Flory requested the patient's PASSR, Discharge orders and medication list. SS will sent requested documentation to Flory at [facility]. SS will all need to get THANH form signed, patient does not have coverage for Transportation. SS contacted DietitianCristóbal as well to inform him that patient would be discharging today. Original Note: SS follow up note; SS followed up with patient's sister, she reported she might not be able to be present during the meeting with [facility]. Patient's sisterTana aware of patient's possible discharge disposition.
[2025-02-07] MEDS: azaTHIOprine 50 MG TABLET GT (10:56)
[2025-02-07 12:00] VITALS: BP 113/70; PULSE 73; PULSE 75; RESP 22; TEMP 37.4; O2SAT 96
--- NOTE | 2025-02-07 14:43 | PC.SS ---
SS follow up note; SS was contacted by [facility] which provided transportation time for 1650. SS contacted Flory from [facility] and provided her with ETA as well as patient's sister, Tana, SS left voice mail and provided address and contact number to [facility]. SS will stand by for further needs.
[2025-02-07 16:00] VITALS: BP 122/73; PULSE 71; PULSE 76; RESP 20; TEMP 36.4; O2SAT 96
--- NOTE | 2025-02-07 21:18 | ESDS_ITS ---
Planned Discharge Date 02/07/25 DS: Providers Provider Date of admission: 01/25/25 15:23 Primary care physician: Jah Bardales (GUERLINE)MD Admitting Provider: Jah OLMEDO)MD Attending Provider on Admission: Adriana Zaragoza MD Consults: 01/25/25 17:58 Consult to Neurology / Tele-Neurology Routine Comment: Consulting Provider: Tuan Dietz 01/26/25 10:31 Consult to Infectious Diseases Stat Comment: Consulting Provider: Chung Cline 01/29/25 13:25 Speech [Referral - [employer] R[facility] Cardiovascular Icu] Routine Comment: 01/30/25 10:17 Referral Physical Therapy Routine Comment: Physician Instructions: 02/02/25 13:34 Consult to Gastroenterology Routine Comment: PEG tube placement Consulting Provider: Anjel Anderson Instructions: MG gravis, s/p extubation with worsening dysphagia. The sister Tana is decision maker. I spoke with her over the phone and she gave verbal consent to place PEG tube. 02/02/25 21:32 Referral Registered Dietitian Urgent Comment: Attending Provider on DC: Adriana Zaragoza MD Discharging Provider: Adriana Zaragoza MD DS: Diagnosis Problem List Completed Was Problem List Reviewed/Reconciled?: Yes Hospital Course Hospital Course Hospital course: Ayo Argueta is 39 yr male with PMH of dysphagia, bipolar disorder, intellectual disability, leukocytosis, JACQUELINE, myasthenia gravis, thromboangiitis obliterans, acne vulgaris, solitary pulmonary nodule coming from [facility] per neurology due to myasthenia gravis flare. Patient was admitted on 01/25/25 [facility]. Patient sees Dr. Dietz who noticed increased weakness and increased salivary secretions. Last year patient had platelet count of 1,131,000 and started on enoxaparin 40 mg daily due to bedridden status. Currently taking aspirin daily. Completed video esophagram in 02/2024. It showed vallecular pooling and retention with pudding and crackers. Also showed silent aspiration with nectar and thin liquids. Diet was changed to ground food and honey thickened liquids. Dr. Dietz was consulted inpatient and was started on IVIG for 5 days, IV steroids, pyridostigmine for myasthenia gravis flare. 3 days into hospitalization, he had onset of myasthenia gravis crises requiring intubation and upgraded to ICU due to concern for airway protection. Patient remained in ICU for 2 days and extubated successfully. Completed 5-day course of IVIG and remained on steroids and pyridostigmine with addition of azathioprine. Post extubation, he had odynophagia was high risk of aspiration due to choking which lasted 4-[address] Anderson was consulted for PEG tube placement placed on 02/02 for paranteral feeding. Feedings were advanced to goal of 70 cc/h with good tolerance. I nfectious disease Dr Cline consulted as well for evaluation of left pulmonary cavitary lesion. There was low suspicion of tuberculosis however still worked up to rule out. 2 of 2 sputum stains collected during intubation were negative for AFB. He had no symptoms of active TB during stay. Most likely cavitary lesion is due to history of cocci. Patient remained calm, attentive, and non confrontational with agreeable demeanor during hospitalization. He worked with PT daily. Before transfer, speech therapy evaluated again and he was able to tolerate thick consistency foods such as pudding and thickened liquids such as 7-Up from the spoon. Patient is now cleared from medical standpoint. He will be transferred to nursing facility in [place] where he will be closer to family and facility able to manage PEG tube feeds. Discharge Recommendations: Repeat syphilis serology outpatient in 2 weeks. (Likely false positive) Continue taking PO pyridostigmine 60 mg every 6 hours, prednisone 10 mg daily, azathioprine 50 mg twice a day for treatment of myasthenia gravis. Follow-up with neurology in 1-2 weeks. They will need to adjust MG medication regimen and taper steroids. Follow up with speech therapy team for evaluation of swallowing. See PCP in 1-2 weeks. Hospital Diagnoses: #Myasthenia gravis flare -improving #Dysphagia #PEG tube feeds #Cavitary lesion #Syphilis, serology positive #Bipolar disorder #JACQUELINE #Thromboangitis obliterans #Solitary pulmonary nodule #Chronic thrombocystosis The patient's management plan was discussed with my attending physician Dr. Zaragoza. Nithya Arroyo MD, PGY-1 Time Spent with Patient Time attestation: Total time spent providing and/or coordinating discharge services: Time spent: Greater than 30 minutes Exam Vital Signs Temp Pulse Resp BP Pulse Ox O2 Del Method O2 Flow Rate 97.6 F 76 20 122/73 96 Room Air 2 02/07/25 16:00 02/07/25 16:00 02/07/25 16:00 02/07/25 16:00 02/07/25 16:00 02/07/25 16:00 02/07/25 08:00 FiO2 40 02/04/25 04:00 Narrative Exam General: Young male, tracking, No acute distress, cooperative, pleasant HEENT: NCAT, No JVD noted. Mucosa dry. Pupils are equal and reactive to light bilaterally Cardiovascular: Normal S1 and S2. Regular rate and rhythm. Respiratory: congestion, on NC Abdomen: Soft, nontender, not distended, normal bowel sounds.Abdominal binder Skin: Warm to touch, dry, red scaling skin on extremities Musculoskeletal: No gross injuries. Able to move all 4 extremities. LLE swelling (appears to be chronic problem), no erythema or tenderness. Neuro: Alert and oriented x3. No focal neuro deficits. Psych: Normal affect and mood Discharge Plan Plan Patient Disposition: Xfer Skilled Nsg Fac (SNF) Disposition Comment: Discharge to [facility]. Patient condition on transfer: Stable Prescriptions/Referrals Prescriptions/Med Rec: New pyridostigmine bromide 60 mg Tablet 60 mg G-tube Q6HR 30 Days Qty: 120 0RF scopolamine base 1 mg over 3 days Patch 3 Day 1 mg top Q3D PRN (Reason: Increased secretions) 30 Days Qty: 10 0RF azathioprine 50 mg Tablet 50 mg G-tube BID 30 Days Qty: 60 0RF prednisone 10 mg tablet 10 mg feeding tube QDAY 30 Days Qty: 30 0RF Continued multivitamin with iron-mineral Tablet 1 tab PO QDAY lithium carbonate 450 mg tablet extended release 900 mg PO QDAY 30 Days Qty: 0 0RF pantoprazole 40 mg tablet,delayed release (DR/EC) 40 mg PO QDAY 30 Days Qty: 0 0RF Changed acetaminophen 325 mg Tablet 650 mg feeding tube Q6H PRN (Reason: Fever Or Pain) 30 Days Qty: 0 0RF clozapine 100 mg tablet 300 mg feeding tube BID 30 Days Qty: 0 0RF aspirin [Ecotrin Low Strength] 81 mg tablet,delayed release (DR/EC) 81 mg feeding tube QDAY 30 Days Qty: 0 0RF valproic acid (as sodium salt) 250 mg/5 mL Solution 750 mg feeding tube BID 30 Days Qty: 0 0RF levothyroxine [Euthyrox] 50 mcg tablet 50 mcg feeding tube QDAY 30 Days Qty: 0 0RF mirtazapine 30 mg tablet 30 mg feeding tube QDAY 30 Days Qty: 0 0RF guanfacine 1 mg Tablet 1 mg PO BID PRN (Reason: cough) 30 Days Qty: 0 0RF docusate sodium 100 mg capsule 100 mg PO BID PRN (Reason: constipation) 30 Days Qty: 0 0RF clozapine 25 mg tablet 25 mg feeding tube QDAY 30 Days Qty: 0 0RF mirtazapine 7.5 mg tablet 7.5 mg feeding tube QDAY 30 Days Qty: 7 0RF Rx Instructions: 7.5 mg at 20:00 guanfacine 2 mg Tablet Extended Release 24 Hr 2 mg PO QDAY PRN (Reason: cough) 30 Days Qty: 0 0RF Referrals: Jeffy ([facility]MD Jah [Primary Care Provider] - Patient/Caregiver Discharge Instructions Other Discharge Activity Instructions:: Repeat syphilis serology outpatient in 2 weeks. Continue taking PO pyridostigmine 60 mg every 6 hours, prednisone 10 mg daily, azathioprine 50 mg twice a day for treatment of myasthenia gravis. Follow-up with neurology in 1-2 weeks. They will need to adjust MG medication regimen and taper steroids. Follow up with speech therapy team for evaluation of swallowing. See PCP in 1-2 weeks. Education Materials: Myasthenia Gravis Print Language: Chinese Stand Alone Forms: [employer] Award Info., Patient Portal Info Letter Discharge Order Discharge Orders: Discharge (Routine); Ordered 02/07/25 Ordered By: Nithya Arroyo Quality Discharge Quality Measures VTE prophylaxis Attestestation Attestation I attest that I was physically present for the evaluation, physical examination, lab and imaging review of the patient with the residents. I discussed the case with the residents and agree with the findings and plans of care as documented above. Adriana Zaragoza MD
== END 2025-02-07 17:07 | disposition skilled nursing facility (03) | DRG 56 ==
LOC: S3NX 01-26 09:14 → S2SX 01-29 10:31 → S3NX 01-30 10:47 → S2SX 01-30 10:47 → S2NX 01-30 15:08
PROVIDERS: Internal Medicine Infectious Disease; Specialist; Student in an Organized Health Care Education/Training Program; Admitting Provider Internal Medicine; PCP Internal Medicine; Visit Provider Student in an Organized Health Care Education/Training Program
PROC: 0DH63UZ Insertion of Feeding Device into Stomach, Percutaneous Approach (ICD-10-PCS; CPT 43246; principal; 2025-02-02 20:45)
DX: G70.01 Myasthenia gravis with (acute) exacerbation (principal); J69.0 Pneumonitis due to inhalation of food and vomit; J96.01 Acute respiratory failure with hypoxia; R91.1 Solitary pulmonary nodule; R13.10 Dysphagia, unspecified; F79 Unspecified intellectual disabilities; F31.9 Bipolar disorder, unspecified; G47.33 Obstructive sleep apnea (adult) (pediatric); I73.1 Thromboangiitis obliterans [Buerger's disease]; F17.200 Nicotine dependence, unspecified, uncomplicated; Z74.01 Bed confinement status; Z79.82 Long term (current) use of aspirin; Z91.199 Patient's noncompliance with other medical treatment and regimen due to unspecified reason; Z79.890 Hormone replacement therapy; B96.20 Unspecified Escherichia coli [E. coli] as the cause of diseases classified elsewhere; E03.9 Hypothyroidism, unspecified; D64.9 Anemia, unspecified; A53.9 Syphilis, unspecified; K11.7 Disturbances of salivary secretion; T85.848A Pain due to other internal prosthetic devices, implants and grafts, initial encounter; K59.00 Constipation, unspecified; Y83.3 Surgical operation with formation of external stoma as the cause of abnormal reaction of the patient, or of later complication, without mention of misadventure at the time of the procedure; Z90.49 Acquired absence of other specified parts of digestive tract; Z93.1 Gastrostomy status; R62.7 Adult failure to thrive
CPT/HCPCS: 36415; 36600; 71045; 71260; 74018; 80053; 80178; 82803; 83605; 83735; 84100; 84132; 84443; 85025; 85652; 86140; 86331; 86580; 86635; 86780; 87015; 87040; 87077; 87116; 87186; 87205; 87206; 87305; 89220; 92526; 92610; 93005; 94002; 94003; 94640; 94762; 97162; A4649; J0131; J0689; J0696; J1200; J1561; J1644; J1885; J2250; J2270; J2405; J2704; J2919; J3010; J3475; J3490; J7120; J7500; J7512; J7999; Q9967; A9270; J1836